=== PATIENT | male | born 1945 | race Caucasian/White ===

== ENCOUNTER 2016-03-27 08:17 | Day surgery (SDC) | payer MEDICARE ==
[2016-03-22 09:33] VITALS: BMI 20.3
[~2016-03-27 08:17] MED LIST: DEXAMETHASONE SOD PHOSPHATE 10 MG/ML 1 ML VIAL IV ONE; HEPARIN SODIUM,PORCINE 5,000 UNIT/ML 1 ML VIAL SQ ONE; LIDOCAINE 1% 20 ML VIAL (10MG/ML) FOR IV START INTRADERMA PRN; ONDANSETRON 4 MG/2 ML VIAL IVP ONE; ceFAZolin 2 GM in SODIUM CHLORIDE 0.9% 100 ML IVPB ONE
[2016-03-27] MEDS: LACTATED RINGERS 1,000 ML IV SCH (09:25)
[2016-03-27] MEDS ORDERED: LIDOCAINE 1% 20 ML VIAL (10MG/ML) FOR IV START INTRADERMA ONE (09:26)
[2016-03-27 09:31] VITALS: RESP 16
--- NOTE | 2016-03-27 10:05 | P.GSHP ---
History of Present Illness H&P Date: 03/27/16 Chief Complaint: Incarcerated right inguinal hernia This a 70-year-old male referred from Dr. Frank. Patient has had a history of a incarcerated inguinal hernia. He presents today for laparoscopic robotic system repair. - Constitutional Constitutional: Reports as per HPI Past Medical History Past Medical History: GERD/Reflux Additional Past Medical History / Comment(s): hernia rt lower abd, states "had Hep B or C back 1959's and now it's all healed" History of Any Multi-Drug Resistant Organisms: None Reported Past Surgical History: Back Surgery Additional Past Surgical History / Comment(s): hemorrhoid Past Anesthesia/Blood Transfusion Reactions: No Reported Reaction Additional Past Anesthesia/Blood Transfusion Reaction / Comment(s): no hx blood transfusion Additional Psychological History / Comment(s): currently under alot of stress, is recently discharge from hospital and at [facility] Smoking Status: Current every day smoker Past Alcohol Use History: None Reported Additional Past Alcohol Use History / Comment(s): started smoking at age 14,<1/ 2ppd Past Drug Use History: None Reported - Past Family History Mother Family Medical History: Cancer Father Family Medical History: Cancer Medications and Allergies Home Medications Medication Instructions Recorded Confirmed Type FLUoxetine HCL [PROzac] 20 mg PO HS 03/22/16 03/22/16 History Ranitidine HCl [Zantac] 150 mg PO BID PRN 03/22/16 03/22/16 History Allergies Allergy/AdvReac Type Severity Reaction Status Date / Time Penicillins Allergy Rash/Hives Verified 03/27/16 08:45 Surgical - Exam Vital Signs Temp Pulse Resp BP Pulse Ox 97.7 F 54 L 16 143/69 99 03/27/16 09:29 03/27/16 09:29 03/27/16 09:29 03/27/16 09:29 03/27/16 09:29 - General well developed, no distress - Eyes PERRL - ENT normal pinna - Neck no masses - Respiratory normal expansion - Cardiovascular Rhythm: regular - Abdomen Abdomen: soft, non tender (Incarcerated right inguinal hernia) Assessment and Plan Plan: Incarcerated right inguinal hernia. We'll perform laparoscopic robotic- assisted repair.
[2016-03-27] MEDS ORDERED: SUCCINYLCHOLINE CHLORIDE 100 MG/5 ML SYR IV ONE (10:27)
[2016-03-27] MEDS ORDERED: MIDAZOLAM 2 MG/2 ML VIAL ONE (10:27)
[2016-03-27] MEDS ORDERED: PROPOFOL 10 MG/ML 20 ML VIAL IV ONE (10:27)
[2016-03-27] MEDS ORDERED: ROCURONIUM BROMIDE 10 MG/ML 10 ML VIAL IV ONE (10:27)
[2016-03-27] MEDS ORDERED: LIDOCAINE 1% INJ 10MG/ML (20 ML MDV) ONE (10:27)
[2016-03-27] MEDS ORDERED: fentaNYL (PF) 50 MCG/ML 2 ML AMP ONE (10:27)
[2016-03-27] MEDS ORDERED: NEOSTIGMINE 1 MG/ML 10 ML VIAL ONE (10:27)
[2016-03-27] MEDS ORDERED: GLYCOPYRROLATE 0.2 MG/ML 2 ML VIAL ONE (10:27)
[2016-03-27] MEDS ORDERED: ePHEDrine 50 MG/ML 1 ML AMP ONE (10:27)
[2016-03-27] MEDS ORDERED: BUPIVACAIN-EPI 0.25%-1:200,000 30 ML VIAL SQ ONE ×2 (10:51)
--- NOTE | 2016-03-27 11:49 | P.OP ---
Date of Procedure: 03/27/16 Preoperative Diagnosis: Incarcerated right inguinal hernia Postoperative Diagnosis: Incarcerated right inguinal hernia Umbilical hernia Procedure(s) Performed: Laparoscopic robotic-assisted repair of incarcerated right inguinal hernia Laparoscopic repair of umbilical hernia Anesthesia: AELX Surgeon: Jay Jay Johnson Estimated Blood Loss (ml): 5 Pathology: none sent Condition: stable Disposition: PACU Description of Procedure: The patient's placed on the operating table in the supine position. The patient received general anesthesia. The patient's abdomen was prepped and draped in usual sterile fashion. The skin was anesthetized 1% local Xylocaine at the incision sites. Patient on palpation was found to have a small umbilical hernia. Using an 11 blade a skin incision was made at the umbilicus. The fascia was grasped with a [place] and then the peritoneal cavity was entered with the Veress needle. Position of the Veress needle was confirmed with a positive drop test. After adequate insufflation a 5 mm trocar was placed into the peritoneal cavity. The Laparoscope was placed the peritoneal cavity. The patient was noted to have a large urinary bladder. He had voided prior to the procedure. However a Mohamud cath was placed and 1400 mL of urine was found in the bladder. And a robotic 8 mm trocar was placed in the right lateral position and then another 8 mm robotic trochars placed in the left lateral position. The original 5 mm trocar was exchanged for a 12 mm trocar. The patient was placed in reverse Trendelenburg and then the patient was docked to the robot. Next the peritoneum over top of the hernia was incised and then using blunt and sharp dissection and electrocautery the hernia sac was dissected free from the floor of the inguinal canal. The hernia sac was completely reduced into the peritoneal cavity. And then using the Pro case finishing machine adjuster mesh the hernia was repaired. The peritoneum was then sutured with 20V lock suture. The patient was then undocked the robot. The needle was withdrawn from the peritoneal cavity. The umbilical hernia site was closed with 0 Ethibond suture. This was closed laparoscopically with the Bigg Longoria suture passer. The skin was closed interrupted 3-0 Monocryl suture. Dermabond dressing was applied. Patient was sent to recovery in stable condition.
[2016-03-27 12:00] VITALS: TEMP 96.8
[2016-03-27] MEDS ORDERED: KETOROLAC 30 MG/ML 1 ML VIAL IVP ONE (12:08)
[2016-03-27] MEDS: HYDROmorphone 1 MG/ML 1 ML SYRINGE IVP PRN ×2 (12:19→12:28)
[2016-03-27] MEDS ORDERED: LACTATED RINGERS 1,000 ML IV ONE ×2 (13:34→16:45)
[2016-03-27] MEDS ORDERED: HYDROcodone/APAP 7.5-325MG 1 EACH TAB PO ONE (14:12)
[2016-03-27 18:23] VITALS: BP 121/70; PULSE 79
== END 2016-03-27 18:08 | disposition home or self-care (01) ==
LOC: OR 08:17
PROVIDERS: ATTEND Surgery
DX: K40.30 Unilateral inguinal hernia, with obstruction, without gangrene, not specified as recurrent (principal); K42.9 Umbilical hernia without obstruction or gangrene; K21.9 Gastro-esophageal reflux disease without esophagitis; F32.9 Major depressive disorder, single episode, unspecified; F17.200 Nicotine dependence, unspecified, uncomplicated; Z79.899 Other long term (current) drug therapy; Z88.0 Allergy status to penicillin
CPT/HCPCS: 49650; 49652; C1781; J2250; J1644; J1100; J2710; J0690; J2001; J3010; J1885; J1170; J0330; J2704

== ENCOUNTER → 2016-04-08 | Outpatient (CLI) | payer OTHER ==
--- NOTE | 2016-04-08 12:11 | FL ---
Esophagram Indication: dysphagia Esophagram is performed utilizing double air contrast technique Esophagus dilates to normal caliber has normal contour to the gastroesophageal junction. Gastroesopha geal junction opens to normal caliber. There is some mild hesitancy of contrast emptying to the gastr oesophageal junction. Focal persistent stenosis however is not identified. IMPRESSIONS: 1. Some hesitancy of emptying into the stomach. Focal stenosis however is not identified.
== END | disposition home or self-care (01) ==
LOC: RADFLWHC 09:25
PROVIDERS: ATTEND Physician Assistant Medical
DX: R13.10 Dysphagia, unspecified (principal)
CPT/HCPCS: 74220

== ENCOUNTER 2016-04-11 10:51 | Emergency (ER) | payer MEDICARE, OTHER ==
[2016-04-11] MEDS ORDERED: SODIUM CHLORIDE 0.9% 500 ML IV STA (12:01)
--- NOTE | 2016-04-11 12:11 | ED ---
General Adult HPI - General Chief complaint: Recheck/Abnormal Lab/Rx Stated complaint: POST OP PROBLEM, CONSTIPATION, NO APPETITE Time Seen by Provider: 04/11/16 11:50 Source: patient, RN notes reviewed, old records reviewed Mode of arrival: wheelchair Limitations: no limitations - History of Present Illness Initial comments: 70-year-old male presenting for constipation and hematuria. Patient states that he had a right inguinal hernia repair about [address] Johnson[address] He states since that time he has not had any bowel movements. He states he's been feeling some abdominal discomfort but no specific pain. He states that the pain in his right groin has been gradually improving. He states over the past few days he's noticed some hematuria when he goes to the bathroom after waking up in the morning. He denies any fevers or chills. He denies any nausea or vomiting. He states he has had depressed appetite, however, since the surgery. He denies any chest pain or shortness breath. - Related Data Home Medications Medication Instructions Recorded Confirmed FLUoxetine HCL [PROzac] 20 mg PO HS 03/22/16 04/11/16 Tamsulosin [Flomax] 0.4 mg PO DAILY 04/11/16 04/11/16 Previous Rx's Medication Instructions Recorded Docusate [Colace] 100 mg PO BID #20 capsule 04/11/16 Sulfamethox-Tmp 800-160Mg [Bactrim 1 each PO Q12HR #14 tab 04/11/16 Ds] Allergies Allergy/AdvReac Type Severity Reaction Status Date / Time Penicillins Allergy Rash/Hives Verified 04/11/16 11:57 Review of Systems ROS Statement: Those systems with pertinent positive or pertinent negative responses have been documented in the HPI. ROS Other: All systems not noted in ROS Statement are negative. Past Medical History Past Medical History: GERD/Reflux Additional Past Medical History / Comment(s): hernia rt lower abd, states "had Hep B or C back 1960's and now it's all healed" History of Any Multi-Drug Resistant Organisms: None Reported Past Surgical History: Back Surgery, Hernia Repair Additional Past Surgical History / Comment(s): hemorrhoid Past Anesthesia/Blood Transfusion Reactions: No Reported Reaction Additional Past Anesthesia/Blood Transfusion Reaction / Comment(s): no hx blood transfusion Past Psychological History: No Psychological Hx Reported Additional Psychological History / Comment(s): currently under alot of stress, is recently discharge from hospital and at [facility] Smoking Status: Current every day smoker Past Alcohol Use History: None Reported Additional Past Alcohol Use History / Comment(s): started smoking at age 14,<1/ 2ppd Past Drug Use History: None Reported - Past Family History Mother Family Medical History: Cancer Father Family Medical History: Cancer General Exam - General Exam Comments Initial Comments: General: Awake and Alert. No acute distress. Does not appear acutely ill. Eyes: JEREMIAH, EOM intact. No nystagmus. No scleral icterus. HENT: Atraumatic, normocephalic. Mucous membranes moist. Trachea midline. Neck: The neck is supple, there is no tenderness or JVD. Cardiovascular: Regular rate and rhythm. No murmur, rub, or gallop is appreciated. Distal pulses intact. Respiratory: Lungs are clear to auscultation bilaterally. No wheezes, rales, rhonchi. No respiratory distress. Gastrointestinal: Soft, Nontender. No rebound or guarding. Mild distension. No masses or organomegaly noted. No CVA tenderness. Well-healed laparoscopic incision sites in the abdomen. Genitourinary: Right groin without swelling. Mild tenderness in the right inguinal area. Penis appears normal. No testicular tenderness. Musculoskeletal: No tenderness. Normal ROM. No gross deformity. No strength deficits. Neurological: A&Ox3. CN II-XII grossly intact, There are no obvious motor or sensory deficits. Coordination appears grossly intact. Speech is normal. Skin: Skin is warm and dry and no rashes or lesions are noted. Psychiatric: Cooperative, appropriate mood & affect, normal judgment. Limitations: no limitations Course Vital Signs 04/11/16 04/11/16 04/11/16 10:57 14:04 15:42 Temperature 98.2 F 98 F 96.9 F L Pulse Rate 88 79 87 Respiratory 20 20 18 Rate Blood Pressure 123/76 134/65 111/73 O2 Sat by Pulse 98 97 95 Oximetry Medical Decision Making - Medical Decision Making 70-year-old male presenting for constipation and urinary complaints. Patient with recent inguinal hernia repair. He appears to be healing well from his prior surgery. There is no evidence of any abdominal tenderness or acute peritonitis at this time. However he has had persistent constipation. He has intermittently tried stool softeners without affect. Basic labs appear unremarkable. Abdominal x-ray does show significant stool load although no evidence of any obstruction at this time. Patient was given an enema with a good bowel movement. He states he is feeling much better after this. Given no evidence of obstruction, plan for treatment with mag citrate as needed. Discussed stool softeners as well to be used twice a day until bowel movements return to normal then when necessary. Urine does show evidence of urinary tract infection, patient was given initial dose of Bactrim the ED. Plan for Rx for Bactrim. Discussed close follow-up with Dr. Johnson. Discussed concerning signs symptoms for immediate return to the ED. Patient is agreeable to plan and discharge home. - Lab Data Result diagrams: 04/11/16 12:20 Lab Results 04/11/16 04/11/16 Range/Units 12:20 12:20 Sodium 139 (137-145) mmol/L Potassium 4.3 (3.5-5.1) mmol/L Chloride 103 (98-107) mmol/L Carbon Dioxide 25 (22-30) mmol/L Anion Gap 11 mmol/L BUN 14 (9-20) mg/dL Creatinine 0.92 (0.66-1.25) mg/dL Est GFR (MDRD) Af Amer >60 (>60 ml/min/1.73 sqM) Est GFR (MDRD) Non-Af >60 (>60 ml/min/1.73 sqM) Glucose 101 H (74-99) mg/dL Calcium 9.5 (8.4-10.2) mg/dL Magnesium 2.3 (1.6-2.3) mg/dL Total Bilirubin 0.6 (0.2-1.3) mg/dL AST 17 (17-59) U/L ALT 34 (21-72) U/L Alkaline Phosphatase 73 (38-126) U/L Total Protein 6.7 (6.3-8.2) g/dL Albumin 3.5 (3.5-5.0) g/dL Lipase 120 (23-300) U/L Urine Color Dark Red Urine Appearance Turbid (Clear) Urine pH 6.5 (5.0-8.0) Ur Specific [place] 1.025 (1.001-1.035) Urine Protein 3+ H (Negative) Urine Glucose (UA) Negative (Negative) Urine Ketones Negative (Negative) Urine Blood Large H (Negative) Urine Nitrate Negative (Negative) Urine Bilirubin Negative (Negative) Urine Urobilinogen <2.0 (<2.0) mg/dL Ur Leukocyte Esterase Large H (Negative) Urine RBC >182 H (0-5) /hpf Urine WBC >182 H (0-5) /hpf Urine Mucus Many H (None) /hpf - Radiology Data Radiology results: report reviewed, image reviewed Disposition Clinical Impression: Constipation, UTI (urinary tract infection) Disposition: HOME SELF-CARE Condition: Stable Instructions: Constipation (ED), Urinary Tract Infection in Men (ED) Prescriptions: Docusate [Colace] 100 mg PO BID #20 capsule Sulfamethox-Tmp 800-160Mg [Bactrim Ds] 1 each PO Q12HR #14 tab Referrals: None,Stated [Primary Care Provider] - 1-2 days Time of Disposition: 15:22 - Out of Hospital Transfer - Req. Specs Out of Hospital Transfer - Requested Specifics: Burn ICU
[2016-04-11 12:55] LABS: ALT 34 U/L (21-72); AST 17 U/L (17-59); Alkaline Phosphatase 73 U/L (38-126); Anion Gap 11 mmol/L; Appearance,Urine Turbid (Clear); Bilirubin,Urine Negative (Negative); Blood Urea Nitrogen 14 mg/dL (9-20); Calcium 9.5 mg/dL (8.4-10.2); Carbon Dioxide 25 mmol/L (22-30); Chloride 103 mmol/L (98-107); Glucose 101 mg/dL (74-99); Glucose,Urine (UA) Negative (Negative); Ketones,Urine Negative (Negative); Leukocyte Esterase,Urine Large (Negative); Magnesium 2.3 mg/dL (1.6-2.3); Mucus,Urine Many /hpf; Nitrite,Urine Negative (Negative); Non-African American GFR(MDRD) >60 (>60 ml/min/1.73 sqM); PH, Urine 6.5 (5.0-8.0); Particle Count 220918; Potassium 4.3 mmol/L (3.5-5.1); Protein,Urine 3+ (Negative); RBC,Urine >182 /hpf (0-5); Sodium 139 mmol/L (137-145); Total Bilirubin 0.6 mg/dL (0.2-1.3); Total Protein 6.7 g/dL (6.3-8.2); UA Billing (MACRO vs. MICRO) MICRO; Urobilinogen,Urine <2.0 mg/dL (<2.0); WBC,Urine >182 /hpf (0-5)
[2016-04-11 13:09] LABS: Specific Gravity,Urine 1.025 (1.001-1.035)
[2016-04-11] MEDS ORDERED: SULFAMETHOX-TMP 800-160MG 1 EACH TAB PO STA (13:26)
--- NOTE | 2016-04-11 13:35 | XR ---
EXAMINATION TYPE: XR KUB DATE OF EXAM: 04/11/2016 1:28 PM COMPARISON: NONE HISTORY: Pain TECHNIQUE: Single supine KUB image of the abdomen is obtained FINDINGS: Small bowel demonstrates no evidence for dilatation or air fluid levels. Gas and fecal material is seen in non-distended colon. Retained contrast is seen within the colon. No convincing evidence for pneumoperitoneum. No unusual calcifications. The lung bases are clear. The osseous structures are intact. IMPRESSION: 1. Overall nonobstructive bowel gas pattern.
[2016-04-11] MEDS ORDERED: MAGNESIUM CITRATE 296 ML BOTTLE PO ONE (14:33)
[2016-04-11 15:42] VITALS: BP 111/73; PULSE 87; RESP 18; TEMP 96.9
== END 2016-04-11 15:42 | disposition home or self-care (01) ==
LOC: EC 10:51
DX: K59.00 Constipation, unspecified (principal); N39.0 Urinary tract infection, site not specified; Z98.890 Other specified postprocedural states; K21.9 Gastro-esophageal reflux disease without esophagitis; Z79.899 Other long term (current) drug therapy; Z88.0 Allergy status to penicillin; F17.200 Nicotine dependence, unspecified, uncomplicated
CPT/HCPCS: 36415; 74000; 80053; 81001; 83690; 83735; 96360; 99283

== ENCOUNTER 2017-07-11 20:00 | Emergency (ER) | payer MEDICARE, OTHER ==
[2017-07-11] MEDS ORDERED: ONDANSETRON 4 MG/2 ML VIAL IVP STA (20:53)
[2017-07-11] MEDS ORDERED: FAMOTIDINE 20 MG/2 ML VIAL IV STA (20:53)
[2017-07-11] MEDS ORDERED: SODIUM CHLORIDE 0.9% 500 ML IV STA (20:53)
--- NOTE | 2017-07-11 20:55 | ED ---
General Adult HPI - General Chief complaint: Nausea/Vomiting/Diarrhea Stated complaint: Vomiting Time Seen by Provider: 07/11/17 20:32 Source: patient, family, RN notes reviewed Mode of arrival: wheelchair Limitations: no limitations - History of Present Illness Initial comments: Patient is a pleasant 72-year-old male presenting to the emergency Department with complaints of nausea and vomiting. Patient has not felt well for the past couple of days. Patient started vomiting around 45 this afternoon. Patient has been somewhat constipated recently. No diarrhea. No abdominal pain. No fevers. This is not a chronic problem for the patient. - Related Data Home Medications Medication Instructions Recorded Confirmed Magnesium 200 mg PO DAILY 07/11/17 07/11/17 Previous Rx's Medication Instructions Recorded Ondansetron Odt [Zofran Odt] 4 mg PO Q8HR PRN #10 tab 07/11/17 Sulfamethox-Tmp 800-160Mg [Bactrim 1 each PO Q12HR #20 tab 07/11/17 DS 800-160 mg] Allergies Allergy/AdvReac Type Severity Reaction Status Date / Time Penicillins Allergy Rash/Hives Verified 07/11/17 20:16 Review of Systems ROS Statement: Those systems with pertinent positive or pertinent negative responses have been documented in the HPI. ROS Other: All systems not noted in ROS Statement are negative. Constitutional: Denies: fever, chills Eyes: Denies: eye pain ENT: Denies: ear pain Respiratory: Denies: cough, dyspnea Cardiovascular: Denies: chest pain, palpitations Endocrine: Reports: fatigue Gastrointestinal: Reports: nausea, vomiting. Denies: abdominal pain Genitourinary: Denies: dysuria Musculoskeletal: Denies: back pain Skin: Denies: rash Neurological: Denies: weakness Past Medical History Past Medical History: GERD/Reflux Additional Past Medical History / Comment(s): hernia rt lower abd, states "had Hep B or C back 1960's and now it's all healed" History of Any Multi-Drug Resistant Organisms: None Reported Past Surgical History: Back Surgery, Hernia Repair Additional Past Surgical History / Comment(s): hemorrhoid Past Anesthesia/Blood Transfusion Reactions: No Reported Reaction Additional Past Anesthesia/Blood Transfusion Reaction / Comment(s): no hx blood transfusion Past Psychological History: No Psychological Hx Reported Smoking Status: Current every day smoker Past Alcohol Use History: None Reported Past Drug Use History: None Reported - Past Family History Mother Family Medical History: Cancer Father Family Medical History: Cancer General Exam Limitations: no limitations General appearance: alert, in no apparent distress Head exam: Present: atraumatic Eye exam: Present: normal appearance ENT exam: Present: normal oropharynx Neck exam: Present: normal inspection Respiratory exam: Present: normal lung sounds bilaterally Cardiovascular Exam: Present: regular rate, normal rhythm GI/Abdominal exam: Present: soft, normal bowel sounds. Absent: distended, tenderness, guarding, rebound, rigid, pulsatile mass Extremities exam: Present: normal inspection Neurological exam: Present: alert Psychiatric exam: Present: normal affect, normal mood Skin exam: Present: normal color Course Vital Signs 07/11/17 07/11/17 07/11/17 20:02 20:04 21:04 Temperature 98.6 F Pulse Rate 72 81 78 Respiratory 18 18 18 Rate Blood Pressure 121/77 135/63 123/73 O2 Sat by Pulse 97 97 97 Oximetry 07/11/17 22:00 Temperature Pulse Rate 69 Respiratory 18 Rate Blood Pressure 103/62 O2 Sat by Pulse 97 Oximetry Medical Decision Making - Medical Decision Making Patient reevaluated and resting comfortably in bed. Patient and family updated on results. Patient is requesting discharge home. - Lab Data Result diagrams: 07/11/17 20:25 07/11/17 20:25 Lab Results 07/11/17 07/11/17 07/11/17 Range/Units 20:25 20:25 20:25 WBC 10.7 H (3.8-10.6) k/uL RBC 5.37 (4.30-5.90) m/uL Hgb 15.9 (13.0-17.5) gm/dL Hct 46.4 (39.0-53.0) % MCV 86.3 (80.0-100.0) fL MCH 29.5 (25.0-35.0) pg MCHC 34.2 (31.0-37.0) g/dL RDW 12.4 (11.5-15.5) % Plt Count 219 (150-450) k/uL Neutrophils % 94 % Lymphocytes % 3 % Monocytes % 2 % Eosinophils % 1 % Basophils % 0 % Neutrophils # 10.0 H (1.3-7.7) k/uL Lymphocytes # 0.3 L (1.0-4.8) k/uL Monocytes # 0.2 (0-1.0) k/uL Eosinophils # 0.1 (0-0.7) k/uL Basophils # 0.0 (0-0.2) k/uL Sodium 140 (137-145) mmol/L Potassium 4.5 (3.5-5.1) mmol/L Chloride 101 (98-107) mmol/L Carbon Dioxide 26 (22-30) mmol/L Anion Gap 13 mmol/L BUN 18 (9-20) mg/dL Creatinine 0.95 (0.66-1.25) mg/dL Est GFR (CKD-EPI)AfAm >90 (>60 ml/min/1.73 sqM) Est GFR (CKD-EPI)NonAf 80 (>60 ml/min/1.73 sqM) Glucose 124 H (74-99) mg/dL Calcium 9.5 (8.4-10.2) mg/dL Total Bilirubin 0.7 (0.2-1.3) mg/dL AST 21 (17-59) U/L ALT 22 (21-72) U/L Alkaline Phosphatase 85 (38-126) U/L Total Protein 7.3 (6.3-8.2) g/dL Albumin 4.3 (3.5-5.0) g/dL Amylase 60 (30-110) U/L Lipase 98 (23-300) U/L Urine Color Light Red Urine Appearance Turbid (Clear) Urine pH 7.0 (5.0-8.0) Ur Specific [place] 1.022 (1.001-1.035) Urine Protein 2+ H (Negative) Urine Glucose (UA) Negative (Negative) Urine Ketones 1+ H (Negative) Urine Blood Moderate H (Negative) Urine Nitrite Positive (Negative) Urine Bilirubin Negative (Negative) Urine Urobilinogen <2.0 (<2.0) mg/dL Ur Leukocyte Esterase Large H (Negative) Urine RBC 133 H (0-5) /hpf Urine WBC >182 H (0-5) /hpf Ur Squamous Epith Cells 1 (0-4) /hpf Urine Bacteria Rare H (None) /hpf Urine Mucus Few H (None) /hpf Urine Yeast (Budding) Many H (None) /hpf - Radiology Data Radiology results: image reviewed (Abdominal x-ray shows no acute abnormality.) Disposition Clinical Impression: Vomiting, Urinary tract infection Disposition: HOME SELF-CARE Condition: Stable Instructions: Acute Nausea and Vomiting (ED), Urinary Tract Infection in Men ( ED) Additional Instructions: Please follow-up with your primary care physician in the next day or 2 for recheck. Please have your doctor review urine culture results. Return for vomiting, weakness, fevers, worsening symptoms or other concerns. Prescriptions: Ondansetron Odt [Zofran Odt] 4 mg PO Q8HR PRN #10 tab PRN Reason: Nausea Sulfamethox-Tmp 800-160Mg [Bactrim DS 800-160 mg] 1 each PO Q12HR #20 tab Is patient prescribed a controlled substance at d/c from ED?: No Referrals: [facility],Clinic [Primary Care Provider] - 1-2 days Time of Disposition: 22:43
[2017-07-11 21:05] LABS: Basophils % (A) 0 %; Eosinophils # (A) 0.1 k/uL (0-0.7); Eosinophils % (A) 1 %; HCT 46.4 % (39.0-53.0); HGB 15.9 gm/dL (13.0-17.5); Lymphocytes # (A) 0.3 k/uL (1.0-4.8); Lymphocytes % (A) 3 %; MCH 29.5 pg (25.0-35.0); MCHC 34.2 g/dL (31.0-37.0); MCV 86.3 fL (80.0-100.0); Mean Platelet Volume 7.3; Monocytes # (A) 0.2 k/uL (0-1.0); Monocytes % (A) 2 %; Neutrophils % (A) 94 %; Platelet Count 219 k/uL (150-450); RBC 5.37 m/uL (4.30-5.90); RDW 12.4 % (11.5-15.5); WBC 10.7 k/uL (3.8-10.6)
[2017-07-11 21:19] LABS: ALT 22 U/L (21-72); AST 21 U/L (17-59); Albumin 4.3 g/dL (3.5-5.0); Alkaline Phosphatase 85 U/L (38-126); Amylase 60 U/L (30-110); Anion Gap 13 mmol/L; Blood Urea Nitrogen 18 mg/dL (9-20); Calcium 9.5 mg/dL (8.4-10.2); Carbon Dioxide 26 mmol/L (22-30); Chloride 101 mmol/L (98-107); Glucose 124 mg/dL (74-99); Lipase 98 U/L (23-300); Potassium 4.5 mmol/L (3.5-5.1); Sodium 140 mmol/L (137-145); Total Bilirubin 0.7 mg/dL (0.2-1.3); Total Protein 7.3 g/dL (6.3-8.2)
[2017-07-11 21:21] LABS: Appearance,Urine Turbid (Clear); Bacteria,Urine Rare /hpf; Bilirubin,Urine Negative (Negative); Blood,Urine Moderate (Negative); Budding Yeast,Urine Many /hpf; Color,Urine Light Red; Glucose,Urine (UA) Negative (Negative); Ketones,Urine 1+ (Negative); Leukocyte Esterase,Urine Large (Negative); Mucus,Urine Few /hpf; Nitrite,Urine Positive (Negative); Protein,Urine 2+ (Negative); RBC,Urine 133 /hpf (0-5); Specific Gravity,Urine 1.022 (1.001-1.035); Squamous Epithelial Cell,Urine 1 /hpf (0-4); Urobilinogen,Urine <2.0 mg/dL (<2.0); WBC,Urine >182 /hpf (0-5)
--- NOTE | 2017-07-11 21:23 | XR ---
History nausea and vomiting. Comparison 04/11/2016. Technique 2 views. FINDINGS: Bowel gas pattern is normal. There is no sign of intestinal obstruction or pneumoperitoneum. Fecal pa ttern is normal. Lung bases are clear. There are no pathologic calcifications. There is no evidence o f a mass. CONCLUSION: Nonacute abdomen. No change.
[2017-07-11] MEDS ORDERED: SULFAMETHOX-TMP 800-160MG 1 EACH TAB PO STA (22:40)
[2017-07-11 22:52] VITALS: BP 104/69; PULSE 78; RESP 20; TEMP 98.7
== END 2017-07-11 22:52 | disposition home or self-care (01) ==
LOC: EC 20:00
DX: N39.0 Urinary tract infection, site not specified (principal); R11.10 Vomiting, unspecified; K59.00 Constipation, unspecified; F17.200 Nicotine dependence, unspecified, uncomplicated; Z79.899 Other long term (current) drug therapy; Z88.0 Allergy status to penicillin
CPT/HCPCS: 36415; 80053; 82150; 83690; 85025; 81001; 74018; 99284; 96374; 96375; 96361 ×2; J2405

== ENCOUNTER 2017-07-15 15:09 | Emergency (ER) | payer MEDICARE, OTHER ==
[2017-07-15] MEDS ORDERED: SODIUM CHLORIDE 0.9% 1,000 ML IV STA (17:18)
--- NOTE | 2017-07-15 17:23 | ED ---
General Adult HPI - General Chief complaint: Abdominal Pain Stated complaint: Constipation Time Seen by Provider: 07/15/17 17:10 Source: patient, RN notes reviewed Mode of arrival: ambulatory Limitations: no limitations - History of Present Illness Initial comments: 72-year-old male presented to the emergency room today with chief complaint of abdominal pain off and on over the last 5 days. Patient does admit that he had a small bowel movement 5 days ago but is unable to have foam since. States he believes he is constipated. States had from similar to this in the past where he needed to have an enema. Does admit that he has urinary catheter because he had some retention and is fussy urology tomorrow have it possibly taken out. Patient denies any other complaints or symptoms currently. Patient denies any recent fever, chills, shortness of breath, chest pain, back pain, nausea or vomiting, numbness or tingling, dysuria or hematuria, diarrhea, headaches or visual changes, or any other complaints. - Related Data Home Medications Medication Instructions Recorded Confirmed Magnesium 200 mg PO DAILY 07/11/17 07/15/17 Sulfamethox-Tmp 800-160Mg [Bactrim 1 tab PO Q12HR 07/15/17 07/15/17 DS 800-160 mg] Previous Rx's Medication Instructions Recorded Ondansetron Odt [Zofran Odt] 4 mg PO Q8HR PRN #10 tab 07/11/17 Allergies Allergy/AdvReac Type Severity Reaction Status Date / Time Penicillins Allergy Rash/Hives Verified 07/15/17 16:59 Review of Systems ROS Statement: Those systems with pertinent positive or pertinent negative responses have been documented in the HPI. ROS Other: All systems not noted in ROS Statement are negative. Past Medical History Past Medical History: GERD/Reflux Additional Past Medical History / Comment(s): hernia rt lower abd, states "had Hep B or C back 1960's and now it's all healed", uti History of Any Multi-Drug Resistant Organisms: None Reported Past Surgical History: Back Surgery, Hernia Repair Additional Past Surgical History / Comment(s): hemorrhoid Past Anesthesia/Blood Transfusion Reactions: No Reported Reaction Additional Past Anesthesia/Blood Transfusion Reaction / Comment(s): no hx blood transfusion Past Psychological History: No Psychological Hx Reported Smoking Status: Current every day smoker Past Alcohol Use History: None Reported Past Drug Use History: None Reported - Past Family History Mother Family Medical History: Cancer Father Family Medical History: Cancer General Exam - General Exam Comments Initial Comments: General: The patient is awake and alert, in no distress, and does not appear acutely ill. Eye: Pupils are equal, round and reactive to light, extra-ocular movements are intact. No nystagmus. There is normal conjunctiva bilaterally. No signs of icterus. Ears, nose, mouth and throat: There are moist mucous membranes and no oral lesions. Neck: The neck is supple, there is no tenderness or JVD. Cardiovascular: There is a regular rate and rhythm. No murmur, rub or gallop is appreciated. Respiratory: Lungs are clear to auscultation, respirations are non-labored, breath sounds are equal. No wheezes, stridor, rales, or rhonchi. Gastrointestinal: Soft, non-distended, non-tender abdomen without masses or organomegaly noted. There is no rebound or guarding present. No CVA tenderness. Musculoskeletal: Normal ROM, no tenderness. Strength 5/5. Sensation intact. Pulses equal bilaterally 2+. Neurological: A&O x 3. CN II-XII intact, There are no obvious motor or sensory deficits. Coordination appears grossly intact. Speech is normal. Skin: Skin is warm and dry and no rashes or lesions are noted. Psychiatric: Cooperative, appropriate mood & affect, normal judgment. Limitations: no limitations Course Vital Signs 07/15/17 15:15 Temperature 98 F Pulse Rate 89 Respiratory 18 Rate Blood Pressure 112/76 O2 Sat by Pulse 97 Oximetry Medical Decision Making - Medical Decision Making Patient reexamined at this time shows no signs of distress. He does not that he is feeling much better here in the emergency room. His x-ray was reviewed no sign of obstruction. Patient was given enema here the emergency room. He was able to have a bowel movement. Patient's urinalysis does show a infection. Was compared to previous lab on 07/11/2017 and does show improvement. He does have an indwelling catheter that he supposed to see urology with tomorrow. Patient currently on Bactrim. This should be improvement was no culture at this time we'll continue patient on Bactrim he will follow up with urologist tomorrow. Advised return for any other concerns. - Lab Data Result diagrams: 07/15/17 18:17 07/15/17 18:17 Lab Results 07/15/17 07/15/17 07/15/17 Range/Units 18:17 18:17 18:17 WBC 4.2 (3.8-10.6) k/uL RBC 4.83 (4.30-5.90) m/uL Hgb 14.2 (13.0-17.5) gm/dL Hct 41.1 (39.0-53.0) % MCV 85.1 (80.0-100.0) fL MCH 29.4 (25.0-35.0) pg MCHC 34.6 (31.0-37.0) g/dL RDW 12.7 (11.5-15.5) % Plt Count 225 (150-450) k/uL Neutrophils % 58 % Lymphocytes % 32 % Monocytes % 5 % Eosinophils % 2 % Basophils % 1 % Neutrophils # 2.5 (1.3-7.7) k/uL Lymphocytes # 1.4 (1.0-4.8) k/uL Monocytes # 0.2 (0-1.0) k/uL Eosinophils # 0.1 (0-0.7) k/uL Basophils # 0.0 (0-0.2) k/uL Sodium 139 (137-145) mmol/L Potassium 4.4 (3.5-5.1) mmol/L Chloride 106 (98-107) mmol/L Carbon Dioxide 23 (22-30) mmol/L Anion Gap 10 mmol/L BUN 11 (9-20) mg/dL Creatinine 1.12 (0.66-1.25) mg/dL Est GFR (CKD-EPI)AfAm 75 (>60 ml/min/1.73 sqM) Est GFR (CKD-EPI)NonAf 65 (>60 ml/min/1.73 sqM) Glucose 92 (74-99) mg/dL Calcium 9.1 (8.4-10.2) mg/dL Total Bilirubin 0.3 (0.2-1.3) mg/dL AST 17 (17-59) U/L ALT 21 (21-72) U/L Alkaline Phosphatase 67 (38-126) U/L Total Protein 6.3 (6.3-8.2) g/dL Albumin 3.7 (3.5-5.0) g/dL Amylase 64 (30-110) U/L Lipase 116 (23-300) U/L Urine Color Yellow Urine Appearance Cloudy (Clear) Urine pH 6.0 (5.0-8.0) Ur Specific [place] 1.020 (1.001-1.035) Urine Protein 1+ H (Negative) Urine Glucose (UA) Negative (Negative) Urine Ketones Trace H (Negative) Urine Blood Moderate H (Negative) Urine Nitrite Negative (Negative) Urine Bilirubin Negative (Negative) Urine Urobilinogen <2.0 (<2.0) mg/dL Ur Leukocyte Esterase Large H (Negative) Urine RBC 86 H (0-5) /hpf Urine WBC 129 H (0-5) /hpf Ur Squamous Epith Cells <1 (0-4) /hpf Amorphous Sediment Rare H (None) /hpf Urine Bacteria Rare H (None) /hpf Urine Mucus Rare H (None) /hpf Disposition Clinical Impression: UTI (urinary tract infection), Constipation Disposition: HOME SELF-CARE Condition: Good Instructions: Constipation (ED) Additional Instructions: Please follow-up urologist tomorrow. Please continue previous to prescribed antibiotic. Please return to emergency room for any other concerns. Is patient prescribed a controlled substance at d/c from ED?: No Referrals: [facility],Clinic [Primary Care Provider] - 1-2 days Time of Disposition: 20:14
--- NOTE | 2017-07-15 17:53 | XR ---
EXAMINATION TYPE: XR KUB DATE OF EXAM: 07/15/2017 COMPARISON: NONE HISTORY: Pain TECHNIQUE: Single supine KUB image of the abdomen is obtained FINDINGS: Small bowel demonstrates no evidence for dilatation or air fluid levels. Gas and fecal material is seen in non-distended colon. No convincing evidence for pneumoperitoneum. No unusual calcifications. The lung bases are clear. The osseous structures are intact. IMPRESSION: 1. Overall nonobstructive bowel gas pattern.
[2017-07-15 18:30] LABS: Basophils % (A) 1 %; Eosinophils # (A) 0.1 k/uL (0-0.7); Eosinophils % (A) 2 %; HCT 41.1 % (39.0-53.0); HGB 14.2 gm/dL (13.0-17.5); Lymphocytes # (A) 1.4 k/uL (1.0-4.8); Lymphocytes % (A) 32 %; MCH 29.4 pg (25.0-35.0); MCHC 34.6 g/dL (31.0-37.0); MCV 85.1 fL (80.0-100.0); Mean Platelet Volume 7.9; Monocytes # (A) 0.2 k/uL (0-1.0); Monocytes % (A) 5 %; Neutrophils # (A) 2.5 k/uL (1.3-7.7); Neutrophils % (A) 58 %; Platelet Count 225 k/uL (150-450); RBC 4.83 m/uL (4.30-5.90); RDW 12.7 % (11.5-15.5); WBC 4.2 k/uL (3.8-10.6)
[2017-07-15 18:40] LABS: Albumin 3.7 g/dL (3.5-5.0); Calcium 9.1 mg/dL (8.4-10.2); Potassium 4.4 mmol/L (3.5-5.1); Total Bilirubin 0.3 mg/dL (0.2-1.3); Total Protein 6.3 g/dL (6.3-8.2)
[2017-07-15 18:54] LABS: Amorphous Sediment,Urine Rare /hpf; Appearance,Urine Cloudy (Clear); Bacteria,Urine Rare /hpf; Bilirubin,Urine Negative (Negative); Blood,Urine Moderate (Negative); Color,Urine Yellow; Glucose,Urine (UA) Negative (Negative); Ketones,Urine Trace (Negative); Leukocyte Esterase,Urine Large (Negative); Mucus,Urine Rare /hpf; Nitrite,Urine Negative (Negative); Protein,Urine 1+ (Negative); RBC,Urine 86 /hpf (0-5); Squamous Epithelial Cell,Urine <1 /hpf (0-4); Urobilinogen,Urine <2.0 mg/dL (<2.0); WBC,Urine 129 /hpf (0-5)
[2017-07-15] MEDS ORDERED: DOCUSATE 100 MG CAP PO STA (19:12)
[2017-07-15] MEDS ORDERED: MAGNESIUM CITRATE 296 ML BOTTLE PO ONE (19:12)
[2017-07-15 20:28] VITALS: BP 120/80; PULSE 92; RESP 16; TEMP 98.6
== END 2017-07-15 20:25 | disposition home or self-care (01) ==
LOC: EC 15:09
DX: N39.0 Urinary tract infection, site not specified (principal); K59.00 Constipation, unspecified; F17.200 Nicotine dependence, unspecified, uncomplicated; Z86.19 Personal history of other infectious and parasitic diseases; Z88.0 Allergy status to penicillin; Z79.899 Other long term (current) drug therapy; Z98.890 Other specified postprocedural states
CPT/HCPCS: 36415; 74018; 80053; 81001; 82150; 83690; 85025; 87086; 96360; 99284

== ENCOUNTER 2018-01-13 15:19 | Emergency (ER) | payer OTHER ==
[2018-01-13] MEDS ORDERED: SODIUM CHLORIDE 0.9% 1,000 ML IV STA (16:16)
[2018-01-13] MEDS ORDERED: SODIUM CHLORIDE 0.9% 500 ML 500 ML IV STA (16:16)
--- NOTE | 2018-01-13 16:19 | ED ---
Nausea/Vomiting/Diarrhea HPI - General Chief complaint: Nausea/Vomiting/Diarrhea Stated complaint: bowel problems Time Seen by Provider: 01/13/18 16:06 Source: patient, RN notes reviewed Mode of arrival: ambulatory Limitations: no limitations - History of Present Illness Initial comments: This is a 72-year-old male who states he had the onset this morning of after waking up of diarrhea. He states was very loose stools and frequent episodes he now has urgency but has not been passing any stool he did have this some nausea vomiting but none at this time. He has some mild abdominal pain mid epigastric and midabdominal somewhat dull in nature. He has no prior history of abdominal surgeries. He states he is a tuna melt last night and is unsure whether this is the reason the symptoms are recurring. He denies a fevers chills nausea vomiting sweats no chest pain shortness of breath no lightheadedness or dizziness. He states he is able to keep some fluids down today. No other complaints or modifying factors at this time he does have a chronic indwelling Mohamud catheter he states his urine does not look any different than usual. He's had this for about a year and a half he gets changed every month. MD complaint: nausea, vomiting, diarrhea, abdominal pain - Related Data Home Medications Medication Instructions Recorded Confirmed HYDROcodone/APAP 7.5-325MG [[place] 1 tab PO Q6HR PRN 01/13/18 01/13/18 7.5-325] Sertraline HCl [Zoloft] 50 mg PO DAILY 01/13/18 01/13/18 Tamsulosin HCl [Flomax] 0.4 mg PO DAILY 01/13/18 01/13/18 Previous Rx's Medication Instructions Recorded Cephalexin [Keflex] 250 mg PO Q6HR #40 cap 01/13/18 Phenazopyridine HCl [Pyridium] 100 mg PO TID #15 tab 01/13/18 Allergies Allergy/AdvReac Type Severity Reaction Status Date / Time Penicillins Allergy Rash/Hives Verified 01/13/18 16:14 Review of Systems ROS Statement: Those systems with pertinent positive or pertinent negative responses have been documented in the HPI. ROS Other: All systems not noted in ROS Statement are negative. Past Medical History Past Medical History: GERD/Reflux Additional Past Medical History / Comment(s): hernia rt lower abd, states "had Hep B or C back 1960's and now it's all healed", uti History of Any Multi-Drug Resistant Organisms: None Reported Past Surgical History: Back Surgery, Hernia Repair Additional Past Surgical History / Comment(s): hemorrhoid Past Anesthesia/Blood Transfusion Reactions: No Reported Reaction Additional Past Anesthesia/Blood Transfusion Reaction / Comment(s): no hx blood transfusion Past Psychological History: No Psychological Hx Reported Smoking Status: Current every day smoker Past Alcohol Use History: None Reported Past Drug Use History: None Reported - Past Family History Mother Family Medical History: Cancer Father Family Medical History: Cancer General Exam - General Exam Comments Initial Comments: This is a well-developed well-nourished awake alert oriented 3 male Limitations: no limitations General appearance: alert, in no apparent distress Head exam: Present: atraumatic, normocephalic, normal inspection Eye exam: Present: normal appearance, PERRL, EOMI. Absent: scleral icterus, conjunctival injection, periorbital swelling ENT exam: Present: normal exam, mucous membranes moist Neck exam: Present: normal inspection. Absent: tenderness, meningismus, lymphadenopathy Respiratory exam: Present: normal lung sounds bilaterally. Absent: respiratory distress, wheezes, rales, rhonchi, stridor Cardiovascular Exam: Present: regular rate, normal rhythm, normal heart sounds. Absent: systolic murmur, diastolic murmur, rubs, gallop, clicks GI/Abdominal exam: Present: soft, tenderness (Mild midabdominal tenderness and some left of midline tenderness no guarding rebound masses or bruits), normal bowel sounds. Absent: distended, guarding, rebound, rigid Rectal exam: Present: deferred exam: Present: other (Mohamud catheter present) Extremities exam: Present: normal inspection, full ROM, normal capillary refill. Absent: tenderness, pedal edema, joint swelling, calf tenderness Back exam: Present: normal inspection Neurological exam: Present: alert, oriented X3, CN II-XII intact Psychiatric exam: Present: normal affect, normal mood Skin exam: Present: warm, dry, intact, normal color. Absent: rash Course Vital Signs 01/13/18 15:40 Temperature 97.4 F L Pulse Rate 75 Respiratory 16 Rate Blood Pressure 144/79 O2 Sat by Pulse 98 Oximetry Medical Decision Making - Medical Decision Making I did discuss findings with the patient is feeling improved he does have evidence of a UTI he'll be discharged the diarrhea secondary likely to the food consumed yesterday. - Lab Data Result diagrams: 01/13/18 16:37 01/13/18 16:37 Lab Results 01/13/18 01/13/18 01/13/18 Range/Units 16:37 16:37 16:37 WBC 8.5 (3.8-10.6) k/uL RBC 4.92 (4.30-5.90) m/uL Hgb 15.2 (13.0-17.5) gm/dL Hct 43.9 (39.0-53.0) % MCV 89.1 (80.0-100.0) fL MCH 31.0 (25.0-35.0) pg MCHC 34.7 (31.0-37.0) g/dL RDW 12.7 (11.5-15.5) % Plt Count 218 (150-450) k/uL Neutrophils % 78 % Lymphocytes % 14 % Monocytes % 5 % Eosinophils % 2 % Basophils % 1 % Neutrophils # 6.6 (1.3-7.7) k/uL Lymphocytes # 1.2 (1.0-4.8) k/uL Monocytes # 0.4 (0-1.0) k/uL Eosinophils # 0.2 (0-0.7) k/uL Basophils # 0.0 (0-0.2) k/uL Sodium 139 (137-145) mmol/L Potassium 4.3 (3.5-5.1) mmol/L Chloride 106 (98-107) mmol/L Carbon Dioxide 25 (22-30) mmol/L Anion Gap 8 mmol/L BUN 14 (9-20) mg/dL Creatinine 0.91 (0.66-1.25) mg/dL Est GFR (CKD-EPI)AfAm >90 (>60 ml/min/1.73 sqM) Est GFR (CKD-EPI)NonAf 83 (>60 ml/min/1.73 sqM) Glucose 103 H (74-99) mg/dL Calcium 9.7 (8.4-10.2) mg/dL Total Bilirubin 0.5 (0.2-1.3) mg/dL AST 19 (17-59) U/L ALT 24 (21-72) U/L Alkaline Phosphatase 68 (38-126) U/L Total Protein 7.5 (6.3-8.2) g/dL Albumin 4.1 (3.5-5.0) g/dL Amylase 50 (30-110) U/L Lipase 129 (23-300) U/L Urine Color Yellow Urine Appearance Turbid (Clear) Urine pH 8.0 (5.0-8.0) Ur Specific [place] 1.015 (1.001-1.035) Urine Protein 1+ H (Negative) Urine Glucose (UA) Negative (Negative) Urine Ketones Negative (Negative) Urine Blood Trace H (Negative) Urine Nitrite Positive (Negative) Urine Bilirubin Negative (Negative) Urine Urobilinogen <2.0 (<2.0) mg/dL Ur Leukocyte Esterase Large H (Negative) Urine RBC 28 H (0-5) /hpf Urine WBC 41 H (0-5) /hpf Amorphous Sediment Rare H (None) /hpf Urine Bacteria Many H (None) /hpf Disposition Clinical Impression: Food poisoning, Enteritis, Urinary tract infection, Mohamud catheter in place Disposition: HOME SELF-CARE Condition: Good Instructions: Acute Diarrhea (ED), Food Poisoning (ED), Urinary Tract Infection in Men (ED), Catheter-associated Urinary Tract Infection (ED) Prescriptions: Cephalexin [Keflex] 250 mg PO Q6HR #40 cap Phenazopyridine HCl [Pyridium] 100 mg PO TID #15 tab Is patient prescribed a controlled substance at d/c from ED?: No Referrals: [facility],Clinic [Primary Care Provider] - 1-2 days
[2018-01-13 16:53] LABS: Basophils % (A) 1 %; Eosinophils # (A) 0.2 k/uL (0-0.7); Eosinophils % (A) 2 %; HCT 43.9 % (39.0-53.0); HGB 15.2 gm/dL (13.0-17.5); Lymphocytes # (A) 1.2 k/uL (1.0-4.8); Lymphocytes % (A) 14 %; MCHC 34.7 g/dL (31.0-37.0); MCV 89.1 fL (80.0-100.0); Mean Platelet Volume 7.6; Monocytes # (A) 0.4 k/uL (0-1.0); Monocytes % (A) 5 %; Neutrophils # (A) 6.6 k/uL (1.3-7.7); Neutrophils % (A) 78 %; Platelet Count 218 k/uL (150-450); RBC 4.92 m/uL (4.30-5.90); RDW 12.7 % (11.5-15.5); WBC 8.5 k/uL (3.8-10.6)
[2018-01-13 16:59] LABS: ALT 24 U/L (21-72); AST 19 U/L (17-59); Albumin 4.1 g/dL (3.5-5.0); Alkaline Phosphatase 68 U/L (38-126); Amylase 50 U/L (30-110); Anion Gap 8 mmol/L; Blood Urea Nitrogen 14 mg/dL (9-20); Calcium 9.7 mg/dL (8.4-10.2); Carbon Dioxide 25 mmol/L (22-30); Chloride 106 mmol/L (98-107); Glucose 103 mg/dL (74-99); Lipase 129 U/L (23-300); Potassium 4.3 mmol/L (3.5-5.1); Sodium 139 mmol/L (137-145); Total Bilirubin 0.5 mg/dL (0.2-1.3); Total Protein 7.5 g/dL (6.3-8.2)
[2018-01-13 17:11] LABS: Amorphous Sediment,Urine Rare /hpf; Appearance,Urine Turbid (Clear); Bacteria,Urine Many /hpf; Bilirubin,Urine Negative (Negative); Blood,Urine Trace (Negative); Color,Urine Yellow; Glucose,Urine (UA) Negative (Negative); Ketones,Urine Negative (Negative); Leukocyte Esterase,Urine Large (Negative); Nitrite,Urine Positive (Negative); Protein,Urine 1+ (Negative); RBC,Urine 28 /hpf (0-5); Specific Gravity,Urine 1.015 (1.001-1.035); Urobilinogen,Urine <2.0 mg/dL (<2.0); WBC,Urine 41 /hpf (0-5)
--- NOTE | 2018-01-13 17:34 | XR ---
EXAMINATION TYPE: XR KUB DATE OF EXAM: 01/13/2018 5:15 PM CLINICAL HISTORY: Abdominal pain with diarrhea today. TECHNIQUE: Two Upright KUB images of the abdomen are obtained. COMPARISON: Abdominal x-ray July 15, 2017. FINDINGS: Scattered gas is seen in non-distended stomach and small bowel loops. Gas and fecal materia l is seen in non-distended colon. There is no visceromegaly, pneumoperitoneum, or abnormal calcificat ion appreciated. The lung bases are clear and the osseous structures are intact. IMPRESSION: Overall nonobstructive bowel gas pattern. No significant change from prior.
[2018-01-13 18:57] VITALS: BP 136/80; PULSE 65; RESP 20; TEMP 97.9
== END 2018-01-13 18:56 | disposition home or self-care (01) ==
LOC: EC 15:19
DX: A05.9 Bacterial foodborne intoxication, unspecified (principal); K52.9 Noninfective gastroenteritis and colitis, unspecified; N39.0 Urinary tract infection, site not specified; F17.200 Nicotine dependence, unspecified, uncomplicated; Z88.0 Allergy status to penicillin; Z79.899 Other long term (current) drug therapy; Z96.0 Presence of urogenital implants
CPT/HCPCS: 36415; 74018; 80053; 81001; 82150; 83690; 85025; 96360; 96361; 99284

== ENCOUNTER 2018-01-15 18:02 | Emergency (ER) | payer OTHER ==
[2018-01-15 18:07] VITALS: TEMP 99.1
[2018-01-15] MEDS ORDERED: ONDANSETRON 4 MG/2 ML VIAL IVP STA (19:02)
[2018-01-15] MEDS ORDERED: SODIUM CHLORIDE 0.9% 500 ML 500 ML IV STA (19:02)
[2018-01-15] MEDS ORDERED: MORPHINE SULFATE 2 MG/ML SYRINGE IVP STA (19:02)
--- NOTE | 2018-01-15 19:08 | ED ---
General Adult HPI - General Chief complaint: Nausea/Vomiting/Diarrhea Stated complaint: vomiting Time Seen by Provider: 01/15/18 18:51 Source: patient Mode of arrival: ambulatory Limitations: no limitations - History of Present Illness Initial comments: 72-year-old male patient presents to the emergency department today for complaints of lower abdominal pain. Patient states that he was seen and evaluated here for constipation and was discharged with diagnosis of urinary tract infection and constipation. Patient states that he has been very nauseated since being discharged rate states he has had 2-3 episodes of vomiting per day since. Patient states that today he was straining hard to have a bowel movement when he had sudden onset of sharp and cramping lower abdominal pain. Patient states that the pain is been worsening throughout the day. Patient states he did have a good bowel movement today. States that he has vomited twice. He denies any hematochezia, melena, or hematemesis. Patient does have a chronic indwelling Mohamud catheter. Patient has been taking his medication for infection. Patient states he has had hernia surgery to the abdomen but denies any other surgeries. He denies any fevers but states he has been having chills. He denies any radiation of the pain to his back. Patient denies any recent rash, shortness breath, chest pain, numbness, tingling, dizziness, weakness, headache, visual changes, or any other complaints. - Related Data Home Medications Medication Instructions Recorded Confirmed HYDROcodone/APAP 7.5-325MG [[place] 1 tab PO Q6HR PRN 01/13/18 01/15/18 7.5-325] Sertraline HCl [Zoloft] 50 mg PO DAILY 01/13/18 01/15/18 Tamsulosin HCl [Flomax] 0.4 mg PO DAILY 01/13/18 01/15/18 Previous Rx's Medication Instructions Recorded Cephalexin [Keflex] 250 mg PO Q6HR #40 cap 01/13/18 Phenazopyridine HCl [Pyridium] 100 mg PO TID #15 tab 01/13/18 Allergies Allergy/AdvReac Type Severity Reaction Status Date / Time Penicillins Allergy Rash/Hives Verified 01/15/18 19:27 Review of Systems ROS Statement: Those systems with pertinent positive or pertinent negative responses have been documented in the HPI. ROS Other: All systems not noted in ROS Statement are negative. Past Medical History Past Medical History: GERD/Reflux Additional Past Medical History / Comment(s): hernia rt lower abd, states "had Hep B or C back 1960's and now it's all healed", uti History of Any Multi-Drug Resistant Organisms: None Reported Past Surgical History: Back Surgery, Hernia Repair Additional Past Surgical History / Comment(s): hemorrhoid Past Anesthesia/Blood Transfusion Reactions: No Reported Reaction Additional Past Anesthesia/Blood Transfusion Reaction / Comment(s): no hx blood transfusion Past Psychological History: No Psychological Hx Reported Smoking Status: Current every day smoker Past Alcohol Use History: None Reported Past Drug Use History: None Reported - Past Family History Mother Family Medical History: Cancer Father Family Medical History: Cancer General Exam Limitations: no limitations General appearance: alert, in no apparent distress, other Eye exam: Present: normal appearance (This is a well-developed, thin appearing elderly male patient in no acute distress. Vital signs upon presentation are temperature 99.1F, pulse 106, respirations 20, blood pressure 121/89, pulse ox 96% on room air.), PERRL, EOMI. Absent: scleral icterus, conjunctival injection , periorbital swelling ENT exam: Present: normal exam, normal oropharynx, mucous membranes moist Respiratory exam: Present: normal lung sounds bilaterally. Absent: respiratory distress, wheezes, rales, rhonchi, stridor Cardiovascular Exam: Present: regular rate, normal rhythm, normal heart sounds. Absent: systolic murmur, diastolic murmur, rubs, gallop, clicks GI/Abdominal exam: Present: soft, tenderness (Patient has generalized abdominal tenderness especially over the suprapubic region), normal bowel sounds. Absent : distended, guarding, rebound, rigid Neurological exam: Present: alert, oriented X3, CN II-XII intact Psychiatric exam: Present: normal affect, normal mood Skin exam: Present: warm, dry, intact, normal color. Absent: rash Course Vital Signs 01/15/18 01/15/18 01/15/18 18:05 19:43 19:50 Temperature 99.1 F Pulse Rate 106 H Respiratory 20 Rate Blood Pressure 121/89 140/89 140/89 O2 Sat by Pulse 96 94 L 94 L Oximetry 01/15/18 01/15/18 01/15/18 20:00 21:00 22:00 Temperature Pulse Rate Respiratory Rate Blood Pressure 140/89 120/83 142/88 O2 Sat by Pulse 95 97 Oximetry 01/15/18 23:25 Temperature Pulse Rate 70 Respiratory 16 Rate Blood Pressure 113/70 O2 Sat by Pulse 97 Oximetry Medical Decision Making - Medical Decision Making 72-year-old male patient presented to the emergency department today for evaluation of suprapubic abdominal pain and vomiting. Physical examination did reveal lower abdominal tenderness. The patient had temperature 99.1 had some mild tachycardia. Labs reviewed and revealed a white blood cell count at 12.1, BUN 23, blood glucose 157. CT abdomen and pelvis was obtained and did show 18 cm urinary bladder with some calcification and possible dependent mass. Patient was found to have urinary catheter obstruction with greater than 999 mL on bladder scan. Initial urinalysis obtained from catheter showed 4 plus protein, moderate blood, large leukocyte esterase, greater than 182 red blood cells, greater than 182 white blood cells, 7 squamous epithelial cells, rare amorphous sediment, many bacteria. Catheter was replaced, patient did have relief of symptoms once new catheter was placed. We did obtain new urinalysis from fresh catheter showed 2+ protein, 1+ ketones, trace blood, 1+ bilirubin, large leukocyte esterase, 20 red blood cells, greater than 182 white blood cells , many urine bacteria, and 15 hyaline casts. Patient was seen and evaluated here 2 days ago was started on Keflex for urinary tract infection. Given incomplete emptying of bladder and current urinalysis findings does appear that he still does have infection. He is urged to continue taking Keflex and to follow-up with his primary care physician for recheck in 1-2 days. Patient will be discharged in stable condition. He verbalizes understanding and agrees with this plan. - Lab Data Result diagrams: 01/15/18 19:28 01/15/18 19:28 Lab Results 01/15/18 01/15/18 01/15/18 Range/Units 19:28 19:28 20:00 WBC 12.1 H (3.8-10.6) k/uL RBC 4.98 (4.30-5.90) m/uL Hgb 14.6 (13.0-17.5) gm/dL Hct 45.0 (39.0-53.0) % MCV 90.4 (80.0-100.0) fL MCH 29.4 (25.0-35.0) pg MCHC 32.5 (31.0-37.0) g/dL RDW 12.9 (11.5-15.5) % Plt Count 253 (150-450) k/uL Neutrophils % 89 % Lymphocytes % 5 % Monocytes % 4 % Eosinophils % 1 % Basophils % 0 % Neutrophils # 10.9 H (1.3-7.7) k/uL Lymphocytes # 0.6 L (1.0-4.8) k/uL Monocytes # 0.5 (0-1.0) k/uL Eosinophils # 0.2 (0-0.7) k/uL Basophils # 0.0 (0-0.2) k/uL Sodium 139 (137-145) mmol/L Potassium 4.7 (3.5-5.1) mmol/L Chloride 108 H (98-107) mmol/L Carbon Dioxide 20 L (22-30) mmol/L Anion Gap 11 mmol/L BUN 23 H (9-20) mg/dL Creatinine 1.18 (0.66-1.25) mg/dL Est GFR (CKD-EPI)AfAm 70 (>60 ml/min/1.73 sqM) Est GFR (CKD-EPI)NonAf 61 (>60 ml/min/1.73 sqM) Glucose 157 H (74-99) mg/dL Calcium 9.9 (8.4-10.2) mg/dL Total Bilirubin 0.8 (0.2-1.3) mg/dL AST 19 (17-59) U/L ALT 23 (21-72) U/L Alkaline Phosphatase 62 (38-126) U/L Total Protein 7.6 (6.3-8.2) g/dL Albumin 4.2 (3.5-5.0) g/dL Amylase 40 (30-110) U/L Lipase 62 (23-300) U/L Urine Color Red Urine Appearance Turbid (Clear) Urine pH 8.0 (5.0-8.0) Ur Specific [place] 1.013 (1.001-1.035) Urine Protein 4+ H (Negative) Urine Glucose (UA) Negative (Negative) Urine Ketones Negative (Negative) Urine Blood Moderate H (Negative) Urine Nitrite Negative (Negative) Urine Bilirubin Negative (Negative) Urine Urobilinogen <2.0 (<2.0) mg/dL Ur Leukocyte Esterase Large H (Negative) Urine RBC >182 H (0-5) /hpf Urine WBC >182 H (0-5) /hpf Ur Squamous Epith Cells 7 H (0-4) /hpf Amorphous Sediment Rare H (None) /hpf Urine Bacteria Many H (None) /hpf Hyaline Casts (0-2) /lpf 01/15/18 Range/Units 22:09 WBC (3.8-10.6) k/uL RBC (4.30-5.90) m/uL Hgb (13.0-17.5) gm/dL Hct (39.0-53.0) % MCV (80.0-100.0) fL MCH (25.0-35.0) pg MCHC (31.0-37.0) g/dL RDW (11.5-15.5) % Plt Count (150-450) k/uL Neutrophils % % Lymphocytes % % Monocytes % % Eosinophils % % Basophils % % Neutrophils # (1.3-7.7) k/uL Lymphocytes # (1.0-4.8) k/uL Monocytes # (0-1.0) k/uL Eosinophils # (0-0.7) k/uL Basophils # (0-0.2) k/uL Sodium (137-145) mmol/L Potassium (3.5-5.1) mmol/L Chloride (98-107) mmol/L Carbon Dioxide (22-30) mmol/L Anion Gap mmol/L BUN (9-20) mg/dL Creatinine (0.66-1.25) mg/dL Est GFR (CKD-EPI)AfAm (>60 ml/min/1.73 sqM) Est GFR (CKD-EPI)NonAf (>60 ml/min/1.73 sqM) Glucose (74-99) mg/dL Calcium (8.4-10.2) mg/dL Total Bilirubin (0.2-1.3) mg/dL AST (17-59) U/L ALT (21-72) U/L Alkaline Phosphatase (38-126) U/L Total Protein (6.3-8.2) g/dL Albumin (3.5-5.0) g/dL Amylase (30-110) U/L Lipase (23-300) U/L Urine Color Yellow Urine Appearance Turbid (Clear) Urine pH 8.0 (5.0-8.0) Ur Specific [place] 1.012 (1.001-1.035) Urine Protein 2+ H (Negative) Urine Glucose (UA) Negative (Negative) Urine Ketones 1+ H (Negative) Urine Blood Trace H (Negative) Urine Nitrite Negative (Negative) Urine Bilirubin 1+ H (Negative) Urine Urobilinogen 6.0 (<2.0) mg/dL Ur Leukocyte Esterase Large H (Negative) Urine RBC 20 H (0-5) /hpf Urine WBC >182 H (0-5) /hpf Ur Squamous Epith Cells (0-4) /hpf Amorphous Sediment (None) /hpf Urine Bacteria Many H (None) /hpf Hyaline Casts 15 H (0-2) /lpf - Radiology Data Radiology results: report reviewed, image reviewed CT abdomen and pelvis with contrast was obtained. Report was reviewed in its entirety. Impression by Dr. Hurd shows dilated urinary bladder. There are probably multiple bladder calculi. A dependent urinary bladder mass cannot be entirely excluded. There is mild hydronephrosis with normal renal apparent function. This could relate to chronic bladder outlet obstruction. Enlarged prostate. There is some colonic diverticulosis without diverticulitis. Disposition Clinical Impression: Obstruction of urinary catheter, Urinary tract infection, Abdominal pain Disposition: HOME SELF-CARE Condition: Good Instructions: Urinary Tract Infection in Men (ED), Mohamud Catheter Placement and Care (ED), Abdominal Pain (ED) Additional Instructions: Increase fluids. Complete antibiotic prescription in full. Follow-up with your primary care physician for recheck and repeat urinalysis as soon as possible. Return here immediately for any new, worsening, or concerning symptoms. Is patient prescribed a controlled substance at d/c from ED?: No Referrals: [facility],Clinic [Primary Care Provider] - 1-2 days Time of Disposition: 22:41
[2018-01-15 19:51] LABS: Basophils % (A) 0 %; Eosinophils # (A) 0.2 k/uL (0-0.7); Eosinophils % (A) 1 %; HGB 14.6 gm/dL (13.0-17.5); Lymphocytes # (A) 0.6 k/uL (1.0-4.8); Lymphocytes % (A) 5 %; MCH 29.4 pg (25.0-35.0); MCHC 32.5 g/dL (31.0-37.0); MCV 90.4 fL (80.0-100.0); Mean Platelet Volume 7.4; Monocytes # (A) 0.5 k/uL (0-1.0); Monocytes % (A) 4 %; Neutrophils # (A) 10.9 k/uL (1.3-7.7); Neutrophils % (A) 89 %; Platelet Count 253 k/uL (150-450); RBC 4.98 m/uL (4.30-5.90); RDW 12.9 % (11.5-15.5); WBC 12.1 k/uL (3.8-10.6)
[2018-01-15 19:57] LABS: Albumin 4.2 g/dL (3.5-5.0); Calcium 9.9 mg/dL (8.4-10.2); Potassium 4.7 mmol/L (3.5-5.1); Total Bilirubin 0.8 mg/dL (0.2-1.3); Total Protein 7.6 g/dL (6.3-8.2)
--- NOTE | 2018-01-15 20:50 | CT ---
EXAMINATION TYPE: CT abdomen pelvis w con DATE OF EXAM: 01/15/2018 COMPARISON: None HISTORY: VOMITING AND DIARRHEA X3 DAYS CT DLP: 616.9 mGycm Automated exposure control for dose reduction was used. TECHNIQUE: Helical acquisition of images was performed from the lung bases through the pelvis. CONTRAST: Performed without Oral Contrast and with IV Contrast, patient injected with 100 mL of Isovue 300. FINDINGS: There is mild hiatal hernia. Stomach is otherwise normal. Lung bases are clear of consolidation. Ther e is no pleural effusion. Heart size is normal. There is no pericardial effusion. Liver spleen pancreas gallbladder appear normal. Bile ducts are not dilated. The appendix appears nor mal. There is no adrenal mass. Kidneys show satisfactory contrast opacification. There is fullness of the left and right renal pelvi s. There is normal renal function. There is a Moahmud catheter in the urinary bladder. Urinary bladder is dilated. Prostate is enlarged and measures 5.3 cm. There is small right-sided inguinal hernia that contains fat. There is a tiny amount of fluid in the lower paracolic gutters. I see no mesenteric edema or adenopat hy. There is no evidence of a bowel obstruction. There are multiple diverticula of the descending col on and sigmoid colon. Urinary bladder is dilated and measures 18 cm in length. There are some calcifi cations in the dependent urinary bladder. There are spondylotic changes in the lumbar spine. I see no bony destructive process. There is mild m ultilevel bony spinal stenosis due to facet arthropathy and endplate spur formation. IMPRESSION: DILATED URINARY BLADDER. THERE ARE PROBABLY MULTIPLE BLADDER CALCULI. A DEPENDENT URINARY BLADDER MAS S CANNOT BE ENTIRELY EXCLUDED. THERE IS MILD HYDRONEPHROSIS WITH NORMAL RENAL APPARENT FUNCTION. THIS COULD RELATE TO CHRONIC BLADDER OUTLET OBSTRUCTION. ENLARGED PROSTATE. THERE IS SOME COLONIC DIVERTICULOSIS WITHOUT DIVERTICULITIS.
[2018-01-15 21:03] LABS: Amorphous Sediment,Urine Rare /hpf; Appearance,Urine Turbid (Clear); Bacteria,Urine Many /hpf; Bilirubin,Urine Negative (Negative); Blood,Urine Moderate (Negative); Color,Urine Red; Glucose,Urine (UA) Negative (Negative); Ketones,Urine Negative (Negative); Leukocyte Esterase,Urine Large (Negative); Nitrite,Urine Negative (Negative); Protein,Urine 4+ (Negative); RBC,Urine >182 /hpf (0-5); Squamous Epithelial Cell,Urine 7 /hpf (0-4); Urobilinogen,Urine <2.0 mg/dL (<2.0); WBC,Urine >182 /hpf (0-5)
[2018-01-15 21:04] LABS: Specific Gravity,Urine 1.013 (1.001-1.035)
[2018-01-15 22:26] LABS: Appearance,Urine Turbid (Clear); Bacteria,Urine Many /hpf; Bilirubin,Urine 1+ (Negative); Blood,Urine Trace (Negative); Color,Urine Yellow; Glucose,Urine (UA) Negative (Negative); Hyaline Casts,Urine 15 /lpf (0-2); Ketones,Urine 1+ (Negative); Leukocyte Esterase,Urine Large (Negative); Nitrite,Urine Negative (Negative); Protein,Urine 2+ (Negative); RBC,Urine 20 /hpf (0-5); Specific Gravity,Urine 1.012 (1.001-1.035); WBC,Urine >182 /hpf (0-5)
[2018-01-15 23:34] VITALS: BP 113/70; PULSE 70; RESP 16
== END 2018-01-15 23:34 | disposition home or self-care (01) ==
LOC: EC 18:02
DX: T83.098A Other mechanical complication of other urinary catheter, initial encounter (principal); N13.6 Pyonephrosis; N39.0 Urinary tract infection, site not specified; N32.89 Other specified disorders of bladder; K57.30 Diverticulosis of large intestine without perforation or abscess without bleeding; N40.0 Benign prostatic hyperplasia without lower urinary tract symptoms; R00.0 Tachycardia, unspecified; F17.200 Nicotine dependence, unspecified, uncomplicated; Z88.0 Allergy status to penicillin; Z79.899 Other long term (current) drug therapy; Z98.890 Other specified postprocedural states
CPT/HCPCS: 99284; 96374; 96375; 51702; 36415; 80053; 82150; 83690; 85025; 81001; 87086; 87077; 87186; 74177; J2405; J2270; Q9967

== ENCOUNTER 2018-03-02 21:23 | Emergency (ER) | payer OTHER ==
[2018-03-02 21:30] VITALS: RESP 16
--- NOTE | 2018-03-02 22:43 | ED ---
Male Urogenital HPI - General Chief complaint: Urogenital Stated complaint: Trouble urinating Time Seen by Provider: 03/02/18 22:08 Source: patient Mode of arrival: ambulatory Limitations: no limitations - History of Present Illness Initial comments: This patient is 72-year-old man who presents to be evaluated this evening because he believes his catheter has stopped draining. Patient states that he has a long history of Mohamud catheter use due to urinary obstruction. He states that he had emptied his leg bag approximately 8 or 9 hours ago and then noted that no further drainage was coming. He states that in that interval he is also developed the urge to urinate and feels like his bladder is under pressure. He denies any other symptoms. No fevers or chills. No pain in the upper abdomen. No back pain. He had not had any blood in the urine. MD Complaint: other (Mohamud catheter malfunction) Onset/Timin -: hour(s) Location: abdomen Radiation: none Severity: mild Quality: other (Pressure) Consistency: constant Improves with: none Worsens with: none indwelling catheter Reports: denies other symptoms - Related Data Home Medications Medication Instructions Recorded Confirmed Sertraline HCl [Zoloft] 50 mg PO DAILY 01/13/18 03/02/18 Tamsulosin HCl [Flomax] 0.4 mg PO DAILY 01/13/18 03/02/18 Previous Rx's Medication Instructions Recorded Levofloxacin [Levaquin] 750 mg PO DAILY #7 tab 03/02/18 Allergies Allergy/AdvReac Type Severity Reaction Status Date / Time Penicillins Allergy Rash/Hives Verified 03/02/18 22:48 Review of Systems ROS Statement: Those systems with pertinent positive or pertinent negative responses have been documented in the HPI. ROS Other: All systems not noted in ROS Statement are negative. Constitutional: Denies: fever, chills Respiratory: Denies: dyspnea Cardiovascular: Denies: chest pain, palpitations, edema Gastrointestinal: Reports: as per HPI, abdominal pain. Denies: nausea, vomiting , diarrhea, constipation Genitourinary: Reports: as per HPI, other (Urinary obstruction). Denies: testicular pain Musculoskeletal: Denies: back pain Skin: Denies: rash Past Medical History Past Medical History: GERD/Reflux Additional Past Medical History / Comment(s): hernia rt lower abd, states "had Hep B or C back and now it's all healed", uti History of Any Multi-Drug Resistant Organisms: None Reported Past Surgical History: Back Surgery, Hernia Repair Additional Past Surgical History / Comment(s): hemorrhoid Past Anesthesia/Blood Transfusion Reactions: No Reported Reaction Additional Past Anesthesia/Blood Transfusion Reaction / Comment(s): no hx blood transfusion Past Psychological History: No Psychological Hx Reported Smoking Status: Current every day smoker Past Alcohol Use History: None Reported Past Drug Use History: None Reported - Past Family History Mother Family Medical History: Cancer Father Family Medical History: Cancer General Exam Limitations: no limitations General appearance: alert, in no apparent distress Head exam: Present: atraumatic, normocephalic Respiratory exam: Present: normal lung sounds bilaterally. Absent: respiratory distress, wheezes, rales, rhonchi, stridor Cardiovascular Exam: Present: regular rate, normal rhythm, normal heart sounds. Absent: systolic murmur, diastolic murmur, rubs, gallop GI/Abdominal exam: Present: soft, other (Suprapubic fullness, consistent with bladder). Absent: distended, tenderness, guarding, rebound, rigid Back exam: Present: normal inspection. Absent: CVA tenderness (R), CVA tenderness (L) Skin exam: Present: warm, dry, intact, normal color. Absent: rash Course Vital Signs 03/02/18 03/02/18 21:27 23:03 Temperature 97.8 F Pulse Rate 68 62 Respiratory 16 16 Rate Blood Pressure 153/93 135/85 O2 Sat by Pulse 98 98 Oximetry Medical Decision Making - Lab Data Lab Results 03/02/18 Range/Units 23:01 Urine Color Yellow Urine Appearance Turbid (Clear) Urine pH 7.5 (5.0-8.0) Ur Specific [place] 1.017 (1.001-1.035) Urine Protein 1+ H (Negative) Urine Glucose (UA) Negative (Negative) Urine Ketones Negative (Negative) Urine Blood Small H (Negative) Urine Nitrite Positive (Negative) Urine Bilirubin Negative (Negative) Urine Urobilinogen <2.0 (<2.0) mg/dL Ur Leukocyte Esterase Large H (Negative) Urine RBC 10 H (0-5) /hpf Urine WBC 116 H (0-5) /hpf Amorphous Sediment Rare H (None) /hpf Urine Bacteria Many H (None) /hpf Disposition Clinical Impression: Malfunction of Mohamud catheter, Urinary tract infection Disposition: HOME SELF-CARE Condition: Good Instructions: Mohamud Catheter Placement and Care (ED), Urinary Tract Infection in Men (ED) Prescriptions: Levofloxacin [Levaquin] 750 mg PO DAILY #7 tab Is patient prescribed a controlled substance at d/c from ED?: No Referrals: [facility],Clinic [Primary Care Provider] - 1-2 days
[2018-03-02 23:23] LABS: Amorphous Sediment,Urine Rare /hpf; Appearance,Urine Turbid (Clear); Bacteria,Urine Many /hpf; Bilirubin,Urine Negative (Negative); Blood,Urine Small (Negative); Color,Urine Yellow; Glucose,Urine (UA) Negative (Negative); Ketones,Urine Negative (Negative); Leukocyte Esterase,Urine Large (Negative); Nitrite,Urine Positive (Negative); PH, Urine 7.5 (5.0-8.0); Protein,Urine 1+ (Negative); RBC,Urine 10 /hpf (0-5); Specific Gravity,Urine 1.017 (1.001-1.035); Urobilinogen,Urine <2.0 mg/dL (<2.0)
[2018-03-02] MEDS ORDERED: LEVOFLOXACIN 750 MG TAB PO STA (23:45)
[2018-03-03 00:05] VITALS: BP 130/77; PULSE 63; TEMP 98
== END 2018-03-03 00:03 | disposition home or self-care (01) ==
LOC: EC 21:23
DX: T83.098A Other mechanical complication of other urinary catheter, initial encounter (principal); N39.0 Urinary tract infection, site not specified; F17.200 Nicotine dependence, unspecified, uncomplicated; Z86.19 Personal history of other infectious and parasitic diseases; Z79.899 Other long term (current) drug therapy; Z88.0 Allergy status to penicillin
CPT/HCPCS: 51702; 81001; 87086; 99283

== ENCOUNTER 2018-03-28 06:49 | Emergency (ER) | payer OTHER ==
[2018-03-28 06:57] VITALS: BP 119/75; PULSE 61; RESP 18; TEMP 97.9
--- NOTE | 2018-03-28 07:12 | ED ---
General Adult HPI - General Chief complaint: Urogenital Stated complaint: Urogenital, Catheter Issue Time Seen by Provider: 03/28/18 06:55 Source: patient, RN notes reviewed Mode of arrival: ambulatory Limitations: no limitations - History of Present Illness Initial comments: This is a 72-year-old male who presents to the emergency department complaining of urinary retention. Patient states he wears a catheter and he hasn't had any areas over 24 hours. Patient does not complain of any suprapubic abdominal pain. Patient denies any back pain. Patient denies any fever chills. Patient states he does drink enough fluids. Patient denies any chest pain difficult breathing shortness of breath. Patient denies any lightheadedness or dizziness. - Related Data Home Medications Medication Instructions Recorded Confirmed Sertraline HCl [Zoloft] 50 mg PO DAILY 01/13/18 03/28/18 Tamsulosin HCl [Flomax] 0.4 mg PO DAILY 01/13/18 03/28/18 Sulfamethox-Tmp 800-160Mg [Bactrim 1 tab PO BID 03/28/18 03/28/18 DS 800-160 mg] Previous Rx's Medication Instructions Recorded Sulfamethox-Tmp 800-160Mg [Bactrim 1 each PO Q12HR #14 tab 03/28/18 DS 800-160 mg] Allergies Allergy/AdvReac Type Severity Reaction Status Date / Time Penicillins Allergy Rash/Hives Verified 03/28/18 06:57 Review of Systems ROS Statement: Those systems with pertinent positive or pertinent negative responses have been documented in the HPI. ROS Other: All systems not noted in ROS Statement are negative. Past Medical History Past Medical History: GERD/Reflux Additional Past Medical History / Comment(s): hernia rt lower abd, states "had Hep B or C back and now it's all healed", uti History of Any Multi-Drug Resistant Organisms: None Reported Past Surgical History: Back Surgery, Hernia Repair Additional Past Surgical History / Comment(s): hemorrhoid Past Anesthesia/Blood Transfusion Reactions: No Reported Reaction Additional Past Anesthesia/Blood Transfusion Reaction / Comment(s): no hx blood transfusion Past Psychological History: No Psychological Hx Reported Smoking Status: Current every day smoker Past Alcohol Use History: None Reported Past Drug Use History: None Reported - Past Family History Mother Family Medical History: Cancer Father Family Medical History: Cancer General Exam - General Exam Comments Initial Comments: GENERAL: Patient is well-developed and well-nourished. Patient is nontoxic and well- hydrated and is in mild distress. ENT: Neck is soft and supple. No significant lymphadenopathy is noted. EYES: The sclera were anicteric and conjunctiva were pink and moist. Extraocular movements were intact and pupils were equal round and reactive to light. Eyelids were unremarkable. PULMONARY: Unlabored respirations. Good breath sounds bilaterally. No audible rales rhonchi or wheezing was noted. CARDIOVASCULAR: There is a regular rate and rhythm without any murmurs gallops or rubs. ABDOMEN: Suprapubic abdominal fullness and tenderness SKIN: Skin is clear with no lesions or rashes and otherwise unremarkable. NEUROLOGIC: Patient is alert and oriented x3. Cranial nerves II through XII are grossly intact. Motor and sensory are also intact. Normal speech, volume and content. Symmetrical smile. MUSCULOSKELETAL: Normal extremities with adequate strength and full range of motion. LYMPHATICS: No significant lymphadenopathy is noted PSYCHIATRIC: Normal psychiatric evaluation. Limitations: no limitations Course Vital Signs 03/28/18 06:53 Temperature 97.9 F Pulse Rate 61 Respiratory 18 Rate Blood Pressure 119/75 O2 Sat by Pulse 99 Oximetry Medical Decision Making - Medical Decision Making KUB shows constipation Patient had a Mohamud placed over 500 mL of fluid control. Patient states he feels a lot better and looking to go home. - Lab Data Result diagrams: 03/28/18 07:26 03/28/18 07:26 Lab Results 03/28/18 03/28/18 03/28/18 Range/Units 07:26 07:26 07:40 WBC 4.4 (3.8-10.6) k/uL RBC 4.75 (4.30-5.90) m/uL Hgb 14.4 (13.0-17.5) gm/dL Hct 42.0 (39.0-53.0) % MCV 88.5 (80.0-100.0) fL MCH 30.3 (25.0-35.0) pg MCHC 34.2 (31.0-37.0) g/dL RDW 12.6 (11.5-15.5) % Plt Count 203 (150-450) k/uL Neutrophils % 65 % Lymphocytes % 22 % Monocytes % 5 % Eosinophils % 4 % Basophils % 1 % Neutrophils # 2.9 (1.3-7.7) k/uL Lymphocytes # 1.0 (1.0-4.8) k/uL Monocytes # 0.2 (0-1.0) k/uL Eosinophils # 0.2 (0-0.7) k/uL Basophils # 0.0 (0-0.2) k/uL Sodium 138 (137-145) mmol/L Potassium 4.4 (3.5-5.1) mmol/L Chloride 109 H (98-107) mmol/L Carbon Dioxide 22 (22-30) mmol/L Anion Gap 7 mmol/L BUN 15 (9-20) mg/dL Creatinine 1.12 (0.66-1.25) mg/dL Est GFR (CKD-EPI)AfAm 75 (>60 ml/min/1.73 sqM) Est GFR (CKD-EPI)NonAf 65 (>60 ml/min/1.73 sqM) Glucose 92 (74-99) mg/dL Calcium 9.6 (8.4-10.2) mg/dL Total Bilirubin 0.5 (0.2-1.3) mg/dL AST 19 (17-59) U/L ALT 29 (21-72) U/L Alkaline Phosphatase 67 (38-126) U/L Total Protein 6.8 (6.3-8.2) g/dL Albumin 3.8 (3.5-5.0) g/dL Urine Color Yellow Urine Appearance Turbid (Clear) Urine pH 5.5 (5.0-8.0) Ur Specific [place] 1.019 (1.001-1.035) Urine Protein Trace H (Negative) Urine Glucose (UA) Negative (Negative) Urine Ketones Negative (Negative) Urine Blood Moderate H (Negative) Urine Nitrite Negative (Negative) Urine Bilirubin Negative (Negative) Urine Urobilinogen <2.0 (<2.0) mg/dL Ur Leukocyte Esterase Large H (Negative) Urine RBC 33 H (0-5) /hpf Urine WBC 44 H (0-5) /hpf Ur Squamous Epith Cells <1 (0-4) /hpf Triple Phos Crystals Moderate H (None) /hpf Urine Bacteria Few H (None) /hpf Urine Mucus Rare H (None) /hpf Disposition Clinical Impression: Urinary retention, Constipation, Urinary tract infection Disposition: HOME SELF-CARE Condition: Good Instructions: Urinary Retention in Men (ED), Constipation (ED), High Fiber Diet (ED) Additional Instructions: . Patient should take Benefiber twice a day. Prescriptions: Sulfamethox-Tmp 800-160Mg [Bactrim DS 800-160 mg] 1 each PO Q12HR #14 tab Is patient prescribed a controlled substance at d/c from ED?: No Referrals: [facility],Clinic [Primary Care Provider] - 1-2 days Time of Disposition: 08:35
[2018-03-28] MEDS ORDERED: LIDOCAINE URO-JET JELLY 2% 5 ML KIT URETHRAL ONE (07:26)
[2018-03-28 08:08] LABS: Basophils % (A) 1 %; Eosinophils # (A) 0.2 k/uL (0-0.7); Eosinophils % (A) 4 %; HGB 14.4 gm/dL (13.0-17.5); Lymphocytes % (A) 22 %; MCH 30.3 pg (25.0-35.0); MCHC 34.2 g/dL (31.0-37.0); MCV 88.5 fL (80.0-100.0); Mean Platelet Volume 7.4; Monocytes # (A) 0.2 k/uL (0-1.0); Monocytes % (A) 5 %; Neutrophils # (A) 2.9 k/uL (1.3-7.7); Neutrophils % (A) 65 %; Platelet Count 203 k/uL (150-450); RBC 4.75 m/uL (4.30-5.90); RDW 12.6 % (11.5-15.5); WBC 4.4 k/uL (3.8-10.6)
[2018-03-28 08:14] LABS: Appearance,Urine Turbid (Clear); Bacteria,Urine Few /hpf; Bilirubin,Urine Negative (Negative); Blood,Urine Moderate (Negative); Color,Urine Yellow; Glucose,Urine (UA) Negative (Negative); Ketones,Urine Negative (Negative); Leukocyte Esterase,Urine Large (Negative); Mucus,Urine Rare /hpf; Nitrite,Urine Negative (Negative); PH, Urine 5.5 (5.0-8.0); Protein,Urine Trace (Negative); RBC,Urine 33 /hpf (0-5); Specific Gravity,Urine 1.019 (1.001-1.035); Squamous Epithelial Cell,Urine <1 /hpf (0-4); Triple Phosphate Crystal,Urine Moderate /hpf; Urobilinogen,Urine <2.0 mg/dL (<2.0); WBC,Urine 44 /hpf (0-5)
[2018-03-28 08:14] LABS: Albumin 3.8 g/dL (3.5-5.0); Calcium 9.6 mg/dL (8.4-10.2); Potassium 4.4 mmol/L (3.5-5.1); Total Bilirubin 0.5 mg/dL (0.2-1.3); Total Protein 6.8 g/dL (6.3-8.2)
--- NOTE | 2018-03-28 08:26 | XR ---
EXAMINATION TYPE: XR KUB , 2 VIEWS DATE OF EXAM ORDERED: 03/28/2018 HISTORY: Pain. COMPARISON: Previous study dated 01/13/2018. FINDINGS: The lung bases are clear. Within the abdomen, the abdominal gas pattern is normal. There is no evidence of obstruction or free air. No unusual calcifications are seen. IMPRESSION: NO ACUTE INTRA-ABDOMINAL ABNORMALITY.
== END 2018-03-28 09:07 | disposition home or self-care (01) ==
LOC: EC 06:49
DX: N39.0 Urinary tract infection, site not specified (principal); R33.9 Retention of urine, unspecified; K59.00 Constipation, unspecified; F17.200 Nicotine dependence, unspecified, uncomplicated; Z79.899 Other long term (current) drug therapy; Z88.0 Allergy status to penicillin
CPT/HCPCS: 36415; 51702; 74018; 80053; 81001; 85025; 99283

== ENCOUNTER 2018-05-14 01:18 | Emergency (ER) | payer OTHER ==
[2018-05-14] MEDS ORDERED: ONDANSETRON 4 MG/2 ML VIAL IVP STA (01:49)
[2018-05-14] MEDS ORDERED: FAMOTIDINE 20 MG/2 ML VIAL IV STA (01:49)
[2018-05-14 01:59] LABS: Basophils % (A) 0 %; Eosinophils # (A) 0.3 k/uL (0-0.7); Eosinophils % (A) 4 %; HCT 46.1 % (39.0-53.0); HGB 15.5 gm/dL (13.0-17.5); Lymphocytes # (A) 0.6 k/uL (1.0-4.8); Lymphocytes % (A) 8 %; MCH 29.9 pg (25.0-35.0); MCHC 33.7 g/dL (31.0-37.0); MCV 88.8 fL (80.0-100.0); Mean Platelet Volume 6.8; Monocytes # (A) 0.3 k/uL (0-1.0); Monocytes % (A) 4 %; Neutrophils # (A) 7.1 k/uL (1.3-7.7); Neutrophils % (A) 84 %; Platelet Count 255 k/uL (150-450); RBC 5.19 m/uL (4.30-5.90); RDW 12.9 % (11.5-15.5); WBC 8.4 k/uL (3.8-10.6)
--- NOTE | 2018-05-14 02:02 | ED ---
General Adult HPI - General Chief complaint: Chest Pain Stated complaint: Chest Pain, Nausea, Abd Pain Time Seen by Provider: 05/14/18 01:30 Source: patient, family Mode of arrival: wheelchair Limitations: no limitations - History of Present Illness Initial comments: This is a 73-year-old male with a history of epigastric abdominal pain in the past who presents emergency department for epigastric abdominal pain and chest pain. He states that the symptoms started around 9 PM and started with epigastric pain that radiated into her chest. He states that shortly after that he developed some nausea with vomiting. He states that the vomiting was dark however that he had taken some NyQuil just prior to the vomiting which could account for the discoloration. He states that the pain has subsequently subsided however still slightly present. He continues to have some nausea as well. He states that he does not have any shortness of breath however has been having a cough for the last few days. No fevers or chills. He denies any constipation or diarrhea. No dark or bloody stools. The patient does not report a history of EGD in the past. He states that he did have a full yearly physical performed at February 2018 which was unremarkable. No history of CAD or any heart disease. No other acute complaints. Of note the patient does admit to drinking a significant amount of coffee every day. He denies any alcohol use or Motrin use. - Related Data Home Medications Medication Instructions Recorded Confirmed Sulfamethox-Tmp 800-160Mg [Bactrim 1 tab PO BID 03/28/18 03/28/18 DS 800-160 mg] Previous Rx's Medication Instructions Recorded Sulfamethox-Tmp 800-160Mg [Bactrim 1 each PO Q12HR #14 tab 03/28/18 DS 800-160 mg] Omeprazole [PriLOSEC] 40 mg PO DAILY #30 capsule. 05/14/18 Allergies Allergy/AdvReac Type Severity Reaction Status Date / Time Penicillins Allergy Rash/Hives Verified 05/14/18 01:27 Review of Systems ROS Statement: Those systems with pertinent positive or pertinent negative responses have been documented in the HPI. ROS Other: All systems not noted in ROS Statement are negative. Past Medical History Past Medical History: GERD/Reflux Additional Past Medical History / Comment(s): hernia rt lower abd, states "had Hep B or C back 1960's and now it's all healed", uti History of Any Multi-Drug Resistant Organisms: None Reported Past Surgical History: Back Surgery, Hernia Repair Additional Past Surgical History / Comment(s): hemorrhoid Past Anesthesia/Blood Transfusion Reactions: No Reported Reaction Additional Past Anesthesia/Blood Transfusion Reaction / Comment(s): no hx blood transfusion Past Psychological History: No Psychological Hx Reported Smoking Status: Current every day smoker Past Alcohol Use History: None Reported Past Drug Use History: None Reported - Past Family History Mother Family Medical History: Cancer Father Family Medical History: Cancer General Exam - General Exam Comments Initial Comments: Constitutional: Awake alert Appears comfortable Head: Normocephalic atraumatic Eyes: no conjunctival injection No scleral icterus EOMI Neck: No JVD Supple Heart: Regular rate rhythm normal S1-S2 no murmurs Lungs: Clear to auscultation bilaterally No wheezing No rales Abdomen: Soft nondistended tenderness to the epigastric region without rebound or guarding. No right upper quadrant tenderness Extremities: Non edematous DP pulses intact Radial pulses intact Neuro: A&Ox3 No focal neurologic deficits Psych: Appropriate mood and affect Limitations: no limitations Course Vital Signs 05/14/18 01:22 Pulse Rate 82 Respiratory 20 Rate Blood Pressure 107/74 O2 Sat by Pulse 97 Oximetry EKG Findings - EKG Comments: EKG Findings:: EKG interpreted at 1:41 AM showing normal sinus rhythm with a rate of 67. There is no abnormal ST segment changes or T-wave inversions. QTC is 462. Other intervals normal. No ectopy. Medical Decision Making - Medical Decision Making This is a 73-year-old male who presents emergency department for epigastric and chest pain. The patient had a normal EKG her troponin was negative. He felt improved after Pepcid and Zofran. At this time I feel the patient's symptoms are likely more gastric related. I'm going to send him home on Prilosec. He was instructed to follow up closely with his primary doctor and likely get set up for an EGD in the near future. Told that he can return if worsening or changing symptoms. All questions were answered. Per patient's request the urine was sent for a culture however the patient did not have any symptoms of UTI while in the emergency department. - Lab Data Result diagrams: 05/14/18 01:35 05/14/18 01:35 Lab Results 05/14/18 05/14/18 05/14/18 Range/Units 01:35 01:35 01:35 WBC 8.4 (3.8-10.6) k/uL RBC 5.19 (4.30-5.90) m/uL Hgb 15.5 (13.0-17.5) gm/dL Hct 46.1 (39.0-53.0) % MCV 88.8 (80.0-100.0) fL MCH 29.9 (25.0-35.0) pg MCHC 33.7 (31.0-37.0) g/dL RDW 12.9 (11.5-15.5) % Plt Count 255 (150-450) k/uL Neutrophils % 84 % Lymphocytes % 8 % Monocytes % 4 % Eosinophils % 4 % Basophils % 0 % Neutrophils # 7.1 (1.3-7.7) k/uL Lymphocytes # 0.6 L (1.0-4.8) k/uL Monocytes # 0.3 (0-1.0) k/uL Eosinophils # 0.3 (0-0.7) k/uL Basophils # 0.0 (0-0.2) k/uL PT (9.0-12.0) sec INR (<1.2) APTT (22.0-30.0) sec Sodium 138 (137-145) mmol/L Potassium 4.0 (3.5-5.1) mmol/L Chloride 102 (98-107) mmol/L Carbon Dioxide 25 (22-30) mmol/L Anion Gap 11 mmol/L BUN 21 H (9-20) mg/dL Creatinine 0.89 (0.66-1.25) mg/dL Est GFR (CKD-EPI)AfAm >90 (>60 ml/min/1.73 sqM) Est GFR (CKD-EPI)NonAf 85 (>60 ml/min/1.73 sqM) Glucose 113 H (74-99) mg/dL Calcium 10.0 (8.4-10.2) mg/dL Magnesium 2.2 (1.6-2.3) mg/dL Total Bilirubin 0.6 (0.2-1.3) mg/dL AST 24 (17-59) U/L ALT 34 (21-72) U/L Alkaline Phosphatase 90 (38-126) U/L CK-MB (CK-2) 0.8 (0.0-2.4) ng/mL Troponin I <0.012 (0.000-0.034) ng/mL Total Protein 7.7 (6.3-8.2) g/dL Albumin 4.4 (3.5-5.0) g/dL Amylase 59 (30-110) U/L Lipase 141 (23-300) U/L 05/14/18 Range/Units 01:35 WBC (3.8-10.6) k/uL RBC (4.30-5.90) m/uL Hgb (13.0-17.5) gm/dL Hct (39.0-53.0) % MCV (80.0-100.0) fL MCH (25.0-35.0) pg MCHC (31.0-37.0) g/dL RDW (11.5-15.5) % Plt Count (150-450) k/uL Neutrophils % % Lymphocytes % % Monocytes % % Eosinophils % % Basophils % % Neutrophils # (1.3-7.7) k/uL Lymphocytes # (1.0-4.8) k/uL Monocytes # (0-1.0) k/uL Eosinophils # (0-0.7) k/uL Basophils # (0-0.2) k/uL PT 10.3 (9.0-12.0) sec INR 1.0 (<1.2) APTT 22.1 (22.0-30.0) sec Sodium (137-145) mmol/L Potassium (3.5-5.1) mmol/L Chloride (98-107) mmol/L Carbon Dioxide (22-30) mmol/L Anion Gap mmol/L BUN (9-20) mg/dL Creatinine (0.66-1.25) mg/dL Est GFR (CKD-EPI)AfAm (>60 ml/min/1.73 sqM) Est GFR (CKD-EPI)NonAf (>60 ml/min/1.73 sqM) Glucose (74-99) mg/dL Calcium (8.4-10.2) mg/dL Magnesium (1.6-2.3) mg/dL Total Bilirubin (0.2-1.3) mg/dL AST (17-59) U/L ALT (21-72) U/L Alkaline Phosphatase (38-126) U/L CK-MB (CK-2) (0.0-2.4) ng/mL Troponin I (0.000-0.034) ng/mL Total Protein (6.3-8.2) g/dL Albumin (3.5-5.0) g/dL Amylase (30-110) U/L Lipase (23-300) U/L Disposition Clinical Impression: Epigastric pain, Gastritis Disposition: HOME SELF-CARE Condition: Stable Instructions (If sedation given, give patient instructions): Gastritis (ED) Prescriptions: Omeprazole [PriLOSEC] 40 mg PO DAILY #30 capsule.dr Is patient prescribed a controlled substance at d/c from ED?: No Referrals: [facility],Clinic [Primary Care Provider] - 1-2 days
[2018-05-14 02:07] LABS: ALT 34 U/L (21-72); AST 24 U/L (17-59); Albumin 4.4 g/dL (3.5-5.0); Alkaline Phosphatase 90 U/L (38-126); Amylase 59 U/L (30-110); Anion Gap 11 mmol/L; Blood Urea Nitrogen 21 mg/dL (9-20); Carbon Dioxide 25 mmol/L (22-30); Chloride 102 mmol/L (98-107); Glucose 113 mg/dL (74-99); Lipase 141 U/L (23-300); Magnesium 2.2 mg/dL (1.6-2.3); Partial Thromboplastin Time 22.1 sec (22.0-30.0); Prothrombin Time 10.3 sec (9.0-12.0); Sodium 138 mmol/L (137-145); Total Bilirubin 0.6 mg/dL (0.2-1.3); Total Protein 7.7 g/dL (6.3-8.2)
[2018-05-14 02:26] LABS: Creatine Kinase MB 0.8 ng/mL (0.0-2.4); Troponin I <0.012 ng/mL (0.000-0.034)
--- NOTE | 2018-05-14 02:28 | XR ---
EXAM: XR Abdomen 2 Views With XR Chest CLINICAL HISTORY: ITS.REASON XR Reason: Epigastric/Chest Pain TECHNIQUE: Frontal view of the chest, frontal view of the abdomen/pelvis and upright or decubitus view of the abdomen. COMPARISON: Abdomen radiographs of 03/28/18. FINDINGS: Lungs: Pulmonary hyperexpansion suggesting emphysema. No consolidation. Pleural space: Apical pleural thickening, right greater than left. No pneumothorax. Heart: Diminished heart size. Mediastinum: Calcified aorta. Intraperitoneal space: No free air. Gastrointestinal tract: Mild fecal retention. Air-fluid level in the left upper quadrant is believed to be intragastric. Bones/joints: Mild degenerative changes. IMPRESSION: Mild fecal retention. No free air. Pulmonary hyperexpansion suggesting emphysema. No consolidation.
[2018-05-14 03:48] VITALS: BP 105/86; PULSE 78; RESP 18; TEMP 98.2
== END 2018-05-14 03:48 | disposition home or self-care (01) ==
LOC: EC 01:18
DX: K29.70 Gastritis, unspecified, without bleeding (principal); R07.9 Chest pain, unspecified; R05 Cough; F17.200 Nicotine dependence, unspecified, uncomplicated; Z88.0 Allergy status to penicillin; Z87.19 Personal history of other diseases of the digestive system
CPT/HCPCS: 36415; 74022; 80053; 82150; 82553; 83690; 83735; 84484; 85025; 85610; 85730; 93005; 96374; 96375; 99285

== ENCOUNTER 2018-07-20 09:50 | Emergency (ER) | payer OTHER ==
[2018-07-20 09:54] VITALS: RESP 18; TEMP 98.3
--- NOTE | 2018-07-20 10:36 | ED ---
General Adult HPI - General Chief complaint: Urogenital Stated complaint: poss UTI Time Seen by Provider: 07/20/18 09:55 Source: patient, RN notes reviewed Mode of arrival: ambulatory Limitations: no limitations - History of Present Illness Initial comments: This is a 73-year-old male who presents emergency Department complaining of dysuria anytime he urinates. Patient has a Mohamud catheter and hasn't replaced monthly. Patient states over the last 2 days it is been hurting to urinate and he has had this before and has been a urinary tract infection. Patient denies any fever or chills. Patient denies any abdominal pain. Patient denies any back pain. Patient denies any other symptoms. - Related Data Home Medications Medication Instructions Recorded Confirmed Sulfamethox-Tmp 800-160Mg [Bactrim 1 tab PO Q12HR 07/20/18 07/20/18 DS 800-160 mg] Previous Rx's Medication Instructions Recorded Omeprazole [PriLOSEC] 40 mg PO DAILY #30 capsule. 05/14/18 Ciprofloxacin HCl [Cipro] 500 mg PO Q12HR #20 tablet 07/20/18 Allergies Allergy/AdvReac Type Severity Reaction Status Date / Time Penicillins Allergy Rash/Hives Verified 07/20/18 10:11 Review of Systems ROS Statement: Those systems with pertinent positive or pertinent negative responses have been documented in the HPI. ROS Other: All systems not noted in ROS Statement are negative. Past Medical History Past Medical History: GERD/Reflux Additional Past Medical History / Comment(s): hernia rt lower abd, states "had Hep B or C back s and now it's all healed", uti History of Any Multi-Drug Resistant Organisms: None Reported Past Surgical History: Back Surgery, Hernia Repair Additional Past Surgical History / Comment(s): hemorrhoid Past Anesthesia/Blood Transfusion Reactions: No Reported Reaction Additional Past Anesthesia/Blood Transfusion Reaction / Comment(s): no hx blood transfusion Past Psychological History: No Psychological Hx Reported Smoking Status: Current every day smoker Past Alcohol Use History: None Reported Past Drug Use History: None Reported - Past Family History Mother Family Medical History: Cancer Father Family Medical History: Cancer General Exam - General Exam Comments Initial Comments: GENERAL: Patient is well-developed and well-nourished. Patient is nontoxic and well- hydrated and is in mild distress. ENT: Neck is soft and supple. No significant lymphadenopathy is noted. Oropharynx is clear. Moist mucous membranes. Neck has full range of motion without eliciting any pain. EYES: The sclera were anicteric and conjunctiva were pink and moist. PULMONARY: Unlabored respirations. Good breath sounds bilaterally. No audible rales rhonchi or wheezing was noted. CARDIOVASCULAR: There is a regular rate and rhythm without any murmurs gallops or rubs. ABDOMEN: Soft and nontender with normal bowel sounds. SKIN: Skin is clear with no lesions or rashes and otherwise unremarkable. NEUROLOGIC: Patient is alert and oriented x3. MUSCULOSKELETAL: Normal extremities with adequate strength and full range of motion. LYMPHATICS: No significant lymphadenopathy is noted PSYCHIATRIC: Normal psychiatric evaluation. Limitations: no limitations Course Vital Signs 07/20/18 09:51 Temperature 98.3 F Pulse Rate 73 Respiratory 18 Rate Blood Pressure 113/76 O2 Sat by Pulse 98 Oximetry Medical Decision Making - Medical Decision Making Patient received Rocephin in the emergency department. - Lab Data Lab Results 07/20/18 Range/Units 11:01 Urine Color Yellow Urine Appearance Cloudy (Clear) Urine pH 6.5 (5.0-8.0) Ur Specific [place] 1.024 (1.001-1.035) Urine Protein 2+ H (Negative) Urine Glucose (UA) Negative (Negative) Urine Ketones Negative (Negative) Urine Blood Large H (Negative) Urine Nitrite Positive (Negative) Urine Bilirubin Negative (Negative) Urine Urobilinogen <2.0 (<2.0) mg/dL Ur Leukocyte Esterase Large H (Negative) Urine RBC >182 H (0-5) /hpf Urine WBC >182 H (0-5) /hpf Ur Squamous Epith Cells 1 (0-4) /hpf Urine Mucus Occasional H (None) /hpf Disposition Clinical Impression: Urinary tract infection Disposition: HOME SELF-CARE Condition: Good Instructions (If sedation given, give patient instructions): Urinary Tract Infection in Men (ED) Prescriptions: Ciprofloxacin HCl [Cipro] 500 mg PO Q12HR #20 tablet Is patient prescribed a controlled substance at d/c from ED?: No Referrals: [facility],Clinic [Primary Care Provider] - 1-2 days Time of Disposition: 12:06
[2018-07-20] MEDS ORDERED: LIDOCAINE URO-JET JELLY 2% 5 ML KIT URETHRAL ONE (10:39)
[2018-07-20 11:24] LABS: Appearance,Urine Cloudy (Clear); Bilirubin,Urine Negative (Negative); Blood,Urine Large (Negative); Color,Urine Yellow; Glucose,Urine (UA) Negative (Negative); Ketones,Urine Negative (Negative); Leukocyte Esterase,Urine Large (Negative); Mucus,Urine Occasional /hpf; Nitrite,Urine Positive (Negative); PH, Urine 6.5 (5.0-8.0); Protein,Urine 2+ (Negative); RBC,Urine >182 /hpf (0-5); Specific Gravity,Urine 1.024 (1.001-1.035); Squamous Epithelial Cell,Urine 1 /hpf (0-4); Urobilinogen,Urine <2.0 mg/dL (<2.0); WBC,Urine >182 /hpf (0-5)
[2018-07-20] MEDS ORDERED: cefTRIAXone IN SWFI 1,000 MG/10 ML SYRINGE IVP STA (11:53)
[2018-07-20] MEDS ORDERED: cefTRIAXone 1,000 MG VIAL (IM USE) IM STA (13:25)
[2018-07-20 13:27] VITALS: BP 119/79; PULSE 55
== END 2018-07-20 13:58 | disposition home or self-care (01) ==
LOC: EC 09:50
DX: N39.0 Urinary tract infection, site not specified (principal); F17.200 Nicotine dependence, unspecified, uncomplicated; Z88.0 Allergy status to penicillin; Z53.8 Procedure and treatment not carried out for other reasons
CPT/HCPCS: 99283; 51702; 96372; 81001; J0696

== ENCOUNTER 2018-10-11 20:22 | Emergency (ER) | payer OTHER ==
[2018-10-11] MEDS ORDERED: SODIUM CHLORIDE 0.9% 500 ML 500 ML IV STA (21:36)
[2018-10-11] MEDS ORDERED: ONDANSETRON 4 MG/2 ML VIAL IVP STA (21:37)
[2018-10-11 21:49] LABS: HCT 40.7 % (39.0-53.0); HGB 13.8 gm/dL (13.0-17.5); MCH 30.1 pg (25.0-35.0); MCV 88.5 fL (80.0-100.0); Mean Platelet Volume 7.7; Platelet Count 189 k/uL (150-450); RBC 4.59 m/uL (4.30-5.90); WBC 8.4 k/uL (3.8-10.6)
[2018-10-11 22:01] LABS: ALT 28 U/L (21-72); AST 23 U/L (17-59); African American GFR (CKD) >90 (>60 ml/min/1.73 sqM); Albumin 4.1 g/dL (3.5-5.0); Alkaline Phosphatase 86 U/L (38-126); Anion Gap 10 mmol/L; Blood Urea Nitrogen 16 mg/dL (9-20); Calcium 9.4 mg/dL (8.4-10.2); Carbon Dioxide 23 mmol/L (22-30); Chloride 106 mmol/L (98-107); Glucose 123 mg/dL (74-99); Sodium 139 mmol/L (137-145); Total Bilirubin 0.5 mg/dL (0.2-1.3)
[2018-10-11 22:49] LABS: Appearance,Urine Clear (Clear); Bacteria,Urine Rare /hpf; Bilirubin,Urine Negative (Negative); Blood,Urine Moderate (Negative); Color,Urine Light Yellow; Glucose,Urine (UA) Negative (Negative); Ketones,Urine Negative (Negative); Leukocyte Esterase,Urine Large (Negative); Mucus,Urine Rare /hpf; Nitrite,Urine Negative (Negative); PH, Urine 6.5 (5.0-8.0); Protein,Urine Negative (Negative); RBC,Urine 14 /hpf (0-5); Specific Gravity,Urine 1.008 (1.001-1.035); Squamous Epithelial Cell,Urine <1 /hpf (0-4); Urobilinogen,Urine <2.0 mg/dL (<2.0); WBC,Urine 28 /hpf (0-5)
--- NOTE | 2018-10-11 23:15 | ED ---
General Adult HPI <Chivo Troy - Last Filed: 10/11/18 23:29> - General Source: patient Mode of arrival: ambulatory Limitations: no limitations <Carrillo Stanford - Last Filed: 10/12/18 00:06> - General Chief complaint: Nausea/Vomiting/Diarrhea Stated complaint: Vomiting Time Seen by Provider: 10/11/18 20:45 - History of Present Illness Initial comments: patient is 73 year old male presenting to the emergency department with a chief complaint of "not feeling like himself". Patient reports the symptoms started two days ago. patients feels tired and sleeps most of the day. Patient reports frequent UTIs due to indwelling catheter. The IDC is replaced monthly and the last replacement was almost 3 weeks ago. Patient reports green residue on the Mohamud but not the bag. Patient does report nausea and one episode of vomiting today but denies diarrhea. Daughter is also with him states the patient is not "acting like himself." Daughter reports patient has similar symptoms when he gets UTIs. patient denies fever, chills, abdominal, back or flank pain. Patient denies taking any medication to alleviate his symptoms. (Carrillo Stanford) - Related Data Home Medications Medication Instructions Recorded Confirmed Donepezil [Aricept] 5 mg PO DAILY 10/11/18 10/11/18 Fish Oil/Dha/Epa [Fish Oil 1,200 1 cap PO DAILY 10/11/18 10/11/18 mg Fish Oil] Multivitamins, Thera [Multivitamin 1 tab PO DAILY 10/11/18 10/11/18 (formulary)] Vitamin B Complex 1 cap PO DAILY 10/11/18 10/11/18 Previous Rx's Medication Instructions Recorded Ciprofloxacin HCl [Cipro] 500 mg PO Q12HR #20 tablet 10/11/18 Allergies Allergy/AdvReac Type Severity Reaction Status Date / Time Penicillins Allergy Rash/Hives Verified 10/11/18 21:11 Review of Systems ROS Other: All systems not noted in ROS Statement are negative. <Chivo Troy - Last Filed: 10/11/18 23:29> ROS Other: All systems not noted in ROS Statement are negative. <Carrillo Stanford - Last Filed: 10/12/18 00:06> ROS Statement: Those systems with pertinent positive or pertinent negative responses have been documented in the HPI. Past Medical History Past Medical History: GERD/Reflux Additional Past Medical History / Comment(s): hernia rt lower abd, states "had Hep B or C back 1959's and now it's all healed", recurrent UTI with IDC, History of Any Multi-Drug Resistant Organisms: None Reported Past Surgical History: Back Surgery, Hernia Repair Additional Past Surgical History / Comment(s): hemorrhoid Past Anesthesia/Blood Transfusion Reactions: No Reported Reaction Additional Past Anesthesia/Blood Transfusion Reaction / Comment(s): no hx blood transfusion Past Psychological History: No Psychological Hx Reported Smoking Status: Current every day smoker Past Alcohol Use History: None Reported Past Drug Use History: None Reported - Past Family History Mother Family Medical History: Cancer Father Family Medical History: Cancer <Carrillo Stanford - Last Filed: 10/12/18 00:06> General Exam Limitations: no limitations General appearance: alert, in no apparent distress Head exam: Present: atraumatic, normocephalic, normal inspection Eye exam: Present: normal appearance, PERRL, EOMI Pupils: Present: normal accommodation ENT exam: Present: normal exam, mucous membranes moist, normal external ear exam Neck exam: Present: normal inspection, full ROM Respiratory exam: Present: normal lung sounds bilaterally Cardiovascular Exam: Present: regular rate, normal rhythm, normal heart sounds GI/Abdominal exam: Present: soft, normal bowel sounds. Absent: distended, tenderness Extremities exam: Present: normal inspection, full ROM Back exam: Present: normal inspection. Absent: CVA tenderness (R), CVA tenderness (L) Neurological exam: Present: alert, oriented X3 Psychiatric exam: Present: normal affect, normal mood Skin exam: Present: warm, intact, normal color <Carrillo Stanford - Last Filed: 10/12/18 00:06> - General Exam Comments Initial Comments: Green residue noted an indwelling catheter, but urine in the bag is un remarkable. (Carrillo Stanford) Course <Chivo Troy - Last Filed: 10/11/18 23:29> Vital Signs 10/11/18 20:33 Temperature 98.0 F Pulse Rate 51 L Respiratory 18 Rate Blood Pressure 123/75 O2 Sat by Pulse 97 Oximetry - Reevaluation(s) Reevaluation #1: 07/28/19 23:29 PA supervision: I proceeded [id number] evaluation the patient did discuss findings with him he said vomiting. I do agree with the assessment and plan. Patient will be discharged (Chivo Troy) Medical Decision Making - Lab Data Result diagrams: 10/11/18 20:58 10/11/18 20:58 <Chivo Troy - Last Filed: 10/11/18 23:29> - Lab Data Result diagrams: 10/11/18 20:58 10/11/18 20:58 <Carrillo Stanford - Last Filed: 10/12/18 00:06> - Medical Decision Making Patient is 73-year-old male presents emergency Department with a chief complaint of "not feeling like himself." CBC and CMP are unremarkable. UA does show elevated leukocyte esterase and elevated blood cells but also microscopic hematuria. Patient will be treated with a 10 day course of ciprofloxacin. Patient advised to follow-up with primary care regarding the hematuria. Strict return parameters were thoroughly discussed with patient and daughter who are fully understanding and agreeable. Case discussed with physician. (Carrillo Stanford) - Lab Data Lab Results 10/11/18 10/11/18 10/11/18 Range/Units 20:58 20:58 22:25 WBC 8.4 (3.8-10.6) k/uL RBC 4.59 (4.30-5.90) m/uL Hgb 13.8 (13.0-17.5) gm/dL Hct 40.7 (39.0-53.0) % MCV 88.5 (80.0-100.0) fL MCH 30.1 (25.0-35.0) pg MCHC 34.0 (31.0-37.0) g/dL RDW 13.0 (11.5-15.5) % Plt Count 189 (150-450) k/uL Sodium 139 (137-145) mmol/L Potassium 4.0 (3.5-5.1) mmol/L Chloride 106 (98-107) mmol/L Carbon Dioxide 23 (22-30) mmol/L Anion Gap 10 mmol/L BUN 16 (9-20) mg/dL Creatinine 0.87 (0.66-1.25) mg/dL Est GFR (CKD-EPI)AfAm >90 (>60 ml/min/1.73 sqM) Est GFR (CKD-EPI)NonAf 85 (>60 ml/min/1.73 sqM) Glucose 123 H (74-99) mg/dL Calcium 9.4 (8.4-10.2) mg/dL Total Bilirubin 0.5 (0.2-1.3) mg/dL AST 23 (17-59) U/L ALT 28 (21-72) U/L Alkaline Phosphatase 86 (38-126) U/L Total Protein 7.0 (6.3-8.2) g/dL Albumin 4.1 (3.5-5.0) g/dL Urine Color Light Yellow Urine Appearance Clear (Clear) Urine pH 6.5 (5.0-8.0) Ur Specific [place] 1.008 (1.001-1.035) Urine Protein Negative (Negative) Urine Glucose (UA) Negative (Negative) Urine Ketones Negative (Negative) Urine Blood Moderate H (Negative) Urine Nitrite Negative (Negative) Urine Bilirubin Negative (Negative) Urine Urobilinogen <2.0 (<2.0) mg/dL Ur Leukocyte Esterase Large H (Negative) Urine RBC 14 H (0-5) /hpf Urine WBC 28 H (0-5) /hpf Ur Squamous Epith Cells <1 (0-4) /hpf Urine Bacteria Rare H (None) /hpf Urine Mucus Rare H (None) /hpf Disposition <Chivo Troy - Last Filed: 10/11/18 23:29> Is patient prescribed a controlled substance at d/c from ED?: No Time of Disposition: 23:15 <Carrillo Stanford - Last Filed: 10/12/18 00:06> Clinical Impression: UTI (urinary tract infection) Disposition: HOME SELF-CARE Condition: Stable Instructions (If sedation given, give patient instructions): Urinary Tract Infection in Older Adults (ED) Additional Instructions: Please take prescribed medication as directed. Please follow with primary care. Please return to emergency department if symptoms worsen. Prescriptions: Ciprofloxacin HCl [Cipro] 500 mg PO Q12HR #20 tablet Referrals: [facility],Clinic [Primary Care Provider] - 1-2 days
[2018-10-11 23:52] VITALS: BP 142/87; PULSE 50; RESP 20; TEMP 97.2
== END 2018-10-11 23:53 | disposition home or self-care (01) ==
LOC: EC 20:22
DX: N39.0 Urinary tract infection, site not specified (principal); F17.200 Nicotine dependence, unspecified, uncomplicated; Z79.899 Other long term (current) drug therapy; Z88.0 Allergy status to penicillin
CPT/HCPCS: 36415; 80053; 85027; 81001; 87040; 87086; 99284; 96374; 96361; J2405

== ENCOUNTER 2018-11-27 16:53 | Emergency (ER) | payer OTHER ==
[2018-11-27 17:06] VITALS: BP 127/81; PULSE 71; RESP 18; TEMP 98
--- NOTE | 2018-11-27 18:36 | ED ---
Male Urogenital HPI - General Chief complaint: Urogenital Stated complaint: catheter blocked Time Seen by Provider: 11/27/18 17:18 Source: patient Mode of arrival: ambulatory Limitations: no limitations - History of Present Illness Initial comments: Patient is a 73-year-old male presenting to the emergency Department with complaints of not being able to urinate since this morning. Patient does have an indwelling catheter and states his night bag was only approximately half full when he woke this morning and he has not been putting out urine like he normally does during the day. Patient does have some lower abdominal tenderness and pressure. Patient denies fever, chills, chest pain, shortness of breath. Patient has no other complaints at this time. Upon arrival to the ER, vital signs are stable. - Related Data Home Medications Medication Instructions Recorded Confirmed Donepezil [Aricept] 5 mg PO DAILY 10/11/18 10/11/18 Fish Oil/Dha/Epa [Fish Oil 1,200 1 cap PO DAILY 10/11/18 10/11/18 mg Fish Oil] Multivitamins, Thera [Multivitamin 1 tab PO DAILY 10/11/18 10/11/18 (formulary)] Vitamin B Complex 1 cap PO DAILY 10/11/18 10/11/18 Previous Rx's Medication Instructions Recorded Ciprofloxacin HCl [Cipro] 500 mg PO Q12HR #20 tablet 10/11/18 Allergies Allergy/AdvReac Type Severity Reaction Status Date / Time Penicillins Allergy Rash/Hives Verified 11/27/18 17:05 Review of Systems ROS Statement: Those systems with pertinent positive or pertinent negative responses have been documented in the HPI. ROS Other: All systems not noted in ROS Statement are negative. Past Medical History Past Medical History: GERD/Reflux Additional Past Medical History / Comment(s): hernia rt lower abd, states "had Hep B or C back s and now it's all healed", recurrent UTI with IDC, History of Any Multi-Drug Resistant Organisms: None Reported Past Surgical History: Back Surgery, Hernia Repair Additional Past Surgical History / Comment(s): hemorrhoid Past Anesthesia/Blood Transfusion Reactions: No Reported Reaction Additional Past Anesthesia/Blood Transfusion Reaction / Comment(s): no hx blood transfusion Past Psychological History: No Psychological Hx Reported Smoking Status: Current every day smoker Past Alcohol Use History: None Reported Past Drug Use History: None Reported - Past Family History Mother Family Medical History: Cancer Father Family Medical History: Cancer General Exam - General Exam Comments Initial Comments: GENERAL: Well-appearing, well-nourished and in no acute distress. HEAD: Atraumatic, normocephalic. EYES: Pupils equal round and reactive to light, extraocular movements intact, sclera anicteric, conjunctiva are normal. ENT: TMs normal, nares patent, oropharynx clear without exudates. Moist mucous membranes. NECK: Normal range of motion, supple without lymphadenopathy or JVD. LUNGS: Breath sounds clear to auscultation bilaterally and equal. No wheezes rales or rhonchi. HEART: Regular rate and rhythm without murmurs, rubs or gallops. ABDOMEN: Soft, nontender, normoactive bowel sounds. No guarding, no rebound. No masses appreciated. EXTREMITIES: Normal range of motion, no pitting or edema. No clubbing or cyanosis. NEUROLOGICAL: Cranial nerves II through XII grossly intact. Normal speech, normal gait. PSYCH: Normal mood, normal affect. SKIN: Warm, Dry, normal turgor, no rashes or lesions noted. Limitations: no limitations exam: Present: normal inspection, other (Catheter present, no signs of infection.). Absent: testicular tenderness, urethral discharge, scrotal swelling Course Vital Signs 11/27/18 17:04 Temperature 98.0 F Pulse Rate 71 Respiratory 18 Rate Blood Pressure 127/81 O2 Sat by Pulse 97 Oximetry Medical Decision Making - Medical Decision Making Patient is a 73-year-old male presenting with not being up to urinate since this morning. Patient does have an indwelling catheter present. Patient has had a little output since this morning along with lower abdominal pain and pressure. Bladder scan was performed and showed only 250 mL. A new catheter was placed and shows active drainage currently about 600 mL. UA will be cultured. Patient is stable for discharge at this time. Return parameters were discussed with the patient he verbalizes understanding. Case discussed with Dr. Jane. - Lab Data Lab Results 11/27/18 Range/Units 18:15 Urine Color Yellow Urine Appearance Cloudy (Clear) Urine pH 8.0 (5.0-8.0) Ur Specific [place] 1.015 (1.001-1.035) Urine Protein 1+ H (Negative) Urine Glucose (UA) Negative (Negative) Urine Ketones Negative (Negative) Urine Blood Small H (Negative) Urine Nitrite Negative (Negative) Urine Bilirubin Negative (Negative) Urine Urobilinogen <2.0 (<2.0) mg/dL Ur Leukocyte Esterase Large H (Negative) Urine RBC 26 H (0-5) /hpf Urine WBC 96 H (0-5) /hpf Urine Bacteria Few H (None) /hpf Urine Mucus Occasional H (None) /hpf Disposition Clinical Impression: Urinary retention Disposition: HOME SELF-CARE Condition: Stable Instructions (If sedation given, give patient instructions): Urinary Retention in Men (ED) Additional Instructions: Please return to the Emergency Department if symptoms worsen or any other concerns. Follow-up with PCP as needed. Is patient prescribed a controlled substance at d/c from ED?: No Referrals: [facility],Clinic [Primary Care Provider] - 1-2 days
[2018-11-27 18:56] LABS: Appearance,Urine Cloudy (Clear); Bacteria,Urine Few /hpf; Bilirubin,Urine Negative (Negative); Blood,Urine Small (Negative); Color,Urine Yellow; Glucose,Urine (UA) Negative (Negative); Ketones,Urine Negative (Negative); Leukocyte Esterase,Urine Large (Negative); Mucus,Urine Occasional /hpf; Nitrite,Urine Negative (Negative); Protein,Urine 1+ (Negative); RBC,Urine 26 /hpf (0-5); Specific Gravity,Urine 1.015 (1.001-1.035); Urobilinogen,Urine <2.0 mg/dL (<2.0); WBC,Urine 96 /hpf (0-5)
== END 2018-11-27 19:57 | disposition home or self-care (01) ==
LOC: EC 16:53
DX: R33.9 Retention of urine, unspecified (principal); R10.30 Lower abdominal pain, unspecified; F17.200 Nicotine dependence, unspecified, uncomplicated; Z79.899 Other long term (current) drug therapy; Z88.0 Allergy status to penicillin
CPT/HCPCS: 51702; 81001; 87077; 87086; 87186; 99284

== ENCOUNTER 2018-12-27 20:20 | Emergency (ER) | payer OTHER, MEDICARE ==
[2018-12-27 21:56] LABS: Appearance,Urine Cloudy (Clear); Bacteria,Urine Many /hpf; Bilirubin,Urine Negative (Negative); Blood,Urine Small (Negative); Color,Urine Yellow; Glucose,Urine (UA) Negative (Negative); Ketones,Urine Negative (Negative); Leukocyte Esterase,Urine Large (Negative); Nitrite,Urine Negative (Negative); PH, Urine 7.5 (5.0-8.0); Protein,Urine Trace (Negative); RBC,Urine 10 /hpf (0-5); WBC,Urine >182 /hpf (0-5)
[2018-12-27] MEDS ORDERED: cefTRIAXone 1,000 MG VIAL (IM USE) IM STA (22:27)
[2018-12-27] MEDS ORDERED: CEPHALEXIN 500MG STARTER PACK 4 CAP BTL PO STA (22:33)
--- NOTE | 2018-12-27 22:34 | ED ---
General Adult HPI - General Chief complaint: Urogenital Stated complaint: Urogenital Time Seen by Provider: 12/27/18 21:03 Source: patient, RN notes reviewed, old records reviewed Mode of arrival: ambulatory Limitations: no limitations - History of Present Illness Initial comments: 73-year-old male patient pesents to ED chief complaint of urinary catheter not draining. Patient reports that his urinary catheter is not draining today. Patient has had indwelling catheter for 4 years. Patient denies any other complaints at this time. Systemic: Pt denies fatigue, fever/chills, rash. Pt denies weakness, night sweats, weight loss. Neuro: Pt denies headache, visual disturbances, syncope or pre-syncope. HEENT: Pt denies ocular discharge or irritation, otalgia, rhinorrhea, pharyngitis or notable lymphadenopathy. Cardiopulmonary: Pt denies chest pain, SOB, heart palpitations, dyspnea on exertion. Abdominal/GI: Pt denies abdominal pain, n/v/d. : Pt denies dysuria, burning w/ urination, frequency/urgency. Denies new onset urinary or bowel incontinence. MSK: Pt denies myalgia, loss of strength or function in extremities. Neuro: Pt denies new onset weakness, paresthesias. - Related Data Home Medications Medication Instructions Recorded Confirmed Donepezil [Aricept] 5 mg PO DAILY 10/11/18 10/11/18 Fish Oil/Dha/Epa [Fish Oil 1,200 1 cap PO DAILY 10/11/18 10/11/18 mg Fish Oil] Multivitamins, Thera [Multivitamin 1 tab PO DAILY 10/11/18 10/11/18 (formulary)] Vitamin B Complex 1 cap PO DAILY 10/11/18 10/11/18 Previous Rx's Medication Instructions Recorded Ciprofloxacin HCl [Cipro] 500 mg PO Q12HR #20 tablet 10/11/18 Cephalexin [Keflex] 500 mg PO Q6HR 10 Days #40 cap 12/27/18 Allergies Allergy/AdvReac Type Severity Reaction Status Date / Time Penicillins Allergy Rash/Hives Verified 12/27/18 20:41 Review of Systems ROS Statement: Those systems with pertinent positive or pertinent negative responses have been documented in the HPI. ROS Other: All systems not noted in ROS Statement are negative. Past Medical History Past Medical History: GERD/Reflux Additional Past Medical History / Comment(s): hernia rt lower abd, states "had Hep B or C back 1959's and now it's all healed", recurrent UTI with IDC, History of Any Multi-Drug Resistant Organisms: None Reported Past Surgical History: Back Surgery, Hernia Repair Additional Past Surgical History / Comment(s): hemorrhoid Past Anesthesia/Blood Transfusion Reactions: No Reported Reaction Additional Past Anesthesia/Blood Transfusion Reaction / Comment(s): no hx blood transfusion Past Psychological History: No Psychological Hx Reported Smoking Status: Current every day smoker Past Alcohol Use History: None Reported Past Drug Use History: None Reported - Past Family History Mother Family Medical History: Cancer Father Family Medical History: Cancer General Exam - General Exam Comments Initial Comments: Constitutional: NAD, AOX3, Pt has pleasant affect. HEENT: NC/AT, trachea midline, neck supple, no lymphadenopathy. Posterior pharynx non erythematous, without exudates. External ears appear normal, without discharge. Mucous membranes moist. Eyes PERRLA, EOM intact. There is no scleral icterus. No pallor noted. Cardiopulmonary: RRR, no murmurs, rubs or gallops, no JVD noted. Lungs CTAB in anterior and posterior cobb. No peripheral edema. Abdominal exam: Abdomen soft and non-distended. Abdomen non-tender to palpation in all 4 quadrants. Bowel sounds active in LLQ. No hepatosplenomegaly. No ecchymosis Neuro: CN II-XII grossly intact. No nuchal rigidity. No raccon eyes, no shafer sign, no hemotympanum. No cervical spinal tenderness. MSK: No posterior calf tenderness bilaterally, homans sign negative bilaterally. Posterior tibialis and radial pulse +2 bilaterally. Sensation intact in upper and lower extremities. Full active ROM in upper and lower extremities, 5/5 stregnth. Gu: Catheter examined, no skin changes, no signs of infection. Limitations: no limitations Course Vital Signs 12/27/18 20:39 Temperature 98.1 F Pulse Rate 81 Respiratory 20 Rate Blood Pressure 137/85 O2 Sat by Pulse 98 Oximetry Medical Decision Making - Medical Decision Making 73-year-old male patient pesents to ED chief complaint of urinary catheter not draining. Patient reports that his urinary catheter is not draining today. Patient has had indwelling catheter for 4 years. Patient denies any other complaints at this time. Patient vital signs stable, afebrile. Physical exam then is acute pathology. Bladder scan revealed full bladder. Catheter is changed. Approximately 700mL range. UA revealed urinary tract infection. Agent initiated on Rocephin. Patient was discharged with Keflex. Patient will follow-up with primary care provider, will return to ER if condition worsens. Case discussed with Dr. Devi. - Lab Data Lab Results 12/27/18 Range/Units 21:41 Urine Color Yellow Urine Appearance Cloudy (Clear) Urine pH 7.5 (5.0-8.0) Ur Specific [place] 1.010 (1.001-1.035) Urine Protein Trace H (Negative) Urine Glucose (UA) Negative (Negative) Urine Ketones Negative (Negative) Urine Blood Small H (Negative) Urine Nitrite Negative (Negative) Urine Bilirubin Negative (Negative) Urine Urobilinogen 3.0 (<2.0) mg/dL Ur Leukocyte Esterase Large H (Negative) Urine RBC 10 H (0-5) /hpf Urine WBC >182 H (0-5) /hpf Urine WBC Clumps Many H (None) /hpf Urine Bacteria Many H (None) /hpf Disposition Clinical Impression: UTI (urinary tract infection), Mohamud catheter in place Disposition: HOME SELF-CARE Condition: Stable Instructions (If sedation given, give patient instructions): Urinary Tract Infection in Men (ED) Additional Instructions: Patient to adhere to previously discussed treatment plan and will take medication(s) as directed. Patient to follow up with PCP in 1-2 days. Patient to return to ED if symptoms do not improve. Take antibiotics as directed. Return to ER if condition worsens. Follow-up with primary care provider tomorrow. Prescriptions: Cephalexin [Keflex] 500 mg PO Q6HR 10 Days #40 cap Is patient prescribed a controlled substance at d/c from ED?: No Referrals: [facility],Clinic [Primary Care Provider] - 1-2 days
[2018-12-27 23:16] VITALS: BP 148/78; PULSE 63; RESP 18; TEMP 98.2
== END 2018-12-27 23:14 | disposition home or self-care (01) ==
LOC: EC 20:20
DX: N39.0 Urinary tract infection, site not specified (principal); F17.200 Nicotine dependence, unspecified, uncomplicated; Z79.899 Other long term (current) drug therapy; Z88.0 Allergy status to penicillin
CPT/HCPCS: 51798; 81001; 87086; 87077; 87186; 99284; 51702; 96372; J0696

== ENCOUNTER 2019-02-14 10:30 | Emergency (ER) | payer OTHER ==
[2019-02-14 10:46] VITALS: BP 127/91; PULSE 89; RESP 18; TEMP 98
--- NOTE | 2019-02-14 11:21 | ED ---
General Adult HPI - General Source: patient, RN notes reviewed Mode of arrival: ambulatory Limitations: no limitations <Toney Tapia - Last Filed: 02/14/19 12:42> <Chivo Troy - Last Filed: 02/14/19 12:54> - General Chief complaint: Urogenital Stated complaint: CATHETER PROBLEM Time Seen by Provider: 02/14/19 10:48 - History of Present Illness Initial comments: 73-year-old male with a past medical history of recurrent UTIs presents to the emergency department for a chief complaint of catheter dysfunction. Patient has a Christie catheter placed. Patient states that catheter was draining fine yesterday. However when he woke up this morning it was not draining well. States his abdomen feels full and like he has to urinate. States he has some pain noted to the tip of the penis. Denies fevers or chills. States up until this morning his catheter has been draining normally.Patient has no other compla ints at this time including shortness of breath, chest pain, abdominal pain, nausea or vomiting, headache, or visual changes. (Toney Tapia) - Related Data Home Medications Medication Instructions Recorded Confirmed Donepezil [Aricept] 5 mg PO DAILY 10/11/18 10/11/18 Fish Oil/Dha/Epa [Fish Oil 1,200 1 cap PO DAILY 10/11/18 10/11/18 mg Fish Oil] Multivitamins, Thera [Multivitamin 1 tab PO DAILY 10/11/18 10/11/18 (formulary)] Vitamin B Complex 1 cap PO DAILY 10/11/18 10/11/18 Previous Rx's Medication Instructions Recorded Ciprofloxacin HCl [Cipro] 500 mg PO Q12HR #20 tablet 10/11/18 Cephalexin [Keflex] 500 mg PO Q6HR 10 Days #40 cap 12/27/18 Sulfamethox-Tmp 800-160Mg [Bactrim 1 tab PO Q12HR #20 tab 02/14/19 DS 800-160 mg] Allergies Allergy/AdvReac Type Severity Reaction Status Date / Time Penicillins Allergy Rash/Hives Verified 02/14/19 10:46 Review of Systems ROS Other: All systems not noted in ROS Statement are negative. <Toney Tapia - Last Filed: 02/14/19 12:42> ROS Other: All systems not noted in ROS Statement are negative. <Chivo Troy - Last Filed: 02/14/19 12:54> ROS Statement: Those systems with pertinent positive or pertinent negative responses have been documented in the HPI. Past Medical History Past Medical History: GERD/Reflux Additional Past Medical History / Comment(s): hernia rt lower abd, states "had Hep B or C back 1959's and now it's all healed", recurrent UTI with IDC, History of Any Multi-Drug Resistant Organisms: None Reported Past Surgical History: Back Surgery, Hernia Repair Additional Past Surgical History / Comment(s): hemorrhoid Past Anesthesia/Blood Transfusion Reactions: No Reported Reaction Additional Past Anesthesia/Blood Transfusion Reaction / Comment(s): no hx blood transfusion Past Psychological History: No Psychological Hx Reported Smoking Status: Current every day smoker Past Alcohol Use History: None Reported Past Drug Use History: None Reported - Past Family History Mother Family Medical History: Cancer Father Family Medical History: Cancer <Toney Tapia - Last Filed: 02/14/19 12:42> General Exam Limitations: no limitations General appearance: alert, in no apparent distress Head exam: Present: atraumatic, normocephalic, normal inspection Eye exam: Present: normal appearance, PERRL, EOMI. Absent: scleral icterus, conjunctival injection, periorbital swelling ENT exam: Present: normal exam, mucous membranes moist Neck exam: Present: normal inspection, full ROM. Absent: tenderness, meningismus, lymphadenopathy Respiratory exam: Present: normal lung sounds bilaterally. Absent: respiratory distress, wheezes, rales, rhonchi, stridor Cardiovascular Exam: Present: regular rate, normal rhythm, normal heart sounds. Absent: systolic murmur, diastolic murmur, rubs, gallop, clicks GI/Abdominal exam: Present: soft, normal bowel sounds. Absent: distended, tenderness, guarding, rebound, rigid Rectal exam: Present: other (christie Catheter in place. I do not see any obvious abnormalities externally) <Toney Tapia - Last Filed: 02/14/19 12:42> Course <Chivo Troy - Last Filed: 02/14/19 12:54> Vital Signs 02/14/19 10:44 Temperature 98.0 F Pulse Rate 89 Respiratory 18 Rate Blood Pressure 127/91 O2 Sat by Pulse 98 Oximetry - Reevaluation(s) Reevaluation #1: 02/14/19 12:53 PA supervision: I personally do a [id number] evaluation the patient. He did present with complaints of only catheter problems. Christie was not draining properly. He did have some lower abdominal discomfort and was noted to have abo ut 6 hours cc of urine in his ladder. He did catheter was placed he did feel much improved. There is some evidence of UTI he does have a history of frequent UTIs. He'll be placed on appropriate medication. I do agree with the assessment and plan. Reevaluation of his abdomen after the catheter placement and decompression no tenderness to palpation unremarkable. (Chivo Troy) Medical Decision Making <Toney Tapia - Last Filed: 02/14/19 12:42> - Medical Decision Making She is well-appearing. Vitals are stable. Patient is afebrile. Christie catheter was removed and a new catheter was inserted. 600 mL of urine was collected. Urinalysis was obtained from new Christie catheter which did show greater than 182 white blood cells. Red blood cells may be related to urinary tract infection. Patient has a penicillin ALLERGY. Previous cultures are reviewed and as patient is sensitive to Bactrim this will be started. He will need to follow-up with his doctor for repeat urinalysis. He is to return here if he has any worsening symptoms. She was given a starter pack. He requests a paper prescription as he is not sure where his daughter wants him to take this prescription. (Toney Tapia) - Lab Data Lab Results 02/14/19 Range/Units 12:05 Urine Color Yellow Urine Appearance Turbid (Clear) Urine pH 8.0 (5.0-8.0) Ur Specific [place] 1.013 (1.001-1.035) Urine Protein 1+ H (Negative) Urine Glucose (UA) Negative (Negative) Urine Ketones Negative (Negative) Urine Blood Moderate H (Negative) Urine Nitrite Negative (Negative) Urine Bilirubin Negative (Negative) Urine Urobilinogen <2.0 (<2.0) mg/dL Ur Leukocyte Esterase Large H (Negative) Urine RBC 71 H (0-5) /hpf Urine WBC >182 H (0-5) /hpf Urine WBC Clumps Many H (None) /hpf Urine Bacteria Few H (None) /hpf Disposition Is patient prescribed a controlled substance at d/c from ED?: No Time of Disposition: 12:42 <Toney Tapia - Last Filed: 02/14/19 12:42> <Chivo Troy - Last Filed: 02/14/19 12:54> Clinical Impression: Urinary tract infection Disposition: HOME SELF-CARE Condition: Good Instructions (If sedation given, give patient instructions): Urinary Tract Infection in Men (ED) Additional Instructions: Please take Bactrim as directed. Please follow-up with primary care this week for a repeat urinalysis. If you have any worsening symptoms, abdominal pain, or fevers return to the emergency department. You will get a call in 2-3 days if a different antibiotic is needed based on culture results. Prescriptions: Sulfamethox-Tmp 800-160Mg [Bactrim DS 800-160 mg] 1 tab PO Q12HR #20 tab Referrals: [facility],Clinic [Primary Care Provider] - 1-2 days
[2019-02-14 12:27] LABS: Appearance,Urine Turbid (Clear); Bacteria,Urine Few /hpf; Bilirubin,Urine Negative (Negative); Blood,Urine Moderate (Negative); Color,Urine Yellow; Glucose,Urine (UA) Negative (Negative); Ketones,Urine Negative (Negative); Leukocyte Esterase,Urine Large (Negative); Nitrite,Urine Negative (Negative); Protein,Urine 1+ (Negative); RBC,Urine 71 /hpf (0-5); Specific Gravity,Urine 1.013 (1.001-1.035); Urobilinogen,Urine <2.0 mg/dL (<2.0)
[2019-02-14] MEDS ORDERED: SULFAMETH-TMP DS STARTER PACK 2 TAB BTL PO STA (12:44)
== END 2019-02-14 13:02 | disposition home or self-care (01) ==
LOC: EC 10:30
DX: N39.0 Urinary tract infection, site not specified (principal); F17.200 Nicotine dependence, unspecified, uncomplicated; Z79.899 Other long term (current) drug therapy; Z88.0 Allergy status to penicillin
CPT/HCPCS: 51702; 81001; 87086; 99283

== ENCOUNTER 2019-07-03 03:14 | Emergency (ER) | payer OTHER ==
[2019-07-03 03:19] VITALS: BP 156/83; PULSE 69; RESP 18; TEMP 97.4
--- NOTE | 2019-07-03 03:26 | ED ---
Male Urogenital HPI - General Chief complaint: Urogenital Stated complaint: Catheter Issues/retention Time Seen by Provider: 07/03/19 03:18 Source: patient, RN notes reviewed, old records reviewed Mode of arrival: ambulatory Limitations: no limitations - History of Present Illness Initial comments: This is a 74-year-old male DF for evaluation patient coming in for catheter issue catheter malfunction, at that she occasionally no other complaints aside from the abdominal pain from the inability to urinate. No recent fevers or any other issues. No change in medications. No blood in the ER MD Complaint: testicle pain -: hour(s) Location: abdomen Severity: moderate Severity scale (1-10): 7 Quality: aching, sharp Consistency: constant Improves with: none Worsens with: urination indwelling catheter Reports: denies other symptoms - Related Data Home Medications Medication Instructions Recorded Confirmed Multivitamins, Thera [Multivitamin 1 tab PO DAILY 10/11/18 05/09/19 (formulary)] Cholecalciferol [Vitamin D3 (25 1,000 unit PO DAILY 05/09/19 05/09/19 Mcg = 1000 Iu)] HYDROcodone/APAP 7.5-325MG [[place] 1 tab PO HS PRN 05/09/19 05/09/19 7.5-325] Lidocaine 5% Patch [Lidoderm] 1 patch TOPICAL DAILY 05/09/19 05/09/19 [place]-3 Fatty Acids/Fish Oil [Fish 1 cap PO DAILY 05/09/19 05/09/19 Oil 1,000 mg Softgel] Sertraline [Zoloft] 50 mg PO DAILY 05/09/19 05/09/19 Previous Rx's Medication Instructions Recorded Ciprofloxacin HCl [Cipro] 500 mg PO Q12HR #20 tablet 05/09/19 Allergies Allergy/AdvReac Type Severity Reaction Status Date / Time Penicillins Allergy Anaphylaxis Verified 05/09/19 16:04 Review of Systems ROS Statement: Those systems with pertinent positive or pertinent negative responses have been documented in the HPI. ROS Other: All systems not noted in ROS Statement are negative. Past Medical History Past Medical History: GERD/Reflux Additional Past Medical History / Comment(s): hernia rt lower abd, states "had Hep B or C back 1960's and now it's all healed", recurrent UTI with IDC, History of Any Multi-Drug Resistant Organisms: None Reported Past Surgical History: Back Surgery, Hernia Repair Additional Past Surgical History / Comment(s): hemorrhoid Past Anesthesia/Blood Transfusion Reactions: No Reported Reaction Additional Past Anesthesia/Blood Transfusion Reaction / Comment(s): no hx blood transfusion Past Psychological History: No Psychological Hx Reported Smoking Status: Current every day smoker Past Alcohol Use History: None Reported Past Drug Use History: None Reported - Past Family History Mother Family Medical History: Cancer Father Family Medical History: Cancer General Exam Limitations: no limitations General appearance: alert, in no apparent distress Head exam: Present: atraumatic, normocephalic, normal inspection Eye exam: Present: normal appearance, PERRL, EOMI. Absent: scleral icterus, conjunctival injection, periorbital swelling ENT exam: Present: normal exam, mucous membranes moist Neck exam: Present: normal inspection. Absent: tenderness, meningismus, lymphadenopathy Respiratory exam: Present: normal lung sounds bilaterally. Absent: respiratory distress, wheezes, rales, rhonchi, stridor Cardiovascular Exam: Present: regular rate, normal rhythm, normal heart sounds. Absent: systolic murmur, diastolic murmur, rubs, gallop, clicks GI/Abdominal exam: Present: soft, normal bowel sounds. Absent: distended, tenderness, guarding, rebound, rigid Extremities exam: Present: normal inspection, full ROM, normal capillary refill. Absent: tenderness, pedal edema, joint swelling, calf tenderness Back exam: Present: normal inspection Neurological exam: Present: alert, oriented X3, CN II-XII intact Psychiatric exam: Present: normal affect, normal mood Skin exam: Present: warm, dry, intact, normal color. Absent: rash Course Vital Signs 07/03/19 03:17 Temperature 97.4 F L Pulse Rate 69 Respiratory 18 Rate Blood Pressure 156/83 O2 Sat by Pulse 99 Oximetry Medical Decision Making - Medical Decision Making 74 male to the ER for catheter exchange catheter exchange without difficulty patient's symptoms are relieved and can be discharged home Disposition Clinical Impression: Malfunction of Mohamud catheter Disposition: HOME SELF-CARE Condition: Good Instructions (If sedation given, give patient instructions): Mohamud Catheter Placement and Care (ED), Mohamud Catheter Removal (DC) Is patient prescribed a controlled substance at d/c from ED?: No Referrals: [facility],Clinic [Primary Care Provider] - 1-2 days
== END 2019-07-03 04:05 | disposition home or self-care (01) ==
LOC: EC 03:14
DX: T83.018A Breakdown (mechanical) of other urinary catheter, initial encounter (principal); R33.9 Retention of urine, unspecified; F17.200 Nicotine dependence, unspecified, uncomplicated; Z87.440 Personal history of urinary (tract) infections; Z79.899 Other long term (current) drug therapy; Z88.0 Allergy status to penicillin
CPT/HCPCS: 51702; 99283

== ENCOUNTER 2019-07-15 01:33 | Emergency (ER) | payer OTHER ==
[2019-07-15 01:45] VITALS: TEMP 97.6
[2019-07-15] MEDS ORDERED: LIDOCAINE URO-JET JELLY 2% 5 ML KIT URETHRAL ONE (02:00)
--- NOTE | 2019-07-15 02:02 | ED ---
General Adult HPI - General Chief complaint: Urogenital Stated complaint: Catheter Blockage Time Seen by Provider: 07/15/19 01:38 Source: patient, RN notes reviewed, old records reviewed Mode of arrival: ambulatory Limitations: no limitations - History of Present Illness Initial comments: 74-year-old male with permanent indwelling Mohamud catheter presents with occluded catheter. Patient states he last noticed urine output approximately 6 hours ago. He is complaining of some minimal pain and discomfort in his lower abdomen. He denies hematuria. Denies fever or chills. No vomiting. No upper abdominal pain. - Related Data Home Medications Medication Instructions Recorded Confirmed Multivitamins, Thera [Multivitamin 1 tab PO DAILY 10/11/18 05/09/19 (formulary)] Cholecalciferol [Vitamin D3 (25 1,000 unit PO DAILY 05/09/19 05/09/19 Mcg = 1000 Iu)] HYDROcodone/APAP 7.5-325MG [[place] 1 tab PO HS PRN 05/09/19 05/09/19 7.5-325] Lidocaine 5% Patch [Lidoderm] 1 patch TOPICAL DAILY 05/09/19 05/09/19 [place]-3 Fatty Acids/Fish Oil [Fish 1 cap PO DAILY 05/09/19 05/09/19 Oil 1,000 mg Softgel] Sertraline [Zoloft] 50 mg PO DAILY 05/09/19 05/09/19 Previous Rx's Medication Instructions Recorded Ciprofloxacin HCl [Cipro] 500 mg PO Q12HR #20 tablet 05/09/19 Allergies Allergy/AdvReac Type Severity Reaction Status Date / Time Penicillins Allergy Anaphylaxis Verified 07/15/19 01:45 Review of Systems ROS Statement: Those systems with pertinent positive or pertinent negative responses have been documented in the HPI. ROS Other: All systems not noted in ROS Statement are negative. Past Medical History Past Medical History: GERD/Reflux Additional Past Medical History / Comment(s): hernia rt lower abd, states "had Hep B or C back 1960's and now it's all healed", recurrent UTI with IDC, History of Any Multi-Drug Resistant Organisms: None Reported Past Surgical History: Back Surgery, Hernia Repair Additional Past Surgical History / Comment(s): hemorrhoid Past Anesthesia/Blood Transfusion Reactions: No Reported Reaction Additional Past Anesthesia/Blood Transfusion Reaction / Comment(s): no hx blood transfusion Past Psychological History: No Psychological Hx Reported Smoking Status: Current every day smoker Past Alcohol Use History: None Reported Past Drug Use History: None Reported - Past Family History Mother Family Medical History: Cancer Father Family Medical History: Cancer General Exam Limitations: no limitations General appearance: alert, in no apparent distress Head exam: Present: atraumatic, normocephalic Eye exam: Present: normal appearance, PERRL ENT exam: Present: normal exam Neck exam: Present: normal inspection. Absent: tenderness, meningismus Respiratory exam: Present: normal lung sounds bilaterally. Absent: respiratory distress Cardiovascular Exam: Present: regular rate, normal rhythm GI/Abdominal exam: Present: soft, tenderness (Minimal suprapubic tenderness). Absent: distended Extremities exam: Present: normal inspection, normal capillary refill Course Vital Signs 07/15/19 01:41 Temperature 97.6 F Pulse Rate 88 Respiratory 18 Rate Blood Pressure 147/111 O2 Sat by Pulse 98 Oximetry Medical Decision Making - Medical Decision Making Catheter is replaced in the emergency department without difficulty with normal urine output, patient feeling 100% better. Discharged with outpatient follow- up. Disposition Clinical Impression: Malfunction of Mohamud catheter Disposition: HOME SELF-CARE Condition: Good Instructions (If sedation given, give patient instructions): Mohamud Catheter Placement and Care (ED) Is patient prescribed a controlled substance at d/c from ED?: No Referrals: [facility],Clinic [Primary Care Provider] - 1-2 days Time of Disposition: 02:02
[2019-07-15 02:31] VITALS: BP 117/77; PULSE 80; RESP 20
== END 2019-07-15 02:38 | disposition home or self-care (01) ==
LOC: EC 01:33
DX: T83.011A Breakdown (mechanical) of indwelling urethral catheter, initial encounter (principal); F17.200 Nicotine dependence, unspecified, uncomplicated; Z79.899 Other long term (current) drug therapy; Z88.0 Allergy status to penicillin
CPT/HCPCS: 51702; 99283

== ENCOUNTER 2019-07-25 12:42 | Emergency (ER) | payer OTHER ==
[2019-07-25 12:47] VITALS: RESP 18
--- NOTE | 2019-07-25 13:08 | ED ---
Male Urogenital HPI - General Chief complaint: Urogenital Stated complaint: catheter problems Time Seen by Provider: 07/25/19 12:54 Source: patient, family Mode of arrival: ambulatory Limitations: no limitations - History of Present Illness Initial comments: Patient is a 74-year-old male presents emergency Department with a chief complaint of catheter problems. Patient reports he woke up this morning and noticed his Mohamud was draining more than usual. Also reports suprapubic pressure which typically indicates that he has a urinary tract infection. Also reports some pain around the glans penis but denies any lesions or rashes. Denies any night sweats fevers or chills. Denies any hematuria or abnormal color in the catheter bag. States he typically has the Mohamud replaced monthly, however he has been coming to the ED more frequently for catheter replacement. Patient has an indwelling catheter since 2017. - Related Data Home Medications Medication Instructions Recorded Confirmed Multivitamins, Thera [Multivitamin 1 tab PO DAILY 10/11/18 05/09/19 (formulary)] Cholecalciferol [Vitamin D3 (25 1,000 unit PO DAILY 05/09/19 05/09/19 Mcg = 1000 Iu)] HYDROcodone/APAP 7.5-325MG [[place] 1 tab PO HS PRN 05/09/19 05/09/19 7.5-325] Lidocaine 5% Patch [Lidoderm] 1 patch TOPICAL DAILY 05/09/19 05/09/19 [place]-3 Fatty Acids/Fish Oil [Fish 1 cap PO DAILY 05/09/19 05/09/19 Oil 1,000 mg Softgel] Sertraline [Zoloft] 50 mg PO DAILY 05/09/19 05/09/19 Previous Rx's Medication Instructions Recorded Ciprofloxacin HCl [Cipro] 500 mg PO Q12HR #20 tablet 05/09/19 Ciprofloxacin HCl [Cipro] 500 mg PO Q12HR 10 Days #20 tab 07/25/19 Allergies Allergy/AdvReac Type Severity Reaction Status Date / Time Penicillins Allergy Anaphylaxis Verified 07/25/19 12:43 Review of Systems ROS Statement: Those systems with pertinent positive or pertinent negative responses have been documented in the HPI. ROS Other: All systems not noted in ROS Statement are negative. Past Medical History Past Medical History: GERD/Reflux Additional Past Medical History / Comment(s): hernia rt lower abd, states "had Hep B or C back and now it's all healed", recurrent UTI with IDC, History of Any Multi-Drug Resistant Organisms: None Reported Past Surgical History: Back Surgery, Hernia Repair Additional Past Surgical History / Comment(s): hemorrhoid Past Anesthesia/Blood Transfusion Reactions: No Reported Reaction Additional Past Anesthesia/Blood Transfusion Reaction / Comment(s): no hx blood transfusion Past Psychological History: No Psychological Hx Reported Smoking Status: Current every day smoker Past Alcohol Use History: None Reported Past Drug Use History: None Reported - Past Family History Mother Family Medical History: Cancer Father Family Medical History: Cancer General Exam Limitations: no limitations General appearance: alert, in no apparent distress Head exam: Present: atraumatic, normocephalic, normal inspection Eye exam: Present: normal appearance, PERRL, EOMI Pupils: Present: normal accommodation ENT exam: Present: normal exam, mucous membranes moist Neck exam: Present: normal inspection, full ROM Respiratory exam: Present: normal lung sounds bilaterally Cardiovascular Exam: Present: regular rate, normal rhythm, normal heart sounds GI/Abdominal exam: Present: soft. Absent: distended, tenderness, guarding, rebound, rigid exam: Present: normal inspection, other (No general or rashes or lesions noted.). Absent: urethral discharge, scrotal swelling Extremities exam: Present: normal inspection, full ROM Back exam: Present: normal inspection, full ROM Neurological exam: Present: alert, oriented X3 Psychiatric exam: Present: normal affect, normal mood Skin exam: Present: warm, dry, intact, normal color Course Vital Signs 07/25/19 07/25/19 12:44 14:40 Temperature 97.8 F 97.9 F Pulse Rate 91 78 Respiratory 18 18 Rate Blood Pressure 105/75 122/78 O2 Sat by Pulse 98 99 Oximetry Medical Decision Making - Medical Decision Making Patient is 74-year-old male presenting to emergency prompt chief complaint catheter problem. On physical examination there is no signs of infection of the penis or testicles. The old indwelling catheter was removed and new one was inserted. Urine was obtained showing a urinary tract infection with elevated leukocyte esterase, white blood cells and red blood cells. Initially there was slight difficulty with removing the indwelling catheter. I suspect the hematuria is secondary to endothelial damage caused by removing the catheter. Patient given Rocephin in the ED, he previously tolerated the medication. Patient will be discharged with a 10 day course of ciprofloxacin. Patient advised about the possible side effects of medication. He was advised to avoid any extraneous activity. Return parameters thoroughly discussed the patient was understanding and agreeable. Case discussed with physician. - Lab Data Lab Results 07/25/19 Range/Units 13:45 Urine Color Light Red Urine Appearance Turbid (Clear) Urine pH 8.0 (5.0-8.0) Ur Specific [place] 1.020 (1.001-1.035) Urine Protein 3+ H (Negative) Urine Glucose (UA) Negative (Negative) Urine Ketones Negative (Negative) Urine Blood Moderate H (Negative) Urine Nitrite Negative (Negative) Urine Bilirubin Negative (Negative) Urine Urobilinogen <2.0 (<2.0) mg/dL Ur Leukocyte Esterase Large H (Negative) Urine RBC >182 H (0-5) /hpf Urine WBC >182 H (0-5) /hpf Urine WBC Clumps Few H (None) /hpf Ur Squamous Epith Cells 3 (0-4) /hpf Amorphous Sediment Rare H (None) /hpf Urine Mucus Rare H (None) /hpf Disposition Clinical Impression: Urinary tract infection Disposition: HOME SELF-CARE Condition: Good Instructions (If sedation given, give patient instructions): Urinary Tract Infection in Men (ED) Additional Instructions: Take prescribed medication as directed. Follow up with primary care. Return to emergency department if symptoms worsen. Prescriptions: Ciprofloxacin HCl [Cipro] 500 mg PO Q12HR 10 Days #20 tab Is patient prescribed a controlled substance at d/c from ED?: No Referrals: [facility],Clinic [Primary Care Provider] - 1-2 days Time of Disposition: 14:32
[2019-07-25] MEDS ORDERED: LIDOCAINE URO-JET JELLY 2% 5 ML KIT URETHRAL ONE (13:25)
[2019-07-25 14:04] LABS: Appearance,Urine Turbid (Clear); Bilirubin,Urine Negative (Negative); Blood,Urine Moderate (Negative); Color,Urine Light Red; Glucose,Urine (UA) Negative (Negative); Ketones,Urine Negative (Negative); Leukocyte Esterase,Urine Large (Negative); Nitrite,Urine Negative (Negative); Protein,Urine 3+ (Negative); Urobilinogen,Urine <2.0 mg/dL (<2.0)
[2019-07-25 14:05] LABS: Amorphous Sediment,Urine Rare /hpf; Mucus,Urine Rare /hpf; RBC,Urine >182 /hpf (0-5); Squamous Epithelial Cell,Urine 3 /hpf (0-4); WBC,Urine >182 /hpf (0-5)
[2019-07-25] MEDS ORDERED: cefTRIAXone 1,000 MG VIAL (IM USE) IM STA (14:31)
[2019-07-25 14:49] VITALS: BP 122/78; PULSE 78; TEMP 97.9
== END 2019-07-25 14:40 | disposition home or self-care (01) ==
LOC: EC 12:42
DX: N39.0 Urinary tract infection, site not specified (principal); F17.200 Nicotine dependence, unspecified, uncomplicated; Z79.899 Other long term (current) drug therapy; Z88.0 Allergy status to penicillin
CPT/HCPCS: 51798; 81001; 87086; 99284; 51702; 96372; J0696; 87077; 87186

== ENCOUNTER 2019-09-05 01:10 | Emergency (ER) | payer OTHER ==
[2019-09-05 02:08] LABS: Bacteria,Urine Occasional /hpf; Mucus,Urine Rare /hpf; RBC,Urine 11 /hpf (0-5); Squamous Epithelial Cell,Urine <1 /hpf (0-4); WBC,Urine 79 /hpf (0-5)
[2019-09-05 02:11] LABS: Appearance,Urine Cloudy (Clear); Bilirubin,Urine Negative (Negative); Blood,Urine Moderate (Negative); Color,Urine Yellow; Glucose,Urine (UA) Negative (Negative); Ketones,Urine Negative (Negative); Leukocyte Esterase,Urine Large (Negative); Nitrite,Urine Negative (Negative); Protein,Urine Negative (Negative); Specific Gravity,Urine 1.005 (1.001-1.035); Urobilinogen,Urine <2.0 mg/dL (<2.0)
[2019-09-05] MEDS ORDERED: SULFAMETHOX-TMP 800-160MG 1 EACH TAB PO STA (03:16)
[2019-09-05] MEDS ORDERED: SULFAMETH-TMP DS STARTER PACK 2 TAB BTL PO STA (03:16)
--- NOTE | 2019-09-05 03:16 | ED ---
General Adult HPI - General Chief complaint: Urogenital Stated complaint: UTI Time Seen by Provider: 09/05/19 02:07 Source: patient, family, RN notes reviewed, old records reviewed Mode of arrival: ambulatory Limitations: no limitations - History of Present Illness Initial comments: 74-year-old male patient with history of indwelling catheter since 2017 presents to ED for chief complaint of some dysuria. Patient noted this earlier today. He also reports that he is having a very mild amount of suprapubic discomfort. Denies any other areas of abdominal pain. Denies any other complaints. Systemic: Pt denies fatigue, fever/chills, rash. Pt denies weakness, night sweats, weight loss. Neuro: Pt denies headache, visual disturbances, syncope or pre-syncope. HEENT: Pt denies ocular discharge or irritation, otalgia, rhinorrhea, pharyngitis or notable lymphadenopathy. Cardiopulmonary: Pt denies chest pain, SOB, heart palpitations, dyspnea on exertion. Abdominal/GI: Pt denies abdominal pain, n/v/d. MSK: Pt denies myalgia, loss of strength or function in extremities. Neuro: Pt denies new onset weakness, paresthesias. - Related Data Home Medications Medication Instructions Recorded Confirmed Multivitamins, Thera [Multivitamin 1 tab PO DAILY 10/11/18 05/09/19 (formulary)] Cholecalciferol [Vitamin D3 (25 1,000 unit PO DAILY 05/09/19 05/09/19 Mcg = 1000 Iu)] HYDROcodone/APAP 7.5-325MG [[place] 1 tab PO HS PRN 05/09/19 05/09/19 7.5-325] Lidocaine 5% Patch [Lidoderm] 1 patch TOPICAL DAILY 05/09/19 05/09/19 [place]-3 Fatty Acids/Fish Oil [Fish 1 cap PO DAILY 05/09/19 05/09/19 Oil 1,000 mg Softgel] Sertraline [Zoloft] 50 mg PO DAILY 05/09/19 05/09/19 Previous Rx's Medication Instructions Recorded Ciprofloxacin HCl [Cipro] 500 mg PO Q12HR #20 tablet 05/09/19 Ciprofloxacin HCl [Cipro] 500 mg PO Q12HR 10 Days #20 tab 07/25/19 Sulfamethox-Tmp 800-160Mg [Bactrim 1 tab PO Q12HR #20 tab 09/05/19 DS 800-160 mg] Allergies Allergy/AdvReac Type Severity Reaction Status Date / Time Penicillins Allergy Anaphylaxis Verified 07/25/19 12:43 Review of Systems ROS Statement: Those systems with pertinent positive or pertinent negative responses have been documented in the HPI. ROS Other: All systems not noted in ROS Statement are negative. Past Medical History Past Medical History: GERD/Reflux Additional Past Medical History / Comment(s): hernia rt lower abd, states "had Hep B or C back 1959' and now it's all healed", recurrent UTI with IDC, History of Any Multi-Drug Resistant Organisms: None Reported Past Surgical History: Back Surgery, Hernia Repair Additional Past Surgical History / Comment(s): hemorrhoid Past Anesthesia/Blood Transfusion Reactions: No Reported Reaction Additional Past Anesthesia/Blood Transfusion Reaction / Comment(s): no hx blood transfusion Past Psychological History: No Psychological Hx Reported Smoking Status: Current every day smoker Past Alcohol Use History: None Reported Past Drug Use History: None Reported - Past Family History Mother Family Medical History: Cancer Father Family Medical History: Cancer General Exam - General Exam Comments Initial Comments: Constitutional: NAD, AOX3, Pt has pleasant affect. HEENT: NC/AT, trachea midline, neck supple, no lymphadenopathy. Posterior pharynx non erythematous, without exudates. External ears appear normal, without discharge. Mucous membranes moist. Eyes PERRLA, EOM intact. There is no scleral icterus. No pallor noted. Cardiopulmonary: RRR, no murmurs, rubs or gallops, no JVD noted. Lungs CTAB in anterior and posterior cobb. No peripheral edema. Abdominal exam: Abdomen soft and non-distended. Abdomen mildly tender to palpation suprapubic region.. Bowel sounds active in LLQ. No hepatosplenomegaly. No ecchymosis Neuro: CN II-XII grossly intact. No nuchal rigidity. No raccon eyes, no shafer sign, no hemotympanum. No cervical spinal tenderness. MSK: Full active ROM in upper and lower extremities, 5/5 stregnth. : Catheter insertion site evaluated. No discharge or erythema tenderness skin changes. Limitations: no limitations Course Vital Signs 09/05/19 01:17 Temperature 97.5 F L Pulse Rate 64 Respiratory 20 Rate Blood Pressure 106/70 O2 Sat by Pulse 96 Oximetry Medical Decision Making - Medical Decision Making 74-year-old male patient with history of indwelling catheter since 2017 presents to ED for chief complaint of some dysuria. Patient noted this earlier today. He also reports that he is having a very mild amount of suprapubic discomfort. Denies any other areas of abdominal pain. Denies any other complaints. Patient will send a stable, afebrile or. Physical exam displayed very mild suprapubic discomfort. UA did display possible mild urinary tract infection. Catheter was replaced and is draining. Patient does report that he feels improvement in symptoms. Patient was placed on Bactrim for 10 days pending culture and will follow up with primary care provider tomorrow. Case discussed with Dr. Landa, - Lab Data Lab Results 09/05/19 Range/Units 01:28 Urine Color Yellow Urine Appearance Cloudy (Clear) Urine pH 8.0 (5.0-8.0) Ur Specific [place] 1.005 (1.001-1.035) Urine Protein Negative (Negative) Urine Glucose (UA) Negative (Negative) Urine Ketones Negative (Negative) Urine Blood Moderate (Negative) Urine Nitrite Negative (Negative) Urine Bilirubin Negative (Negative) Urine Urobilinogen <2.0 (<2.0) mg/dL Ur Leukocyte Esterase Large (Negative) Urine RBC 11 H (0-5) /hpf Urine WBC 79 H (0-5) /hpf Ur Squamous Epith Cells <1 (0-4) /hpf Urine Bacteria Occasional H (None) /hpf Urine Mucus Rare H (None) /hpf Disposition Clinical Impression: UTI (urinary tract infection) Disposition: HOME SELF-CARE Condition: Stable Instructions (If sedation given, give patient instructions): Urinary Tract Infection in Men (ED) Additional Instructions: Taking antibiotics as directed. Follow-up with primary care provider tomorrow. Return to ER if condition worsens in any way. Prescriptions: Sulfamethox-Tmp 800-160Mg [Bactrim DS 800-160 mg] 1 tab PO Q12HR #20 tab Is patient prescribed a controlled substance at d/c from ED?: No Referrals: [facility],Clinic [Primary Care Provider] - 1-2 days
[2019-09-05] MEDS ORDERED: LIDOCAINE URO-JET JELLY 2% 5 ML KIT URETHRAL ONE (03:32)
[2019-09-05 04:28] VITALS: BP 105/74; PULSE 58; RESP 18; TEMP 98.2
== END 2019-09-05 04:26 | disposition home or self-care (01) ==
LOC: EC 01:10
DX: N39.0 Urinary tract infection, site not specified (principal); F17.200 Nicotine dependence, unspecified, uncomplicated; Z88.0 Allergy status to penicillin
CPT/HCPCS: 51702; 81001; 87077; 87086; 87186; 99284

== ENCOUNTER 2019-09-10 15:33 | Emergency (ER) | payer OTHER ==
[2019-09-10] MEDS ORDERED: ONDANSETRON 4 MG/2 ML VIAL IVP STA (16:05)
[2019-09-10] MEDS ORDERED: SODIUM CHLORIDE 0.9% 1,000 ML IV STA (16:05)
--- NOTE | 2019-09-10 16:08 | ED ---
General Adult HPI - General Chief complaint: Nausea/Vomiting/Diarrhea Stated complaint: vomiting/chills Time Seen by Provider: 09/10/19 15:52 Source: patient Mode of arrival: ambulatory Limitations: no limitations - History of Present Illness Initial comments: Dictation was produced using [employer] dictation software. please excuse any grammatical, word or spelling errors. This patient was cared for during a federal and state declared state of [facility] secondary to Covid 19 Chief Complaint: 74-year-old male past medical history of GERD, indwelling Mohamud catheter presents with dizziness. History of Present Illness: He 4-year-old male he has been feeling lightheaded for the last several days. Patient was seen here 5 days ago for Mohamud catheter obstruction. At that time he had his Mohamud catheter changed. There is a urine specimen that was obtained concerning for infection. Patient is prescribed Bactrim. Several days later patient noted that his lips became puffy. Called and had his medications changed. Patient's medications were changed to Macrobid. Since being started on the Macrobid patient has been feeling dizzy. He states that there are no exacerbating or mitigating factors. Feels dizzy all time. He has had some nonbilious nonbloody emesis. He states his emesis is clear. He has no diarrhea. He has no pain complaints. Patient denies sensation of the room spinning. Patient has no problems and bleeding. The ROS documented in this emergency department record has been reviewed and confirmed by me. Those systems with pertinent positive or negative responses have been documented in the HPI. All other systems are other negative and/or noncontributory. PHYSICAL EXAM: General Impression: Alert and oriented x3, not in acute distress HEENT: Normocephalic atraumatic, extra-ocular movements intact, pupils equal and reactive to light bilaterally, dry mucous membranes Cardiovascular: Heart regular rate and rhythm Chest: Able to complete full sentences, no retractions, no tachypnea Abdomen: abdomen soft, non-tender, non-distended, no organomegaly Musculoskeletal: Pulses present and equal in all extremities, no peripheral edema Motor: no focal deficits noted Neurological: CN II-XII grossly intact, no focal motor or sensory deficits noted Skin: Intact with no visualized rashes Psych: Normal affect and mood : Mohamud catheter in place, urethral orifice is nonerythematous. Urine in Mohamud reservoir is unremarkable. ED course: 74-year-old male presents with chief complaint of dizziness. Vital signs upon arrival shows temperature of 99.9, worse vital signs within acceptable limits.Micrology from urine specimen from September 04 were is reviewed. Patient shows sensitivities to tetracyclines. Patient given a dose of doxycycline.Repeat temperature taken without any administration of antipyretics is 98.5 laboratory evaluation shows slight leukocytosis of 11.4. Rest of CBC grossly unremarkable. Metabolic panel shows findings within acceptable limits. Slight C-reactive protein elevation at 33.1. Urinalysis shows findings to suggest urinary tract infection. Patient given antiemetics. Patient tolerating by mouth at bedside. He is reevaluated after a short ER observation states that he feels well once be discharged. Patient given prescription for doxycycline and Zofran. She told to follow-up with his primary care physician. Patient likely experiencing adverse reaction to medication. EKG interpretation: Ventricular rate 60, normal sinus rhythm,. Interval 152, QRS 84, QTC 418. No IA prolongation, no QTC prolongation, no ST or T-wave changes noted. EKG compared to 10/11/2018 showing no changes. Overall, this EKG is unremarkable - Related Data Home Medications Medication Instructions Recorded Confirmed Multivitamins, Thera [Multivitamin 1 tab PO DAILY 10/11/18 05/09/19 (formulary)] Cholecalciferol [Vitamin D3 (25 1,000 unit PO DAILY 05/09/19 05/09/19 Mcg = 1000 Iu)] HYDROcodone/APAP 7.5-325MG [[place] 1 tab PO HS PRN 05/09/19 05/09/19 7.5-325] Lidocaine 5% Patch [Lidoderm] 1 patch TOPICAL DAILY 05/09/19 05/09/19 [place]-3 Fatty Acids/Fish Oil [Fish 1 cap PO DAILY 05/09/19 05/09/19 Oil 1,000 mg Softgel] Sertraline [Zoloft] 50 mg PO DAILY 05/09/19 05/09/19 Previous Rx's Medication Instructions Recorded Ciprofloxacin HCl [Cipro] 500 mg PO Q12HR #20 tablet 05/09/19 Ciprofloxacin HCl [Cipro] 500 mg PO Q12HR 10 Days #20 tab 07/25/19 Sulfamethox-Tmp 800-160Mg [Bactrim 1 tab PO Q12HR #20 tab 09/05/19 DS 800-160 mg] Doxycycline [Vibramycin] 100 mg PO BID 7 Days #14 capsule 09/10/19 Ondansetron Odt [Zofran Odt] 4 mg PO Q8HR PRN #12 tab 09/10/19 Allergies Allergy/AdvReac Type Severity Reaction Status Date / Time Penicillins Allergy Anaphylaxis Verified 09/10/19 15:51 Review of Systems ROS Statement: Those systems with pertinent positive or pertinent negative responses have been documented in the HPI. ROS Other: All systems not noted in ROS Statement are negative. Past Medical History Past Medical History: GERD/Reflux Additional Past Medical History / Comment(s): hernia rt lower abd, states "had Hep B or C back s and now it's all healed", recurrent UTI with IDC, History of Any Multi-Drug Resistant Organisms: None Reported Past Surgical History: Back Surgery, Hernia Repair Additional Past Surgical History / Comment(s): hemorrhoid Past Anesthesia/Blood Transfusion Reactions: No Reported Reaction Additional Past Anesthesia/Blood Transfusion Reaction / Comment(s): no hx blood transfusion Past Psychological History: No Psychological Hx Reported Smoking Status: Current every day smoker Past Alcohol Use History: None Reported Past Drug Use History: None Reported - Past Family History Mother Family Medical History: Cancer Father Family Medical History: Cancer General Exam Limitations: no limitations Course Vital Signs 09/10/19 09/10/19 09/10/19 15:49 15:51 17:51 Temperature 99.9 F H 98.5 F Pulse Rate 87 65 Respiratory 16 20 20 Rate Blood Pressure 102/69 112/66 O2 Sat by Pulse 99 96 Oximetry Medical Decision Making - Lab Data Result diagrams: 09/10/19 16:26 09/10/19 16:26 Lab Results 09/10/19 09/10/19 09/10/19 Range/Units 16:26 16:26 16:26 WBC 11.4 H (3.8-10.6) k/uL RBC 4.89 (4.30-5.90) m/uL Hgb 14.5 (13.0-17.5) gm/dL Hct 44.3 (39.0-53.0) % MCV 90.6 (80.0-100.0) fL MCH 29.7 (25.0-35.0) pg MCHC 32.8 (31.0-37.0) g/dL RDW 12.7 (11.5-15.5) % Plt Count 182 (150-450) k/uL Neutrophils % 91 % Lymphocytes % 3 % Monocytes % 2 % Eosinophils % 3 % Basophils % 0 % Neutrophils # 10.3 H (1.3-7.7) k/uL Lymphocytes # 0.4 L (1.0-4.8) k/uL Monocytes # 0.3 (0-1.0) k/uL Eosinophils # 0.3 (0-0.7) k/uL Basophils # 0.0 (0-0.2) k/uL Sodium 135 L (137-145) mmol/L Potassium 4.3 (3.5-5.1) mmol/L Chloride 105 (98-107) mmol/L Carbon Dioxide 24 (22-30) mmol/L Anion Gap 6 mmol/L BUN 14 (9-20) mg/dL Creatinine 0.83 (0.66-1.25) mg/dL Est GFR (CKD-EPI)AfAm >90 (>60 ml/min/1.73 sqM) Est GFR (CKD-EPI)NonAf 86 (>60 ml/min/1.73 sqM) Glucose 125 H (74-99) mg/dL Plasma Lactic Acid Omar 1.2 (0.7-2.0) mmol/L Calcium 9.5 (8.4-10.2) mg/dL Magnesium 2.0 (1.6-2.3) mg/dL C-Reactive Protein 33.1 H (<10.0) mg/L Urine Color Urine Appearance (Clear) Urine pH (5.0-8.0) Ur Specific [place] (1.001-1.035) Urine Protein (Negative) Urine Glucose (UA) (Negative) Urine Ketones (Negative) Urine Blood (Negative) Urine Nitrite (Negative) Urine Bilirubin (Negative) Urine Urobilinogen (<2.0) mg/dL Ur Leukocyte Esterase (Negative) Urine RBC (0-5) /hpf Urine WBC (0-5) /hpf Ur Squamous Epith Cells (0-4) /hpf Urine Bacteria (None) /hpf Urine Mucus (None) /hpf 09/10/19 Range/Units 16:31 WBC (3.8-10.6) k/uL RBC (4.30-5.90) m/uL Hgb (13.0-17.5) gm/dL Hct (39.0-53.0) % MCV (80.0-100.0) fL MCH (25.0-35.0) pg MCHC (31.0-37.0) g/dL RDW (11.5-15.5) % Plt Count (150-450) k/uL Neutrophils % % Lymphocytes % % Monocytes % % Eosinophils % % Basophils % % Neutrophils # (1.3-7.7) k/uL Lymphocytes # (1.0-4.8) k/uL Monocytes # (0-1.0) k/uL Eosinophils # (0-0.7) k/uL Basophils # (0-0.2) k/uL Sodium (137-145) mmol/L Potassium (3.5-5.1) mmol/L Chloride (98-107) mmol/L Carbon Dioxide (22-30) mmol/L Anion Gap mmol/L BUN (9-20) mg/dL Creatinine (0.66-1.25) mg/dL Est GFR (CKD-EPI)AfAm (>60 ml/min/1.73 sqM) Est GFR (CKD-EPI)NonAf (>60 ml/min/1.73 sqM) Glucose (74-99) mg/dL Plasma Lactic Acid Omar (0.7-2.0) mmol/L Calcium (8.4-10.2) mg/dL Magnesium (1.6-2.3) mg/dL C-Reactive Protein (<10.0) mg/L Urine Color Yellow Urine Appearance Cloudy (Clear) Urine pH 5.0 (5.0-8.0) Ur Specific [place] 1.012 (1.001-1.035) Urine Protein Trace H (Negative) Urine Glucose (UA) Negative (Negative) Urine Ketones Negative (Negative) Urine Blood Small H (Negative) Urine Nitrite Negative (Negative) Urine Bilirubin Negative (Negative) Urine Urobilinogen <2.0 (<2.0) mg/dL Ur Leukocyte Esterase Large H (Negative) Urine RBC 10 H (0-5) /hpf Urine WBC 38 H (0-5) /hpf Ur Squamous Epith Cells 1 (0-4) /hpf Urine Bacteria Rare H (None) /hpf Urine Mucus Occasional H (None) /hpf Disposition Clinical Impression: Nausea Disposition: HOME SELF-CARE Condition: Good Instructions (If sedation given, give patient instructions): Acute Nausea and Vomiting (ED) Additional Instructions: Please discontinue Bactrim and nitrofurantoin. Please start taking doxycycline. Advised follow-up with primary care physician. If he develop fever, chills night sweats or worsening malaise please return to the emergency department or seek immediate medical attention. You were given a prescription for antiemetics. Please take this when nauseated. medications were sent to preferred pharmacy for pickup. Prescriptions: Doxycycline [Vibramycin] 100 mg PO BID 7 Days #14 capsule Ondansetron Odt [Zofran Odt] 4 mg PO Q8HR PRN #12 tab PRN Reason: Nausea Is patient prescribed a controlled substance at d/c from ED?: No Referrals: [facility],Clinic [Primary Care Provider] - 1-2 days Time of Disposition: 18:09
[2019-09-10 16:45] LABS: Basophils % (A) 0 %; Eosinophils # (A) 0.3 k/uL (0-0.7); Eosinophils % (A) 3 %; HCT 44.3 % (39.0-53.0); HGB 14.5 gm/dL (13.0-17.5); Lymphocytes # (A) 0.4 k/uL (1.0-4.8); Lymphocytes % (A) 3 %; MCH 29.7 pg (25.0-35.0); MCHC 32.8 g/dL (31.0-37.0); MCV 90.6 fL (80.0-100.0); Mean Platelet Volume 8.2; Monocytes # (A) 0.3 k/uL (0-1.0); Monocytes % (A) 2 %; Neutrophils # (A) 10.3 k/uL (1.3-7.7); Neutrophils % (A) 91 %; Platelet Count 182 k/uL (150-450); RBC 4.89 m/uL (4.30-5.90); RDW 12.7 % (11.5-15.5); WBC 11.4 k/uL (3.8-10.6)
[2019-09-10 17:01] LABS: African American GFR (CKD) >90 (>60 ml/min/1.73 sqM); Anion Gap 6 mmol/L; Blood Urea Nitrogen 14 mg/dL (9-20); C Reactive Protein 33.1 mg/L (<10.0); Calcium 9.5 mg/dL (8.4-10.2); Carbon Dioxide 24 mmol/L (22-30); Chloride 105 mmol/L (98-107); Glucose 125 mg/dL (74-99); Non-African American GFR(CKD) 86 (>60 ml/min/1.73 sqM); Potassium 4.3 mmol/L (3.5-5.1); Sodium 135 mmol/L (137-145)
[2019-09-10 17:03] LABS: Appearance,Urine Cloudy (Clear); Bacteria,Urine Rare /hpf; Bilirubin,Urine Negative (Negative); Blood,Urine Small (Negative); Color,Urine Yellow; Glucose,Urine (UA) Negative (Negative); Ketones,Urine Negative (Negative); Leukocyte Esterase,Urine Large (Negative); Mucus,Urine Occasional /hpf; Nitrite,Urine Negative (Negative); Protein,Urine Trace (Negative); RBC,Urine 10 /hpf (0-5); Specific Gravity,Urine 1.012 (1.001-1.035); Squamous Epithelial Cell,Urine 1 /hpf (0-4); Urobilinogen,Urine <2.0 mg/dL (<2.0); WBC,Urine 38 /hpf (0-5)
[2019-09-10] MEDS ORDERED: cefTRIAXone IN SWFI 1,000 MG/10 ML SYRINGE IVP STA (17:26)
[2019-09-10] MEDS ORDERED: DOXYCYCLINE 100 MG CAP PO STA (17:37)
[2019-09-10 17:52] VITALS: TEMP 98.5
[2019-09-10 18:51] VITALS: BP 118/69; PULSE 71; RESP 18
== END 2019-09-10 18:55 | disposition home or self-care (01) ==
LOC: EC 15:33
DX: R11.0 Nausea (principal); R42 Dizziness and giddiness; D72.829 Elevated white blood cell count, unspecified; F17.200 Nicotine dependence, unspecified, uncomplicated; Z79.899 Other long term (current) drug therapy; Z88.0 Allergy status to penicillin
CPT/HCPCS: 36415; 93005; 80048; 83605; 83735; 85025; 86140; 81001; 99284; 96374; 96361; J2405

== ENCOUNTER 2019-10-12 02:38 | Emergency (ER) | payer OTHER ==
[2019-10-12 02:44] VITALS: BP 148/79; PULSE 68; RESP 18; TEMP 97.8
--- NOTE | 2019-10-12 02:49 | ED ---
Male Urogenital HPI - General Chief complaint: Urogenital Stated complaint: catheter issue Time Seen by Provider: 10/12/19 02:42 Source: patient, RN notes reviewed, old records reviewed Mode of arrival: ambulatory Limitations: no limitations - History of Present Illness Initial comments: This is a 74-year-old male DF for evaluation patient presents today for evaluation regards to severe abdominal pain urinary intentional output into his Mohamud. Multiple issues multiple times she has had this similar problem. No other complaints admission MD Complaint: other (Urinary retention pain) -: hour(s) Location: abdomen Severity: severe Severity scale (1-10): 10 Quality: aching, sharp Consistency: constant Improves with: none Worsens with: none indwelling catheter Reports: urinary retention - Related Data Home Medications Medication Instructions Recorded Confirmed Multivitamins, Thera [Multivitamin 1 tab PO DAILY 10/11/18 05/09/19 (formulary)] Cholecalciferol [Vitamin D3 (25 1,000 unit PO DAILY 05/09/19 05/09/19 Mcg = 1000 Iu)] HYDROcodone/APAP 7.5-325MG [[place] 1 tab PO HS PRN 05/09/19 05/09/19 7.5-325] Lidocaine 5% Patch [Lidoderm] 1 patch TOPICAL DAILY 05/09/19 05/09/19 [place]-3 Fatty Acids/Fish Oil [Fish 1 cap PO DAILY 05/09/19 05/09/19 Oil 1,000 mg Softgel] Sertraline [Zoloft] 50 mg PO DAILY 05/09/19 05/09/19 Previous Rx's Medication Instructions Recorded Ciprofloxacin HCl [Cipro] 500 mg PO Q12HR #20 tablet 05/09/19 Ciprofloxacin HCl [Cipro] 500 mg PO Q12HR 10 Days #20 tab 07/25/19 Sulfamethox-Tmp 800-160Mg [Bactrim 1 tab PO Q12HR #20 tab 09/05/19 DS 800-160 mg] Doxycycline [Vibramycin] 100 mg PO BID 7 Days #14 capsule 09/10/19 Ondansetron Odt [Zofran Odt] 4 mg PO Q8HR PRN #12 tab 09/10/19 Allergies Allergy/AdvReac Type Severity Reaction Status Date / Time Penicillins Allergy Anaphylaxis Verified 10/12/19 02:44 Review of Systems ROS Statement: Those systems with pertinent positive or pertinent negative responses have been documented in the HPI. ROS Other: All systems not noted in ROS Statement are negative. Past Medical History Past Medical History: GERD/Reflux Additional Past Medical History / Comment(s): hernia rt lower abd, states "had Hep B or C back 1959's and now it's all healed", recurrent UTI with IDC, History of Any Multi-Drug Resistant Organisms: None Reported Past Surgical History: Back Surgery, Hernia Repair Additional Past Surgical History / Comment(s): hemorrhoid Past Anesthesia/Blood Transfusion Reactions: No Reported Reaction Additional Past Anesthesia/Blood Transfusion Reaction / Comment(s): no hx blood transfusion Past Psychological History: No Psychological Hx Reported Past Alcohol Use History: None Reported Past Drug Use History: None Reported - Past Family History Mother Family Medical History: Cancer Father Family Medical History: Cancer General Exam Limitations: no limitations General appearance: alert, in no apparent distress Head exam: Present: atraumatic, normocephalic, normal inspection Eye exam: Present: normal appearance, PERRL, EOMI. Absent: scleral icterus, conjunctival injection, periorbital swelling ENT exam: Present: normal exam, mucous membranes moist Neck exam: Present: normal inspection. Absent: tenderness, meningismus, lymphadenopathy Respiratory exam: Present: normal lung sounds bilaterally. Absent: respiratory distress, wheezes, rales, rhonchi, stridor Cardiovascular Exam: Present: regular rate, normal rhythm, normal heart sounds. Absent: systolic murmur, diastolic murmur, rubs, gallop, clicks GI/Abdominal exam: Present: soft, normal bowel sounds. Absent: distended, tenderness, guarding, rebound, rigid Extremities exam: Present: normal inspection, full ROM, normal capillary refill. Absent: tenderness, pedal edema, joint swelling, calf tenderness Back exam: Present: normal inspection Neurological exam: Present: alert, oriented X3, CN II-XII intact Psychiatric exam: Present: normal affect, normal mood Skin exam: Present: warm, dry, intact, normal color. Absent: rash Course Vital Signs 10/12/19 02:42 Temperature 97.8 F Pulse Rate 68 Respiratory 18 Rate Blood Pressure 148/79 O2 Sat by Pulse 100 Oximetry - Reevaluation(s) Reevaluation #1: 10/12/19 03:10 medical records reviewed Reevaluation #2: 10/12/19 03:10 Mohamud is replaced without difficulty Medical Decision Making - Medical Decision Making 74 male recurrent urinary retention. Mohamud is changed with good output Patient can be discharged Disposition Clinical Impression: Acute retention of urine, Malfunction of Mohamud catheter Disposition: HOME SELF-CARE Condition: Good Instructions (If sedation given, give patient instructions): Urinary Retention in Men (ED) Is patient prescribed a controlled substance at d/c from ED?: No Referrals: [facility],Clinic [Primary Care Provider] - 1-2 days
[2019-10-12 04:14] LABS: Amorphous Sediment,Urine Occasional /hpf; Appearance,Urine Cloudy (Clear); Bacteria,Urine Occasional /hpf; Bilirubin,Urine Negative (Negative); Blood,Urine Small (Negative); Color,Urine Yellow; Glucose,Urine (UA) Negative (Negative); Ketones,Urine Negative (Negative); Leukocyte Esterase,Urine Large (Negative); Mucus,Urine Rare /hpf; Nitrite,Urine Positive (Negative); PH, Urine 7.5 (5.0-8.0); Protein,Urine Trace (Negative); RBC,Urine 20 /hpf (0-5); Specific Gravity,Urine 1.011 (1.001-1.035); Squamous Epithelial Cell,Urine 1 /hpf (0-4); Urobilinogen,Urine <2.0 mg/dL (<2.0); WBC,Urine 14 /hpf (0-5)
== END 2019-10-12 04:26 | disposition home or self-care (01) ==
LOC: EC 02:38
DX: T83.098A Other mechanical complication of other urinary catheter, initial encounter (principal); R33.9 Retention of urine, unspecified; Z79.890 Hormone replacement therapy; Z88.0 Allergy status to penicillin
CPT/HCPCS: 81001; 87077; 87086; 87186; 99284

== ENCOUNTER 2019-10-23 07:18 | Emergency (ER) | payer OTHER, MEDICARE ==
[2019-10-23 07:23] VITALS: BP 132/80; PULSE 63; RESP 16; TEMP 97.6
--- NOTE | 2019-10-23 07:43 | ED ---
General Adult HPI - General Chief complaint: Urogenital Stated complaint: catheter problem Time Seen by Provider: 10/23/19 07:26 Source: patient, RN notes reviewed Mode of arrival: ambulatory Limitations: no limitations - History of Present Illness Initial comments: Patient is a pleasant 74-year-old male presenting to the emergency department with concerns for clogged Mohamud catheter. Patient states he was working well last night and he drained it. Patient states this morning when he got up there is no urine in the bag. Patient does complain of suprapubic pressure. Patient was in the ER and had Mohamud catheter switched just over a week ago. Patient did follow-up with his urologist 2 days ago. No fever. - Related Data Home Medications Medication Instructions Recorded Confirmed Multivitamins, Thera [Multivitamin 1 tab PO DAILY 10/11/18 05/09/19 (formulary)] Cholecalciferol [Vitamin D3 (25 1,000 unit PO DAILY 05/09/19 05/09/19 Mcg = 1000 Iu)] HYDROcodone/APAP 7.5-325MG [[place] 1 tab PO HS PRN 05/09/19 05/09/19 7.5-325] Lidocaine 5% Patch [Lidoderm] 1 patch TOPICAL DAILY 05/09/19 05/09/19 [place]-3 Fatty Acids/Fish Oil [Fish 1 cap PO DAILY 05/09/19 05/09/19 Oil 1,000 mg Softgel] Sertraline [Zoloft] 50 mg PO DAILY 05/09/19 05/09/19 Previous Rx's Medication Instructions Recorded Ciprofloxacin HCl [Cipro] 500 mg PO Q12HR #20 tablet 05/09/19 Ciprofloxacin HCl [Cipro] 500 mg PO Q12HR 10 Days #20 tab 07/25/19 Sulfamethox-Tmp 800-160Mg [Bactrim 1 tab PO Q12HR #20 tab 09/05/19 DS 800-160 mg] Doxycycline [Vibramycin] 100 mg PO BID 7 Days #14 capsule 09/10/19 Ondansetron Odt [Zofran Odt] 4 mg PO Q8HR PRN #12 tab 09/10/19 Allergies Allergy/AdvReac Type Severity Reaction Status Date / Time Penicillins Allergy Anaphylaxis Verified 10/23/19 07:22 Review of Systems ROS Statement: Those systems with pertinent positive or pertinent negative responses have been documented in the HPI. ROS Other: All systems not noted in ROS Statement are negative. Constitutional: Denies: fever Eyes: Denies: eye pain ENT: Denies: ear pain Respiratory: Denies: cough Cardiovascular: Denies: chest pain Endocrine: Denies: fatigue Gastrointestinal: Reports: as per HPI Genitourinary: Reports: as per HPI. Denies: testicular pain Musculoskeletal: Denies: back pain Skin: Denies: rash Neurological: Denies: weakness Past Medical History Past Medical History: GERD/Reflux Additional Past Medical History / Comment(s): hernia rt lower abd, states "had Hep B or C back and now it's all healed", recurrent UTI with IDC, History of Any Multi-Drug Resistant Organisms: None Reported Past Surgical History: Back Surgery, Hernia Repair Additional Past Surgical History / Comment(s): hemorrhoid Past Anesthesia/Blood Transfusion Reactions: No Reported Reaction Additional Past Anesthesia/Blood Transfusion Reaction / Comment(s): no hx blood transfusion Past Psychological History: No Psychological Hx Reported Smoking Status: Current every day smoker Past Alcohol Use History: None Reported Past Drug Use History: None Reported - Past Family History Mother Family Medical History: Cancer Father Family Medical History: Cancer General Exam Limitations: no limitations General appearance: alert, in no apparent distress Head exam: Present: normocephalic Eye exam: Present: normal appearance Neck exam: Present: normal inspection Respiratory exam: Present: normal lung sounds bilaterally Cardiovascular Exam: Present: regular rate, normal rhythm GI/Abdominal exam: Present: soft, distended (Mild suprapubic distention and tenderness) exam: Present: normal inspection, other (Mohamud catheter in place) Extremities exam: Present: normal inspection Neurological exam: Present: alert Psychiatric exam: Present: normal affect, normal mood Skin exam: Present: normal color Course Vital Signs 10/23/19 07:22 Temperature 97.6 F Pulse Rate 63 Respiratory 16 Rate Blood Pressure 132/80 O2 Sat by Pulse 100 Oximetry Medical Decision Making - Medical Decision Making Patient reevaluated and symptom-free following Mohamud catheter change. Patient had immediate output of 2 50 mL and is still draining. Patient is comfortable with discharge home. Patient states he will call his urologist on Friday. Disposition Clinical Impression: Acute retention of urine Disposition: HOME SELF-CARE Condition: Stable Instructions (If sedation given, give patient instructions): Urinary Retention in Men (ED) Additional Instructions: Please follow-up with your urologist in the being the week. Call Friday. Return for Mohamud not draining, fever pain, worsening symptoms or other concerns. Is patient prescribed a controlled substance at d/c from ED?: No Referrals: [facility],Clinic [Primary Care Provider] - 1-2 days Aj Smiht MD [STAFF PHYSICIAN] - 1-2 days Time of Disposition: 08:08
== END 2019-10-23 08:13 | disposition home or self-care (01) ==
LOC: EC 07:18
DX: R33.9 Retention of urine, unspecified (principal); F17.200 Nicotine dependence, unspecified, uncomplicated; Z88.0 Allergy status to penicillin
CPT/HCPCS: 51702; 51798; 99283

== ENCOUNTER 2019-11-28 03:21 | Emergency (ER) | payer OTHER, MEDICARE ==
--- NOTE | 2019-11-28 04:50 | ED ---
Male Urogenital HPI - General Chief complaint: Urogenital Stated complaint: Male Time Seen by Provider: 11/28/19 03:34 Source: patient Mode of arrival: ambulatory Limitations: no limitations - History of Present Illness Initial comments: This patient is 74-year-old man with history of indwelling Mohamud catheter. Over Course of this morning the patient notes that the urine production has stopped and he is now feeling pressure in the suprapubic area and urge to urinate. No fever or chills. No back pain. MD Complaint: other (Fully catheter obstruction) -: hour(s) Location: abdomen Radiation: none Severity: moderate Quality: other (Pressure) Consistency: constant Improves with: none Worsens with: none Reports: denies other symptoms - Related Data Home Medications Medication Instructions Recorded Confirmed Multivitamins, Thera [Multivitamin 1 tab PO DAILY 10/11/18 05/09/19 (formulary)] Cholecalciferol [Vitamin D3 (25 1,000 unit PO DAILY 05/09/19 05/09/19 Mcg = 1000 Iu)] HYDROcodone/APAP 7.5-325MG [[place] 1 tab PO HS PRN 05/09/19 05/09/19 7.5-325] Lidocaine 5% Patch [Lidoderm] 1 patch TOPICAL DAILY 05/09/19 05/09/19 [place]-3 Fatty Acids/Fish Oil [Fish 1 cap PO DAILY 05/09/19 05/09/19 Oil 1,000 mg Softgel] Sertraline [Zoloft] 50 mg PO DAILY 05/09/19 05/09/19 Previous Rx's Medication Instructions Recorded Ciprofloxacin HCl [Cipro] 500 mg PO Q12HR #20 tablet 05/09/19 Ciprofloxacin HCl [Cipro] 500 mg PO Q12HR 10 Days #20 tab 07/25/19 Sulfamethox-Tmp 800-160Mg [Bactrim 1 tab PO Q12HR #20 tab 09/05/19 DS 800-160 mg] Doxycycline [Vibramycin] 100 mg PO BID 7 Days #14 capsule 09/10/19 Ondansetron Odt [Zofran Odt] 4 mg PO Q8HR PRN #12 tab 09/10/19 Allergies Allergy/AdvReac Type Severity Reaction Status Date / Time Penicillins Allergy Anaphylaxis Verified 11/28/19 03:30 Review of Systems ROS Statement: Those systems with pertinent positive or pertinent negative responses have been documented in the HPI. ROS Other: All systems not noted in ROS Statement are negative. Constitutional: Denies: fever, chills Respiratory: Denies: cough, dyspnea Cardiovascular: Denies: chest pain, palpitations Gastrointestinal: Reports: abdominal pain Genitourinary: Reports: other. Denies: testicular pain Musculoskeletal: Denies: back pain Skin: Denies: rash Neurological: Denies: headache, weakness Past Medical History Past Medical History: GERD/Reflux Additional Past Medical History / Comment(s): hernia rt lower abd, states "had Hep B or C back and now it's all healed", recurrent UTI with IDC, History of Any Multi-Drug Resistant Organisms: None Reported Past Surgical History: Back Surgery, Hernia Repair Additional Past Surgical History / Comment(s): hemorrhoid Past Anesthesia/Blood Transfusion Reactions: No Reported Reaction Additional Past Anesthesia/Blood Transfusion Reaction / Comment(s): no hx blood transfusion Past Psychological History: No Psychological Hx Reported Smoking Status: Current every day smoker Past Alcohol Use History: None Reported Past Drug Use History: None Reported - Past Family History Mother Family Medical History: Cancer Father Family Medical History: Cancer General Exam Limitations: no limitations General appearance: alert, in no apparent distress Head exam: Present: atraumatic, normocephalic Eye exam: Present: normal appearance. Absent: scleral icterus, conjunctival injection Respiratory exam: Present: normal lung sounds bilaterally. Absent: respiratory distress, wheezes, rales, rhonchi, stridor Cardiovascular Exam: Present: regular rate, normal rhythm, normal heart sounds. Absent: systolic murmur, diastolic murmur GI/Abdominal exam: Present: soft. Absent: distended, tenderness, guarding, rebound, rigid, mass, pulsatile mass, hernia Extremities exam: Present: normal inspection, normal capillary refill. Absent: pedal edema, calf tenderness Back exam: Present: normal inspection. Absent: CVA tenderness (R), CVA tenderness (L) Neurological exam: Present: alert Skin exam: Present: warm, dry, intact, normal color. Absent: rash Course Vital Signs 11/28/19 03:24 Temperature 98.3 F Pulse Rate 64 Respiratory 18 Rate Blood Pressure 124/70 O2 Sat by Pulse 96 Oximetry Disposition Clinical Impression: Malfunction of Mohamud catheter Disposition: HOME SELF-CARE Condition: Good Instructions (If sedation given, give patient instructions): Mohamud Catheter Placement and Care (ED) Is patient prescribed a controlled substance at d/c from ED?: No Referrals: [facility],Clinic [Primary Care Provider] - 1-2 days
[2019-11-28 05:14] LABS: Amorphous Sediment,Urine Rare /hpf; Appearance,Urine Turbid (Clear); Bacteria,Urine Rare /hpf; Bilirubin,Urine Negative (Negative); Blood,Urine Moderate (Negative); Color,Urine Yellow; Glucose,Urine (UA) Negative (Negative); Ketones,Urine Negative (Negative); Leukocyte Esterase,Urine Large (Negative); Mucus,Urine Rare /hpf; Nitrite,Urine Positive (Negative); PH, Urine 7.5 (5.0-8.0); Protein,Urine Trace (Negative); RBC,Urine 13 /hpf (0-5); Specific Gravity,Urine 1.013 (1.001-1.035); Squamous Epithelial Cell,Urine 1 /hpf (0-4); Urobilinogen,Urine <2.0 mg/dL (<2.0); WBC,Urine 87 /hpf (0-5)
[2019-11-28 05:45] VITALS: BP 129/85; PULSE 65; RESP 17; TEMP 97.7
== END 2019-11-28 05:38 | disposition home or self-care (01) ==
LOC: EC 03:21
DX: T83.018A Breakdown (mechanical) of other urinary catheter, initial encounter (principal); F17.200 Nicotine dependence, unspecified, uncomplicated; Z88.0 Allergy status to penicillin
CPT/HCPCS: 81001; 87086; 99283

== ENCOUNTER 2019-12-28 00:21 | Emergency (ER) | payer MEDICARE ==
[2019-12-28 00:35] VITALS: BP 139/85; PULSE 75; RESP 18; TEMP 98
--- NOTE | 2019-12-28 01:00 | ED ---
Male Urogenital HPI - General Chief complaint: Urogenital Stated complaint: Catheter Issues Time Seen by Provider: 12/28/19 00:38 Source: patient, RN notes reviewed, old records reviewed Mode of arrival: ambulatory Limitations: no limitations - History of Present Illness Initial comments: This is a 74-year-old male presents today for evaluation regards to malfunctioning Mohamud catheter. Patient is well-controlled currently reviewed were reportedly catheter, catheter is not currently working. Sent him DF for evaluation as well as abdominal pain MD Complaint: other (Abdominal pain and malfunctioning Mohamud catheter) -: hour(s) Location: abdomen Radiation: none Severity: moderate Severity scale (1-10): 4 Quality: aching Consistency: constant Improves with: none Worsens with: none indwelling catheter Reports: denies other symptoms - Related Data Home Medications Medication Instructions Recorded Confirmed Multivitamins, Thera [Multivitamin 1 tab PO DAILY 10/11/18 05/09/19 (formulary)] Cholecalciferol [Vitamin D3 (25 1,000 unit PO DAILY 05/09/19 05/09/19 Mcg = 1000 Iu)] HYDROcodone/APAP 7.5-325MG [[place] 1 tab PO HS PRN 05/09/19 05/09/19 7.5-325] Lidocaine 5% Patch [Lidoderm] 1 patch TOPICAL DAILY 05/09/19 05/09/19 [place]-3 Fatty Acids/Fish Oil [Fish 1 cap PO DAILY 05/09/19 05/09/19 Oil 1,000 mg Softgel] Sertraline [Zoloft] 50 mg PO DAILY 05/09/19 05/09/19 Previous Rx's Medication Instructions Recorded Ciprofloxacin HCl [Cipro] 500 mg PO Q12HR #20 tablet 05/09/19 Ciprofloxacin HCl [Cipro] 500 mg PO Q12HR 10 Days #20 tab 07/25/19 Sulfamethox-Tmp 800-160Mg [Bactrim 1 tab PO Q12HR #20 tab 09/05/19 DS 800-160 mg] Doxycycline [Vibramycin] 100 mg PO BID 7 Days #14 capsule 09/10/19 Ondansetron Odt [Zofran Odt] 4 mg PO Q8HR PRN #12 tab 09/10/19 Allergies Allergy/AdvReac Type Severity Reaction Status Date / Time Penicillins Allergy Anaphylaxis Verified 12/28/19 00:35 Review of Systems ROS Statement: Those systems with pertinent positive or pertinent negative responses have been documented in the HPI. ROS Other: All systems not noted in ROS Statement are negative. Past Medical History Past Medical History: GERD/Reflux Additional Past Medical History / Comment(s): hernia rt lower abd, states "had Hep B or C back 1959's and now it's all healed", recurrent UTI with IDC, History of Any Multi-Drug Resistant Organisms: None Reported Past Surgical History: Back Surgery, Hernia Repair Additional Past Surgical History / Comment(s): hemorrhoid Past Anesthesia/Blood Transfusion Reactions: No Reported Reaction Additional Past Anesthesia/Blood Transfusion Reaction / Comment(s): no hx blood transfusion Past Psychological History: No Psychological Hx Reported Smoking Status: Current every day smoker Past Alcohol Use History: None Reported Past Drug Use History: None Reported - Past Family History Mother Family Medical History: Cancer Father Family Medical History: Cancer General Exam Limitations: no limitations General appearance: alert, in no apparent distress Head exam: Present: atraumatic, normocephalic, normal inspection Eye exam: Present: normal appearance, PERRL, EOMI. Absent: scleral icterus, conjunctival injection, periorbital swelling ENT exam: Present: normal exam, mucous membranes moist Neck exam: Present: normal inspection. Absent: tenderness, meningismus, lymphadenopathy Respiratory exam: Present: normal lung sounds bilaterally. Absent: respiratory distress, wheezes, rales, rhonchi, stridor Cardiovascular Exam: Present: regular rate, normal rhythm, normal heart sounds. Absent: systolic murmur, diastolic murmur, rubs, gallop, clicks GI/Abdominal exam: Present: soft, normal bowel sounds. Absent: distended, tenderness, guarding, rebound, rigid Extremities exam: Present: normal inspection, full ROM, normal capillary refill. Absent: tenderness, pedal edema, joint swelling, calf tenderness Back exam: Present: normal inspection Neurological exam: Present: alert, oriented X3, CN II-XII intact Psychiatric exam: Present: normal affect, normal mood Skin exam: Present: warm, dry, intact, normal color. Absent: rash Course Vital Signs 12/28/19 00:31 Temperature 98 F Pulse Rate 75 Respiratory 18 Rate Blood Pressure 139/85 O2 Sat by Pulse 98 Oximetry - Reevaluation(s) Reevaluation #1: 12/28/19 00:59 Medical record is reviewed Reevaluation #2: 12/28/19 00:59 Mohamud catheter is not working upon inspection, is replaced here in the ER Medical Decision Making - Medical Decision Making 74 male to the ER for evaluation, Mohamud catheter replaced emergency department patient is to be discharged Disposition Clinical Impression: Malfunction of Mohamud catheter Disposition: HOME SELF-CARE Condition: Good Instructions (If sedation given, give patient instructions): Mohamud Catheter Placement and Care (ED) Is patient prescribed a controlled substance at d/c from ED?: No Referrals: [facility],Clinic [Primary Care Provider] - 1-2 days
[2019-12-28 01:33] LABS: Appearance,Urine Cloudy (Clear); Bacteria,Urine Rare /hpf; Bilirubin,Urine Negative (Negative); Blood,Urine Negative (Negative); Color,Urine Yellow; Glucose,Urine (UA) Negative (Negative); Ketones,Urine Negative (Negative); Leukocyte Esterase,Urine Large (Negative); Mucus,Urine Rare /hpf; Nitrite,Urine Positive (Negative); PH, Urine 7.5 (5.0-8.0); Protein,Urine Trace (Negative); RBC,Urine 5 /hpf (0-5); Specific Gravity,Urine 1.015 (1.001-1.035); Urobilinogen,Urine <2.0 mg/dL (<2.0); WBC,Urine 12 /hpf (0-5)
== END 2019-12-28 01:42 | disposition home or self-care (01) ==
LOC: EC 00:21
DX: T83.091A Other mechanical complication of indwelling urethral catheter, initial encounter (principal); F17.200 Nicotine dependence, unspecified, uncomplicated; Z79.899 Other long term (current) drug therapy; Z88.0 Allergy status to penicillin
CPT/HCPCS: 51702; 81001; 87086; 99284

== ENCOUNTER 2020-02-03 23:02 | Emergency (ER) | payer MEDICARE ==
[2020-02-03] MEDS ORDERED: SODIUM CHLORIDE 0.9% 1,000 ML IV STA (23:10)
[2020-02-03 23:11] VITALS: RESP 18; TEMP 97.8
--- NOTE | 2020-02-03 23:34 | ED ---
Dizziness HPI - General Chief Complaint: Dizziness Stated Complaint: Syncopy Time Seen by Provider: 02/03/20 23:10 Source: patient, RN notes reviewed, old records reviewed Mode of arrival: EMS Limitations: no limitations - History of Present Illness Initial Comments: This is a [age]-year-old male is been not feeling well under a lot of significant stress. Patient has an indwelling Mohamud catheter. Patient states he has been feeling weak lightheaded and dizzy throughout the day patient denies headache chest pain or shortness of breath admits to decreased appetite decreased oral intake. Patient has no current symptoms now it feels much better after EMS did provide him with a fluid bolus MD Complaint: dizziness -: days(s) Timing: gradual onset Description: lightheadedness History of Same: Yes History of Trauma: Yes Severity: moderate Improves With: rehydration Worsens With: nothing Associated Symptoms: denies other symptoms - Related Data Home Medications Medication Instructions Recorded Confirmed Multivitamins, Thera [Multivitamin 1 tab PO DAILY 10/11/18 05/09/19 (formulary)] Cholecalciferol [Vitamin D3 (25 1,000 unit PO DAILY 05/09/19 05/09/19 Mcg = 1000 Iu)] HYDROcodone/APAP 7.5-325MG [[place] 1 tab PO HS PRN 05/09/19 05/09/19 7.5-325] Lidocaine 5% Patch [Lidoderm] 1 patch TOPICAL DAILY 05/09/19 05/09/19 [place]-3 Fatty Acids/Fish Oil [Fish 1 cap PO DAILY 05/09/19 05/09/19 Oil 1,000 mg Softgel] Sertraline [Zoloft] 50 mg PO DAILY 05/09/19 05/09/19 Previous Rx's Medication Instructions Recorded Ciprofloxacin HCl [Cipro] 500 mg PO Q12HR #20 tablet 05/09/19 Ciprofloxacin HCl [Cipro] 500 mg PO Q12HR 10 Days #20 tab 07/25/19 Sulfamethox-Tmp 800-160Mg [Bactrim 1 tab PO Q12HR #20 tab 09/05/19 DS 800-160 mg] Doxycycline [Vibramycin] 100 mg PO BID 7 Days #14 capsule 09/10/19 Ondansetron Odt [Zofran Odt] 4 mg PO Q8HR PRN #12 tab 06/26/20 Allergies Allergy/AdvReac Type Severity Reaction Status Date / Time Penicillins Allergy Anaphylaxis Verified 12/28/19 00:35 Review of Systems ROS Statement: Those systems with pertinent positive or pertinent negative responses have been documented in the HPI. ROS Other: All systems not noted in ROS Statement are negative. Past Medical History Past Medical History: GERD/Reflux Additional Past Medical History / Comment(s): hernia rt lower abd, states "had Hep B or C back 1959's and now it's all healed", recurrent UTI with IDC, History of Any Multi-Drug Resistant Organisms: None Reported Past Surgical History: Back Surgery, Hernia Repair Additional Past Surgical History / Comment(s): hemorrhoid Past Anesthesia/Blood Transfusion Reactions: No Reported Reaction Additional Past Anesthesia/Blood Transfusion Reaction / Comment(s): no hx blood transfusion Past Psychological History: No Psychological Hx Reported Smoking Status: Current every day smoker Past Alcohol Use History: None Reported Past Drug Use History: None Reported - Past Family History Mother Family Medical History: Cancer Father Family Medical History: Cancer General Exam Limitations: no limitations General appearance: alert, in no apparent distress Head exam: Present: atraumatic, normocephalic, normal inspection Eye exam: Present: normal appearance, PERRL, EOMI. Absent: scleral icterus, conjunctival injection, periorbital swelling ENT exam: Present: normal exam, mucous membranes moist Neck exam: Present: normal inspection. Absent: tenderness, meningismus, lymphadenopathy Respiratory exam: Present: normal lung sounds bilaterally. Absent: respiratory distress, wheezes, rales, rhonchi, stridor Cardiovascular Exam: Present: regular rate, normal rhythm, normal heart sounds. Absent: systolic murmur, diastolic murmur, rubs, gallop, clicks GI/Abdominal exam: Present: soft, normal bowel sounds. Absent: distended, tenderness, guarding, rebound, rigid Extremities exam: Present: normal inspection, full ROM, normal capillary refill. Absent: tenderness, pedal edema, joint swelling, calf tenderness Back exam: Present: normal inspection Neurological exam: Present: alert, oriented X3, CN II-XII intact Psychiatric exam: Present: normal affect, normal mood Skin exam: Present: warm, dry, intact, normal color. Absent: rash Course Vital Signs 02/03/20 02/04/20 23:04 00:19 Temperature 97.8 F Pulse Rate 61 65 Respiratory 18 18 Rate Blood Pressure 136/91 137/74 O2 Sat by Pulse 97 98 Oximetry - Reevaluation(s) Reevaluation #1: 02/04/20 00:25 Medical record is reviewed Reevaluation #2: 02/04/20 00:25 Patient is improved symptoms with hydration Reevaluation #3: 02/04/20 00:25 (Denies headache chest pain shortness breath or abdominal pain, feels improved Reevaluation #4: 02/04/20 00:25 Spoke with patient regarding findings is okay for discharge EKG Findings - EKG Comments: EKG Findings:: EKG is sinus rhythm 64 VA 160 QRS 80 QTC 451 Medical Decision Making - Medical Decision Making 74 male DF for evaluation patient presents to the ER for evaluation regarding persistent shortness of breath, dehydration weakness. No travel history or sick contacts. Patient is hydrated, feels well can be discharged home - Lab Data Result diagrams: 02/03/20 23:14 02/03/20 23:14 Lab Results 02/03/20 02/03/20 02/03/20 Range/Units 23:14 23:14 23:14 WBC 7.1 (3.8-10.6) k/uL RBC 4.41 (4.30-5.90) m/uL Hgb 13.9 (13.0-17.5) gm/dL Hct 39.6 (39.0-53.0) % MCV 89.8 (80.0-100.0) fL MCH 31.5 (25.0-35.0) pg MCHC 35.1 (31.0-37.0) g/dL RDW 12.4 (11.5-15.5) % Plt Count 195 (150-450) k/uL MPV 7.8 Neutrophils % 82 % Lymphocytes % 10 % Monocytes % 3 % Eosinophils % 3 % Basophils % 1 % Neutrophils # 5.8 (1.3-7.7) k/uL Lymphocytes # 0.7 L (1.0-4.8) k/uL Monocytes # 0.2 (0-1.0) k/uL Eosinophils # 0.2 (0-0.7) k/uL Basophils # 0.1 (0-0.2) k/uL PT 10.2 (9.0-12.0) sec INR 1.0 (<1.2) APTT 23.1 (22.0-30.0) sec D-Dimer 0.59 (<0.60) mg/L FEU Sodium (137-145) mmol/L Potassium (3.5-5.1) mmol/L Chloride (98-107) mmol/L Carbon Dioxide (22-30) mmol/L Anion Gap mmol/L BUN (9-20) mg/dL Creatinine (0.66-1.25) mg/dL Est GFR (CKD-EPI)AfAm (>60 ml/min/1.73 sqM) Est GFR (CKD-EPI)NonAf (>60 ml/min/1.73 sqM) Glucose (74-99) mg/dL Plasma Lactic Acid Omar (0.7-2.0) mmol/L Calcium (8.4-10.2) mg/dL Phosphorus (2.5-4.5) mg/dL Magnesium (1.6-2.3) mg/dL Total Bilirubin (0.2-1.3) mg/dL AST (17-59) U/L ALT (4-49) U/L Alkaline Phosphatase (38-126) U/L Creatine Kinase (55-170) U/L Troponin I (0.000-0.034) ng/mL Total Protein (6.3-8.2) g/dL Albumin (3.5-5.0) g/dL Urine Color Yellow Urine Appearance Turbid (Clear) Urine pH 7.5 (5.0-8.0) Ur Specific [place] 1.018 (1.001-1.035) Urine Protein Trace H (Negative) Urine Glucose (UA) Negative (Negative) Urine Ketones Negative (Negative) Urine Blood Small H (Negative) Urine Nitrite Positive (Negative) Urine Bilirubin Negative (Negative) Urine Urobilinogen <2.0 (<2.0) mg/dL Ur Leukocyte Esterase Large H (Negative) Urine RBC 11 H (0-5) /hpf Urine WBC >182 H (0-5) /hpf Urine WBC Clumps Many H (None) /hpf Ur Squamous Epith Cells 2 (0-4) /hpf Urine Bacteria Rare H (None) /hpf Urine Mucus Rare H (None) /hpf 02/03/20 02/03/20 02/03/20 Range/Units 23:14 23:14 23:14 WBC (3.8-10.6) k/uL RBC (4.30-5.90) m/uL Hgb (13.0-17.5) gm/dL Hct (39.0-53.0) % MCV (80.0-100.0) fL MCH (25.0-35.0) pg MCHC (31.0-37.0) g/dL RDW (11.5-15.5) % Plt Count (150-450) k/uL MPV Neutrophils % % Lymphocytes % % Monocytes % % Eosinophils % % Basophils % % Neutrophils # (1.3-7.7) k/uL Lymphocytes # (1.0-4.8) k/uL Monocytes # (0-1.0) k/uL Eosinophils # (0-0.7) k/uL Basophils # (0-0.2) k/uL PT (9.0-12.0) sec INR (<1.2) APTT (22.0-30.0) sec D-Dimer (<0.60) mg/L FEU Sodium 136 L (137-145) mmol/L Potassium 4.2 (3.5-5.1) mmol/L Chloride 108 H (98-107) mmol/L Carbon Dioxide 25 (22-30) mmol/L Anion Gap 3 mmol/L BUN 15 (9-20) mg/dL Creatinine 0.75 (0.66-1.25) mg/dL Est GFR (CKD-EPI)AfAm >90 (>60 ml/min/1.73 sqM) Est GFR (CKD-EPI)NonAf 90 (>60 ml/min/1.73 sqM) Glucose 131 H (74-99) mg/dL Plasma Lactic Acid Omar 0.8 (0.7-2.0) mmol/L Calcium 9.0 (8.4-10.2) mg/dL Phosphorus 3.1 (2.5-4.5) mg/dL Magnesium 2.1 (1.6-2.3) mg/dL Total Bilirubin 0.4 (0.2-1.3) mg/dL AST 24 (17-59) U/L ALT 23 (4-49) U/L Alkaline Phosphatase 72 (38-126) U/L Creatine Kinase 41 L (55-170) U/L Troponin I <0.012 (0.000-0.034) ng/mL Total Protein 6.6 (6.3-8.2) g/dL Albumin 3.7 (3.5-5.0) g/dL Urine Color Urine Appearance (Clear) Urine pH (5.0-8.0) Ur Specific [place] (1.001-1.035) Urine Protein (Negative) Urine Glucose (UA) (Negative) Urine Ketones (Negative) Urine Blood (Negative) Urine Nitrite (Negative) Urine Bilirubin (Negative) Urine Urobilinogen (<2.0) mg/dL Ur Leukocyte Esterase (Negative) Urine RBC (0-5) /hpf Urine WBC (0-5) /hpf Urine WBC Clumps (None) /hpf Ur Squamous Epith Cells (0-4) /hpf Urine Bacteria (None) /hpf Urine Mucus (None) /hpf Disposition Clinical Impression: Dehydration, Weakness Disposition: HOME SELF-CARE Condition: Good Instructions (If sedation given, give patient instructions): Dizziness (ED) Is patient prescribed a controlled substance at d/c from ED?: No Referrals: [facility],Clinic [Primary Care Provider] - 1-2 days
[2020-02-03 23:36] LABS: Basophils # (A) 0.1 k/uL (0-0.2); Basophils % (A) 1 %; Eosinophils # (A) 0.2 k/uL (0-0.7); Eosinophils % (A) 3 %; HCT 39.6 % (39.0-53.0); HGB 13.9 gm/dL (13.0-17.5); Lymphocytes # (A) 0.7 k/uL (1.0-4.8); Lymphocytes % (A) 10 %; MCH 31.5 pg (25.0-35.0); MCHC 35.1 g/dL (31.0-37.0); MCV 89.8 fL (80.0-100.0); Mean Platelet Volume 7.8; Monocytes # (A) 0.2 k/uL (0-1.0); Monocytes % (A) 3 %; Neutrophils # (A) 5.8 k/uL (1.3-7.7); Neutrophils % (A) 82 %; Platelet Count 195 k/uL (150-450); RBC 4.41 m/uL (4.30-5.90); RDW 12.4 % (11.5-15.5); WBC 7.1 k/uL (3.8-10.6)
[2020-02-03 23:43] LABS: ALT 23 U/L (4-49); AST 24 U/L (17-59); African American GFR (CKD) >90 (>60 ml/min/1.73 sqM); Albumin 3.7 g/dL (3.5-5.0); Alkaline Phosphatase 72 U/L (38-126); Anion Gap 3 mmol/L; Blood Urea Nitrogen 15 mg/dL (9-20); Carbon Dioxide 25 mmol/L (22-30); Chloride 108 mmol/L (98-107); Creatine Kinase 41 U/L (55-170); Glucose 131 mg/dL (74-99); Magnesium 2.1 mg/dL (1.6-2.3); Non-African American GFR(CKD) 90 (>60 ml/min/1.73 sqM); Phosphorus 3.1 mg/dL (2.5-4.5); Potassium 4.2 mmol/L (3.5-5.1); Sodium 136 mmol/L (137-145); Total Bilirubin 0.4 mg/dL (0.2-1.3); Total Protein 6.6 g/dL (6.3-8.2)
[2020-02-04 00:02] LABS: Appearance,Urine Turbid (Clear); Bacteria,Urine Rare /hpf; Bilirubin,Urine Negative (Negative); Blood,Urine Small (Negative); Color,Urine Yellow; Glucose,Urine (UA) Negative (Negative); Ketones,Urine Negative (Negative); Leukocyte Esterase,Urine Large (Negative); Mucus,Urine Rare /hpf; Nitrite,Urine Positive (Negative); PH, Urine 7.5 (5.0-8.0); Protein,Urine Trace (Negative); RBC,Urine 11 /hpf (0-5); Specific Gravity,Urine 1.018 (1.001-1.035); Squamous Epithelial Cell,Urine 2 /hpf (0-4); Urobilinogen,Urine <2.0 mg/dL (<2.0); WBC,Urine >182 /hpf (0-5)
[2020-02-04 00:13] LABS: D-Dimer 0.59 mg/L FEU (<0.60); Partial Thromboplastin Time 23.1 sec (22.0-30.0); Prothrombin Time 10.2 sec (9.0-12.0)
[2020-02-04 00:21] VITALS: BP 137/74; PULSE 65
[2020-02-04] MEDS ORDERED: cefTRIAXone IN SWFI 1,000 MG/10 ML SYRINGE IVP STA (00:26)
== END 2020-02-04 00:56 | disposition home or self-care (01) ==
LOC: EC 23:02
DX: E86.0 Dehydration (principal); F17.200 Nicotine dependence, unspecified, uncomplicated; Z88.0 Allergy status to penicillin
CPT/HCPCS: 36415; 93005; 85379; 83880; 80053; 82550; 83605; 83735; 84100; 84484; 85025; 85610; 85730; 81001; 87086; 99284; 96374; 96361; J0696

== ENCOUNTER 2020-02-07 22:43 | Observation (INO) | payer MEDICARE ==
[2020-02-07] MEDS ORDERED: SODIUM CHLORIDE 0.9% 1,000 ML IV STA ×2 (23:09)
[2020-02-07] MEDS ORDERED: SODIUM CHLORIDE 0.9% 500 ML 500 ML IV STA (23:09)
--- NOTE | 2020-02-07 23:09 | ED ---
Dizziness HPI - General Chief Complaint: Dizziness Stated Complaint: Dizziness Time Seen by Provider: 02/07/20 22:53 Source: patient, RN notes reviewed, old records reviewed Mode of arrival: ambulatory Limitations: no limitations - History of Present Illness Initial Comments: This is a 74-year-old male DF for evaluation patient Dese for evaluation regards to weakness dizziness and near syncopal events. His episodes are going on for quite some time he said he had bilateral anxiety was seen in the ER bleeding of the same thing then. Patient recently had his sister . Patient does admit to diminished oral intake, diminished appetite and weakness. Patient has no real medication changes no significant medical history no headache chest pain shortness breath or abdominal pain MD Complaint: dizziness -: week(s) Timing: gradual onset Description: "room spinning", lightheadedness, nausea, near-syncope History of Same: Yes History of Trauma: No Severity: moderate Improves With: remaining still Worsens With: nothing Associated Symptoms: syncope (Without episode of passing out), weakness - Related Data Home Medications Medication Instructions Recorded Confirmed Multivitamins, Thera [Multivitamin 1 tab PO DAILY 10/11/18 05/09/19 (formulary)] Cholecalciferol [Vitamin D3 (25 1,000 unit PO DAILY 05/09/19 05/09/19 Mcg = 1000 Iu)] HYDROcodone/APAP 7.5-325MG [[place] 1 tab PO HS PRN 05/09/19 05/09/19 7.5-325] Lidocaine 5% Patch [Lidoderm] 1 patch TOPICAL DAILY 05/09/19 05/09/19 [place]-3 Fatty Acids/Fish Oil [Fish 1 cap PO DAILY 05/09/19 05/09/19 Oil 1,000 mg Softgel] Sertraline [Zoloft] 50 mg PO DAILY 05/09/19 05/09/19 Previous Rx's Medication Instructions Recorded Ciprofloxacin HCl [Cipro] 500 mg PO Q12HR #20 tablet 05/09/19 Ciprofloxacin HCl [Cipro] 500 mg PO Q12HR 10 Days #20 tab 07/25/19 Sulfamethox-Tmp 800-160Mg [Bactrim 1 tab PO Q12HR #20 tab 09/05/19 DS 800-160 mg] Doxycycline [Vibramycin] 100 mg PO BID 7 Days #14 capsule 09/10/19 Ondansetron Odt [Zofran Odt] 4 mg PO Q8HR PRN #12 tab 09/10/19 Allergies Allergy/AdvReac Type Severity Reaction Status Date / Time Penicillins Allergy Anaphylaxis Verified 02/07/20 22:48 Review of Systems ROS Statement: Those systems with pertinent positive or pertinent negative responses have been documented in the HPI. ROS Other: All systems not noted in ROS Statement are negative. Past Medical History Past Medical History: GERD/Reflux Additional Past Medical History / Comment(s): hernia rt lower abd, states "had Hep B or C back and now it's all healed", recurrent UTI with IDC, History of Any Multi-Drug Resistant Organisms: None Reported Past Surgical History: Back Surgery, Hernia Repair Additional Past Surgical History / Comment(s): hemorrhoid Past Anesthesia/Blood Transfusion Reactions: No Reported Reaction Additional Past Anesthesia/Blood Transfusion Reaction / Comment(s): no hx blood transfusion Past Psychological History: No Psychological Hx Reported Smoking Status: Current every day smoker Past Alcohol Use History: None Reported Past Drug Use History: None Reported - Past Family History Mother Family Medical History: Cancer Father Family Medical History: Cancer General Exam Limitations: no limitations General appearance: alert, in no apparent distress Head exam: Present: atraumatic, normocephalic, normal inspection Eye exam: Present: normal appearance, PERRL, EOMI. Absent: scleral icterus, conjunctival injection, periorbital swelling ENT exam: Present: normal exam, mucous membranes dry Neck exam: Present: normal inspection. Absent: tenderness, meningismus, lymphadenopathy Respiratory exam: Present: normal lung sounds bilaterally. Absent: respiratory distress, wheezes, rales, rhonchi, stridor Cardiovascular Exam: Present: regular rate, normal rhythm, normal heart sounds. Absent: systolic murmur, diastolic murmur, rubs, gallop, clicks GI/Abdominal exam: Present: soft, normal bowel sounds. Absent: distended, tenderness, guarding, rebound, rigid Extremities exam: Present: normal inspection, full ROM, normal capillary refill. Absent: tenderness, pedal edema, joint swelling, calf tenderness Back exam: Present: normal inspection Neurological exam: Present: alert, oriented X3, CN II-XII intact Psychiatric exam: Present: normal affect, normal mood Skin exam: Present: warm, dry, intact, normal color. Absent: rash Course Vital Signs 02/07/20 02/07/20 22:46 23:13 Temperature 97.1 F L Pulse Rate 62 Pulse Rate [ 67 Sitting] Pulse Rate [ 63 Standing] Pulse Rate [ 59 L Supine] Respiratory 18 18 Rate Blood Pressure 145/78 Blood Pressure 151/93 [Sitting] Blood Pressure 134/79 [Standing] Blood Pressure 147/86 [Supine] O2 Sat by Pulse 99 100 Oximetry - Reevaluation(s) Reevaluation #1: 02/08/20 01:52 Medical record is reviewed 02/08/20 01:52 Prior ER visit is also been reviewed Reevaluation #2: 02/08/20 01:52 Patient still feels lightheaded dizzy and weak here in the ER 02/08/20 01:52 Patient is denying chest pain headache shortness of breath or abdominal pain Reevaluation #3: 02/08/20 01:52 patient informed results with questions being answered, patient states he does not fill comfortable going always afraid to sleep EKG Findings - EKG Comments: EKG Findings:: EKG sinus bradycardia 67 NM 162 QRS 86 QTc 428 Medical Decision Making - Medical Decision Making 74 male DF for evaluation of weakness dizziness near syncope and some dehydration. Patient will be admitted for observation, CT brain x-ray labwork are all unremarkable - Lab Data Result diagrams: 02/07/20 23:14 02/07/20 23:14 Lab Results 02/07/20 02/07/20 02/07/20 Range/Units 23:14 23:14 23:14 WBC 5.4 (3.8-10.6) k/uL RBC 4.66 (4.30-5.90) m/uL Hgb 14.4 (13.0-17.5) gm/dL Hct 41.8 (39.0-53.0) % MCV 89.7 (80.0-100.0) fL MCH 30.8 (25.0-35.0) pg MCHC 34.4 (31.0-37.0) g/dL RDW 12.4 (11.5-15.5) % Plt Count 220 (150-450) k/uL MPV 7.8 Neutrophils % 53 % Lymphocytes % 30 % Monocytes % 7 % Eosinophils % 5 % Basophils % 2 % Neutrophils # 2.9 (1.3-7.7) k/uL Lymphocytes # 1.6 (1.0-4.8) k/uL Monocytes # 0.4 (0-1.0) k/uL Eosinophils # 0.3 (0-0.7) k/uL Basophils # 0.1 (0-0.2) k/uL PT 9.8 (9.0-12.0) sec INR 0.9 (<1.2) APTT 22.9 (22.0-30.0) sec Sodium (137-145) mmol/L Potassium (3.5-5.1) mmol/L Chloride (98-107) mmol/L Carbon Dioxide (22-30) mmol/L Anion Gap mmol/L BUN (9-20) mg/dL Creatinine (0.66-1.25) mg/dL Est GFR (CKD-EPI)AfAm (>60 ml/min/1.73 sqM) Est GFR (CKD-EPI)NonAf (>60 ml/min/1.73 sqM) Glucose (74-99) mg/dL Calcium (8.4-10.2) mg/dL Phosphorus (2.5-4.5) mg/dL Magnesium (1.6-2.3) mg/dL Total Bilirubin (0.2-1.3) mg/dL AST (17-59) U/L ALT (4-49) U/L Alkaline Phosphatase (38-126) U/L Creatine Kinase (55-170) U/L Troponin I (0.000-0.034) ng/mL NT-Pro-B Natriuret Pep pg/mL Total Protein (6.3-8.2) g/dL Albumin (3.5-5.0) g/dL Urine Color Yellow Urine Appearance Cloudy (Clear) Urine pH 6.5 (5.0-8.0) Ur Specific [place] 1.008 (1.001-1.035) Urine Protein Negative (Negative) Urine Glucose (UA) Negative (Negative) Urine Ketones Negative (Negative) Urine Blood Moderate H (Negative) Urine Nitrite Positive (Negative) Urine Bilirubin Negative (Negative) Urine Urobilinogen <2.0 (<2.0) mg/dL Ur Leukocyte Esterase Large H (Negative) Urine RBC 44 H (0-5) /hpf Urine WBC 83 H (0-5) /hpf Ur Squamous Epith Cells <1 (0-4) /hpf Urine Bacteria Rare H (None) /hpf Hyaline Casts 1 (0-2) /lpf Urine Mucus Rare H (None) /hpf 02/07/20 02/07/20 02/07/20 Range/Units 23:14 23:14 23:14 WBC (3.8-10.6) k/uL RBC (4.30-5.90) m/uL Hgb (13.0-17.5) gm/dL Hct (39.0-53.0) % MCV (80.0-100.0) fL MCH (25.0-35.0) pg MCHC (31.0-37.0) g/dL RDW (11.5-15.5) % Plt Count (150-450) k/uL MPV Neutrophils % % Lymphocytes % % Monocytes % % Eosinophils % % Basophils % % Neutrophils # (1.3-7.7) k/uL Lymphocytes # (1.0-4.8) k/uL Monocytes # (0-1.0) k/uL Eosinophils # (0-0.7) k/uL Basophils # (0-0.2) k/uL PT (9.0-12.0) sec INR (<1.2) APTT (22.0-30.0) sec Sodium 138 (137-145) mmol/L Potassium 4.0 (3.5-5.1) mmol/L Chloride 107 (98-107) mmol/L Carbon Dioxide 27 (22-30) mmol/L Anion Gap 4 mmol/L BUN 16 (9-20) mg/dL Creatinine 0.84 (0.66-1.25) mg/dL Est GFR (CKD-EPI)AfAm >90 (>60 ml/min/1.73 sqM) Est GFR (CKD-EPI)NonAf 86 (>60 ml/min/1.73 sqM) Glucose 115 H (74-99) mg/dL Calcium 9.5 (8.4-10.2) mg/dL Phosphorus 4.2 (2.5-4.5) mg/dL Magnesium 2.0 (1.6-2.3) mg/dL Total Bilirubin 0.2 (0.2-1.3) mg/dL AST 28 (17-59) U/L ALT 31 (4-49) U/L Alkaline Phosphatase 91 (38-126) U/L Creatine Kinase 43 L (55-170) U/L Troponin I <0.012 (0.000-0.034) ng/mL NT-Pro-B Natriuret Pep 77 pg/mL Total Protein 7.0 (6.3-8.2) g/dL Albumin 3.9 (3.5-5.0) g/dL Urine Color Urine Appearance (Clear) Urine pH (5.0-8.0) Ur Specific [place] (1.001-1.035) Urine Protein (Negative) Urine Glucose (UA) (Negative) Urine Ketones (Negative) Urine Blood (Negative) Urine Nitrite (Negative) Urine Bilirubin (Negative) Urine Urobilinogen (<2.0) mg/dL Ur Leukocyte Esterase (Negative) Urine RBC (0-5) /hpf Urine WBC (0-5) /hpf Ur Squamous Epith Cells (0-4) /hpf Urine Bacteria (None) /hpf Hyaline Casts (0-2) /lpf Urine Mucus (None) /hpf - Radiology Data Radiology results: report reviewed (Chest x-ray and CT brain are negative for acute disease), image reviewed Disposition Clinical Impression: Near syncope, Dehydration, Weakness, Dizziness, UTI (urinary tract infection) Disposition: ADMITTED IP TO THIS HOSP Condition: Good Is patient prescribed a controlled substance at d/c from ED?: No Referrals: [facility],Clinic [Primary Care Provider] - 1-2 days
[2020-02-07 23:23] LABS: Basophils # (A) 0.1 k/uL (0-0.2); Basophils % (A) 2 %; Eosinophils # (A) 0.3 k/uL (0-0.7); Eosinophils % (A) 5 %; HCT 41.8 % (39.0-53.0); HGB 14.4 gm/dL (13.0-17.5); Lymphocytes # (A) 1.6 k/uL (1.0-4.8); Lymphocytes % (A) 30 %; MCH 30.8 pg (25.0-35.0); MCHC 34.4 g/dL (31.0-37.0); MCV 89.7 fL (80.0-100.0); Mean Platelet Volume 7.8; Monocytes # (A) 0.4 k/uL (0-1.0); Monocytes % (A) 7 %; Neutrophils # (A) 2.9 k/uL (1.3-7.7); Neutrophils % (A) 53 %; Platelet Count 220 k/uL (150-450); RBC 4.66 m/uL (4.30-5.90); RDW 12.4 % (11.5-15.5); WBC 5.4 k/uL (3.8-10.6)
[2020-02-07 23:34] LABS: ALT 31 U/L (4-49); AST 28 U/L (17-59); African American GFR (CKD) >90 (>60 ml/min/1.73 sqM); Albumin 3.9 g/dL (3.5-5.0); Alkaline Phosphatase 91 U/L (38-126); Anion Gap 4 mmol/L; Blood Urea Nitrogen 16 mg/dL (9-20); Calcium 9.5 mg/dL (8.4-10.2); Carbon Dioxide 27 mmol/L (22-30); Chloride 107 mmol/L (98-107); Creatine Kinase 43 U/L (55-170); Glucose 115 mg/dL (74-99); Non-African American GFR(CKD) 86 (>60 ml/min/1.73 sqM); Phosphorus 4.2 mg/dL (2.5-4.5); Sodium 138 mmol/L (137-145); Total Bilirubin 0.2 mg/dL (0.2-1.3)
[2020-02-07 23:36] LABS: INR 0.9 (<1.2); Partial Thromboplastin Time 22.9 sec (22.0-30.0); Prothrombin Time 9.8 sec (9.0-12.0)
--- NOTE | 2020-02-07 23:37 | XR ---
EXAMINATION TYPE: XR chest 2V DATE OF EXAM: 02/07/2020 COMPARISON: 05/14/2018 HISTORY: Weakness TECHNIQUE: FINDINGS: Heart and mediastinum are normal. There are no hilar masses. There are chest leads. There i s a possible 1.7 cm nodular density in the medial left upper lobe overlying the medial left clavicle. There is no pleural effusion. Bony thorax is intact. IMPRESSION: Possible new left upper lobe nodule compared to old exam. There is probably COPD. Normal heart.
--- NOTE | 2020-02-08 00:38 | CT ---
EXAM: CT Head Without Intravenous Contrast CLINICAL HISTORY: ITS.REASON CT Reason: weak TECHNIQUE: Axial computed tomography images of the head/brain without intravenous contrast. CTDI is 49.27 mGy and DLP is 1137.4 mGy-cm. This CT exam was performed using one or more of the following dose reduction techniques: automated exposure control, adjustment of the mA and/or kV according to patient size, and/or use of iterative reconstruction technique. COMPARISON: None FINDINGS: Brain: No acute infarct or hemorrhage identified. No extra-axial fluid collection. No mass effect or midline shift. Scattered areas of hypoattenuation in the supratentorial white matter likely represent chronic small vessel ischemic changes. Ventricles and sulci: Prominence of the ventricles and sulci is likely secondary to cerebral volume loss. Bones: Normal. No bony lesion or acute fracture. Subcutaneous tissues: Normal. Sinuses: Mild mucosal thickening in the right maxillary sinus. Mastoid air cells: Normal. Orbits: Grossly unremarkable. Other: Atherosclerotic calcifications in the intracranial vasculature. IMPRESSION: 1. No acute intracranial abnormality. 2. Mild chronic small vessel ischemic changes and cerebral volume loss.
[2020-02-08 00:39] LABS: Appearance,Urine Cloudy (Clear); Bacteria,Urine Rare /hpf; Bilirubin,Urine Negative (Negative); Blood,Urine Moderate (Negative); Color,Urine Yellow; Glucose,Urine (UA) Negative (Negative); Hyaline Casts,Urine 1 /lpf (0-2); Ketones,Urine Negative (Negative); Leukocyte Esterase,Urine Large (Negative); Mucus,Urine Rare /hpf; Nitrite,Urine Positive (Negative); PH, Urine 6.5 (5.0-8.0); Protein,Urine Negative (Negative); RBC,Urine 44 /hpf (0-5); Specific Gravity,Urine 1.008 (1.001-1.035); Squamous Epithelial Cell,Urine <1 /hpf (0-4); Urobilinogen,Urine <2.0 mg/dL (<2.0); WBC,Urine 83 /hpf (0-5)
[2020-02-08] MEDS ORDERED: ASPIRIN 81 MG PO STA (01:49)
[2020-02-08] MEDS ORDERED: ONDANSETRON 4 MG/2 ML VIAL IVP PRN (01:50)
[2020-02-08] MEDS ORDERED: SODIUM CHLORIDE 0.9% 1,000 ML IV STA (01:50)
[2020-02-08] MEDS: SODIUM CHLORIDE 0.9% 1,000 ML IV SCH ×2 (02:05→12:13)
[2020-02-08 12:05] VITALS: BMI 20.5
[2020-02-08] MEDS ORDERED: NON FORMULARY DRUG (Omega-3 Fatty Acids/Fish Oil [Fish Oil 1,000 Mg Softgel] 1 EACH Capsul PO SCH (12:30)
[2020-02-08] MEDS: MULTIVITAMINS, THERA 1 EACH TAB PO SCH (13:07)
[2020-02-08] MEDS: CHOLECALCIFEROL 1,000 UNIT TAB PO SCH (13:07)
[2020-02-08 14:42] VITALS: RESP 18
[2020-02-08] MEDS ORDERED: MECLIZINE 25 MG TAB PO PRN (14:57)
--- NOTE | 2020-02-08 15:01 | P.HPIM ---
History of Present Illness Patient is a pleasant 74-year-old male came in because of vertigo which has been going on for about a week patient has been too unstable because of that patient did not fall denied any syncopal events. Patient denied any lightheadedness his symptoms pathology is more consistent with vertigo and which is frustrated by head movement. Patient denied any recent hearing problems denied any ringing in the ears denied any fullness in the ears. Patient denied any chest pain. CT of the head did not show any acute abnormality showed mild chronic small vessel ischemic changes. Patient denied any focal weakness but was complaining of some gait instability from vertigo and was also complains of nausea. I did not perform Dicks-Hallspike maneuver. Review of Systems REVIEW OF SYSTEMS: CONSTITUTIONAL: No fever, no malaise, no fatigue. HEENT: No recent visual problems or hearing problems. Denied any sore throat. CARDIOVASCULAR: No chest pain, orthopnea, PND, no palpitations, no syncope. PULMONARY: No shortness of breath, no cough, no hemoptysis. GASTROINTESTINAL: No diarrhea, no nausea, no vomiting, no abdominal pain. NEUROLOGICAL: No headaches, no weakness, no numbness. HEMATOLOGICAL: Denies any bleeding or petechiae. GENITOURINARY: Denies any burning micturition, frequency, or urgency. MUSCULOSKELETAL/RHEUMATOLOGICAL: Denies any joint pain, swelling, or any muscle pain. ENDOCRINE: Denies any polyuria or polydipsia. The rest of the 14-point review of systems is negative. Past Medical History Past Medical History: GERD/Reflux Additional Past Medical History / Comment(s): hernia rt lower abd, states "had Hep B or C back 1959' and now it's all healed", recurrent UTI with IDC, has IDC due to issues with hernia History of Any Multi-Drug Resistant Organisms: None Reported Past Surgical History: Back Surgery, Hernia Repair Additional Past Surgical History / Comment(s): hemorrhoid surgery Past Anesthesia/Blood Transfusion Reactions: No Reported Reaction Additional Past Anesthesia/Blood Transfusion Reaction / Comment(s): no hx blood transfusion Past Psychological History: No Psychological Hx Reported Smoking Status: Current every day smoker Past Alcohol Use History: None Reported Past Drug Use History: None Reported - Past Family History Mother Family Medical History: Cancer Father Family Medical History: Cancer Medications and Allergies Home Medications Medication Instructions Recorded Confirmed Type Multivitamins, Thera [Multivitamin 1 tab PO DAILY 10/11/18 02/08/20 History (formulary)] Cholecalciferol [Vitamin D3 (25 1,000 unit PO DAILY 05/09/19 02/08/20 History Mcg = 1000 Iu)] [place]-3 Fatty Acids/Fish Oil [Fish 1 cap PO DAILY 05/09/19 02/08/20 History Oil 1,000 mg Softgel] Doxycycline Hyclate [Vibramycin] 100 mg PO BID 02/08/20 02/08/20 History Allergies Allergy/AdvReac Type Severity Reaction Status Date / Time Penicillins Allergy Anaphylaxis Verified 02/08/20 08:19 Physical Exam Vitals: Vital Signs Temp Pulse Pulse Pulse Pulse Pulse Resp 02/08/20 14:40 97.7 F 75 18 02/08/20 02:23 67 16 02/07/20 23:13 67 63 59 L 18 02/07/20 22:46 97.1 F L 62 18 BP BP BP BP BP Pulse Ox 02/08/20 14:40 115/66 97 02/08/20 02:23 150/87 98 02/07/20 23:13 151/93 134/79 147/86 100 02/07/20 22:46 145/78 99 Intake and Output 02/07/20 02/08/20 02/08/20 22:59 06:59 14:59 Intake Total 740 Output Total 1000 1200 Balance -1000 -460 Intake: Oral 540 Other 200 Output: Urine 1000 1200 Uretheral (Mohamud) 1200 Other: Voiding Method Indwelling Catheter # Bowel Movements 1 Weight 61.235 kg 61.235 kg 61.235 kg PHYSICAL EXAMINATION: GENERAL: The patient is alert and oriented x3, not in any acute distress. Well developed, well nourished. HEENT: Pupils are round and equally reacting to light. EOMI. No scleral icterus. No conjunctival pallor. Normocephalic, atraumatic. No pharyngeal erythema. No thyromegaly. CARDIOVASCULAR: S1 and S2 present. No murmurs, rubs, or gallops. PULMONARY: Chest is clear to auscultation, no wheezing or crackles. ABDOMEN: Soft, nontender, nondistended, normoactive bowel sounds. No palpable organomegaly. MUSCULOSKELETAL: No joint swelling or deformity. EXTREMITIES: No cyanosis, clubbing, or pedal edema. NEUROLOGICAL: Gross neurological examination did not reveal any focal deficits. SKIN: No rashes. Results CBC & Chem 7: 02/07/20 23:14 02/07/20 23:14 Labs: Abnormal Lab Results - Last 24 Hours (Table) 02/07/20 02/07/20 Range/Units 23:14 23:14 Glucose 115 H (74-99) mg/dL Creatine Kinase 43 L (55-170) U/L Urine Blood Moderate H (Negative) Ur Leukocyte Esterase Large H (Negative) Urine RBC 44 H (0-5) /hpf Urine WBC 83 H (0-5) /hpf Urine Bacteria Rare H (None) /hpf Urine Mucus Rare H (None) /hpf Microbiology - Last 24 Hours (Table) 02/07/20 23:14 Urine Culture - Preliminary Urine,Clean Catch Thrombosis Risk Factor Assmnt - Choose All That Apply Any of the Below Risk Factors Present?: Yes Other Risk Factors: Yes Each Risk Factor Represents 3 Points: Age 75 years or older Other congenital or acquired thrombophilia - If yes, enter type in comment: No Thrombosis Risk Factor Assessment Total Risk Factor Score: 3 Thrombosis Risk Factor Assessment Level: Moderate Risk Assessment and Plan Plan: -Vertigo: Appears to be peripheral vertigo, can be benign push vertigo. Neurology will be consulted as the duration of symptoms is about a week. CT of the head did not show any CP angle tumors. 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
--- NOTE | 2020-02-08 19:19 | P.CNNES ---
History of Present Illness Consult date: 02/08/20 Requesting physician: Sabra Hope Reason for Consult: Vertigo History of Present Illness: This is a 74-year-old gentleman with medical history of Lumbar laminectomy about 35 years ag with residual left distal extremity numbness and weakness, recurrent urinary tract infection that presented to the emergency department on 02/07/2020 for dizziness and he feels mostly with movement for the past 2 weeks. Said that with movement he noticed that the room is spinning and it's mostly positional. Any subtle head position he feels the dizzy. He says with resting and it's much improved. He denies of any diplopia or acute visual disturbance. He denies feeling lightheadedness. He denies of any focal weakness or numbness associate with this. He has chronic ringing of bilateral ears as well as some hearing loss. He said he has a lot of wax buildup in his ears that has to be removed. At home sometimes uses a walker he has been doing that for couple years. He does smoke tobacco he smokes 1 pack in last, 1-1/2 a days and he's been smoking for more than 50 years. He uses Mohamud catheter that he uses because of the his bladder was a damage as a result of a severe hernia and he had an that happened about at least couple years ago. Workup in the hospital consisted of: CT of the head is reported as no acute intracranial abnormality. Mild chronic small vessel ischemic changes and cerebral volume loss. Patient orthostatic vitals: Supine blood pressure is 147/86 with a heart rate of 59. Sitting is blood pressure of 151/93 with a heart rate is 67 and standing is a blood pressure of 134/79 with a heart rate of 63. These orthostatic seems within normal range. Review of Systems Review of system: The 12 point system was reviewed and apparent positive and negative per HPI. Past Medical History Past Medical History: GERD/Reflux Additional Past Medical History / Comment(s): hernia rt lower abd, states "had Hep B or C back 1959's and now it's all healed", recurrent UTI with IDC, has IDC due to issues with hernia History of Any Multi-Drug Resistant Organisms: None Reported Past Surgical History: Back Surgery, Hernia Repair Additional Past Surgical History / Comment(s): hemorrhoid surgery Past Anesthesia/Blood Transfusion Reactions: No Reported Reaction Additional Past Anesthesia/Blood Transfusion Reaction / Comment(s): no hx blood transfusion Past Psychological History: No Psychological Hx Reported Smoking Status: Current every day smoker Past Alcohol Use History: None Reported Past Drug Use History: None Reported - Past Family History Mother Family Medical History: Cancer Father Family Medical History: Cancer Medications and Allergies Home Medications Medication Instructions Recorded Confirmed Type Multivitamins, Thera [Multivitamin 1 tab PO DAILY 10/11/18 02/08/20 History (formulary)] Cholecalciferol [Vitamin D3 (25 1,000 unit PO DAILY 05/09/19 02/08/20 History Mcg = 1000 Iu)] [place]-3 Fatty Acids/Fish Oil [Fish 1 cap PO DAILY 05/09/19 02/08/20 History Oil 1,000 mg Softgel] Doxycycline Hyclate [Vibramycin] 100 mg PO BID 02/08/20 02/08/20 History Allergies Allergy/AdvReac Type Severity Reaction Status Date / Time Penicillins Allergy Anaphylaxis Verified 02/08/20 08:19 Physical Examination - Vital Signs Vital Signs: Vital Signs Temp Pulse Pulse Pulse Pulse Pulse Resp 02/08/20 14:40 97.7 F 75 18 02/08/20 02:23 67 16 02/07/20 23:13 67 63 59 L 18 02/07/20 22:46 97.1 F L 62 18 BP BP BP BP BP Pulse Ox 02/08/20 14:40 115/66 97 02/08/20 02:23 150/87 98 02/07/20 23:13 151/93 134/79 147/86 100 02/07/20 22:46 145/78 99 Intake and Output 02/08/20 02/08/20 02/08/20 06:59 14:59 22:59 Intake Total 740 Output Total 1000 1200 Balance -1000 -460 Intake: Oral 540 Other 200 Output: Urine 1000 1200 Uretheral (Mohamud) 1200 Other: Voiding Method Indwelling Catheter Indwelling Catheter # Bowel Movements 1 Weight 61.235 kg 61.235 kg GENERAL: The patient is lying in bed and is not in acute distress. CHEST: The heart rate is regular rate rhythm. No murmurs to auscultation. No carotid bruit bilaterally. LUNG: Clear to auscultation bilaterally no wheezing noted throughout. Not la bored breathing. ABDOMEN/GI: Bowel sounds present in all 4 quadrants. No tenderness to palpation throughout. NEUROLOGICAL: Higher mental function: The patient is awake, alert, oriented to self, place and time. Patient is following commands. No aphasia and no neglect. Cranial nerves: The pupils are round, equal and reactive to light and accommodation. Visual cobb are full to confrontation throughout. Extraocular movement is intact no nystagmus is noted. Facial sensation is normal to touch throughout. The facial strength is normal throughout. Hearing is mildly decreased to hand rub bilaterally. Tongue is midline and moved [id number] without any difficulty. No dysarthria is noted. Shoulder shrug is normal bilaterally. Motor: Gait was attempted but he felt dizzy so could not assess. The strength is 5 over 5 throughout. Normal tone and bulk. Cerebellum: Normal finger to nose bilaterally. Sensation: Sensation is normal to touch throughout. Reflexes (right/left): 2+ throughout bilateral upper extremities while 1+ bilateral lower extremities. Plantars are downgoing bilaterally. Results Calcium of 9.5. Urinalysis as a positive for nitrates, positive for leukocyte esterase which is large, urine white blood cell is 83, urine bacteria is rare. - Laboratory Findings CBC and BMP: 02/07/20 23:14 02/07/20 23:14 Abnormal Lab Findings: Abnormal Labs 02/07/20 02/07/20 23:14 23:14 Glucose 115 H Creatine Kinase 43 L Urine Blood Moderate H Ur Leukocyte Esterase Large H Urine RBC 44 H Urine WBC 83 H Urine Bacteria Rare H Urine Mucus Rare H Assessment and Plan Assessment: Acute Vertigo for the past 2 week usually positional. This seem peripheral vertigo such as benign positional vertigo. History of hepatitis C or B before 1959. Asymptomatic bacteria Tobacco use Lumbar laminectomy about 35 years ago History of chronic dizziness and that hearing loss Chronic use of file Mohamud catheter as a result of damage the bladder from a complicated hernia. Plan: We'll order MRI of the brain to rule out any intracranial process such as posture circulation stroke. Patient was started on meclizine 25 mg 3 times a day when necessary for vertigo by the primary team. I will change it to 25 mg twice a day scheduled to make sure the patient gets the medication. 2-D echo is ordered by the primary team. PT and OT are consulted. Patient is on aspirin 325 daily started by the ED. Patient was counseled on smoking cessation. Thank you for the consultation. Orlin Boles M.D. Neuro-hospitalist Time with Patient: Greater than 30
[2020-02-08] MEDS: MECLIZINE 25 MG TAB PO SCH (21:11)
[2020-02-09] MEDS: SODIUM CHLORIDE 0.9% 1,000 ML IV SCH ×2 (00:19→08:34)
[2020-02-09] MEDS: MULTIVITAMINS, THERA 1 EACH TAB PO SCH (08:31)
[2020-02-09] MEDS: MECLIZINE 25 MG TAB PO SCH (08:31)
[2020-02-09] MEDS: CHOLECALCIFEROL 1,000 UNIT TAB PO SCH (08:31)
[2020-02-09] MEDS ORDERED: ENOXAPARIN 40 MG/0.4 ML SYRINGE SQ SCH (09:00)
[2020-02-09] MEDS ORDERED: ASPIRIN 325 MG TAB PO SCH (09:00)
--- NOTE | 2020-02-09 11:00 | ECHOF ---
Referral Reason:Near-syncope MEASUREMENTS -------- HEIGHT: 172.7 cm WEIGHT: 61.2 kg BP: IVSd: 1.0 cm (0.6 - 1.1) LVIDd: 3.5 cm (3.9 - 5.3) LVPWd: 1.4 cm (0.6 - 1.1) EDV(Teich): 52 ml IVSs: 1.4 cm LVIDs: 2.3 cm LVPWs: 1.4 cm %IVS Thck: 45 % ESV(Teich): 19 ml EF(Teich): 63 % %FS: 34 % SV(Teich): 33 ml RVIDd: 3.3 cm (< 3.3) LALs A4C: 5.1 cm LAAs A4C: 13.9 cm LAESV A-L A4C: 32 ml LAESV MOD A4C: 30 ml LALs A2C: 4.6 cm LAAs A2C: 16.5 cm LAESV A-L A2C: 51 ml LAESV MOD A2C: 48 ml LAESV(A-L): 43 ml LAESV Index (A-L): 24.61 ml/m Ao Diam: 3.0 cm (2.0 - 3.7) AV Cusp: 1.8 cm (1.5 - 2.6) EPSS: 1.0 cm MV E Jose A: 0.98 m/s MV DecT: 299 ms MV Dec [place]: 3.3 m/s MV A Jose A: 0.89 m/s MV E/A Ratio: 1.10 MV PHT: 87 ms LVOT Vmax: 1.41 m/s LVOT maxP.90 mmHg AV Vmax: 1.45 m/s AV maxP.39 mmHg TR Vmax: 2.63 m/s TR maxP.66 mmHg RAP: 5.00 mmHg RVSP: 32.66 mmHg MV EF SLOPE: 50.15 mm/s (70 - 150) MV EXCURSION: 14.92 mm (> 18.000) FINDINGS -------- Sinus rhythm. This was a technically adequate study. The left ventricular size is normal. Left ventricular wall thickness is normal. Overall left vent ricular systolic function is normal with, an EF between 55 - 60 %. The diastolic filling pattern is normal for the age of the patient 10.33. The right ventricle is normal in size. Normal LA size by volume 22+/-6 ml/m2. The right atrial size is normal. Interatrial and interventricular septum intact. There is no evidence of aortic regurgitation. There is no evidence of aortic stenosis. Mild mitral regurgitation is present. Mild tricuspid regurgitation present. There is borderline pulmonary hypertension. The right ventr icular systolic pressure, as measured by Doppler, is 32.66mmHg. There is no pulmonic regurgitation present. The aortic root size is normal. IVC Not well visulized. There is no pericardial effusion. CONCLUSIONS -------- 1. The left ventricular size is normal. 2. Left ventricular wall thickness is normal. 3. Overall left ventricular systolic function is normal with, an EF between 55 - 60 %. 4. The diastolic filling pattern is normal for the age of the patient 10.33 5. Mild mitral regurgitation is present. 6. Mild tricuspid regurgitation present. 7. There is borderline pulmonary hypertension. [employer] SUPERVISOR: Sara Moreno RDCS
--- NOTE | 2020-02-09 11:09 | MR ---
EXAMINATION TYPE: MR brain wo con DATE OF EXAM: 02/09/2020 COMPARISON: CT brain 1 day ago. HISTORY: Vertigo, Rule out peripheral circulation stroke TECHNIQUE: Multiplanar, multisequence imaging of the brain and brainstem is performed without IV cont rast. FINDINGS: Diffusion weighted images demonstrate no evidence of a recent infarct or other diffusion abnormality. There is no worrisome extra-axial fluid collection. Diffuse ventricular and sulcal prominence. Scatte red foci of T2 hyperintensity seen throughout the white matter bilaterally. Midline structures demonstrate normal morphology. The craniocervical junction appears within normal limits. Normal vascular flow voids are present. The visualized sinuses are clear and the globes are i ntact. IMPRESSION: There is mild to moderate diffuse cerebral atrophy and chronic small vessel ischemic [place]. No MRI evidence for a recent infarct.
[2020-02-09 13:23] VITALS: BP 149/77; PULSE 52; TEMP 97.7
--- NOTE | 2020-02-09 16:24 | P.PN ---
Subjective Progress Note Date: 02/09/20 The patient was seen at bedside and that he feels a his dizziness is somewhat improved today compared to yesterday. Denies any new neurological symptoms. Denies of Weakness, numbness, visual disturbance. Objective - Vital Signs Vital signs: Vital Signs Temp 97.7 F 02/09/20 13:22 Pulse 52 L 02/09/20 13:22 Resp 18 02/09/20 13:22 BP 149/77 02/09/20 13:22 Pulse Ox 95 02/09/20 13:22 Intake & Output 02/08/20 02/09/20 02/09/20 18:59 06:59 18:59 Intake Total 1160 1252 Output Total 1200 2000 1600 Balance -40 -348 Weight 61.235 kg Intake: Oral 960 952 Other 200 300 Output: Urine 1200 2000 1600 Uretheral (Mohamud) 1200 1600 Other: Voiding Method Indwelling Catheter Indwelling Catheter Indwelling Catheter # Bowel Movements 1 1 - Exam GENERAL: The patient is lying in bed and is not in acute distress. NEUROLOGICAL: Higher mental function: The patient is awake, alert, oriented to self, place and time. Patient is following commands. No aphasia and no neglect. Cranial nerves: The pupils are round, equal and reactive to light and accommodation. Visual cobb are full to confrontation throughout. Extraocular movement is intact no nystagmus is noted. Facial sensation is normal to touch throughout. The facial strength is normal throughout. Hearing is mildly decreased to hand rub bilaterally. Tongue is midline and moved [id number] without any difficulty. No dysarthria is noted. Shoulder shrug is normal bilaterally. Motor: Gait is deferred. The strength is 5 over 5 throughout. Normal tone and bulk. Cerebellum: Normal finger to nose bilaterally. Sensation: Sensation is normal to touch throughout. Reflexes (right/left): 2+ throughout bilateral upper extremities while 1+ bilateral lower extremities. Plantars are downgoing bilaterally. - Labs CBC & Chem 7: 02/07/20 23:14 02/07/20 23:14 Labs: Microbiology - Last 24 Hours (Table) 02/07/20 23:14 Urine Culture - Preliminary Urine,Clean Catch Group D Enterococcus Gram Neg Bacilli Assessment and Plan Assessment: Acute Vertigo for the past 2 week usually positional. This seem peripheral vertigo such as benign positional vertigo. History of hepatitis C or B before 1959. Asymptomatic bacteria Tobacco use Lumbar laminectomy about 35 years ago History of chronic dizziness and that hearing loss Chronic use of file Mohamud catheter as a result of damage the bladder from a complicated hernia. Plan: MRI of the brain: As reported there is mild to moderate diffuse cerebral atrophy and chronic small vessel ischemic change. No MRI evidence for a recent infarct. Patient was started on meclizine 25 mg 3 times a day when necessary for vertigo by the primary team. I will change it to 25 mg twice a day scheduled to make sure the patient gets the medication. 2-D echo is ordered by the primary team: Left ventricular wall thickness is normal. Ejection fraction is 55-60%. Borderline pulmonary hypertension. PT and OT are consulted. Patient is on aspirin 325 daily started by the ED. Patient was counseled on smoking cessation. Patient needs to follow-up with an ENT as an outpatient within the 1-2 weeks and I personally wrote it on a piece a paper for him. There is no further neurological workup. Orlin Boles M.D. Neuro-hospitalist Time with Patient: Less than 30
--- NOTE | 2020-02-09 16:38 | P.DS ---
Providers Date of admission: 02/08/20 01:49 Expected date of discharge: 02/09/20 Attending physician: Felipe Curran Consults: 02/08/20 13:35 Consult Physician Routine Consulting Provider: Orlin Boles Consult Reason/Comments: vertigo Do you want consulting provider notified?: Yes Primary care physician: [facility] Hospital Course: Final diagnosis -Vertigo: Appears to be peripheral vertigo, can be benign proximal vertigo. 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 Patient will follow-up with [facility] in the outpatient setting upon discharge. Patient will continue on Antivert. Patient also instructed to follow-up outpatient with occupational therapy for vestibular rehab. Total time taken is greater than 35 minutes. History of present illness This is a 74-year-old male who was recently admitted with vertigo, dizziness, and lightheadedness and was being closely monitored. CT of the head did not show any acute abnormalities and patient underwent MRI of the brain which was negative. Patient will need to follow-up outpatient at the [facility] and occupational therapy for vestibular rehab. Patient will continue on Antivert in the outpatient setting. Patient continues to have some dizziness and has been instructed to get up slowly with position changes and sit at the edge of the bed or chair prior to standing to prevent falls. Patient states he is going out of town is a recent family member has and will follow-up with primary care providers upon return. Currently no reports of chest pain, shortness of breath, or palpitations. Patient is afebrile. No reports of nausea or vomiting and patient is tolerating diet. Patient will be going home today. On exam vital signs are stable. Temp is 97.7 F, pulse is 52, respirations are 18, blood pressure is 149/77, oxygen saturation is 95 % on room air. Cardio S1, S2 are muffled. Respiratory system shows diminished breath sounds at the bases with no wheezing or rhonchi noted. Abdomen is soft and nontender. Nervous system shows no focal deficits. Please refer to medication reconciliation sheet for a list of medications. Patient Condition at Discharge: Good Plan - Discharge Summary Discharge Rx Participant: Yes New Discharge Prescriptions: New Meclizine [Antivert] 25 mg PO BID 30 Days #60 tab Continue Multivitamins, Thera [Multivitamin (formulary)] 1 tab PO DAILY [place]-3 Fatty Acids/Fish Oil [Fish Oil 1,000 mg Softgel] 1 cap PO DAILY Cholecalciferol [Vitamin D3 (25 Mcg = 1000 Iu)] 1,000 unit PO DAILY Doxycycline Hyclate [Vibramycin] 100 mg PO BID Discharge Medication List Multivitamins, Thera [Multivitamin (formulary)] 1 tab PO DAILY 10/11/18 [History] Cholecalciferol [Vitamin D3 (25 Mcg = 1000 Iu)] 1,000 unit PO DAILY 05/09/19 [History] [place]-3 Fatty Acids/Fish Oil [Fish Oil 1,000 mg Softgel] 1 cap PO DAILY 05/09/19 [History] Doxycycline Hyclate [Vibramycin] 100 mg PO BID 02/08/20 [History] Meclizine [Antivert] 25 mg PO BID 30 Days #60 tab 02/09/20 [Rx] Follow up Appointment(s)/Referral(s): [facility],Clinic [Primary Care Provider] - 1-2 days Patient Instructions/Handouts: Vertigo (DC) Activity/Diet/Wound Care/Special Instructions: Patient will need indigent funds at discharge, contact the immigration case manager. Patient will need discharge medication list faxed to the [facility] so it can be refilled. Activity Limited until follow-up fOllow with primary care provider upon discharge Continue current diet Continue with meclizine follow-up with outpatient rehab for vestibular rehab Discharge Disposition: HOME SELF-CARE
== END 2020-02-09 17:00 | disposition home or self-care (01) ==
LOC: EC 22:43 → 5NMEDONC 02-08 01:49
PROVIDERS: ADMIT Hospitalist; ATTEND Hospitalist
DX: R42 Dizziness and giddiness (principal); R55 Syncope and collapse; K21.9 Gastro-esophageal reflux disease without esophagitis; R53.1 Weakness; R82.71 Bacteriuria; R20.0 Anesthesia of skin; H91.93 Unspecified hearing loss, bilateral; H93.13 Tinnitus, bilateral; E86.0 Dehydration; R26.89 Other abnormalities of gait and mobility; B19.10 Unspecified viral hepatitis B without hepatic coma; B19.20 Unspecified viral hepatitis C without hepatic coma; F17.210 Nicotine dependence, cigarettes, uncomplicated; Z79.899 Other long term (current) drug therapy; Z79.891 Long term (current) use of opiate analgesic; Z88.0 Allergy status to penicillin; Z87.440 Personal history of urinary (tract) infections; Z98.890 Other specified postprocedural states; Z80.9 Family history of malignant neoplasm, unspecified
CPT/HCPCS: 96361 ×3; 96366; 96372; 96365; 99285; 36415; 93005; 93306; 97530 ×2; 97162; 97165; 83880; 80053; 82550; 83605; 83735; 84100; 84484 ×2; 85025; 85610; 85730; 81001; 87086; 87077; 87186; 71046; 70450; 70551; G0378 ×2; J0696 ×2; J1650

== ENCOUNTER 2020-04-04 05:01 | Emergency (ER) | payer OTHER, MEDICARE ==
[2020-04-04 05:06] VITALS: PULSE 107; RESP 24; TEMP 98
[2020-04-04 05:07] VITALS: BP 159/81
--- NOTE | 2020-04-04 05:10 | ED ---
Male Urogenital HPI - General Chief complaint: Urogenital Stated complaint: urogenital Time Seen by Provider: 04/04/20 05:09 Source: patient, RN notes reviewed, old records reviewed Mode of arrival: ambulatory Limitations: no limitations - History of Present Illness Initial comments: This is a 74-year-old male presents today for evaluation. Patient presents today for evaluation regards to not working Mohamud. Patient presents for severe abdominal pain. Causing nausea and distress. Patient states his Mohamud has had no output all day and his symptoms are progressively worsened. MD Complaint: other (Severe abdominal pain secondary to obstructed Mohamud) -: hour(s) Location: abdomen Radiation: none Severity: severe Severity scale (1-10): 10 Consistency: constant Improves with: none - Related Data Home Medications Medication Instructions Recorded Confirmed Multivitamins, Thera [Multivitamin 1 tab PO DAILY 10/11/18 02/08/20 (formulary)] Cholecalciferol [Vitamin D3 (25 1,000 unit PO DAILY 05/09/19 02/08/20 Mcg = 1000 Iu)] [place]-3 Fatty Acids/Fish Oil [Fish 1 cap PO DAILY 05/09/19 02/08/20 Oil 1,000 mg Softgel] Doxycycline Hyclate [Vibramycin] 100 mg PO BID 02/08/20 02/08/20 Previous Rx's Medication Instructions Recorded Meclizine [Antivert] 25 mg PO BID 30 Days #60 tab 02/09/20 Allergies Allergy/AdvReac Type Severity Reaction Status Date / Time Penicillins Allergy Anaphylaxis Verified 04/04/20 05:06 Review of Systems ROS Statement: Those systems with pertinent positive or pertinent negative responses have been documented in the HPI. ROS Other: All systems not noted in ROS Statement are negative. Past Medical History Past Medical History: GERD/Reflux Additional Past Medical History / Comment(s): hernia rt lower abd, states "had Hep B or C back 1960's and now it's all healed", recurrent UTI with IDC, has IDC due to issues with hernia History of Any Multi-Drug Resistant Organisms: None Reported Past Surgical History: Back Surgery, Hernia Repair Additional Past Surgical History / Comment(s): hemorrhoid surgery Past Anesthesia/Blood Transfusion Reactions: No Reported Reaction Additional Past Anesthesia/Blood Transfusion Reaction / Comment(s): no hx blood transfusion Past Psychological History: No Psychological Hx Reported Smoking Status: Current every day smoker Past Alcohol Use History: None Reported Past Drug Use History: None Reported - Past Family History Mother Family Medical History: Cancer Father Family Medical History: Cancer General Exam Limitations: no limitations General appearance: alert, in no apparent distress, anxious Head exam: Present: atraumatic, normocephalic, normal inspection Eye exam: Present: normal appearance, PERRL, EOMI. Absent: scleral icterus, conjunctival injection, periorbital swelling ENT exam: Present: normal exam, mucous membranes moist Neck exam: Present: normal inspection. Absent: tenderness, meningismus, lymphadenopathy Respiratory exam: Present: normal lung sounds bilaterally. Absent: respiratory distress, wheezes, rales, rhonchi, stridor Cardiovascular Exam: Present: normal rhythm, tachycardia, normal heart sounds. Absent: systolic murmur, diastolic murmur, rubs, gallop, clicks GI/Abdominal exam: Present: tenderness, normal bowel sounds. Absent: distended, guarding, rebound, rigid Extremities exam: Present: normal inspection, full ROM, normal capillary refill. Absent: tenderness, pedal edema, joint swelling, calf tenderness Back exam: Present: normal inspection Neurological exam: Present: alert, oriented X3, CN II-XII intact Psychiatric exam: Present: normal affect, normal mood Skin exam: Present: warm, dry, intact, normal color. Absent: rash Course Vital Signs 04/04/20 05:03 Temperature 98 F Pulse Rate 107 H Respiratory 24 Rate Blood Pressure 159/81 O2 Sat by Pulse 97 Oximetry - Reevaluation(s) Reevaluation #1: 04/04/20 06:02 Medical record is reviewed Reevaluation #2: 04/04/20 06:02 Patient has a Mohamud catheters placed with complete relief Medical Decision Making - Medical Decision Making 84 male for to the ER for nonfunctioning Mohamud catheter. Mohamud catheters placed here in the ER patient has adequate relief from urinary retention. Patient can be discharged home Disposition Clinical Impression: Malfunction of Mohamud catheter, Urinary retention Disposition: HOME SELF-CARE Condition: Good Instructions (If sedation given, give patient instructions): Urinary Retention in Men (ED), Mohamud Catheter Placement and Care (ED) Is patient prescribed a controlled substance at d/c from ED?: No Referrals: [facility],Clinic [Primary Care Provider] - 1-2 days
== END 2020-04-04 06:25 | disposition home or self-care (01) ==
LOC: EC 05:01
DX: T83.018A Breakdown (mechanical) of other urinary catheter, initial encounter (principal); R33.9 Retention of urine, unspecified; F17.200 Nicotine dependence, unspecified, uncomplicated; Z88.0 Allergy status to penicillin
CPT/HCPCS: 51702; 99284

== ENCOUNTER 2020-04-16 05:17 | Emergency (ER) | payer OTHER, MEDICARE ==
[2020-04-16 05:20] VITALS: BP 145/83; PULSE 77; RESP 20; TEMP 97.9
--- NOTE | 2020-04-16 05:36 | ED ---
Male Urogenital HPI - General Chief complaint: Urogenital Stated complaint: Urogenital Time Seen by Provider: 04/16/20 05:31 Source: patient, RN notes reviewed, old records reviewed Mode of arrival: ambulatory Limitations: no limitations - History of Present Illness Initial comments: This is a 74-year-old male to the ER for evaluation patient events today for evaluation of Mohamud catheter malfunction no output with history of urinary retention and indwelling Mohamud. Patient otherwise has no other complaints 5 from severe severe abdominal pain history of similar MD Complaint: other (Severe abdominal pain) -: hour(s) Location: abdomen Radiation: none Severity: severe Severity scale (1-10): 10 Quality: aching, stabbing Consistency: constant Improves with: none Worsens with: urination indwelling catheter Reports: denies other symptoms - Related Data Home Medications Medication Instructions Recorded Confirmed Multivitamins, Thera [Multivitamin 1 tab PO DAILY 10/11/18 02/08/20 (formulary)] Cholecalciferol [Vitamin D3 (25 1,000 unit PO DAILY 05/09/19 02/08/20 Mcg = 1000 Iu)] [place]-3 Fatty Acids/Fish Oil [Fish 1 cap PO DAILY 05/09/19 02/08/20 Oil 1,000 mg Softgel] Doxycycline Hyclate [Vibramycin] 100 mg PO BID 02/08/20 02/08/20 Previous Rx's Medication Instructions Recorded Meclizine [Antivert] 25 mg PO BID 30 Days #60 tab 02/09/20 Allergies Allergy/AdvReac Type Severity Reaction Status Date / Time Penicillins Allergy Anaphylaxis Verified 04/16/20 05:20 Review of Systems ROS Statement: Those systems with pertinent positive or pertinent negative responses have been documented in the HPI. ROS Other: All systems not noted in ROS Statement are negative. Past Medical History Past Medical History: GERD/Reflux Additional Past Medical History / Comment(s): hernia rt lower abd, states "had Hep B or C back 1960's and now it's all healed", recurrent UTI with IDC, has IDC due to issues with hernia History of Any Multi-Drug Resistant Organisms: None Reported Past Surgical History: Back Surgery, Hernia Repair Additional Past Surgical History / Comment(s): hemorrhoid surgery Past Anesthesia/Blood Transfusion Reactions: No Reported Reaction Additional Past Anesthesia/Blood Transfusion Reaction / Comment(s): no hx blood transfusion Past Psychological History: No Psychological Hx Reported Smoking Status: Current every day smoker Past Alcohol Use History: None Reported Past Drug Use History: None Reported - Past Family History Mother Family Medical History: Cancer Father Family Medical History: Cancer General Exam Limitations: no limitations General appearance: anxious Head exam: Present: atraumatic, normocephalic, normal inspection Eye exam: Present: normal appearance, PERRL, EOMI. Absent: scleral icterus, conjunctival injection, periorbital swelling ENT exam: Present: normal exam, mucous membranes moist Neck exam: Present: normal inspection. Absent: tenderness, meningismus, lymphadenopathy Respiratory exam: Present: normal lung sounds bilaterally. Absent: respiratory distress, wheezes, rales, rhonchi, stridor Cardiovascular Exam: Present: regular rate, normal rhythm, normal heart sounds. Absent: systolic murmur, diastolic murmur, rubs, gallop, clicks GI/Abdominal exam: Present: soft, normal bowel sounds. Absent: distended, tenderness, guarding, rebound, rigid Extremities exam: Present: normal inspection, full ROM, normal capillary refill. Absent: tenderness, pedal edema, joint swelling, calf tenderness Back exam: Present: normal inspection Neurological exam: Present: alert, oriented X3, CN II-XII intact Psychiatric exam: Present: normal affect, normal mood Skin exam: Present: warm, dry, intact, normal color. Absent: rash Course Vital Signs 04/16/20 05:19 Temperature 97.9 F Pulse Rate 77 Respiratory 20 Rate Blood Pressure 145/83 O2 Sat by Pulse 97 Oximetry - Reevaluation(s) Reevaluation #1: 04/16/20 05:49 Medical record is reviewed Reevaluation #2: 04/16/20 05:49 Mohamud catheter is replaced some relief symptoms Medical Decision Making - Medical Decision Making 74 male to the ER for evaluation patient has malfunctioning Mohamud catheter was replaced. Patient can be discharged home Disposition Clinical Impression: Malfunction of Mohamud catheter, Urinary retention Disposition: HOME SELF-CARE Condition: Fair Instructions (If sedation given, give patient instructions): Mohamud Catheter Placement and Care (ED) Is patient prescribed a controlled substance at d/c from ED?: No Referrals: [facility],Clinic [Primary Care Provider] - 1-2 days
[2020-04-16 06:25] LABS: Amorphous Sediment,Urine Few /hpf; Appearance,Urine Cloudy (Clear); Bacteria,Urine Occasional /hpf; Bilirubin,Urine Negative (Negative); Blood,Urine Moderate (Negative); Color,Urine Yellow; Glucose,Urine (UA) Negative (Negative); Ketones,Urine Negative (Negative); Leukocyte Esterase,Urine Large (Negative); Mucus,Urine Rare /hpf; Nitrite,Urine Positive (Negative); PH, Urine 7.5 (5.0-8.0); Protein,Urine 1+ (Negative); RBC,Urine 123 /hpf (0-5); Specific Gravity,Urine 1.018 (1.001-1.035); Squamous Epithelial Cell,Urine <1 /hpf (0-4); Urobilinogen,Urine <2.0 mg/dL (<2.0); WBC,Urine 42 /hpf (0-5)
== END 2020-04-16 06:27 | disposition home or self-care (01) ==
LOC: EC 05:17
DX: T83.018A Breakdown (mechanical) of other urinary catheter, initial encounter (principal); R33.9 Retention of urine, unspecified; F17.200 Nicotine dependence, unspecified, uncomplicated; Z79.899 Other long term (current) drug therapy; Z88.0 Allergy status to penicillin
CPT/HCPCS: 51702; 81001; 87086; 99284

== ENCOUNTER 2020-04-19 23:11 | Emergency (ER) | payer MEDICARE, OTHER ==
[2020-04-19] MEDS ORDERED: ONDANSETRON 4 MG/2 ML VIAL IVP STA (23:30)
[2020-04-19] MEDS ORDERED: SODIUM CHLORIDE 0.9% 1,000 ML IV STA (23:30)
--- NOTE | 2020-04-19 23:33 | ED ---
Nausea/Vomiting/Diarrhea HPI - General Chief complaint: Nausea/Vomiting/Diarrhea Stated complaint: vomiting Time Seen by Provider: 04/19/20 23:23 Source: patient Mode of arrival: ambulatory Limitations: no limitations - History of Present Illness Initial comments: 74 year-old male patient presents to the emergency department for evaluation after having an episode of vomiting. Patient states that he is currently being treated for urinary tract infection. Center new antibiotic today. He took his first dose at 3 PM. States he had an episode of vomiting around 9 PM. States he is still having shoulder pain and feels very shaky so he presented here to get checked out. He does have a chronic indwelling Mohamud catheter. States he does frequently get urinary tract infections. He denies any fever or chills. Denies any constipation or diarrhea. States his abdomen feels "sore". States he is passing gas. Patient denies any recent rash, cough, shortness of breath, chest pain, back pain, numbness, tingling, dizziness, weakness, hematuria, dysur ia, urinary urgency, urinary frequency, headache, visual changes, or any other complaints. - Related Data Home Medications Medication Instructions Recorded Confirmed Multivitamins, Thera [Multivitamin 1 tab PO DAILY 10/11/18 02/08/20 (formulary)] Cholecalciferol [Vitamin D3 (25 1,000 unit PO DAILY 05/09/19 02/08/20 Mcg = 1000 Iu)] [place]-3 Fatty Acids/Fish Oil [Fish 1 cap PO DAILY 05/09/19 02/08/20 Oil 1,000 mg Softgel] Doxycycline Hyclate [Vibramycin] 100 mg PO BID 02/08/20 02/08/20 Previous Rx's Medication Instructions Recorded Meclizine [Antivert] 25 mg PO BID 30 Days #60 tab 02/09/20 Allergies Allergy/AdvReac Type Severity Reaction Status Date / Time Penicillins Allergy Anaphylaxis Verified 04/19/20 23:17 Review of Systems ROS Statement: Those systems with pertinent positive or pertinent negative responses have been documented in the HPI. ROS Other: All systems not noted in ROS Statement are negative. Past Medical History Past Medical History: GERD/Reflux Additional Past Medical History / Comment(s): hernia rt lower abd, states "had Hep B or C back 1960's and now it's all healed", recurrent UTI with IDC, has IDC due to issues with hernia History of Any Multi-Drug Resistant Organisms: None Reported Past Surgical History: Back Surgery, Hernia Repair Additional Past Surgical History / Comment(s): hemorrhoid surgery Past Anesthesia/Blood Transfusion Reactions: No Reported Reaction Additional Past Anesthesia/Blood Transfusion Reaction / Comment(s): no hx blood transfusion Past Psychological History: No Psychological Hx Reported Smoking Status: Current every day smoker Past Alcohol Use History: None Reported Past Drug Use History: None Reported - Past Family History Mother Family Medical History: Cancer Father Family Medical History: Cancer General Exam Limitations: no limitations General appearance: alert, in no apparent distress, other (This is a well- developed, well-nourished elderly male patient in no acute distress. Vital sig ns upon presentation are temperature 98.5F, pulse 80, respirations 18, blood pressure 151/63, pulse ox 98% on room air.) ENT exam: Present: normal exam, normal oropharynx, mucous membranes moist Respiratory exam: Present: normal lung sounds bilaterally. Absent: respiratory distress, wheezes, rales, rhonchi, stridor Cardiovascular Exam: Present: regular rate, normal rhythm, normal heart sounds. Absent: systolic murmur, diastolic murmur, rubs, gallop, clicks GI/Abdominal exam: Present: soft, tenderness (generalized), normal bowel sounds. Absent: distended, guarding, rebound, rigid Neurological exam: Present: alert, oriented X3, CN II-XII intact Psychiatric exam: Present: normal affect, normal mood Skin exam: Present: warm, dry, intact, normal color. Absent: rash Course Vital Signs 04/19/20 04/20/20 23:13 01:37 Temperature 98.5 F 98.4 F Pulse Rate 80 71 Respiratory 18 16 Rate Blood Pressure 151/63 137/89 O2 Sat by Pulse 98 98 Oximetry Medical Decision Making - Medical Decision Making 74-year-old male patient presents to the emergency department today for evaluation after having an episode of vomiting. Patient states that he did start a new antibiotic for UTI today but took 2 doses hours prior to the vomiting episode. States he vomited 1 time. States he was having some "soreness" to his abdomen. EKG was unremarkable. Labs reviewed and were unremarkable. Urinalysis did show evidence for UTI. Did review his microbiology and his current medication Macrobid is sufficient to cover the bacteria. KUB x-ray was obtained and showed no evidence for obstruction. Upon reevaluation patient is resting in bed, states he does feel better. She does feel comfortable being discharged home at this time. He is instructed to follow up with his primary care physician for recheck in 1-2 days. Return parameters were discussed in detail. He verbalizes understanding and agrees with this plan. - Lab Data Result diagrams: 04/19/20 23:49 04/19/20 23:49 Lab Results 04/19/20 04/19/20 04/19/20 Range/Units 23:49 23:49 23:49 WBC 10.4 (3.8-10.6) k/uL RBC 4.66 (4.30-5.90) m/uL Hgb 14.2 (13.0-17.5) gm/dL Hct 42.4 (39.0-53.0) % MCV 90.9 (80.0-100.0) fL MCH 30.4 (25.0-35.0) pg MCHC 33.5 (31.0-37.0) g/dL RDW 12.6 (11.5-15.5) % Plt Count 229 (150-450) k/uL MPV 8.2 Neutrophils % 88 % Lymphocytes % 6 % Monocytes % 4 % Eosinophils % 1 % Basophils % 0 % Neutrophils # 9.1 H (1.3-7.7) k/uL Lymphocytes # 0.6 L (1.0-4.8) k/uL Monocytes # 0.4 (0-1.0) k/uL Eosinophils # 0.2 (0-0.7) k/uL Basophils # 0.0 (0-0.2) k/uL Sodium 138 (137-145) mmol/L Potassium 4.4 (3.5-5.1) mmol/L Chloride 106 (98-107) mmol/L Carbon Dioxide 24 (22-30) mmol/L Anion Gap 8 mmol/L BUN 20 (9-20) mg/dL Creatinine 0.90 (0.66-1.25) mg/dL Est GFR (CKD-EPI)AfAm >90 (>60 ml/min/1.73 sqM) Est GFR (CKD-EPI)NonAf 83 (>60 ml/min/1.73 sqM) Glucose 100 H (74-99) mg/dL Calcium 9.3 (8.4-10.2) mg/dL Total Bilirubin 0.4 (0.2-1.3) mg/dL AST 24 (17-59) U/L ALT 19 (4-49) U/L Alkaline Phosphatase 80 (38-126) U/L Troponin I (0.000-0.034) ng/mL Total Protein 7.5 (6.3-8.2) g/dL Albumin 4.2 (3.5-5.0) g/dL Lipase 160 (23-300) U/L Urine Color Yellow Urine Appearance Cloudy (Clear) Urine pH 5.5 (5.0-8.0) Ur Specific [place] 1.018 (1.001-1.035) Urine Protein Trace H (Negative) Urine Glucose (UA) Negative (Negative) Urine Ketones Negative (Negative) Urine Blood Small H (Negative) Urine Nitrite Negative (Negative) Urine Bilirubin Negative (Negative) Urine Urobilinogen <2.0 (<2.0) mg/dL Ur Leukocyte Esterase Large H (Negative) Urine RBC 23 H (0-5) /hpf Urine WBC 119 H (0-5) /hpf Urine WBC Clumps Few H (None) /hpf Ur Squamous Epith Cells 1 (0-4) /hpf Calcium Oxalate Crystal Occasional H (None) /hpf Urine Bacteria Rare H (None) /hpf Hyaline Casts 1 (0-2) /lpf Urine Mucus Rare H (None) /hpf 04/19/20 Range/Units 23:49 WBC (3.8-10.6) k/uL RBC (4.30-5.90) m/uL Hgb (13.0-17.5) gm/dL Hct (39.0-53.0) % MCV (80.0-100.0) fL MCH (25.0-35.0) pg MCHC (31.0-37.0) g/dL RDW (11.5-15.5) % Plt Count (150-450) k/uL MPV Neutrophils % % Lymphocytes % % Monocytes % % Eosinophils % % Basophils % % Neutrophils # (1.3-7.7) k/uL Lymphocytes # (1.0-4.8) k/uL Monocytes # (0-1.0) k/uL Eosinophils # (0-0.7) k/uL Basophils # (0-0.2) k/uL Sodium (137-145) mmol/L Potassium (3.5-5.1) mmol/L Chloride (98-107) mmol/L Carbon Dioxide (22-30) mmol/L Anion Gap mmol/L BUN (9-20) mg/dL Creatinine (0.66-1.25) mg/dL Est GFR (CKD-EPI)AfAm (>60 ml/min/1.73 sqM) Est GFR (CKD-EPI)NonAf (>60 ml/min/1.73 sqM) Glucose (74-99) mg/dL Calcium (8.4-10.2) mg/dL Total Bilirubin (0.2-1.3) mg/dL AST (17-59) U/L ALT (4-49) U/L Alkaline Phosphatase (38-126) U/L Troponin I <0.012 (0.000-0.034) ng/mL Total Protein (6.3-8.2) g/dL Albumin (3.5-5.0) g/dL Lipase (23-300) U/L Urine Color Urine Appearance (Clear) Urine pH (5.0-8.0) Ur Specific [place] (1.001-1.035) Urine Protein (Negative) Urine Glucose (UA) (Negative) Urine Ketones (Negative) Urine Blood (Negative) Urine Nitrite (Negative) Urine Bilirubin (Negative) Urine Urobilinogen (<2.0) mg/dL Ur Leukocyte Esterase (Negative) Urine RBC (0-5) /hpf Urine WBC (0-5) /hpf Urine WBC Clumps (None) /hpf Ur Squamous Epith Cells (0-4) /hpf Calcium Oxalate Crystal (None) /hpf Urine Bacteria (None) /hpf Hyaline Casts (0-2) /lpf Urine Mucus (None) /hpf - EKG Data -: EKG Interpreted by Me EKG Comments: EKG obtained at 2338 shows normal sinus rhythm with a ventricular rate is 69, CT interval 158, QRS duration 82, QT 394, QTC 422. No evidence of ST elevation or depression. Disposition Clinical Impression: Vomiting, UTI (urinary tract infection) Disposition: HOME SELF-CARE Condition: Good Instructions (If sedation given, give patient instructions): Urinary Tract Infection in Men (ED), Acute Nausea and Vomiting (ED) Additional Instructions: Follow-up with your primary care physician for recheck in 1-2 days. Return to the emergency department for any new, worsening, or concerning symptoms. Is patient prescribed a controlled substance at d/c from ED?: No Referrals: [facility],Clinic [Primary Care Provider] - 1-2 days Time of Disposition: 01:23
[2020-04-20 00:01] LABS: Basophils % (A) 0 %; Eosinophils # (A) 0.2 k/uL (0-0.7); Eosinophils % (A) 1 %; HCT 42.4 % (39.0-53.0); HGB 14.2 gm/dL (13.0-17.5); Lymphocytes # (A) 0.6 k/uL (1.0-4.8); Lymphocytes % (A) 6 %; MCH 30.4 pg (25.0-35.0); MCHC 33.5 g/dL (31.0-37.0); MCV 90.9 fL (80.0-100.0); Mean Platelet Volume 8.2; Monocytes # (A) 0.4 k/uL (0-1.0); Monocytes % (A) 4 %; Neutrophils # (A) 9.1 k/uL (1.3-7.7); Neutrophils % (A) 88 %; Platelet Count 229 k/uL (150-450); RBC 4.66 m/uL (4.30-5.90); RDW 12.6 % (11.5-15.5); WBC 10.4 k/uL (3.8-10.6)
[2020-04-20 00:14] LABS: Appearance,Urine Cloudy (Clear); Bacteria,Urine Rare /hpf; Bilirubin,Urine Negative (Negative); Blood,Urine Small (Negative); Calcium Oxalate Crystals,Urine Occasional /hpf; Color,Urine Yellow; Glucose,Urine (UA) Negative (Negative); Hyaline Casts,Urine 1 /lpf (0-2); Ketones,Urine Negative (Negative); Leukocyte Esterase,Urine Large (Negative); Mucus,Urine Rare /hpf; Nitrite,Urine Negative (Negative); PH, Urine 5.5 (5.0-8.0); Protein,Urine Trace (Negative); RBC,Urine 23 /hpf (0-5); Specific Gravity,Urine 1.018 (1.001-1.035); Squamous Epithelial Cell,Urine 1 /hpf (0-4); Urobilinogen,Urine <2.0 mg/dL (<2.0); WBC,Urine 119 /hpf (0-5)
[2020-04-20 00:16] LABS: ALT 19 U/L (4-49); AST 24 U/L (17-59); African American GFR (CKD) >90 (>60 ml/min/1.73 sqM); Albumin 4.2 g/dL (3.5-5.0); Alkaline Phosphatase 80 U/L (38-126); Anion Gap 8 mmol/L; Blood Urea Nitrogen 20 mg/dL (9-20); Calcium 9.3 mg/dL (8.4-10.2); Carbon Dioxide 24 mmol/L (22-30); Chloride 106 mmol/L (98-107); Glucose 100 mg/dL (74-99); Lipase 160 U/L (23-300); Non-African American GFR(CKD) 83 (>60 ml/min/1.73 sqM); Potassium 4.4 mmol/L (3.5-5.1); Sodium 138 mmol/L (137-145); Total Bilirubin 0.4 mg/dL (0.2-1.3); Total Protein 7.5 g/dL (6.3-8.2)
--- NOTE | 2020-04-20 00:23 | XR ---
EXAM: XR Abdomen, 1 View CLINICAL HISTORY: ITS.REASON XR Reason: pain TECHNIQUE: Frontal supine view of the abdomen/pelvis. COMPARISON: No relevant prior studies available. FINDINGS: Gastrointestinal tract: There is a moderate amount of stool throughout a distended but nondilated colon. No dilated small bowel loops are identified. Organs: Amorphous platelike area of calcification measuring approximately 7 cm in the inferior midline pelvis is new since previous but of uncertain etiology. This could represent residual IV contrast within a collapsed urinary bladder or calcification within the bladder wall. Bones/joints: Mild multilevel degenerative changes in the lumbar spine. Vasculature: Moderate calcification of the aortic bifurcation. IMPRESSION: 1. There is a moderate amount of stool throughout a distended but nondilated colon. No dilated small bowel loops are identified. 2. Amorphous platelike area of calcification measuring approximately 7 cm in the inferior midline pelvis is new since previous but of uncertain etiology. This could represent residual IV contrast within a collapsed urinary bladder or calcification within the bladder wall.
[2020-04-20 01:38] VITALS: BP 137/89; PULSE 71; RESP 16; TEMP 98.4
== END 2020-04-20 01:37 | disposition home or self-care (01) ==
LOC: EC 23:11
DX: N39.0 Urinary tract infection, site not specified (principal); R11.10 Vomiting, unspecified; F17.200 Nicotine dependence, unspecified, uncomplicated; Z88.0 Allergy status to penicillin
CPT/HCPCS: 36415; 80053; 83690; 84484; 85025; 99284; 96374; 96361; J2405; 74018; 81001; 87086; 93005

== ENCOUNTER → 2020-05-24 | Outpatient (CLI) | payer OTHER ==
[2020-05-24 12:14] LABS: Basophils # (A) 0.1 k/uL (0-0.2); Basophils % (A) 1 %; Eosinophils # (A) 0.3 k/uL (0-0.7); Eosinophils % (A) 6 %; HCT 43.7 % (39.0-53.0); HGB 14.5 gm/dL (13.0-17.5); Lymphocytes # (A) 1.6 k/uL (1.0-4.8); Lymphocytes % (A) 29 %; MCH 30.1 pg (25.0-35.0); MCHC 33.3 g/dL (31.0-37.0); MCV 90.4 fL (80.0-100.0); Mean Platelet Volume 8.2; Monocytes # (A) 0.3 k/uL (0-1.0); Monocytes % (A) 6 %; Neutrophils % (A) 56 %; Platelet Count 224 k/uL (150-450); RBC 4.83 m/uL (4.30-5.90); RDW 12.8 % (11.5-15.5); WBC 5.4 k/uL (3.8-10.6)
[2020-05-24 12:36] LABS: African American GFR (CKD) >90 (>60 ml/min/1.73 sqM); Anion Gap 6 mmol/L; Blood Urea Nitrogen 11 mg/dL (9-20); Calcium 9.7 mg/dL (8.4-10.2); Carbon Dioxide 30 mmol/L (22-30); Chloride 105 mmol/L (98-107); Glucose 100 mg/dL (74-99); Non-African American GFR(CKD) 79 (>60 ml/min/1.73 sqM); Potassium 4.9 mmol/L (3.5-5.1); Sodium 141 mmol/L (137-145)
== END | disposition home or self-care (01) ==
LOC: LABPAT 11:32
PROVIDERS: ATTEND Urology
DX: Z01.818 Encounter for other preprocedural examination (principal); N21.0 Calculus in bladder
CPT/HCPCS: 36415; 80048; 85025

== ENCOUNTER 2020-06-01 06:09 | Day surgery (SDC) | payer OTHER ==
[2020-05-30 11:19] VITALS: BMI 21.2
--- NOTE | 2020-05-31 07:59 | P.GSHP ---
History of Present Illness H&P Date: 05/31/20 Chief Complaint: Urinary retention The patient is a 75-year-old white male who presented with urinary retention in 2018. Cystometrogram showed an atonic bladder, and he has elected to be managed with an indwelling Mohamud catheter. This has become frequently occluded. Cystos copy shows multiple bladder calculi, and he now comes for cystolithotripsy. - Constitutional Constitutional: Denies chills, Denies fever - Genitourinary (Male) Genitourinary: Reports as per HPI Past Medical History Past Medical History: GERD/Reflux Additional Past Medical History / Comment(s): states "had Hep B or C back 1959's and now it's all healed", recurrent UTI's with IDC, has IDC due to issues with hernia, bladder stones, History of Any Multi-Drug Resistant Organisms: None Reported Past Surgical History: Back Surgery, Hernia Repair, Tonsillectomy Additional Past Surgical History / Comment(s): hemorrhoid surgery, back surgery x 2, rt inguinal hernia repair Past Anesthesia/Blood Transfusion Reactions: No Reported Reaction Additional Past Anesthesia/Blood Transfusion Reaction / Comment(s): no hx blood transfusion Smoking Status: Current every day smoker - Past Family History Mother Family Medical History: Cancer Father Family Medical History: Cancer Medications and Allergies Home Medications Medication Instructions Recorded Confirmed Type [place]-3 Fatty Acids/Fish Oil [Fish 1 cap PO DAILY 05/09/19 05/30/20 History Oil 1,000 mg Softgel] Meclizine [Antivert] 25 mg PO BID PRN 05/30/20 05/30/20 History Multivitamins, Thera [Multivitamin 1 tab PO DAILY 05/30/20 05/30/20 History (formulary)] Allergies Allergy/AdvReac Type Severity Reaction Status Date / Time nitrofurantoin Allergy Unknown Verified 05/30/20 11:08 [From Macrobid] Penicillins Allergy Anaphylaxis Verified 05/30/20 11:06 Sulfa (Sulfonamide Allergy Unknown Verified 05/30/20 11:08 Antibiotics) sulfamethoxazole Allergy Unknown Verified 05/30/20 11:24 [From Bactrim] trimethoprim [From Bactrim] Allergy Unknown Verified 05/30/20 11:24 nitrosuran Allergy Unknown Uncoded 05/30/20 11:08 Surgical - Exam - General well developed, well nourished, no distress - Respiratory normal respiratory effort, clear to auscultation - Cardiovascular Rhythm: regular Abnormal Heart Sounds: no systolic murmur, no diastolic murmur, no rub, no S3 Gallop, no S4 Gallop, no click, no other - Abdomen Abdomen: soft, non tender, no guarding, no rigid, no rebound - Genitourinary normal penis with no external lesions, testicles non-tender - Psychiatric oriented to time, oriented to person, oriented to place, speech is normal, memory intact Assessment and Plan (1) Calculus in bladder Status: Acute Code(s): N21.0 - CALCULUS IN BLADDER SNOMED Code(s): 20763409 Plan: The patient will undergo cystoscopy with cystolithotripsy. He has multiple bladder calculi measuring up to 2 cm in size. Depending how well they fragment, he may require multiple procedures. He has been made aware of potential risks, which include anesthesia, bleeding, infection, and bladder perforation.
[~2020-06-01 06:09] MED LIST changes: -DEXAMETHASONE SOD PHOSPHATE 10 MG/ML 1 ML VIAL IV ONE; +DEXAMETHASONE SOD PHOSPHATE 4 MG/ML 1 ML VIAL IV ONE; -HEPARIN SODIUM,PORCINE 5,000 UNIT/ML 1 ML VIAL SQ ONE; +LACTATED RINGERS 1,000 ML IV SCH; +LEVOFLOXACIN 500MG-D5W PMX 500 MG in DEXTROSE/WATER 1 100ML.BAG IVPB PRN; -LIDOCAINE 1% 20 ML VIAL (10MG/ML) FOR IV START INTRADERMA PRN; -ceFAZolin 2 GM in SODIUM CHLORIDE 0.9% 100 ML IVPB ONE
[2020-06-01] MEDS ORDERED: HYDROmorphone 0.5 MG/0.5 ML SYRINGE IVP PRN (07:00)
[2020-06-01] MEDS ORDERED: LIDOCAINE 1% (10MG/ML) FOR IV START INTRADERMA ONE (07:04)
[2020-06-01] MEDS ORDERED: ePHEDrine SULFATE/0.9% NACL/PF 50 MG/5 ML SYRINGE IV ONE (07:31)
[2020-06-01] MEDS ORDERED: LIDOCAINE 1% INJ 10MG/ML (20 ML MDV) ONE (07:31)
[2020-06-01] MEDS ORDERED: fentaNYL (PF) 50 MCG/ML 2 ML AMP ONE (07:31)
[2020-06-01] MEDS ORDERED: ROCURONIUM 10 MG/ML (5 ML VIAL) IV ONE (07:31)
[2020-06-01] MEDS ORDERED: NEOSTIGMINE 1 MG/ML 10 ML VIAL ONE (07:31)
[2020-06-01] MEDS ORDERED: FUROSEMIDE 10 MG/ML 2 ML VIAL ONE (07:31)
[2020-06-01] MEDS ORDERED: SUCCINYLCHOLINE CHLORIDE 100 MG/5 ML SYR IV ONE (07:31)
[2020-06-01] MEDS ORDERED: GLYCOPYRROLATE 0.2 MG/ML 2 ML VIAL ONE (07:31)
[2020-06-01] MEDS ORDERED: LACTATED RINGERS 1,000 ML IV ONE (09:27)
--- NOTE | 2020-06-01 09:42 | P.OP ---
Date of Procedure: 06/01/20 Preoperative Diagnosis: Bladder calculi Postoperative Diagnosis: Same Procedure(s) Performed: Cystoscopy, cystolithotripsy, fulguration of bleeders Anesthesia: BOA Surgeon: Aj Smith Estimated Blood Loss (ml): 30 IV fluids (ml): 800 Pathology: other (Calculus fragments, sent for chemical analysis) Condition: stable Disposition: PACU Indications for Procedure: The patient is a 75-year-old white male who presented with urinary retention in 2018. Cystometrogram showed an atonic bladder, and he has elected to be managed with an indwelling Mohamud catheter. This has become frequently occluded. Cystoscopy shows multiple bladder calculi, and he now comes for cystolithotripsy. Operative Findings: Multiple bladder calculi measuring up to 2.5 cm in size Description of Procedure: The patient was taken to the operating room and placed in the dorsal lithotomy position, with legs supported in Roger stirrups. The external genitalia was prepped and draped sterilely. The 30 lens was used to introduce the 21-[place] Beck cystoscopic sheath through the urethra and into the bladder under direct vision. The urethra appeared normal. The prostate showed evidence of lateral lobe enlargement consistent with the patient's age. The bladder was examined in its entirety. Numerous calculi were seen measuring up to 2.5 cm in size. No tumors were seen. No diverticuli were seen. Using the 1000 micron Holmium laser probe, lithotripsy was performed. Lithotripsy was continued until all calculus fragments could be removed using the Ellik evacuator. Once this was completed, the bladder was inspected. Several bleeders were identified and were fulgurated using the [place] electrode. These were located predominantly on the left posterior bladder wall and the right anterior bladder wall. There was no evidence of bladder perforation. Adequate hemostasis was attained. An 18- [place] Mohamud catheter was placed. The return was pink-tinged. The patient tolerated the procedure well was taken to the recovery room in stable condition.
[2020-06-01 09:44] VITALS: TEMP 97.9
[2020-06-01] MEDS ORDERED: ACETAMINOPHEN TAB 500 MG TAB ONE (11:45)
[2020-06-01] MEDS ORDERED: ACETAMINOPHEN TAB 500 MG TAB PO ONE (11:48)
[2020-06-01 11:58] VITALS: BP 107/72; PULSE 60; RESP 16
== END 2020-06-01 12:18 | disposition home or self-care (01) ==
LOC: OR 06:09
PROVIDERS: ATTEND Urology
DX: N21.0 Calculus in bladder (principal); K21.9 Gastro-esophageal reflux disease without esophagitis; Z86.19 Personal history of other infectious and parasitic diseases; Z87.440 Personal history of urinary (tract) infections; Z80.9 Family history of malignant neoplasm, unspecified; Z88.0 Allergy status to penicillin; Z88.2 Allergy status to sulfonamides; Z88.8 Allergy status to other drugs, medicaments and biological substances
CPT/HCPCS: 82365; 52317; J1100; J1940; J2710; J2405; J1956; J2001; J3010; J0330; J1170

== ENCOUNTER 2020-08-24 01:09 | Emergency (ER) | payer OTHER, MEDICARE ==
--- NOTE | 2020-08-24 01:38 | ED ---
Male Urogenital HPI - General Chief complaint: Urogenital Stated complaint: Male Time Seen by Provider: 08/24/20 01:19 Source: patient Mode of arrival: wheelchair Limitations: no limitations - Related Data Home Medications Medication Instructions Recorded Confirmed [place]-3 Fatty Acids/Fish Oil [Fish 1 cap PO DAILY 05/09/19 06/01/20 Oil 1,000 mg Softgel] Meclizine [Antivert] 25 mg PO BID PRN 05/30/20 06/01/20 Multivitamins, Thera [Multivitamin 1 tab PO DAILY 05/30/20 06/01/20 (formulary)] Allergies Allergy/AdvReac Type Severity Reaction Status Date / Time nitrofurantoin Allergy Unknown Verified 05/30/20 11:08 [From Macrobid] Penicillins Allergy Anaphylaxis Verified 05/30/20 11:06 Sulfa (Sulfonamide Allergy Unknown Verified 05/30/20 11:08 Antibiotics) sulfamethoxazole Allergy Unknown Verified 05/30/20 11:24 [From Bactrim] trimethoprim [From Bactrim] Allergy Unknown Verified 05/30/20 11:24 nitrosuran Allergy Unknown Uncoded 05/30/20 11:08 Review of Systems ROS Statement: Those systems with pertinent positive or pertinent negative responses have been documented in the HPI. ROS Other: All systems not noted in ROS Statement are negative. Past Medical History Past Medical History: GERD/Reflux Additional Past Medical History / Comment(s): states "had Hep B or C back 1959's and now it's all healed", recurrent UTI's with IDC, has IDC due to issues with hernia, bladder stones, chronic christie catheter History of Any Multi-Drug Resistant Organisms: None Reported Past Surgical History: Back Surgery, Hernia Repair, Tonsillectomy Additional Past Surgical History / Comment(s): hemorrhoid surgery, back surgery x 2, rt inguinal hernia repair Past Anesthesia/Blood Transfusion Reactions: No Reported Reaction Additional Past Anesthesia/Blood Transfusion Reaction / Comment(s): no hx blood transfusion Past Psychological History: No Psychological Hx Reported Smoking Status: Current every day smoker Past Alcohol Use History: None Reported Past Drug Use History: None Reported - Past Family History Mother Family Medical History: Cancer Father Family Medical History: Cancer General Exam Limitations: no limitations Course Vital Signs 08/24/20 01:16 Temperature 97.5 F L Pulse Rate 70 Respiratory 18 Rate Blood Pressure 155/79 O2 Sat by Pulse 97 Oximetry Disposition Clinical Impression: Malfunction of Christie catheter Disposition: HOME SELF-CARE Condition: Good Instructions (If sedation given, give patient instructions): Christie Catheter Placement and Care (ED) Is patient prescribed a controlled substance at d/c from ED?: No Referrals: [facility],Clinic [Primary Care Provider] - 1-2 days
[2020-08-24 02:20] LABS: Appearance,Urine Cloudy (Clear); Bacteria,Urine Occasional /hpf; Bilirubin,Urine Negative (Negative); Blood,Urine Moderate (Negative); Color,Urine Yellow; Glucose,Urine (UA) Negative (Negative); Ketones,Urine Trace (Negative); Leukocyte Esterase,Urine Large (Negative); Mucus,Urine Occasional /hpf; Nitrite,Urine Negative (Negative); PH, Urine 6.5 (5.0-8.0); Protein,Urine 1+ (Negative); RBC,Urine 127 /hpf (0-5); Specific Gravity,Urine 1.018 (1.001-1.035); Squamous Epithelial Cell,Urine 2 /hpf (0-4); Urobilinogen,Urine <2.0 mg/dL (<2.0); WBC,Urine 158 /hpf (0-5)
[2020-08-24 03:51] VITALS: BP 117/68; PULSE 69; RESP 17; TEMP 98.4
== END 2020-08-24 03:47 | disposition home or self-care (01) ==
LOC: EC 01:09
DX: T83.091A Other mechanical complication of indwelling urethral catheter, initial encounter (principal); F17.200 Nicotine dependence, unspecified, uncomplicated
CPT/HCPCS: 81001; 87086; 99282

== ENCOUNTER 2020-09-30 03:06 | Emergency (ER) | payer OTHER, MEDICARE ==
[2020-09-30 03:11] VITALS: RESP 20; TEMP 97.9
[2020-09-30] MEDS ORDERED: LIDOCAINE URO-JET JELLY 2% 5 ML KIT URETHRAL ONE (03:24)
[2020-09-30 04:18] VITALS: BP 124/86; PULSE 56
--- NOTE | 2020-09-30 04:46 | ED ---
Male Urogenital HPI - General Chief complaint: Urogenital Stated complaint: Urogenital Time Seen by Provider: 09/30/20 03:30 Source: patient Mode of arrival: ambulatory Limitations: no limitations - Related Data Home Medications Medication Instructions Recorded Confirmed [place]-3 Fatty Acids/Fish Oil [Fish 1 cap PO DAILY 05/09/19 06/01/20 Oil 1,000 mg Softgel] Meclizine [Antivert] 25 mg PO BID PRN 05/30/20 06/01/20 Multivitamins, Thera [Multivitamin 1 tab PO DAILY 05/30/20 06/01/20 (formulary)] Allergies Allergy/AdvReac Type Severity Reaction Status Date / Time nitrofurantoin Allergy Unknown Verified 09/30/20 03:11 [From Macrobid] Penicillins Allergy Anaphylaxis Verified 09/30/20 03:11 Sulfa (Sulfonamide Allergy Unknown Verified 09/30/20 03:11 Antibiotics) sulfamethoxazole Allergy Unknown Verified 09/30/20 03:11 [From Bactrim] trimethoprim [From Bactrim] Allergy Unknown Verified 09/30/20 03:11 nitrosuran Allergy Unknown Uncoded 09/30/20 03:11 Review of Systems ROS Statement: Those systems with pertinent positive or pertinent negative responses have been documented in the HPI. ROS Other: All systems not noted in ROS Statement are negative. Past Medical History Past Medical History: GERD/Reflux Additional Past Medical History / Comment(s): states "had Hep B or C back 1959's and now it's all healed", recurrent UTI's with IDC, has IDC due to issues with hernia, bladder stones, chronic christie catheter History of Any Multi-Drug Resistant Organisms: None Reported Past Surgical History: Back Surgery, Hernia Repair, Tonsillectomy Additional Past Surgical History / Comment(s): hemorrhoid surgery, back surgery x 2, rt inguinal hernia repair Past Anesthesia/Blood Transfusion Reactions: No Reported Reaction Additional Past Anesthesia/Blood Transfusion Reaction / Comment(s): no hx blood transfusion Past Psychological History: Depression Smoking Status: Current every day smoker Past Alcohol Use History: None Reported Past Drug Use History: None Reported - Past Family History Mother Family Medical History: Cancer Father Family Medical History: Cancer General Exam Limitations: no limitations Course Vital Signs 09/30/20 09/30/20 03:08 04:16 Temperature 97.9 F Pulse Rate 91 56 L Respiratory 20 20 Rate Blood Pressure 157/96 124/86 O2 Sat by Pulse 98 96 Oximetry Disposition Clinical Impression: Urinary retention Disposition: HOME SELF-CARE Condition: Good Instructions (If sedation given, give patient instructions): Urinary Retention in Men (ED) Is patient prescribed a controlled substance at d/c from ED?: No Referrals: [facility],Clinic [Primary Care Provider] - 1-2 days Denny Deleon MD [STAFF PHYSICIAN] - 1-2 days
== END 2020-09-30 05:02 | disposition home or self-care (01) ==
LOC: EC 03:06
DX: R33.9 Retention of urine, unspecified (principal); K21.9 Gastro-esophageal reflux disease without esophagitis; F32.9 Major depressive disorder, single episode, unspecified; F17.200 Nicotine dependence, unspecified, uncomplicated; Z88.0 Allergy status to penicillin
CPT/HCPCS: 51702; 99283

== ENCOUNTER → 2020-10-04 | Outpatient (CLI) | payer MEDICARE, OTHER ==
--- NOTE | 2020-10-04 17:51 | CONS ---
CONSULTATION DATE OF SERVICE: 10/04/2020 INDICATIONS: This 75-year-old gentleman has been evaluated in [facility] for significant excessive daytime sleepiness. HISTORY OF PRESENT ILLNESS/SLEEP WAKE EVALUATION: Patient's usual sleep schedule from 9 or 10 p.m. until 11 or 12 in the morning. He does have problems with falling asleep. He has TV set in bedroom. He usually sleeps on the side position. He knows that he snores. He sleeps by himself. He wakes up from sleep 2 times, usually no nocturia, but he has positive episodes of choking. In the morning patient wakes up tired, has difficulties to pay attention, falling asleep during the day, has problems with the memory, concentration, irritability, depression and anxiety. [place] Sleepiness Scale is definitely above normal, 14. The patient takes up to 4 naps a day, feels sleepy the whole day, take 4 cups of coffee. No history of hypnagogic hallucinations, sleep paralysis or cataplexy. PAST MEDICAL HISTORY: Also past medical history depression, back problems. PAST SURGICAL HISTORY: Hernia repair, hemorrhoidectomy. MEDICATIONS: Sertraline once a day. SOCIAL HISTORY: Presently negative for smoking or using alcohol. FAMILY HISTORY: Positive for cancer. REVIEW OF SYSTEMS: Awakenings from sleep, sleepiness during the day. PHYSICAL EXAMINATION: GENERAL: A 75-year-old gentleman without distress. BP 128/76, HR 68, RR 15, height 5 feet 8 inches, weight 135, body mass index 24.5, temperature 97.9, oxygen saturation, room air: 96%. HEENT: Oropharynx: Short distance between soft palate and posterior pharyngeal wall. NECK: Neck is 13-1/2 inches in circumference. Some tremor of the head. Supple, no JVD. Thyroid is not palpable. LUNGS: Clear to percussion and to auscultation. Good air exchange. No wheezing or rhonchi. HEART: S1, S2 regular. No murmurs, gallops, or rubs. ABDOMEN: Soft and nontender. Bowel sounds are present. No organomegaly appreciated. EXTREMITIES: No clubbing or cyanosis. STILL OPERATOR WHISKEY: Awake, alert, and oriented X3. Cranial nerves 2 to 7 intact. There is no fasciculation or atrophy. noted. No focal deficits observed. IMPRESSION: 1. Snoring, awakenings from sleep, feeling sleepiness during the day, episodes of choking and possible obstructive sleep apnea-hypopnea syndrome. 2. Significant excessive daytime sleepiness. [place] Sleepiness Scale is 14. The patient is able to take multiple naps during the day, staying in bed for many hours, for about 14 hours. Differential diagnosis includes narcolepsy without cataplexy, idiopathic hypersomnia. 3. History of depression. 4. Back problems. 5. Status post hernia repair. 6. Status post hemorrhoidectomy. PLAN: 1. Polysomnography for evaluation of patient's breathing during sleep with following MSLT if negative for JIM. 2. CPAP/BiPAP titration if sleep study confirms obstructive sleep apnea-hypopnea syndrome. 3. Preferable position during sleep on the side. 4. No driving if patient feels any sleepiness. 5. I will see patient for follow up visit to explain results of testing and following plan. Thank you very much for referring this patient for consultation. Sincerely, Angel Deleon MD, PhD, FAASM Diplomat of [employer] Sleep Medicine Board of [employer] [facility] [place] MMODL / FACUNDO: [id number] / IAN
== END ==
LOC: SLEEP 13:07
PROVIDERS: ATTEND Internal Medicine
DX: G47.10 Hypersomnia, unspecified (principal); F32.9 Major depressive disorder, single episode, unspecified; M53.80 Other specified dorsopathies, site unspecified; F17.200 Nicotine dependence, unspecified, uncomplicated; Z98.890 Other specified postprocedural states; Z88.0 Allergy status to penicillin; Z88.2 Allergy status to sulfonamides; Z88.8 Allergy status to other drugs, medicaments and biological substances
CPT/HCPCS: 99211

== ENCOUNTER 2020-10-20 15:54 | Emergency (ER) | payer OTHER, MEDICARE ==
[2020-10-20 17:51] LABS: Appearance,Urine Cloudy (Clear); Bilirubin,Urine Negative (Negative); Blood,Urine Large (Negative); Budding Yeast,Urine Few /hpf; Color,Urine Light Red; Glucose,Urine (UA) Negative (Negative); Ketones,Urine Negative (Negative); Leukocyte Esterase,Urine Large (Negative); Mucus,Urine Rare /hpf; Nitrite,Urine Negative (Negative); Protein,Urine 2+ (Negative); RBC,Urine >182 /hpf (0-5); Specific Gravity,Urine 1.022 (1.001-1.035); Squamous Epithelial Cell,Urine 2 /hpf (0-4); Urobilinogen,Urine <2.0 mg/dL (<2.0); WBC,Urine >182 /hpf (0-5)
--- NOTE | 2020-10-20 18:22 | ED ---
Male Urogenital HPI - General Chief complaint: Urogenital Stated complaint: trouble urinating Time Seen by Provider: 10/20/20 16:32 Source: patient Mode of arrival: ambulatory Limitations: no limitations - History of Present Illness Initial comments: 75-year-old male presents to the emergency department with a chief complaint of catheter malfunction. Patient reports he has had a Christie catheter for approximately 5 years. States it is difficult to change a monthly basis by a urologist. He sees . Patient reports there is some irritation at the tip of the penis. However, he denies any discharge from it. States the catheter is otherwise draining well. He denies any fevers chills nausea vomiting back pain chest pain abdominal pain or shortness of breath. States it is time for the catheter to be replaced. - Related Data Home Medications Medication Instructions Recorded Confirmed [place]-3 Fatty Acids/Fish Oil [Fish 1 cap PO DAILY 05/09/19 06/01/20 Oil 1,000 mg Softgel] Meclizine [Antivert] 25 mg PO BID PRN 05/30/20 06/01/20 Multivitamins, Thera [Multivitamin 1 tab PO DAILY 05/30/20 06/01/20 (formulary)] Previous Rx's Medication Instructions Recorded Levofloxacin [Levaquin] 500 mg PO DAILY #10 tab 10/20/20 Allergies Allergy/AdvReac Type Severity Reaction Status Date / Time nitrofurantoin Allergy Unknown Verified 10/20/20 16:16 [From Macrobid] Penicillins Allergy Anaphylaxis Verified 10/20/20 16:16 Sulfa (Sulfonamide Allergy Unknown Verified 10/20/20 16:16 Antibiotics) sulfamethoxazole Allergy Unknown Verified 10/20/20 16:16 [From Bactrim] trimethoprim [From Bactrim] Allergy Unknown Verified 10/20/20 16:16 nitrosuran Allergy Unknown Uncoded 10/20/20 16:16 Review of Systems ROS Statement: Those systems with pertinent positive or pertinent negative responses have been documented in the HPI. ROS Other: All systems not noted in ROS Statement are negative. Past Medical History Past Medical History: GERD/Reflux Additional Past Medical History / Comment(s): states "had Hep B or C back 1960's and now it's all healed", recurrent UTI's with IDC, has IDC due to issues with hernia, bladder stones, chronic christie catheter History of Any Multi-Drug Resistant Organisms: None Reported Past Surgical History: Back Surgery, Hernia Repair, Tonsillectomy Additional Past Surgical History / Comment(s): hemorrhoid surgery, back surgery x 2, rt inguinal hernia repair Past Anesthesia/Blood Transfusion Reactions: No Reported Reaction Additional Past Anesthesia/Blood Transfusion Reaction / Comment(s): no hx blood transfusion Past Psychological History: Depression Smoking Status: Current every day smoker Past Alcohol Use History: None Reported Past Drug Use History: None Reported - Past Family History Mother Family Medical History: Cancer Father Family Medical History: Cancer General Exam Limitations: no limitations General appearance: alert, in no apparent distress Head exam: Present: atraumatic, normocephalic, normal inspection Eye exam: Present: normal appearance Pupils: Present: normal accommodation ENT exam: Present: normal exam, normal oropharynx, mucous membranes moist Neck exam: Present: normal inspection, full ROM. Absent: tenderness Respiratory exam: Present: normal lung sounds bilaterally. Absent: respiratory distress Cardiovascular Exam: Present: regular rate, normal rhythm, normal heart sounds. Absent: systolic murmur GI/Abdominal exam: Present: soft. Absent: distended, tenderness, guarding, rebound exam: Present: normal inspection (Full catheter appears in place. No discharge noted. He does have some erythema of the glans penis.). Absent: testicular tenderness, urethral discharge, scrotal swelling Course Vital Signs 10/20/20 10/20/20 10/20/20 16:13 17:16 18:00 Temperature 98.2 F Pulse Rate 71 Respiratory 18 16 16 Rate Blood Pressure 98/67 O2 Sat by Pulse 98 Oximetry 10/20/20 18:41 Temperature 97.4 F L Pulse Rate 64 Respiratory 16 Rate Blood Pressure 137/82 O2 Sat by Pulse 98 Oximetry Medical Decision Making - Medical Decision Making 75-year-old male presents to the emergency department with chief complaint of Normal function. A new Christie catheter was inserted. UA shows urinary tract infection. Urine culture pending. Vital signs within normal limits. Medical records reviewed and shows the most recent urine culture was positive for a colon. It is sensitive to Levaquin. He will be started on the medication. He was advised about the possible side effects of medication. He will follow up with his urologist next week. Strict return from with thoroughly discussed with patient is an attending agreeable. Case discussed with physician. - Lab Data Lab Results 10/20/20 Range/Units 17:38 Urine Color Light Red Urine Appearance Cloudy (Clear) Urine pH 6.0 (5.0-8.0) Ur Specific [place] 1.022 (1.001-1.035) Urine Protein 2+ H (Negative) Urine Glucose (UA) Negative (Negative) Urine Ketones Negative (Negative) Urine Blood Large H (Negative) Urine Nitrite Negative (Negative) Urine Bilirubin Negative (Negative) Urine Urobilinogen <2.0 (<2.0) mg/dL Ur Leukocyte Esterase Large H (Negative) Urine RBC >182 H (0-5) /hpf Urine WBC >182 H (0-5) /hpf Urine WBC Clumps Few H (None) /hpf Ur Squamous Epith Cells 2 (0-4) /hpf Urine Mucus Rare H (None) /hpf Urine Yeast (Budding) Few H (None) /hpf Disposition Clinical Impression: Urinary tract infection, Encounter for Christie catheter replacement Disposition: HOME SELF-CARE Condition: Stable Instructions (If sedation given, give patient instructions): Urinary Tract Infection in Men (ED) Additional Instructions: Follow-up with urologist. Take prescribed medication as directed. Return to emergency department if symptoms worsen. Prescriptions: Levofloxacin [Levaquin] 500 mg PO DAILY #10 tab Is patient prescribed a controlled substance at d/c from ED?: No Referrals: [facility],Clinic [Primary Care Provider] - 1-2 days Time of Disposition: 18:22
[2020-10-20 18:25] VITALS: RESP 16
[2020-10-20] MEDS: LEVOFLOXACIN 500 MG TAB PO STA (18:38)
[2020-10-20 18:41] VITALS: BP 137/82; PULSE 64; TEMP 97.4
== END 2020-10-20 18:42 | disposition home or self-care (01) ==
LOC: EC 15:54
DX: Z46.6 Encounter for fitting and adjustment of urinary device (principal); N39.0 Urinary tract infection, site not specified; K21.9 Gastro-esophageal reflux disease without esophagitis; F32.9 Major depressive disorder, single episode, unspecified; F17.200 Nicotine dependence, unspecified, uncomplicated; Z88.0 Allergy status to penicillin
CPT/HCPCS: 51702; 81001; 87086; 99283

== ENCOUNTER 2020-11-04 21:52 | Emergency (ER) | payer OTHER, MEDICARE ==
[2020-11-04 22:00] VITALS: BP 116/65; PULSE 61; RESP 19; TEMP 98.6
[2020-11-04 23:15] LABS: Appearance,Urine Cloudy (Clear); Bacteria,Urine Rare /hpf; Bilirubin,Urine Negative (Negative); Blood,Urine Large (Negative); Color,Urine Yellow; Glucose,Urine (UA) Negative (Negative); Hyaline Casts,Urine 6 /lpf (0-2); Ketones,Urine Negative (Negative); Leukocyte Esterase,Urine Large (Negative); Mucus,Urine Few /hpf; Nitrite,Urine Positive (Negative); PH, Urine 5.5 (5.0-8.0); Protein,Urine 1+ (Negative); RBC,Urine >182 /hpf (0-5); Specific Gravity,Urine 1.024 (1.001-1.035); Squamous Epithelial Cell,Urine 4 /hpf (0-4); Urobilinogen,Urine <2.0 mg/dL (<2.0); WBC,Urine >182 /hpf (0-5)
[2020-11-04] MEDS ORDERED: cefTRIAXone 1,000 MG VIAL (IM USE) IM STA (23:48)
--- NOTE | 2020-11-04 23:54 | ED ---
Male Urogenital HPI - General Chief complaint: Urogenital Stated complaint: Catheter Issue Time Seen by Provider: 11/04/20 22:10 Source: patient, RN notes reviewed Mode of arrival: ambulatory - History of Present Illness Initial comments: Patient is a 75 she'll male presents to emergency department complaining of burning on urination. He notes that he is indwelling catheter that he received approximately 3 weeks: CRP. He notes he does have a follow-up with urology on the was having increased burning. He notes that he keeps the tip of his penis clean and wash is a daily 10 make sure it does not get infected or irritated. He notes that there is a mild burning sensation at the tip of his penis. He denied any other issues or complaints at this time. He was a well- appearing 75 she'll male in no apparent distress or pain. He denied any chest pain first breath headache nausea vomiting diarrhea constipation fever fatigue chills. - Related Data Home Medications Medication Instructions Recorded Confirmed [place]-3 Fatty Acids/Fish Oil [Fish 1 cap PO DAILY 05/09/19 06/01/20 Oil 1,000 mg Softgel] Meclizine [Antivert] 25 mg PO BID PRN 05/30/20 06/01/20 Multivitamins, Thera [Multivitamin 1 tab PO DAILY 05/30/20 06/01/20 (formulary)] Previous Rx's Medication Instructions Recorded Levofloxacin [Levaquin] 500 mg PO DAILY #10 tab 10/20/20 Ciprofloxacin HCl [Cipro] 500 mg PO Q12HR #20 tablet 11/04/20 Allergies Allergy/AdvReac Type Severity Reaction Status Date / Time nitrofurantoin Allergy Unknown Verified 11/04/20 22:01 [From Macrobid] Penicillins Allergy Anaphylaxis Verified 11/04/20 22:01 Sulfa (Sulfonamide Allergy Unknown Verified 11/04/20 22:01 Antibiotics) sulfamethoxazole Allergy Unknown Verified 11/04/20 22:01 [From Bactrim] trimethoprim [From Bactrim] Allergy Unknown Verified 11/04/20 22:01 nitrosuran Allergy Unknown Uncoded 11/04/20 22:01 Review of Systems ROS Statement: Those systems with pertinent positive or pertinent negative responses have been documented in the HPI. ROS Other: All systems not noted in ROS Statement are negative. Past Medical History Past Medical History: GERD/Reflux Additional Past Medical History / Comment(s): states "had Hep B or C back 1959's and now it's all healed", recurrent UTI's with IDC, has IDC due to issues with hernia, bladder stones, chronic christie catheter History of Any Multi-Drug Resistant Organisms: None Reported Past Surgical History: Back Surgery, Hernia Repair, Tonsillectomy Additional Past Surgical History / Comment(s): hemorrhoid surgery, back surgery x 2, rt inguinal hernia repair Past Anesthesia/Blood Transfusion Reactions: No Reported Reaction Additional Past Anesthesia/Blood Transfusion Reaction / Comment(s): no hx blood transfusion Past Psychological History: Depression Smoking Status: Current every day smoker Past Alcohol Use History: None Reported Past Drug Use History: None Reported - Past Family History Mother Family Medical History: Cancer Father Family Medical History: Cancer General Exam General appearance: alert, in no apparent distress Head exam: Present: atraumatic, normocephalic, normal inspection Eye exam: Present: normal appearance, PERRL, EOMI. Absent: scleral icterus, conjunctival injection, periorbital swelling Neck exam: Present: normal inspection Respiratory exam: Present: normal lung sounds bilaterally. Absent: respiratory distress, wheezes, rales, rhonchi, stridor Cardiovascular Exam: Present: regular rate, normal rhythm, normal heart sounds. Absent: systolic murmur, diastolic murmur, rubs, gallop, clicks GI/Abdominal exam: Present: soft, normal bowel sounds. Absent: distended, tenderness, guarding, rebound, rigid exam: Present: normal inspection. Absent: testicular tenderness, urethral discharge, scrotal swelling, vertical testicular lie, circumcision Extremities exam: Present: normal inspection, full ROM, normal capillary refill. Absent: tenderness, pedal edema, joint swelling, calf tenderness Neurological exam: Present: alert, oriented X3 Psychiatric exam: Present: normal affect, normal mood Skin exam: Present: warm, dry, intact, normal color. Absent: rash Course Vital Signs 11/04/20 21:57 Temperature 98.6 F Pulse Rate 61 Respiratory 19 Rate Blood Pressure 116/65 O2 Sat by Pulse 18 L Oximetry Medical Decision Making - Medical Decision Making 75-year-old male complaining of burning at the tip of his penis with indwelling catheter. Urinalysis ordered. Urinalysis shows large amount red and white blood cells. 1 g Rocephin ordered. Case discussed with Dr. Newman, patient can be discharged home with follow-up to urology as planned. Antibiotics sent to pharmacy. - Lab Data Lab Results 11/04/20 Range/Units 22:33 Urine Color Yellow Urine Appearance Cloudy (Clear) Urine pH 5.5 (5.0-8.0) Ur Specific [place] 1.024 (1.001-1.035) Urine Protein 1+ H (Negative) Urine Glucose (UA) Negative (Negative) Urine Ketones Negative (Negative) Urine Blood Large H (Negative) Urine Nitrite Positive (Negative) Urine Bilirubin Negative (Negative) Urine Urobilinogen <2.0 (<2.0) mg/dL Ur Leukocyte Esterase Large H (Negative) Urine RBC >182 H (0-5) /hpf Urine WBC >182 H (0-5) /hpf Urine WBC Clumps Rare H (None) /hpf Ur Squamous Epith Cells 4 (0-4) /hpf Urine Bacteria Rare H (None) /hpf Hyaline Casts 6 H (0-2) /lpf Urine Mucus Few H (None) /hpf Disposition Clinical Impression: Urinary tract infection Disposition: HOME SELF-CARE Condition: Stable Instructions (If sedation given, give patient instructions): Urinary Tract Infection in Men (ED) Additional Instructions: Please return to the Emergency Department if symptoms worsen or any other concerns. Follow-up with primary care in 1-2 days. Follow-up with urologist as planned. Take antibiotics as prescribed until complete. Prescriptions: Ciprofloxacin HCl [Cipro] 500 mg PO Q12HR #20 tablet Is patient prescribed a controlled substance at d/c from ED?: No Referrals: [facility],Clinic [Primary Care Provider] - 1-2 days Time of Disposition: 23:54
== END 2020-11-05 00:06 | disposition home or self-care (01) ==
LOC: EC 21:52
DX: N39.0 Urinary tract infection, site not specified (principal); K21.9 Gastro-esophageal reflux disease without esophagitis; F32.9 Major depressive disorder, single episode, unspecified; F17.200 Nicotine dependence, unspecified, uncomplicated; Z88.0 Allergy status to penicillin; Z88.1 Allergy status to other antibiotic agents; Z88.2 Allergy status to sulfonamides; Z87.19 Personal history of other diseases of the digestive system; Z90.89 Acquired absence of other organs
CPT/HCPCS: 99283; 96372; 81001; 87086; J0696

== ENCOUNTER 2020-11-28 18:22 | Emergency (ER) | payer OTHER, MEDICARE ==
[2020-11-28 18:27] VITALS: PULSE 67; TEMP 97.7
[2020-11-28 19:00] LABS: Appearance,Urine Cloudy (Clear); Bacteria,Urine Occasional /hpf; Bilirubin,Urine Negative (Negative); Blood,Urine Large (Negative); Calcium Oxalate Crystals,Urine Occasional /hpf; Color,Urine Yellow; Glucose,Urine (UA) Negative (Negative); Ketones,Urine Negative (Negative); Leukocyte Esterase,Urine Large (Negative); Mucus,Urine Few /hpf; Nitrite,Urine Positive (Negative); Protein,Urine 1+ (Negative); RBC,Urine 79 /hpf (0-5); Specific Gravity,Urine 1.022 (1.001-1.035); Squamous Epithelial Cell,Urine 1 /hpf (0-4); Urobilinogen,Urine <2.0 mg/dL (<2.0); WBC,Urine >182 /hpf (0-5)
--- NOTE | 2020-11-28 19:22 | ED ---
Male Urogenital HPI - General Chief complaint: Urogenital Stated complaint: problems with catheter Time Seen by Provider: 11/28/20 18:33 Source: patient, RN notes reviewed Mode of arrival: ambulatory Limitations: no limitations - History of Present Illness Initial comments: Patient is a 75-year-old male that complains of dysuria on urination. He also n otes that he chronically wears a indwelling Christie catheter. He notes that some he had the same exact symptoms she was given antibiotics which took care of it. He notes that he does take care of his port catheter and cleans himself well. He denied any other issues or complaints. He was otherwise well-appearing 75-year-old male in no apparent distress or pain. He denied any chest pain first breath headache nausea vomiting diarrhea constipation fever fatigue chills. - Related Data Home Medications Medication Instructions Recorded Confirmed [place]-3 Fatty Acids/Fish Oil [Fish 1 cap PO DAILY 05/09/19 06/01/20 Oil 1,000 mg Softgel] Meclizine [Antivert] 25 mg PO BID PRN 05/30/20 06/01/20 Multivitamins, Thera [Multivitamin 1 tab PO DAILY 05/30/20 06/01/20 (formulary)] Previous Rx's Medication Instructions Recorded Levofloxacin [Levaquin] 500 mg PO DAILY #10 tab 10/20/20 Ciprofloxacin HCl [Cipro] 500 mg PO Q12HR #20 tablet 11/04/20 Ciprofloxacin HCl [Cipro] 500 mg PO BID 5 Days #10 tab 11/28/20 Allergies Allergy/AdvReac Type Severity Reaction Status Date / Time nitrofurantoin Allergy Unknown Verified 11/28/20 18:27 [From Macrobid] Penicillins Allergy Anaphylaxis Verified 11/28/20 18:27 Sulfa (Sulfonamide Allergy Unknown Verified 11/28/20 18:27 Antibiotics) sulfamethoxazole Allergy Unknown Verified 11/28/20 18:27 [From Bactrim] trimethoprim [From Bactrim] Allergy Unknown Verified 11/28/20 18:27 nitrosuran Allergy Unknown Uncoded 11/28/20 18:27 Review of Systems ROS Statement: Those systems with pertinent positive or pertinent negative responses have been documented in the HPI. ROS Other: All systems not noted in ROS Statement are negative. Past Medical History Past Medical History: GERD/Reflux Additional Past Medical History / Comment(s): states "had Hep B or C back 1959's and now it's all healed", recurrent UTI's with IDC, has IDC due to issues with hernia, bladder stones, chronic christie catheter History of Any Multi-Drug Resistant Organisms: None Reported Past Surgical History: Back Surgery, Hernia Repair, Tonsillectomy Additional Past Surgical History / Comment(s): hemorrhoid surgery, back surgery x 2, rt inguinal hernia repair Past Anesthesia/Blood Transfusion Reactions: No Reported Reaction Additional Past Anesthesia/Blood Transfusion Reaction / Comment(s): no hx blood transfusion Past Psychological History: Depression Smoking Status: Current every day smoker Past Alcohol Use History: None Reported Past Drug Use History: None Reported - Past Family History Mother Family Medical History: Cancer Father Family Medical History: Cancer General Exam Limitations: no limitations General appearance: alert, in no apparent distress Head exam: Present: atraumatic, normocephalic, normal inspection Eye exam: Present: normal appearance, PERRL, EOMI. Absent: scleral icterus, conjunctival injection, periorbital swelling Neck exam: Present: normal inspection Respiratory exam: Present: normal lung sounds bilaterally. Absent: respiratory distress, wheezes, rales, rhonchi, stridor Cardiovascular Exam: Present: regular rate, normal rhythm, normal heart sounds. Absent: systolic murmur, diastolic murmur, rubs, gallop, clicks exam: Present: normal inspection. Absent: testicular tenderness, urethral discharge, scrotal swelling, vertical testicular lie, circumcision Extremities exam: Present: normal inspection, full ROM, normal capillary refill. Absent: tenderness, pedal edema, joint swelling, calf tenderness Neurological exam: Present: alert, oriented X3 Psychiatric exam: Present: normal affect, normal mood Skin exam: Present: warm, dry, intact, normal color. Absent: rash Course Vital Signs 11/28/20 18:23 Temperature 97.7 F Pulse Rate 67 Respiratory 20 Rate Blood Pressure 115/71 O2 Sat by Pulse 96 Oximetry Medical Decision Making - Medical Decision Making 75-year-old male complaining of dysuria. Urinalysis ordered. Urinalysis: Greater than 182 white blood cells, 79 red blood cells, occasional bacteria. [facility]. Case discussed with Dr. Devi, patient discharge home. - Lab Data Lab Results 11/28/20 Range/Units 18:35 Urine Color Yellow Urine Appearance Cloudy (Clear) Urine pH 5.0 (5.0-8.0) Ur Specific [place] 1.022 (1.001-1.035) Urine Protein 1+ H (Negative) Urine Glucose (UA) Negative (Negative) Urine Ketones Negative (Negative) Urine Blood Large H (Negative) Urine Nitrite Positive (Negative) Urine Bilirubin Negative (Negative) Urine Urobilinogen <2.0 (<2.0) mg/dL Ur Leukocyte Esterase Large H (Negative) Urine RBC 79 H (0-5) /hpf Urine WBC >182 H (0-5) /hpf Urine WBC Clumps Occasional H (None) /hpf Ur Squamous Epith Cells 1 (0-4) /hpf Calcium Oxalate Crystal Occasional H (None) /hpf Urine Bacteria Occasional H (None) /hpf Urine Mucus Few H (None) /hpf Disposition Clinical Impression: UTI (urinary tract infection) Disposition: HOME SELF-CARE Condition: Stable Instructions (If sedation given, give patient instructions): Urinary Tract Infection in Men (ED) Additional Instructions: Please return to the Emergency Department if symptoms worsen or any other concerns. Follow-up with primary care 1-2 days. Take antibiotics as prescribed until complete. Is patient prescribed a controlled substance at d/c from ED?: No Referrals: [facility],Clinic [Primary Care Provider] - 1-2 days Time of Disposition: 19:22
[2020-11-28] MEDS ORDERED: CIPROFLOXACIN HCL 500 MG TAB PO STA (19:48)
[2020-11-28 19:57] VITALS: BP 110/71; RESP 16
== END 2020-11-28 19:57 | disposition home or self-care (01) ==
LOC: EC 18:22
DX: N39.0 Urinary tract infection, site not specified (principal); K21.9 Gastro-esophageal reflux disease without esophagitis; F32.9 Major depressive disorder, single episode, unspecified; F17.200 Nicotine dependence, unspecified, uncomplicated; Z88.0 Allergy status to penicillin; Z88.1 Allergy status to other antibiotic agents; Z88.2 Allergy status to sulfonamides; Z87.440 Personal history of urinary (tract) infections; Z90.89 Acquired absence of other organs; Z87.19 Personal history of other diseases of the digestive system
CPT/HCPCS: 81001; 87086; 99283

== ENCOUNTER 2021-02-07 01:46 | Emergency (ER) | payer OTHER ==
[2021-02-07 01:56] VITALS: BP 144/89; PULSE 116; RESP 18; TEMP 97
[2021-02-07] MEDS ORDERED: LIDOCAINE URO-JET JELLY 2% 5 ML KIT URETHRAL ONE (01:57)
--- NOTE | 2021-02-07 02:54 | ED ---
Male Urogenital HPI - General Chief complaint: Urogenital Stated complaint: Catheter Plugged Time Seen by Provider: 02/07/21 02:00 Source: patient, RN notes reviewed Mode of arrival: ambulatory Limitations: no limitations - History of Present Illness Initial comments: Patient is a 75-year-old male that is well-known to the emergency room. He does have frequent urinary catheterization. He comes in today stating that his catheter is clogged. Patient notes he tried flushing at home with no relief or success. Patient denied any other issues or complaints. He was otherwise well- appearing. She denied chest pain shortness of breath headache nausea vomiting diarrhea constipation fever fatigue chills. - Related Data Home Medications Medication Instructions Recorded Confirmed [place]-3 Fatty Acids/Fish Oil [Fish 1 cap PO DAILY 05/09/19 06/01/20 Oil 1,000 mg Softgel] Meclizine [Antivert] 25 mg PO BID PRN 05/30/20 06/01/20 Multivitamins, Thera [Multivitamin 1 tab PO DAILY 05/30/20 06/01/20 (formulary)] Previous Rx's Medication Instructions Recorded Levofloxacin [Levaquin] 500 mg PO DAILY #10 tab 10/20/20 Ciprofloxacin HCl [Cipro] 500 mg PO Q12HR #20 tablet 11/04/20 Ciprofloxacin HCl [Cipro] 500 mg PO BID 5 Days #10 tab 11/28/20 Allergies Allergy/AdvReac Type Severity Reaction Status Date / Time nitrofurantoin Allergy Unknown Verified 02/07/21 01:56 [From Macrobid] Penicillins Allergy Anaphylaxis Verified 02/07/21 01:56 Sulfa (Sulfonamide Allergy Unknown Verified 02/07/21 01:56 Antibiotics) sulfamethoxazole Allergy Unknown Verified 02/07/21 01:56 [From Bactrim] trimethoprim [From Bactrim] Allergy Unknown Verified 02/07/21 01:56 nitrosuran Allergy Unknown Uncoded 02/07/21 01:56 Review of Systems ROS Statement: Those systems with pertinent positive or pertinent negative responses have been documented in the HPI. ROS Other: All systems not noted in ROS Statement are negative. Past Medical History Past Medical History: GERD/Reflux Additional Past Medical History / Comment(s): states "had Hep B or C back 1960's and now it's all healed", recurrent UTI's with IDC, has IDC due to issues with hernia, bladder stones, chronic christie catheter History of Any Multi-Drug Resistant Organisms: None Reported Past Surgical History: Back Surgery, Hernia Repair, Tonsillectomy Additional Past Surgical History / Comment(s): hemorrhoid surgery, back surgery x 2, rt inguinal hernia repair Past Anesthesia/Blood Transfusion Reactions: No Reported Reaction Additional Past Anesthesia/Blood Transfusion Reaction / Comment(s): no hx blood transfusion Past Psychological History: Depression Smoking Status: Current every day smoker Past Alcohol Use History: None Reported Past Drug Use History: None Reported - Past Family History Mother Family Medical History: Cancer Father Family Medical History: Cancer General Exam Limitations: no limitations General appearance: alert, in no apparent distress Head exam: Present: atraumatic, normocephalic, normal inspection Eye exam: Present: normal appearance, PERRL, EOMI. Absent: scleral icterus, conjunctival injection, periorbital swelling ENT exam: Present: normal exam, mucous membranes moist Neck exam: Present: normal inspection Respiratory exam: Present: normal lung sounds bilaterally. Absent: respiratory distress, wheezes, rales, rhonchi, stridor Cardiovascular Exam: Present: regular rate, normal rhythm, normal heart sounds. Absent: systolic murmur, diastolic murmur, rubs, gallop, clicks GI/Abdominal exam: Present: soft, tenderness (Suprapubic.), normal bowel sounds. Absent: distended, guarding, rebound, rigid Extremities exam: Present: normal inspection, full ROM, normal capillary refill. Absent: tenderness, pedal edema, joint swelling, calf tenderness Neurological exam: Present: alert, oriented X3 Psychiatric exam: Present: normal affect, normal mood Skin exam: Present: warm, dry, intact, normal color. Absent: rash Course Vital Signs 02/07/21 01:54 Temperature 97 F L Pulse Rate 116 H Respiratory 18 Rate Blood Pressure 144/89 O2 Sat by Pulse 100 Oximetry Medical Decision Making - Medical Decision Making 75-year-old male with urinary catheter that is clogged. Catheter was changed in draining well. Patient states that he feels much better at this time. Patient is ready to go home. Patient states he will follow-up with his urologist and primary care. Case discussed with Dr. Hernandez, patient discharge home. Disposition Clinical Impression: Malfunction of indwelling urinary catheter Disposition: HOME SELF-CARE Condition: Stable Instructions (If sedation given, give patient instructions): Urinary Tract Infection in Men (ED) Additional Instructions: Please return to the Emergency Department if symptoms worsen or any other concerns. Follow-up with primary care 1-2 days. Follow-up with urologist when feasible. Is patient prescribed a controlled substance at d/c from ED?: No Referrals: [facility],Clinic [Primary Care Provider] - 1-2 days Time of Disposition: 02:53
[2021-02-07 03:40] LABS: Amorphous Sediment,Urine Occasional /hpf; Appearance,Urine Cloudy (Clear); Bacteria,Urine Rare /hpf; Bilirubin,Urine Negative (Negative); Blood,Urine Moderate (Negative); Color,Urine Yellow; Glucose,Urine (UA) Negative (Negative); Ketones,Urine Negative (Negative); Leukocyte Esterase,Urine Large (Negative); Mucus,Urine Rare /hpf; Nitrite,Urine Negative (Negative); Protein,Urine Trace (Negative); RBC,Urine 160 /hpf (0-5); Specific Gravity,Urine 1.016 (1.001-1.035); Squamous Epithelial Cell,Urine 1 /hpf (0-4); Urobilinogen,Urine <2.0 mg/dL (<2.0); WBC,Urine 62 /hpf (0-5)
== END 2021-02-07 03:19 | disposition home or self-care (01) ==
LOC: EC 01:46
DX: T83.091A Other mechanical complication of indwelling urethral catheter, initial encounter (principal); K21.9 Gastro-esophageal reflux disease without esophagitis; F32.A Depression, unspecified; F17.200 Nicotine dependence, unspecified, uncomplicated; Z88.0 Allergy status to penicillin; Z88.1 Allergy status to other antibiotic agents; Z88.2 Allergy status to sulfonamides; Z87.440 Personal history of urinary (tract) infections; Z90.89 Acquired absence of other organs; Y84.6 Urinary catheterization as the cause of abnormal reaction of the patient, or of later complication, without mention of misadventure at the time of the procedure
CPT/HCPCS: 81001; 87086; 99283

== ENCOUNTER 2021-03-12 11:17 | Emergency (ER) | payer OTHER ==
[2021-03-12 11:46] VITALS: BP 105/67; PULSE 60; RESP 18; TEMP 97.2
[2021-03-12] MEDS ORDERED: BACITRACIN OINT 1 EACH PACKET TOPICAL ONE (13:27)
--- NOTE | 2021-03-12 13:32 | ED ---
General Adult HPI - General Chief complaint: Recheck/Abnormal Lab/Rx Stated complaint: catheter problem Time Seen by Provider: 03/12/21 13:20 Source: patient, RN notes reviewed, old records reviewed Mode of arrival: ambulatory Limitations: no limitations - History of Present Illness Initial comments: 75-year-old male, alert and oriented 4, presents to emergency room with complaints of urethral meatus pain. Patient states he has his Christie catheter changed on Friday and he states that they used a larger catheter initially which caused him discomfort. He continues to have some tenderness. There is no active bleeding. Christie catheter is draining well. He was also complaining of some constipation and took medication today. States he had a good bowel movement when he got to the ER. He denies any discomfort or bleeding at this time. -: days(s) (1) Location: genitals (penis) Radiation: non-radiation Severity scale (1-10): 0 Consistency: now resolved Associated Symptoms: denies other symptoms Treatments Prior to Arrival: none - Related Data Home Medications Medication Instructions Recorded Confirmed [place]-3 Fatty Acids/Fish Oil [Fish 1 cap PO DAILY 05/09/19 06/01/20 Oil 1,000 mg Softgel] Meclizine [Antivert] 25 mg PO BID PRN 05/30/20 06/01/20 Multivitamins, Thera [Multivitamin 1 tab PO DAILY 05/30/20 06/01/20 (formulary)] Previous Rx's Medication Instructions Recorded Levofloxacin [Levaquin] 500 mg PO DAILY #10 tab 10/20/20 Ciprofloxacin HCl [Cipro] 500 mg PO Q12HR #20 tablet 11/04/20 Ciprofloxacin HCl [Cipro] 500 mg PO BID 5 Days #10 tab 11/28/20 Allergies Allergy/AdvReac Type Severity Reaction Status Date / Time nitrofurantoin Allergy Unknown Verified 03/12/21 11:47 [From Macrobid] Penicillins Allergy Anaphylaxis Verified 03/12/21 11:47 Sulfa (Sulfonamide Allergy Unknown Verified 03/12/21 11:47 Antibiotics) sulfamethoxazole Allergy Unknown Verified 03/12/21 11:47 [From Bactrim] trimethoprim [From Bactrim] Allergy Unknown Verified 03/12/21 11:47 nitrosuran Allergy Unknown Uncoded 03/12/21 11:47 Review of Systems ROS Statement: Those systems with pertinent positive or pertinent negative responses have been documented in the HPI. ROS Other: All systems not noted in ROS Statement are negative. Past Medical History Past Medical History: GERD/Reflux Additional Past Medical History / Comment(s): states "had Hep B or C back 1959's and now it's all healed", recurrent UTI's with IDC, has IDC due to issues with hernia, bladder stones, chronic christie catheter History of Any Multi-Drug Resistant Organisms: None Reported Past Surgical History: Back Surgery, Hernia Repair, Tonsillectomy Additional Past Surgical History / Comment(s): hemorrhoid surgery, back surgery x 2, rt inguinal hernia repair Past Anesthesia/Blood Transfusion Reactions: No Reported Reaction Additional Past Anesthesia/Blood Transfusion Reaction / Comment(s): no hx blood transfusion Past Psychological History: Depression Smoking Status: Current every day smoker Past Alcohol Use History: None Reported Past Drug Use History: None Reported - Past Family History Mother Family Medical History: Cancer Father Family Medical History: Cancer General Exam Limitations: no limitations General appearance: alert, in no apparent distress Head exam: Present: atraumatic, normocephalic, normal inspection Eye exam: Present: normal appearance. Absent: scleral icterus, conjunctival injection Respiratory exam: Present: normal lung sounds bilaterally. Absent: respiratory distress, wheezes, rales, rhonchi, stridor, chest wall tenderness, accessory muscle use Cardiovascular Exam: Present: regular rate, normal rhythm, normal heart sounds. Absent: systolic murmur, diastolic murmur, rubs, gallop, clicks exam: Present: other (Christie cath in place, no bleeding, erythema or lesions noted). Absent: testicular tenderness, scrotal swelling, circumcision External exam: Absent: erythema, swelling Neurological exam: Present: alert, oriented X3, normal gait Psychiatric exam: Present: normal affect, normal mood Skin exam: Present: warm, dry, intact, normal color. Absent: rash, cyanosis, diaphoretic Course Vital Signs 03/12/21 11:41 Temperature 97.2 F L Pulse Rate 60 Respiratory 18 Rate Blood Pressure 105/67 O2 Sat by Pulse 97 Oximetry Medical Decision Making - Medical Decision Making 75-year-old male patient presents to the emergency room complaints of urethral meatus pain after Christie catheter changed Friday. Patient states that initially they used a larger catheter which caused him discomfort. He denies any bleeding. Catheter is draining yellow urine. There are no lesions, erythema or penile discharge noted. Patient states that the pain has resolved at this time. He was having constipation prior to coming to the ER and he had a bowel movement in the emergency room and states he feels better. Patient was given some bacitracin ointment to place to the penis and directed to continue Tylenol for pain and follow-up with his primary care doctor or urologist as needed for reevaluation. Case discussed with Dr. Cheatham. Disposition Clinical Impression: Penile pain Disposition: HOME SELF-CARE Condition: Good Additional Instructions: Use the bacitracin ointment twice a day and Tylenol as needed for pain. Follow- up with your urologist this week for continuation of care. Is patient prescribed a controlled substance at d/c from ED?: No Referrals: [facility],Clinic [Primary Care Provider] - 1-2 days Time of Disposition: 13:32
== END 2021-03-12 13:37 | disposition home or self-care (01) ==
LOC: EC 11:17
DX: N48.89 Other specified disorders of penis (principal); K21.9 Gastro-esophageal reflux disease without esophagitis; F17.200 Nicotine dependence, unspecified, uncomplicated
CPT/HCPCS: 99283

== ENCOUNTER 2021-04-01 19:08 | Emergency (ER) | payer OTHER, MEDICARE ==
[2021-04-01 20:00] VITALS: BP 127/76; PULSE 63; RESP 19; TEMP 98.7
--- NOTE | 2021-04-01 20:05 | ED ---
General Adult HPI - General Chief complaint: Urogenital Stated complaint: Catheter issue Time Seen by Provider: 04/01/21 20:04 Source: patient Mode of arrival: ambulatory Limitations: no limitations - History of Present Illness Initial comments: Patient presents to the ED stating that he has been having problems with his Christie catheter draining since last night. Patient states that he has had an indwelling Christie catheter in place for the past 4 years or so, and he states it was last replaced on 03/10/2021. Patient states that he flushed his Christie c atheter at about 2 AM this morning and was able to get it to drain at that time. Patient states that it has been draining since then, but he does not feel that it is draining adequately. Patient also states that he has been experiencing penile pain since last night. Patient denies trauma or injury, fever or chills, headache, focal neuro deficit, chest pain, dyspnea, dizziness, abdominal pain, b ack or flank pain, nausea or vomiting, penile discharge, hematuria, or any other symptoms or complaints. - Related Data Home Medications Medication Instructions Recorded Confirmed [place]-3 Fatty Acids/Fish Oil [Fish 1 cap PO DAILY 05/09/19 06/01/20 Oil 1,000 mg Softgel] Meclizine [Antivert] 25 mg PO BID PRN 05/30/20 06/01/20 Multivitamins, Thera [Multivitamin 1 tab PO DAILY 05/30/20 06/01/20 (formulary)] Previous Rx's Medication Instructions Recorded Levofloxacin [Levaquin] 500 mg PO DAILY #10 tab 10/20/20 Ciprofloxacin HCl [Cipro] 500 mg PO Q12HR #20 tablet 11/04/20 Ciprofloxacin HCl [Cipro] 500 mg PO BID 5 Days #10 tab 11/28/20 Allergies Allergy/AdvReac Type Severity Reaction Status Date / Time nitrofurantoin Allergy Unknown Verified 04/01/21 20:00 [From Macrobid] Penicillins Allergy Anaphylaxis Verified 04/01/21 20:00 Sulfa (Sulfonamide Allergy Unknown Verified 04/01/21 20:00 Antibiotics) sulfamethoxazole Allergy Unknown Verified 04/01/21 20:00 [From Bactrim] trimethoprim [From Bactrim] Allergy Unknown Verified 04/01/21 20:00 nitrosuran Allergy Unknown Uncoded 04/01/21 20:00 Review of Systems ROS Statement: Those systems with pertinent positive or pertinent negative responses have been documented in the HPI. ROS Other: All systems not noted in ROS Statement are negative. Past Medical History Past Medical History: GERD/Reflux Additional Past Medical History / Comment(s): states "had Hep B or C back 1959' and now it's all healed", recurrent UTI's with IDC, has IDC due to issues with hernia, bladder stones, chronic christie catheter History of Any Multi-Drug Resistant Organisms: None Reported Past Surgical History: Back Surgery, Hernia Repair, Tonsillectomy Additional Past Surgical History / Comment(s): hemorrhoid surgery, back surgery x 2, rt inguinal hernia repair Past Anesthesia/Blood Transfusion Reactions: No Reported Reaction Additional Past Anesthesia/Blood Transfusion Reaction / Comment(s): no hx blood transfusion Past Psychological History: Depression Smoking Status: Current every day smoker Past Alcohol Use History: None Reported Past Drug Use History: None Reported - Past Family History Mother Family Medical History: Cancer Father Family Medical History: Cancer General Exam Limitations: no limitations General appearance: alert, in no apparent distress Head exam: Present: atraumatic, normocephalic Eye exam: Present: normal appearance ENT exam: Present: mucous membranes moist Neck exam: Present: other (Trachea is in midline) Respiratory exam: Present: normal lung sounds bilaterally. Absent: respiratory distress, wheezes, rales, rhonchi, stridor Cardiovascular Exam: Present: regular rate, normal rhythm, normal heart sounds, other (Normal radial pulses bilaterally) GI/Abdominal exam: Present: soft. Absent: distended, tenderness, guarding exam: Present: other (Christie catheter is in place with leg bag attached; yellow urine is noted draining from the Christie catheter). Absent: testicular tenderness, urethral discharge, scrotal swelling Back exam: Absent: CVA tenderness (R), CVA tenderness (L) Neurological exam: Present: alert, oriented X3. Absent: motor sensory deficit Psychiatric exam: Present: normal affect, normal mood Skin exam: Present: warm, dry, intact, normal color Course Vital Signs 04/01/21 19:54 Temperature 98.7 F Pulse Rate 63 Respiratory 19 Rate Blood Pressure 127/76 O2 Sat by Pulse 97 Oximetry Medical Decision Making - Medical Decision Making Patient's Christie catheter was replaced in the ED by ED nursing staff. Patient had more urine output after Christie catheter was replaced, and he states that he is now feeling better. Will discharge patient home at this time with new Christie catheter in place and instructions to follow up with his urologist. Patient feels comfortable with this plan. Patient was clearly explained return and follow-up instructions. Disposition Clinical Impression: Encounter for Christie catheter replacement Disposition: HOME SELF-CARE Condition: Stable Instructions (If sedation given, give patient instructions): Christie Catheter Placement and Care (ED), Urinary Retention in Men (ED) Additional Instructions: Return to the ER immediately should you develop new or worsening pain, decreased urine output, a fever, vomiting, feeling dizzy or faint, or new or worsening symptoms. Follow up closely with your urologist. Is patient prescribed a controlled substance at d/c from ED?: No Referrals: Sadia Gomez PAC [REFERRING] - 1-2 days Aj Smith MD [STAFF PHYSICIAN] - 1-2 days Time of Disposition: 21:44
== END 2021-04-01 22:13 | disposition home or self-care (01) ==
LOC: EC 19:08
DX: Z46.6 Encounter for fitting and adjustment of urinary device (principal); F32.A Depression, unspecified; F17.200 Nicotine dependence, unspecified, uncomplicated
CPT/HCPCS: 99282; 99283

== ENCOUNTER 2021-04-30 13:38 | Emergency (ER) | payer OTHER, MEDICARE ==
[2021-04-30 13:57] VITALS: RESP 18; TEMP 98.3
--- NOTE | 2021-04-30 14:27 | XR ---
EXAMINATION TYPE: XR elbow limited RT DATE OF EXAM: 04/30/2021 CLINICAL HISTORY: Pain after fall injury TECHNIQUE: Frontal and lateral images of the right elbow are obtained. COMPARISON: None FINDINGS: There is no acute fracture/dislocation evident in the right elbow. No abnormal fat pad si gns are seen. Overlying clothing material. IMPRESSION: There is no acute fracture or dislocation in the right elbow.
--- NOTE | 2021-04-30 14:29 | XR ---
EXAMINATION TYPE: XR shoulder complete RT DATE OF EXAM: 04/30/2021 CLINICAL HISTORY: Pain after fall injury. TECHNIQUE: Three views of the right shoulder are obtained. COMPARISON: None. FINDINGS: Osseous structures are demineralized. There is no acute fracture/dislocation evident in th e right shoulder. [id number] joint space loss acromioclavicular joint redemonstrated. Increasin g subchondral cystic change in the superior lateral humeral head is noted. Glenohumeral joint shows m ild narrowing with more prominent [id number] inferior spurring on the externally rotated view. The visualized ribs remain intact. There is moderate right apical pleural/parenchymal scarring redem onstrated. IMPRESSION: There is no acute fracture or dislocation in the right shoulder.
--- NOTE | 2021-04-30 14:51 | XR ---
EXAMINATION TYPE: XR wrist complete RT DATE OF EXAM: 04/30/2021 COMPARISON: NONE HISTORY: 76-year-old male pain after injury TECHNIQUE: 4 views FINDINGS: Impacted and comminuted transverse distal radial metaphyseal fracture. There appears to be extension into the epiphysis and likely intra-articular extension to the radiolunate joint on the oblique view. Comminution involves Alvarez's tubercle. There is 1 cm of dorsal displacement. Secondary positive uln ar variance. Mild degenerative change first CMC and triscaphe joints and more moderate at the first M CP joint. IMPRESSION: Comminuted and impacted, dorsally angulated distal radial metaphyseal and epiphyseal fracture. Dorsal displacement of 1.0 cm. There appears to be intra-articular extension to the radiolunate joint on th e oblique view. Comminution includes Listers tubercle.
[2021-04-30] MEDS ORDERED: BUPIVACAINE (PF) 0.5% 30 ML VIAL SQ STA (18:03)
[2021-04-30] MEDS ORDERED: LIDOCAINE 1% INJ 10MG/ML (20 ML MDV) SQ ONE (18:03)
--- NOTE | 2021-04-30 18:15 | ED ---
Upper Extremity HPI - General Chief Complaint: Extremity Injury, Upper Stated Complaint: fall/Rt arm injury Source: patient Mode of arrival: ambulatory Limitations: no limitations - History of Present Illness Initial Comments: 76-year-old male patient presents to the emergency department today reporting right wrist, right elbow, right shoulder pain after a slip and fall. States he is going to get in his car when his feet slipped out from underneath him and he landed on his right elbow. States he is having significant pain with movement of the shoulder and of the wrist. Denies taking anything for pain. Denies hitting his head or losing consciousness with the injury. He denies any neck or back pain. Denies any lower extremity injury. States he is able to walk withou t difficulty. Denies numbness or tingling to the hand. Denies any previous fractures or injury to this arm. He is also requesting to have his Christie catheter changed, states he gets it changed once per month and was due today. Unable to make his appointment due to the fall. - Related Data Home Medications Medication Instructions Recorded Confirmed [place]-3 Fatty Acids/Fish Oil [Fish 1 cap PO DAILY 05/09/19 06/01/20 Oil 1,000 mg Softgel] Meclizine [Antivert] 25 mg PO BID PRN 05/30/20 06/01/20 Multivitamins, Thera [Multivitamin 1 tab PO DAILY 05/30/20 06/01/20 (formulary)] Previous Rx's Medication Instructions Recorded Levofloxacin [Levaquin] 500 mg PO DAILY #10 tab 10/20/20 Ciprofloxacin HCl [Cipro] 500 mg PO Q12HR #20 tablet 11/04/20 Ciprofloxacin HCl [Cipro] 500 mg PO BID 5 Days #10 tab 11/28/20 Acetaminophen-Codeine 300-30mg 1 tab PO Q6H PRN #12 tablet 04/30/21 [Tylenol #3] Allergies Allergy/AdvReac Type Severity Reaction Status Date / Time nitrofurantoin Allergy Unknown Verified 04/30/21 13:57 [From Macrobid] Penicillins Allergy Anaphylaxis Verified 04/30/21 13:57 Sulfa (Sulfonamide Allergy Unknown Verified 04/30/21 13:57 Antibiotics) sulfamethoxazole Allergy Unknown Verified 04/30/21 13:57 [From Bactrim] trimethoprim [From Bactrim] Allergy Unknown Verified 04/30/21 13:57 nitrosuran Allergy Unknown Uncoded 04/01/21 20:00 Review of Systems ROS Statement: Those systems with pertinent positive or pertinent negative responses have been documented in the HPI. ROS Other: All systems not noted in ROS Statement are negative. Past Medical History Past Medical History: GERD/Reflux Additional Past Medical History / Comment(s): states "had Hep B or C back 1959's and now it's all healed", recurrent UTI's with IDC, has IDC due to issues with hernia, bladder stones, chronic christie catheter History of Any Multi-Drug Resistant Organisms: None Reported Past Surgical History: Back Surgery, Hernia Repair, Tonsillectomy Additional Past Surgical History / Comment(s): hemorrhoid surgery, back surgery x 2, rt inguinal hernia repair Past Anesthesia/Blood Transfusion Reactions: No Reported Reaction Additional Past Anesthesia/Blood Transfusion Reaction / Comment(s): no hx blood transfusion Past Psychological History: Depression Smoking Status: Current every day smoker Past Alcohol Use History: None Reported Past Drug Use History: None Reported - Past Family History Mother Family Medical History: Cancer Father Family Medical History: Cancer General Exam Limitations: no limitations General appearance: alert, in no apparent distress, other (This is a well- developed, well-nourished elderly male patient in no acute distress.) Head exam: Present: atraumatic, normocephalic, normal inspection Eye exam: Present: normal appearance, PERRL, EOMI. Absent: scleral icterus, conjunctival injection, nystagmus, periorbital swelling Neck exam: Present: normal inspection, full ROM, other (Nontender, no step-off, no deformity to firm midline palpation of the posterior cervical spine. Full range of motion without pain or limitation.). Absent: tenderness, meningismus, lymphadenopathy Respiratory exam: Present: normal lung sounds bilaterally. Absent: respiratory distress, wheezes, rales, rhonchi, stridor Cardiovascular Exam: Present: regular rate, normal rhythm, normal heart sounds. Absent: systolic murmur, diastolic murmur, rubs, gallop, clicks Extremities exam: Present: full ROM, tenderness, normal capillary refill, other (There is soft tissue swelling of the right wrist. Tenderness over the right elbow. Pain with movement right shoulder. Skin to the right arm is pink, warm, dry. Cap refill less than 3 seconds. Radial pulses 2+.). Absent: normal inspection, pedal edema, joint swelling, calf tenderness Right Neuro motor exam: Present: thumb opposition intact, thumb IP flexion intact, thumb adduction intact, fingers 2-5 abduction intact. Absent: wrist extension intact Course Vital Signs 04/30/21 04/30/21 13:52 20:35 Temperature 98.3 F Pulse Rate 65 78 Respiratory 18 18 Rate Blood Pressure 132/77 138/87 O2 Sat by Pulse 100 100 Oximetry Procedures - Orthopedic Fracture Reduction Fracture #1 Consent Obtained: verbal consent Side: right Fracture Reduction Location: radius Analgesia: hematoma block Technique: direct manipulation, traction/counter-traction Post Reduction X-rays Demonstrate: other (Slightly improved alignment) Post-Reduction Neuro Exam: intact, no change Post-Reduction Vascular Exam: intact, no change Splint Applied: Yes Patient Tolerated Procedure: well, other (skin tear to dorsal wrist) - Orthopedic Splinting/Casting Injury #1 Side: right Upper Extremity Injury Location: short arm, wrist Upper Extremity Immobilizer: sling/shoulder immobilizer, sugar tong splint, Harsha wrap, synthetic pre-padded splint Medical Decision Making - Medical Decision Making 76-year-old male patient presented for evaluation of right wrist, right elbow, right shoulder pain. Physical examination did reveal slight deformity noted to the radial aspect of the right wrist. There is elbow tenderness, shoulder tenderness. Neurovascular status was intact. He did not have any head injury or loss of consciousness. X-rays of the right wrist, shoulder, elbow are obtained. Shoulder and elbow x-rays were negative though wrist x-ray showed a distal radius fracture. We did perform a hematoma block with only partial pain relief. Agreeable to obtain slight improvement of the fracture fragments alignment. Splint was placed. Patient is put in a sling. He'll be discharged follow-up with orthopedics for further evaluation as soon as possible. He understands that he needs to call in the morning for an appointment. Return parameters were discussed in detail. He verbalizes understanding and agrees with this plan. My attending is Dr. Blanchard. - Radiology Data Radiology results: report reviewed, image reviewed 2 views of the right elbow are obtained. Report is reviewed in its entirety. Impression by Dr. Malhotra shows no acute fracture dislocation in the right elbow. 3 views of the right shoulder obtained. Report is reviewed in its entirety. Impression by Dr. Malhotra shows no acute fracture or dislocation the right shoulder. 4 views of the right wrist are obtained. Report was reviewed in its entirety. Impression by Dr. Pennington shows comminuted and impacted, dorsally angulated distal radial metaphyseal an epiphyseal fracture. Dorsal displacement of 1 cm. There appears to be intra-articular extension into the radial lunate joint on the oblique view. Comminution includes Alvarez's tubercle. 2 views of the right wrist are obtained. Report was reviewed in its entirety. Impression by Dr. Hurd shows fairly good anatomic reduction of the distal radius fracture. Disposition Clinical Impression: Fracture of right distal radius, Right shoulder strain, Encounter for Christie catheter replacement Disposition: HOME SELF-CARE Condition: Good Instructions (If sedation given, give patient instructions): Wrist Fracture in Adults (ED), Christie Catheter Placement and Care (ED), Splint Care (ED) Additional Instructions: Do not remove splint until you see orthopedics. Call tomorrow morning for an appointment. Return to the emergency department for any new, worsening, or concerning symptoms. Prescriptions: Acetaminophen-Codeine 300-30mg [Tylenol #3] 1 tab PO Q6H PRN #12 tablet PRN Reason: Pain Is patient prescribed a controlled substance at d/c from ED?: No Referrals: [facility],Clinic [Primary Care Provider] - 1-2 days Isidro Mayer MD [Medical Doctor] - 1-2 days Time of Disposition: 19:41
[2021-04-30] MEDS ORDERED: ACET/COD 300 MG/30 MG STARTER PACK 6 TAB BTL PO STA (19:13)
--- NOTE | 2021-04-30 20:27 | XR ---
EXAMINATION TYPE: XR wrist limited RT DATE OF EXAM: 04/30/2021 COMPARISON: Today HISTORY: Post reduction TECHNIQUE: 2 views FINDINGS: 2 views were obtained through the cast that show fairly good anatomic reduction of the impa cted comminuted distal radius fracture. The radiocarpal joint is anatomic. Carpal bones are intact. T here is approximate 5 mm posterior displacement of the distal radius major fragment on the lateral vi ew. IMPRESSION: There is fairly good anatomic reduction of the distal radius fracture.
[2021-04-30 20:46] VITALS: BP 138/87; PULSE 78
== END 2021-04-30 20:46 | disposition home or self-care (01) ==
LOC: EC 13:38
DX: S52.501A Unspecified fracture of the lower end of right radius, initial encounter for closed fracture (principal); S46.911A Strain of unspecified muscle, fascia and tendon at shoulder and upper arm level, right arm, initial encounter; K21.9 Gastro-esophageal reflux disease without esophagitis; F32.A Depression, unspecified; F17.200 Nicotine dependence, unspecified, uncomplicated; Z88.0 Allergy status to penicillin; Z88.1 Allergy status to other antibiotic agents; Z88.2 Allergy status to sulfonamides; Z87.440 Personal history of urinary (tract) infections; Z96.0 Presence of urogenital implants; W01.0XXA Fall on same level from slipping, tripping and stumbling without subsequent striking against object, initial encounter
CPT/HCPCS: 99283; 25605; 73030; 73070; 73100; 73110; J2001

== ENCOUNTER 2021-05-03 15:22 | Emergency (ER) | payer OTHER, MEDICARE ==
[2021-05-03] MEDS ORDERED: HYDROcodone/APAP 5-325MG 1 EACH TAB PO STA (16:06)
--- NOTE | 2021-05-03 16:07 | ED ---
General Adult HPI - General Chief complaint: Recheck/Abnormal Lab/Rx Stated complaint: hand swelling-revisit Time Seen by Provider: 05/03/21 15:38 Source: patient Mode of arrival: ambulatory Limitations: no limitations - History of Present Illness Initial comments: Dictation was produced using [employer] dictation software. please excuse any grammatical, word or spelling errors. Chief Complaint: 76-year-old male presents emergency department for reevaluation of wrist pain History of Present Illness: And is a 76-year-old male he has no significant comorbidities. Patient was here in emergency department 3 days ago for chief complaint of wrist injury. He was diagnosed with a distal radius fracture. Placed in a splint. Patient states he is here today because he was not able to follow up with orthopedic surgery. Patient reports that he tried to make an appointment however he hasn't heard back from the orthopedic office. States that his pain isn't better or worse than when he initially injured it. Patient has been in a sling and sugar tong splint since the day of the injury. The ROS documented in this emergency department record has been reviewed and confirmed by me. Those systems with pertinent positive or negative responses have been documented in the HPI. All other systems are other negative and/or noncontributory. PHYSICAL EXAM: General Impression: Alert and oriented x3, not in acute distress HEENT: Normocephalic atraumatic, extra-ocular movements intact, pupils equal and reactive to light bilaterally, mucous membranes moist. Cardiovascular: Heart regular rate and rhythm Chest: Able to complete full sentences, no retractions, no tachypnea Motor: no focal deficits noted Right upper extremity: Sugar tong splint in place,. Hips show good cap refill, patient able to feel light touch, neurovascularly intact Neurological: CN II-XII grossly intact, no focal motor or sensory deficits noted Skin: Intact with no visualized rashes Psych: Normal affect and mood ED course: 76-year-old male presents to the emergency department for reevaluation of right wrist injury. He was not able to follow up with o rthopedic surgery. Instead decided come to the emergency department. Vital signs upon arrival are within acceptable limits. X-ray shows stable alignment. Case discussed with Dr. [facility]. Patient was post to follow-up with [facility] Dr. Jasso was given patient's information and will try to expedite patient's appointment. Patient notified of this in that he will be contacted on home or on his cell phone. Patient given a starter pack for Tylenol No. 3. Patient be discharged. Patient agreeable disposition plan. - Related Data Home Medications Medication Instructions Recorded Confirmed [place]-3 Fatty Acids/Fish Oil [Fish 1 cap PO DAILY 05/09/19 06/01/20 Oil 1,000 mg Softgel] Meclizine [Antivert] 25 mg PO BID PRN 05/30/20 06/01/20 Multivitamins, Thera [Multivitamin 1 tab PO DAILY 05/30/20 06/01/20 (formulary)] Previous Rx's Medication Instructions Recorded Levofloxacin [Levaquin] 500 mg PO DAILY #10 tab 10/20/20 Ciprofloxacin HCl [Cipro] 500 mg PO Q12HR #20 tablet 11/04/20 Ciprofloxacin HCl [Cipro] 500 mg PO BID 5 Days #10 tab 11/28/20 Acetaminophen-Codeine 300-30mg 1 tab PO Q6H PRN #12 tablet 04/30/21 [Tylenol #3] Allergies Allergy/AdvReac Type Severity Reaction Status Date / Time nitrofurantoin Allergy Unknown Verified 05/03/21 15:36 [From Macrobid] Penicillins Allergy Anaphylaxis Verified 05/03/21 15:36 Sulfa (Sulfonamide Allergy Unknown Verified 05/03/21 15:36 Antibiotics) sulfamethoxazole Allergy Unknown Verified 05/03/21 15:36 [From Bactrim] trimethoprim [From Bactrim] Allergy Unknown Verified 05/03/21 15:36 nitrosuran Allergy Unknown Uncoded 05/03/21 15:36 Review of Systems ROS Statement: Those systems with pertinent positive or pertinent negative responses have been documented in the HPI. ROS Other: All systems not noted in ROS Statement are negative. Past Medical History Past Medical History: GERD/Reflux Additional Past Medical History / Comment(s): states "had Hep B or C back 1960's and now it's all healed", recurrent UTI's with IDC, has IDC due to issues with hernia, bladder stones, chronic christie catheter History of Any Multi-Drug Resistant Organisms: None Reported Past Surgical History: Back Surgery, Hernia Repair, Tonsillectomy Additional Past Surgical History / Comment(s): hemorrhoid surgery, back surgery x 2, rt inguinal hernia repair Past Anesthesia/Blood Transfusion Reactions: No Reported Reaction Additional Past Anesthesia/Blood Transfusion Reaction / Comment(s): no hx blood transfusion Past Psychological History: Depression Smoking Status: Current every day smoker Past Alcohol Use History: None Reported Past Drug Use History: None Reported - Past Family History Mother Family Medical History: Cancer Father Family Medical History: Cancer General Exam Limitations: no limitations Course Vital Signs 05/03/21 05/03/21 15:33 16:47 Temperature 98.0 F 98 F Pulse Rate 64 62 Respiratory 20 12 Rate Blood Pressure 121/76 135/77 O2 Sat by Pulse 99 97 Oximetry Disposition Clinical Impression: Wrist fracture Disposition: HOME SELF-CARE Condition: Good Instructions (If sedation given, give patient instructions): Wrist Fracture in Adults (ED) Is patient prescribed a controlled substance at d/c from ED?: No Referrals: Leslie Jennings DO [Doctor of Osteopathic Medicine] - 1-2 days
[2021-05-03 16:49] VITALS: BP 135/77; PULSE 62; RESP 12; TEMP 98
--- NOTE | 2021-05-03 17:49 | XR ---
EXAMINATION TYPE: XR wrist complete RT DATE OF EXAM: 05/03/2021 4:37 PM INDICATION: Patient age:Male; 76 years old; Reason for study: wrist fracture; COMPARISON: Radiograph 04/30/2021. TECHNIQUE: AP lateral and oblique views of the right wrist. FINDINGS: Redemonstration of acute fracture of the distal right radius with dorsal angulation, apex a nterior. This is not significantly changed from prior radiograph. Cast material is in place. No addit ional fractures are identified. IMPRESSION: 1. Distal right radius fracture with dorsal angulation, stable alignment. Cast material in place.
[2021-05-03] MEDS ORDERED: ACET/COD 300 MG/30 MG STARTER PACK 6 TAB BTL PO STA (18:12)
== END 2021-05-03 18:42 | disposition home or self-care (01) ==
LOC: EC 15:22
DX: S52.501D Unspecified fracture of the lower end of right radius, subsequent encounter for closed fracture with routine healing (principal); K21.9 Gastro-esophageal reflux disease without esophagitis; F32.A Depression, unspecified; F17.200 Nicotine dependence, unspecified, uncomplicated; Z88.0 Allergy status to penicillin; Z88.1 Allergy status to other antibiotic agents; Z88.2 Allergy status to sulfonamides; Z87.440 Personal history of urinary (tract) infections; X58.XXXD Exposure to other specified factors, subsequent encounter
CPT/HCPCS: 99283

== ENCOUNTER 2021-05-14 18:35 | Emergency (ER) | payer OTHER, MEDICARE ==
[2021-05-14] MEDS ORDERED: LIDOCAINE URO-JET JELLY 2% 5 ML KIT URETHRAL ONE (19:22)
[2021-05-14 19:36] LABS: Appearance,Urine Cloudy (Clear); Bacteria,Urine Rare /hpf; Bilirubin,Urine Negative (Negative); Blood,Urine Small (Negative); Budding Yeast,Urine Few /hpf; Color,Urine Yellow; Glucose,Urine (UA) Negative (Negative); Hyaline Casts,Urine 1 /lpf (0-2); Ketones,Urine Trace (Negative); Leukocyte Esterase,Urine Large (Negative); Nitrite,Urine Negative (Negative); PH, Urine 6.5 (5.0-8.0); Protein,Urine Trace (Negative); RBC,Urine 37 /hpf (0-5); Specific Gravity,Urine 1.019 (1.001-1.035); Squamous Epithelial Cell,Urine <1 /hpf (0-4); WBC,Urine 16 /hpf (0-5)
--- NOTE | 2021-05-14 19:49 | ED ---
General Adult HPI - General Chief complaint: Urogenital Stated complaint: Urinary Tract issue/catheter Source: patient Mode of arrival: ambulatory Limitations: no limitations - History of Present Illness Initial comments: 76-year-old male with past medical history of neurogenic bladder with chronic indwelling Christie presents to the emergency department with blocked Christie cathete r. States he has not had any drainage since noon. Christie was last changed on February 27. He does have a follow-up appointment with Dr. Smith, his urologist, on May 28. Denies hematuria. No fevers. No other alleviating, precipitating or modifying factors - Related Data Home Medications Medication Instructions Recorded Confirmed RX: [place]-3 Fatty Acids/Fish Oil 1 cap PO DAILY 05/09/19 06/01/20 [Fish Oil 1,000 mg Softgel] Multivitamins, Thera [Multivitamin 1 tab PO DAILY 05/30/20 06/01/20 (formulary)] RX: Meclizine [Antivert] 25 mg PO BID PRN 05/30/20 06/01/20 Previous Rx's Medication Instructions Recorded Levofloxacin [Levaquin] 500 mg PO DAILY #10 tab 10/20/20 Ciprofloxacin HCl [Cipro] 500 mg PO Q12HR #20 tablet 11/04/20 Ciprofloxacin HCl [Cipro] 500 mg PO BID 5 Days #10 tab 11/28/20 Acetaminophen-Codeine 300-30mg 1 tab PO Q6H PRN #12 tablet 04/30/21 [Tylenol #3] Allergies Allergy/AdvReac Type Severity Reaction Status Date / Time nitrofurantoin Allergy Unknown Verified 05/14/21 18:37 [From Macrobid] Penicillins Allergy Anaphylaxis Verified 05/14/21 18:37 Sulfa (Sulfonamide Allergy Unknown Verified 05/14/21 18:37 Antibiotics) sulfamethoxazole Allergy Unknown Verified 05/14/21 18:37 [From Bactrim] trimethoprim [From Bactrim] Allergy Unknown Verified 05/14/21 18:37 nitrosuran Allergy Unknown Uncoded 05/14/21 18:37 Review of Systems ROS Statement: Those systems with pertinent positive or pertinent negative responses have been documented in the HPI. ROS Other: All systems not noted in ROS Statement are negative. Past Medical History Past Medical History: GERD/Reflux Additional Past Medical History / Comment(s): states "had Hep B or C back 1959's and now it's all healed", recurrent UTI's with IDC, has IDC due to issues with hernia, bladder stones, chronic christie catheter History of Any Multi-Drug Resistant Organisms: None Reported Past Surgical History: Back Surgery, Hernia Repair, Tonsillectomy Additional Past Surgical History / Comment(s): hemorrhoid surgery, back surgery x 2, rt inguinal hernia repair Past Anesthesia/Blood Transfusion Reactions: No Reported Reaction Additional Past Anesthesia/Blood Transfusion Reaction / Comment(s): no hx blood transfusion Past Psychological History: Depression Smoking Status: Current every day smoker Past Alcohol Use History: None Reported Past Drug Use History: None Reported - Past Family History Mother Family Medical History: Cancer Father Family Medical History: Cancer General Exam Limitations: no limitations Course Vital Signs 05/14/21 05/14/21 18:37 20:26 Temperature 97 F L 98.3 F Pulse Rate 73 79 Respiratory 18 20 Rate Blood Pressure 153/75 132/77 O2 Sat by Pulse 99 97 Oximetry Medical Decision Making - Medical Decision Making Upon arrival the patient was placed into room 25. Catheter is changed and bladders found to be draining properly. Urinalysis is obtained which demonstrates rare bacteria. Will await urine culture is patient does have a chronic indwelling Christie. Vital stable. Patient be discharged home and is instructed to follow up with Dr. Jenkins at his scheduled appointment. Return for any new or worsening symptoms. Patient agreed to plan and was discharged home in stable condition - Lab Data Lab Results 05/14/21 Range/Units 19:24 Urine Color Yellow Urine Appearance Cloudy (Clear) Urine pH 6.5 (5.0-8.0) Ur Specific [place] 1.019 (1.001-1.035) Urine Protein Trace H (Negative) Urine Glucose (UA) Negative (Negative) Urine Ketones Trace H (Negative) Urine Blood Small H (Negative) Urine Nitrite Negative (Negative) Urine Bilirubin Negative (Negative) Urine Urobilinogen 3.0 (<2.0) mg/dL Ur Leukocyte Esterase Large H (Negative) Urine RBC 37 H (0-5) /hpf Urine WBC 16 H (0-5) /hpf Ur Squamous Epith Cells <1 (0-4) /hpf Urine Bacteria Rare H (None) /hpf Hyaline Casts 1 (0-2) /lpf Urine Yeast (Budding) Few H (None) /hpf Disposition Clinical Impression: Urinary retention, Chronic indwelling Christie catheter Disposition: HOME SELF-CARE Condition: Stable Instructions (If sedation given, give patient instructions): Urinary Retention in Men (ED), Christie Catheter Placement and Care (ED) Additional Instructions: Follow-up with your urologist at your scheduled appointment on the . Return for any new or worsening symptoms Is patient prescribed a controlled substance at d/c from ED?: No Referrals: [facility],Clinic [Primary Care Provider] - 1-2 days Aj Smith MD [STAFF PHYSICIAN] - 1-2 days Time of Disposition: 19:48
[2021-05-14 20:27] VITALS: BP 132/77; PULSE 79; RESP 20; TEMP 98.3
== END 2021-05-14 20:26 | disposition home or self-care (01) ==
LOC: EC 18:35
DX: R33.9 Retention of urine, unspecified (principal); K21.9 Gastro-esophageal reflux disease without esophagitis; F32.A Depression, unspecified; F17.200 Nicotine dependence, unspecified, uncomplicated; Z79.899 Other long term (current) drug therapy
CPT/HCPCS: 51702; 81001; 87086; 99283

== ENCOUNTER 2021-06-28 12:40 | Emergency (ER) | payer OTHER, MEDICARE ==
[2021-06-28] MEDS ORDERED: SODIUM CHLORIDE 0.9% 1,000 ML IV STA (12:49)
--- NOTE | 2021-06-28 12:54 | ED ---
General Adult HPI - General Chief complaint: Urogenital Stated complaint: weakness Time Seen by Provider: 06/28/21 12:40 Source: patient, EMS, RN notes reviewed, old records reviewed Mode of arrival: EMS Limitations: no limitations - History of Present Illness Initial comments: This is a 76-year-old male who presents emergency department from the urgent care. Patient went there because she's been feeling weak. Patient states been ongoing for a few days now. Patient states he has not had any urinary output from his Christie catheter last couple of days. Patient states he has some suprapubic tenderness as well. Patient states he has a catheter in place because of a hernia and bladder stones. Patient is unclear as to why catheters been in for 5 years. Patient denies any fever chills patient denies any back pain. Patient has any chest pain difficulty breathing shortness of breath per patient denies any nausea vomiting diarrhea. - Related Data Previous Rx's Medication Instructions Recorded Levofloxacin [Levaquin] 750 mg PO DAILY #10 tab 06/28/21 Allergies Allergy/AdvReac Type Severity Reaction Status Date / Time nitrofurantoin Allergy Unknown Verified 06/28/21 14:36 [From Macrobid] Penicillins Allergy Anaphylaxis Verified 06/28/21 14:36 Sulfa (Sulfonamide Allergy Unknown Verified 06/28/21 14:36 Antibiotics) sulfamethoxazole Allergy Unknown Verified 06/28/21 14:36 [From Bactrim] trimethoprim [From Bactrim] Allergy Unknown Verified 06/28/21 14:36 nitrosuran Allergy Unknown Uncoded 06/28/21 12:53 Review of Systems ROS Statement: Those systems with pertinent positive or pertinent negative responses have been documented in the HPI. ROS Other: All systems not noted in ROS Statement are negative. Past Medical History Past Medical History: GERD/Reflux Additional Past Medical History / Comment(s): states "had Hep B or C back 1960's and now it's all healed", recurrent UTI's with IDC, has IDC due to issues with hernia, bladder stones, chronic christie catheter History of Any Multi-Drug Resistant Organisms: None Reported Past Surgical History: Back Surgery, Hernia Repair, Tonsillectomy Additional Past Surgical History / Comment(s): hemorrhoid surgery, back surgery x 2, rt inguinal hernia repair Past Anesthesia/Blood Transfusion Reactions: No Reported Reaction Additional Past Anesthesia/Blood Transfusion Reaction / Comment(s): no hx blood transfusion Past Psychological History: Depression Smoking Status: Current every day smoker Past Alcohol Use History: None Reported Past Drug Use History: None Reported - Past Family History Mother Family Medical History: Cancer Father Family Medical History: Cancer General Exam - General Exam Comments Initial Comments: GENERAL: Patient is well-developed and well-nourished. Patient is nontoxic and well- hydrated and is in mild distress. ENT: Neck is soft and supple. No significant lymphadenopathy is noted. Oropharynx is clear. Moist mucous membranes. Neck has full range of motion without eliciting any pain. EYES: The sclera were anicteric and conjunctiva were pink and moist. Extraocular movements were intact and pupils were equal round and reactive to light. Eyelids were unremarkable. PULMONARY: Unlabored respirations. Good breath sounds bilaterally. No audible rales rhonchi or wheezing was noted. CARDIOVASCULAR: There is a regular rate and rhythm without any murmurs gallops or rubs. ABDOMEN: Patient has some tenderness in the suprapubic region SKIN: Skin is clear with no lesions or rashes and otherwise unremarkable. NEUROLOGIC: Patient is alert and oriented x3. Cranial nerves II through XII are grossly intact. Motor and sensory are also intact. Normal speech, volume and content. Symmetrical smile. MUSCULOSKELETAL: Normal extremities with adequate strength and full range of motion. No lower extremity swelling or edema. No calf tenderness. LYMPHATICS: No significant lymphadenopathy is noted PSYCHIATRIC: Normal psychiatric evaluation. Limitations: no limitations Course Vital Signs 06/28/21 12:42 Temperature 97.9 F Pulse Rate 65 Respiratory 18 Rate Blood Pressure 147/99 O2 Sat by Pulse 99 Oximetry Medical Decision Making - Medical Decision Making EKG shows sinus bradycardia 55 bpm ND interval 152 QRS is 86 QT interval 426 QTC is 416. Patient's EKG shows no ST segment elevation or depression. Christie catheter was clogged was replaced. Patient had a urinary tract infection patient was given Levaquin. Patient was given a liter of fluid and I went back in and reevaluated the patient he stated he felt considerably better. Patient states he hasn't been eating or drinking much lately because he hasn't felt well. - Lab Data Result diagrams: 06/28/21 12:58 06/28/21 12:58 Lab Results 06/28/21 06/28/21 06/28/21 Range/Units 12:58 12:58 12:58 WBC 6.5 (3.8-10.6) k/uL RBC 5.02 (4.30-5.90) m/uL Hgb 15.1 (13.0-17.5) gm/dL Hct 45.6 (39.0-53.0) % MCV 90.8 (80.0-100.0) fL MCH 30.0 (25.0-35.0) pg MCHC 33.0 (31.0-37.0) g/dL RDW 12.4 (11.5-15.5) % Plt Count 247 (150-450) k/uL MPV 8.7 Neutrophils % 69 % Lymphocytes % 23 % Monocytes % 4 % Eosinophils % 2 % Basophils % 1 % Neutrophils # 4.4 (1.3-7.7) k/uL Lymphocytes # 1.5 (1.0-4.8) k/uL Monocytes # 0.3 (0-1.0) k/uL Eosinophils # 0.1 (0-0.7) k/uL Basophils # 0.1 (0-0.2) k/uL Sodium 140 (137-145) mmol/L Potassium 4.4 (3.5-5.1) mmol/L Chloride 107 (98-107) mmol/L Carbon Dioxide 24 (22-30) mmol/L Anion Gap 9 mmol/L BUN 15 (9-20) mg/dL Creatinine 0.95 (0.66-1.25) mg/dL Est GFR (CKD-EPI)AfAm 89 (>60 ml/min/1.73 sqM) Est GFR (CKD-EPI)NonAf 77 (>60 ml/min/1.73 sqM) Glucose 97 (74-99) mg/dL Plasma Lactic Acid Omar 1.3 (0.7-2.0) mmol/L Calcium 9.8 (8.4-10.2) mg/dL Magnesium 2.2 (1.6-2.3) mg/dL Total Bilirubin 0.8 (0.2-1.3) mg/dL AST 20 (17-59) U/L ALT 13 (4-49) U/L Alkaline Phosphatase 73 (38-126) U/L Troponin I (0.000-0.034) ng/mL Total Protein 7.7 (6.3-8.2) g/dL Albumin 4.3 (3.5-5.0) g/dL Urine Color Urine Appearance (Clear) Urine pH (5.0-8.0) Ur Specific [place] (1.001-1.035) Urine Protein (Negative) Urine Glucose (UA) (Negative) Urine Ketones (Negative) Urine Blood (Negative) Urine Nitrite (Negative) Urine Bilirubin (Negative) Urine Urobilinogen (<2.0) mg/dL Ur Leukocyte Esterase (Negative) Urine RBC (0-5) /hpf Urine WBC (0-5) /hpf Urine WBC Clumps (None) /hpf Urine Bacteria (None) /hpf Urine Mucus (None) /hpf Urine Yeast (Budding) (None) /hpf 06/28/21 06/28/21 Range/Units 12:58 13:02 WBC (3.8-10.6) k/uL RBC (4.30-5.90) m/uL Hgb (13.0-17.5) gm/dL Hct (39.0-53.0) % MCV (80.0-100.0) fL MCH (25.0-35.0) pg MCHC (31.0-37.0) g/dL RDW (11.5-15.5) % Plt Count (150-450) k/uL MPV Neutrophils % % Lymphocytes % % Monocytes % % Eosinophils % % Basophils % % Neutrophils # (1.3-7.7) k/uL Lymphocytes # (1.0-4.8) k/uL Monocytes # (0-1.0) k/uL Eosinophils # (0-0.7) k/uL Basophils # (0-0.2) k/uL Sodium (137-145) mmol/L Potassium (3.5-5.1) mmol/L Chloride (98-107) mmol/L Carbon Dioxide (22-30) mmol/L Anion Gap mmol/L BUN (9-20) mg/dL Creatinine (0.66-1.25) mg/dL Est GFR (CKD-EPI)AfAm (>60 ml/min/1.73 sqM) Est GFR (CKD-EPI)NonAf (>60 ml/min/1.73 sqM) Glucose (74-99) mg/dL Plasma Lactic Acid Omar (0.7-2.0) mmol/L Calcium (8.4-10.2) mg/dL Magnesium (1.6-2.3) mg/dL Total Bilirubin (0.2-1.3) mg/dL AST (17-59) U/L ALT (4-49) U/L Alkaline Phosphatase (38-126) U/L Troponin I <0.012 (0.000-0.034) ng/mL Total Protein (6.3-8.2) g/dL Albumin (3.5-5.0) g/dL Urine Color Light Red Urine Appearance Turbid (Clear) Urine pH 7.0 (5.0-8.0) Ur Specific [place] 1.022 (1.001-1.035) Urine Protein 2+ H (Negative) Urine Glucose (UA) Negative (Negative) Urine Ketones 1+ H (Negative) Urine Blood Moderate H (Negative) Urine Nitrite Positive (Negative) Urine Bilirubin Negative (Negative) Urine Urobilinogen <2.0 (<2.0) mg/dL Ur Leukocyte Esterase Large H (Negative) Urine RBC >182 H (0-5) /hpf Urine WBC >182 H (0-5) /hpf Urine WBC Clumps Many H (None) /hpf Urine Bacteria Occasional H (None) /hpf Urine Mucus Rare H (None) /hpf Urine Yeast (Budding) Many H (None) /hpf Disposition Clinical Impression: Urinary tract infection Disposition: HOME SELF-CARE Instructions (If sedation given, give patient instructions): Urinary Tract Infection in Men (ED) Prescriptions: Levofloxacin [Levaquin] 750 mg PO DAILY #10 tab Is patient prescribed a controlled substance at d/c from ED?: No Referrals: [facility],Clinic [Primary Care Provider] - 1-2 days Time of Disposition: 14:30
[2021-06-28 13:15] LABS: Basophils # (A) 0.1 k/uL (0-0.2); Basophils % (A) 1 %; Eosinophils # (A) 0.1 k/uL (0-0.7); Eosinophils % (A) 2 %; HCT 45.6 % (39.0-53.0); HGB 15.1 gm/dL (13.0-17.5); Lymphocytes # (A) 1.5 k/uL (1.0-4.8); Lymphocytes % (A) 23 %; MCV 90.8 fL (80.0-100.0); Mean Platelet Volume 8.7; Monocytes # (A) 0.3 k/uL (0-1.0); Monocytes % (A) 4 %; Neutrophils # (A) 4.4 k/uL (1.3-7.7); Neutrophils % (A) 69 %; Platelet Count 247 k/uL (150-450); RBC 5.02 m/uL (4.30-5.90); RDW 12.4 % (11.5-15.5); WBC 6.5 k/uL (3.8-10.6)
[2021-06-28] MEDS ORDERED: LIDOCAINE URO-JET JELLY 2% 5 ML KIT URETHRAL ONE (13:16)
[2021-06-28] MEDS ORDERED: KETOROLAC 15 MG/ML 1 ML VIAL IVP STA (13:16)
--- NOTE | 2021-06-28 13:37 | XR ---
EXAMINATION TYPE: XR chest 2V DATE OF EXAM: 06/28/2021 COMPARISON: 02/07/2020 HISTORY: 76-year-old male with weakness TECHNIQUE: AP and lateral views FINDINGS: Heart normal size. Aorta and pulmonary vasculature within normal limits. Right apical pleural-parench ymal scarring. Hyperinflation. No consolidation or pleural effusion. IMPRESSION: COPD. No acute process seen.
[2021-06-28 13:45] LABS: Albumin 4.3 g/dL (3.5-5.0); Calcium 9.8 mg/dL (8.4-10.2); Magnesium 2.2 mg/dL (1.6-2.3); Potassium 4.4 mmol/L (3.5-5.1); Total Bilirubin 0.8 mg/dL (0.2-1.3); Total Protein 7.7 g/dL (6.3-8.2)
[2021-06-28 13:51] LABS: Appearance,Urine Turbid (Clear); Bacteria,Urine Occasional /hpf; Bilirubin,Urine Negative (Negative); Blood,Urine Moderate (Negative); Budding Yeast,Urine Many /hpf; Color,Urine Light Red; Glucose,Urine (UA) Negative (Negative); Ketones,Urine 1+ (Negative); Leukocyte Esterase,Urine Large (Negative); Mucus,Urine Rare /hpf; Nitrite,Urine Positive (Negative); Protein,Urine 2+ (Negative); RBC,Urine >182 /hpf (0-5); Specific Gravity,Urine 1.022 (1.001-1.035); Urobilinogen,Urine <2.0 mg/dL (<2.0); WBC,Urine >182 /hpf (0-5)
[2021-06-28] MEDS ORDERED: LEVOFLOXACIN 750 MG TAB PO STA (14:25)
[2021-06-28 15:06] VITALS: BP 128/83; PULSE 85; RESP 16; TEMP 98
== END 2021-06-28 15:05 | disposition home or self-care (01) ==
LOC: EC 12:40
DX: N39.0 Urinary tract infection, site not specified (principal); F17.200 Nicotine dependence, unspecified, uncomplicated
CPT/HCPCS: 36415; 93005; 80053; 83605; 83735; 84484; 85025; 81001; 87086; 71046; 99285; 96374; 96361; J1885

== ENCOUNTER 2021-07-03 09:57 | Emergency (ER) | payer OTHER, MEDICARE ==
[2021-07-03 10:01] VITALS: BP 142/72; PULSE 62; RESP 18; TEMP 97.7
[2021-07-03 10:36] LABS: Appearance,Urine Cloudy (Clear); Bacteria,Urine Rare /hpf; Bilirubin,Urine Negative (Negative); Blood,Urine Trace (Negative); Color,Urine Yellow; Glucose,Urine (UA) Negative (Negative); Ketones,Urine Negative (Negative); Leukocyte Esterase,Urine Large (Negative); Mucus,Urine Occasional /hpf; Nitrite,Urine Negative (Negative); Protein,Urine Trace (Negative); RBC,Urine 13 /hpf (0-5); Specific Gravity,Urine 1.019 (1.001-1.035); Squamous Epithelial Cell,Urine 3 /hpf (0-4); Urobilinogen,Urine <2.0 mg/dL (<2.0); WBC,Urine 23 /hpf (0-5)
[2021-07-03] MEDS ORDERED: NITROFURANTOIN MONOHYD/M-CRYST 100 MG CAP PO STA (11:00)
--- NOTE | 2021-07-03 11:18 | ED ---
Male Urogenital HPI - General Chief complaint: Urogenital Stated complaint: Recheck/Catheter problems Time Seen by Provider: 07/03/21 10:03 Source: patient, family, RN notes reviewed Mode of arrival: ambulatory Limitations: no limitations - History of Present Illness Initial comments: This is a 76-year-old male who presents to the emergency department for antibiotic treatment. He was evaluated here on the for weakness and suprapubic pain and diagnosed with a urinary tract infection. He was put on a 10 day course of levofloxacin. Patient states that he was called by the emergency department and instructed to return for different antibiotics. Patient states that he is overall feeling much better, denies having any weakness or suprapubic pain. Denies any hematuria polyuria or dysuria. His daughter also states that he had very fast improvement on the levofloxacin. MD Complaint: other (Antibiotic change for UTI) - Related Data Previous Rx's Medication Instructions Recorded Levofloxacin [Levaquin] 750 mg PO DAILY #10 tab 06/28/21 Nitrofurantoin Monohyd/M-Cryst 100 mg PO Q12HR 5 Days #10 cap 07/03/21 [Macrobid] Allergies Allergy/AdvReac Type Severity Reaction Status Date / Time nitrofurantoin Allergy Unknown Verified 07/03/21 11:08 [From Macrobid] Penicillins Allergy Anaphylaxis/Hives Verified 07/03/21 11:08 on entire body Sulfa (Sulfonamide Allergy Unknown Verified 07/03/21 11:08 Antibiotics) sulfamethoxazole Allergy Unknown Verified 07/03/21 11:08 [From Bactrim] trimethoprim [From Bactrim] Allergy Unknown Verified 07/03/21 11:08 Review of Systems ROS Statement: Those systems with pertinent positive or pertinent negative responses have been documented in the HPI. ROS Other: All systems not noted in ROS Statement are negative. Constitutional: Denies: fever, chills ENT: Denies: ear pain, throat pain Respiratory: Denies: cough, dyspnea Cardiovascular: Denies: chest pain, palpitations Gastrointestinal: Denies: abdominal pain, nausea, vomiting, diarrhea Genitourinary: Denies: urgency, dysuria, frequency, hematuria Musculoskeletal: Denies: back pain Skin: Denies: rash Neurological: Denies: headache Past Medical History Past Medical History: GERD/Reflux Additional Past Medical History / Comment(s): states "had Hep B or C back 1960's and now it's all healed", recurrent UTI's with IDC, has IDC due to issues with hernia, bladder stones, chronic crhistie catheter History of Any Multi-Drug Resistant Organisms: None Reported Past Surgical History: Back Surgery, Hernia Repair, Tonsillectomy Additional Past Surgical History / Comment(s): hemorrhoid surgery, back surgery x 2, rt inguinal hernia repair Past Anesthesia/Blood Transfusion Reactions: No Reported Reaction Additional Past Anesthesia/Blood Transfusion Reaction / Comment(s): no hx blood transfusion Past Psychological History: Depression Smoking Status: Current every day smoker Past Alcohol Use History: None Reported Past Drug Use History: None Reported - Past Family History Mother Family Medical History: Cancer Father Family Medical History: Cancer General Exam Limitations: no limitations General appearance: alert, in no apparent distress Head exam: Present: atraumatic, normocephalic, normal inspection Respiratory exam: Present: normal lung sounds bilaterally. Absent: respiratory distress, wheezes, rales, rhonchi, stridor Cardiovascular Exam: Present: regular rate, normal rhythm, normal heart sounds. Absent: systolic murmur, diastolic murmur, rubs, gallop, clicks Back exam: Absent: CVA tenderness (R), CVA tenderness (L) Neurological exam: Present: alert, oriented X3, CN II-XII intact Psychiatric exam: Present: normal affect, normal mood Skin exam: Present: warm, dry, intact, normal color. Absent: rash Course Vital Signs 07/03/21 09:58 Temperature 97.7 F Pulse Rate 62 Respiratory 18 Rate Blood Pressure 142/72 O2 Sat by Pulse 98 Oximetry Medical Decision Making - Medical Decision Making This is a 76-year-old male who presents to the emergency department for different antibiotics for a urinary tract infection. Upon reviewing the urine culture, enterococcus was found in the urine, however the bacteria was shown to be resistant to levofloxacin and ciprofloxacin. Patient has an anaphylactic reaction to penicillin, eliminating several of the other antibiotic options. The alternative options are Macrobid and IV antibiotics. Repeat urinalysis did reveal the infection is clearing, however the patient is taking levofloxacin which has not shown to be a viable option on the urine culture. I spoke with the patient and his daughter, Maura, and neither of them can recall any kind of allergy to the Macrobid, despite it being listed on his chart as an allergy. I discussed the situation with Dr. Blanchard, and it was determined that we will have the patient try one dosage of Macrobid in the emergency department, monitor him for 90 minutes, and if he tolerates this without signs of an allergic reaction, we will switch him from the levofloxacin to the Macrobid. He tolerated the Macrobid without any problems. Will discharge the patient on a course of Macrobid and have him discontinue the levofloxacin. He does have a follow-up scheduled with his primary care provider for tomorrow. Return precautions reviewed in depth, the patient is instructed to return to the emergency department with any new, worsening, or concerning symptoms. Patient verbalized understanding. This case was discussed in detail with the attending ED physician. Presentation, findings, and treatment plan discussed in detail as well. - Lab Data Lab Results 07/03/21 Range/Units 10:29 Urine Color Yellow Urine Appearance Cloudy (Clear) Urine pH 6.0 (5.0-8.0) Ur Specific [place] 1.019 (1.001-1.035) Urine Protein Trace H (Negative) Urine Glucose (UA) Negative (Negative) Urine Ketones Negative (Negative) Urine Blood Trace H (Negative) Urine Nitrite Negative (Negative) Urine Bilirubin Negative (Negative) Urine Urobilinogen <2.0 (<2.0) mg/dL Ur Leukocyte Esterase Large H (Negative) Urine RBC 13 H (0-5) /hpf Urine WBC 23 H (0-5) /hpf Ur Squamous Epith Cells 3 (0-4) /hpf Urine Bacteria Rare H (None) /hpf Urine Mucus Occasional H (None) /hpf Disposition Clinical Impression: Urinary tract infection Disposition: HOME SELF-CARE Instructions (If sedation given, give patient instructions): Urinary Tract Infection in Men (ED) Additional Instructions: Return to the emergency department with any new, worsening, or concerning symptoms. Stop your current antibiotic (Levofloxacin) and begin the new antibiotic (Macrobid) and take it twice daily for 5 days. Follow-up with your primary care provider tomorrow as scheduled. Prescriptions: Nitrofurantoin Monohyd/M-Cryst [Macrobid] 100 mg PO Q12HR 5 Days #10 cap Is patient prescribed a controlled substance at d/c from ED?: No Referrals: [facility],Clinic [Primary Care Provider] - 1-2 days
== END 2021-07-03 13:28 | disposition home or self-care (01) ==
LOC: EC 09:57
DX: N39.0 Urinary tract infection, site not specified (principal); F17.200 Nicotine dependence, unspecified, uncomplicated; Z88.0 Allergy status to penicillin; Z88.1 Allergy status to other antibiotic agents; Z88.2 Allergy status to sulfonamides
CPT/HCPCS: 81001; 87086; 99283

== ENCOUNTER 2021-07-29 11:05 | Emergency (ER) | payer OTHER, MEDICARE ==
[2021-07-29] MEDS ORDERED: SODIUM CHLORIDE 0.9% 1,000 ML IV STA (11:35)
[2021-07-29] MEDS ORDERED: ONDANSETRON 4 MG/2 ML VIAL IVP STA (11:35)
--- NOTE | 2021-07-29 11:54 | XR ---
EXAMINATION TYPE: XR chest 2V DATE OF EXAM: 07/29/2021 COMPARISON: 06/28/2021 HISTORY: 76-year-old male weakness, shortness of breath, dyspnea TECHNIQUE: PA and lateral views FINDINGS: Heart normal size. Aorta and pulmonary vasculature within normal limits. Biapical pleural parenchymal scarring. Hyperinflation. Interstitial prominence unchanged. No consolidation or pleural effusion. IMPRESSION: COPD with advanced emphysema. No acute process seen.
--- NOTE | 2021-07-29 11:55 | XR ---
EXAMINATION TYPE: XR KUB DATE OF EXAM: 07/29/2021 Comparison: 04/20/2020 Clinical History: 76-year-old male constipation Findings: Lung bases are clear. No evidence for free intraperitoneal air. No dilated small bowel or air-fluid levels. Moderate overall stool burden. No suspicious calcifications are radiographically apparent. IMPRESSION: Moderate stool burden, possible constipation. Clinically correlate. No evidence for free air or bowel obstruction.
[2021-07-29 12:06] LABS: Basophils # (A) 0.1 k/uL (0-0.2); Basophils % (A) 0 %; Eosinophils # (A) 0.2 k/uL (0-0.7); Eosinophils % (A) 2 %; HCT 42.7 % (39.0-53.0); HGB 14.1 gm/dL (13.0-17.5); Lymphocytes # (A) 0.7 k/uL (1.0-4.8); Lymphocytes % (A) 5 %; MCH 29.7 pg (25.0-35.0); MCV 89.9 fL (80.0-100.0); Mean Platelet Volume 8.5; Monocytes # (A) 0.4 k/uL (0-1.0); Monocytes % (A) 3 %; Neutrophils # (A) 12.3 k/uL (1.3-7.7); Neutrophils % (A) 90 %; Platelet Count 222 k/uL (150-450); RBC 4.75 m/uL (4.30-5.90); RDW 12.2 % (11.5-15.5); WBC 13.7 k/uL (3.8-10.6)
[2021-07-29 12:08] LABS: Appearance,Urine Cloudy (Clear); Bacteria,Urine Rare /hpf; Bilirubin,Urine 1+ (Negative); Blood,Urine Negative (Negative); Color,Urine Yellow; Glucose,Urine (UA) Negative (Negative); Hyaline Casts,Urine 1 /lpf (0-2); Ketones,Urine 3+ (Negative); Leukocyte Esterase,Urine Trace (Negative); Mucus,Urine Few /hpf; Nitrite,Urine Negative (Negative); Protein,Urine Trace (Negative); RBC,Urine 1 /hpf (0-5); Specific Gravity,Urine 1.016 (1.001-1.035); Squamous Epithelial Cell,Urine 1 /hpf (0-4); WBC,Urine 6 /hpf (0-5)
[2021-07-29 12:14] LABS: Partial Thromboplastin Time 22.9 sec (22.0-30.0); Prothrombin Time 10.7 sec (9.0-12.0)
[2021-07-29 12:16] LABS: ALT 12 U/L (4-49); AST 19 U/L (17-59); African American GFR (CKD) >90 (>60 ml/min/1.73 sqM); Albumin 3.9 g/dL (3.5-5.0); Alkaline Phosphatase 67 U/L (38-126); Anion Gap 6 mmol/L; Blood Urea Nitrogen 16 mg/dL (9-20); Carbon Dioxide 22 mmol/L (22-30); Chloride 107 mmol/L (98-107); Glucose 107 mg/dL (74-99); Non-African American GFR(CKD) 78 (>60 ml/min/1.73 sqM); Sodium 135 mmol/L (137-145); Total Protein 6.9 g/dL (6.3-8.2)
--- NOTE | 2021-07-29 12:20 | ED ---
General Adult HPI - General Chief complaint: Urogenital Stated complaint: Weakness Time Seen by Provider: 07/29/21 11:21 Source: patient Mode of arrival: wheelchair Limitations: no limitations - History of Present Illness Initial comments: Patient is a 76-year-old male who presents to the emergency department with a chief complaint of penile burning around Christie catheter. Patient states his symptoms started yesterday. He endorses suprapubic pain. States he feels weak in general. No fever or chills. No back pain. No blood in his catheter bag that he has noticed. He states the bag was full this morning when he woke up and is continuing to fill as normal. He does have history of recurrent urinary tract infection and urinary retention. He also complains of constipation. Patient had a bowel movement today but states it was small pellets. Feels nauseous but no vomiting. Has no problems eating or drinking. No chest pain or shortness of breath. - Related Data Previous Rx's Medication Instructions Recorded Levofloxacin [Levaquin] 750 mg PO DAILY #10 tab 06/28/21 Nitrofurantoin Monohyd/M-Cryst 100 mg PO Q12HR 5 Days #10 cap 07/03/21 [Macrobid] Nitrofurantoin Monohyd/M-Cryst 100 mg PO Q12HR #10 cap 07/29/21 [Macrobid] Allergies Allergy/AdvReac Type Severity Reaction Status Date / Time nitrofurantoin Allergy Unknown Verified 07/29/21 11:12 [From Macrobid] Penicillins Allergy Anaphylaxis/Hives Verified 07/29/21 11:12 on entire body Sulfa (Sulfonamide Allergy Unknown Verified 07/29/21 11:12 Antibiotics) sulfamethoxazole Allergy Unknown Verified 07/29/21 11:12 [From Bactrim] trimethoprim [From Bactrim] Allergy Unknown Verified 07/29/21 11:12 Review of Systems ROS Statement: Those systems with pertinent positive or pertinent negative responses have been documented in the HPI. ROS Other: All systems not noted in ROS Statement are negative. Past Medical History Past Medical History: GERD/Reflux Additional Past Medical History / Comment(s): states "had Hep B or C back 1960's and now it's all healed", recurrent UTI's with IDC, has IDC due to issues with hernia, bladder stones, chronic christie catheter History of Any Multi-Drug Resistant Organisms: None Reported Past Surgical History: Back Surgery, Hernia Repair, Tonsillectomy Additional Past Surgical History / Comment(s): hemorrhoid surgery, back surgery x 2, rt inguinal hernia repair Past Anesthesia/Blood Transfusion Reactions: No Reported Reaction Additional Past Anesthesia/Blood Transfusion Reaction / Comment(s): no hx blood transfusion Past Psychological History: Depression Smoking Status: Current every day smoker Past Alcohol Use History: None Reported Past Drug Use History: None Reported - Past Family History Mother Family Medical History: Cancer Father Family Medical History: Cancer General Exam Limitations: no limitations General appearance: alert, in no apparent distress Head exam: Present: atraumatic, normocephalic, normal inspection Eye exam: Present: normal appearance, PERRL, EOMI. Absent: scleral icterus, conjunctival injection, periorbital swelling ENT exam: Present: normal oropharynx Neck exam: Present: normal inspection Respiratory exam: Present: normal lung sounds bilaterally. Absent: respiratory distress, wheezes, rales, rhonchi, stridor Cardiovascular Exam: Present: regular rate, normal rhythm, normal heart sounds. Absent: systolic murmur, diastolic murmur, rubs, gallop, clicks GI/Abdominal exam: Present: soft, tenderness (Suprapubicmild suprapubic ), normal bowel sounds. Absent: distended, guarding, rebound, rigid exam: Absent: testicular tenderness, urethral discharge, scrotal swelling External exam: Present: normal external exam. Absent: erythema, swelling, lesions Extremities exam: Present: normal capillary refill Back exam: Absent: CVA tenderness (R), CVA tenderness (L) Neurological exam: Present: alert, oriented X3, CN II-XII intact Psychiatric exam: Present: normal affect, normal mood Skin exam: Present: warm, dry, intact, normal color. Absent: rash Course Vital Signs 07/29/21 07/29/21 11:09 13:33 Temperature 97.7 F Pulse Rate 89 82 Respiratory 16 18 Rate Blood Pressure 83/60 113/68 O2 Sat by Pulse 95 95 Oximetry EKG Findings - EKG Comments: EKG Findings:: EKG taken at 12:02. Sinus rhythm, no ST elevation or depression. Ventricular rate 66. AL interval 157. QRS duration 88. QTC 423 Medical Decision Making - Medical Decision Making This is a 76-year-old male with history of recurrent urinary tract infection presenting with penile burning and suprapubic pain. Thorough history and examination were performed. Patient is well-appearing and in no apparent distress. Does complain of generalized weakness and constipation. He is afebrile. His blood pressure is low at 83/60 which appears abnormal for him. There is no erythema, swelling, or discharge visible near the penile head and urethral opening. Patient has mild tenderness with palpation of the suprapubic region. His abdomen is soft and nontender. No CVA tenderness. There is minimal light colored urine in the Christie catheter bag with no gross blood. Patient emptied the bag this morning. Etiology of weakness was explored. The patient's extensive urogenital history and clinical presentation I have high suspicion for urinary tract infection. L aboratory studies and imaging were obtained. Patient has elevated white count at 13.7. Urinalysis shows probable infection with rare bacteria and trace leukocyte esterace. Bladder scan shows about 150 mL of urine. Christie catheter was changed. Patient states he feels significantly better. Suprapubic pain is relieved. KUB x-ray was obtained for constipation which did show a moderate stool pattern. Patient was given soap david enema and had large bowel movement. With patient's current symptoms and urinalysis concerning for infection I will treat with Macrobid. Patient was diagnosed with urinary tract infection last month with urine culture showing resistance to levofloxacin. Since patient had penicillin allergy he was given Macrobid despite documented allergy with close observation for reaction. Patient tolerated medication well with no reaction and states it did improve his urinary tract infection symptoms. Patient received first dose in the emergency department. With stable vital signs, mildly elevated white count, and normal kidney function, patient is okay to manage as outpatient. Blood pressure improved with saline bolus. He is instructed to take medication as directed and to increase fluids. He is to follow-up with his primary care provider. Return parameters discussed. Patient verbalizes understanding and is agreeable to this plan. Dr. Cheatham is my attending. - Lab Data Result diagrams: 07/29/21 11:55 07/29/21 11:55 Lab Results 07/29/21 07/29/21 07/29/21 Range/Units 11:55 11:55 11:55 WBC 13.7 H (3.8-10.6) k/uL RBC 4.75 (4.30-5.90) m/uL Hgb 14.1 (13.0-17.5) gm/dL Hct 42.7 (39.0-53.0) % MCV 89.9 (80.0-100.0) fL MCH 29.7 (25.0-35.0) pg MCHC 33.0 (31.0-37.0) g/dL RDW 12.2 (11.5-15.5) % Plt Count 222 (150-450) k/uL MPV 8.5 Neutrophils % 90 % Lymphocytes % 5 % Monocytes % 3 % Eosinophils % 2 % Basophils % 0 % Neutrophils # 12.3 H (1.3-7.7) k/uL Lymphocytes # 0.7 L (1.0-4.8) k/uL Monocytes # 0.4 (0-1.0) k/uL Eosinophils # 0.2 (0-0.7) k/uL Basophils # 0.1 (0-0.2) k/uL PT 10.7 (9.0-12.0) sec INR 1.0 (<1.2) APTT 22.9 (22.0-30.0) sec Sodium (137-145) mmol/L Potassium (3.5-5.1) mmol/L Chloride (98-107) mmol/L Carbon Dioxide (22-30) mmol/L Anion Gap mmol/L BUN (9-20) mg/dL Creatinine (0.66-1.25) mg/dL Est GFR (CKD-EPI)AfAm (>60 ml/min/1.73 sqM) Est GFR (CKD-EPI)NonAf (>60 ml/min/1.73 sqM) Glucose (74-99) mg/dL Plasma Lactic Acid Omar (0.7-2.0) mmol/L Calcium (8.4-10.2) mg/dL Magnesium (1.6-2.3) mg/dL Total Bilirubin (0.2-1.3) mg/dL AST (17-59) U/L ALT (4-49) U/L Alkaline Phosphatase (38-126) U/L Troponin I (0.000-0.034) ng/mL Total Protein (6.3-8.2) g/dL Albumin (3.5-5.0) g/dL Urine Color Yellow Urine Appearance Cloudy (Clear) Urine pH 6.0 (5.0-8.0) Ur Specific [place] 1.016 (1.001-1.035) Urine Protein Trace H (Negative) Urine Glucose (UA) Negative (Negative) Urine Ketones 3+ H (Negative) Urine Blood Negative (Negative) Urine Nitrite Negative (Negative) Urine Bilirubin 1+ H (Negative) Urine Urobilinogen 2.0 (<2.0) mg/dL Ur Leukocyte Esterase Trace H (Negative) Urine RBC 1 (0-5) /hpf Urine WBC 6 H (0-5) /hpf Ur Squamous Epith Cells 1 (0-4) /hpf Urine Bacteria Rare H (None) /hpf Hyaline Casts 1 (0-2) /lpf Urine Mucus Few H (None) /hpf 07/29/21 07/29/21 07/29/21 Range/Units 11:55 11:55 11:55 WBC (3.8-10.6) k/uL RBC (4.30-5.90) m/uL Hgb (13.0-17.5) gm/dL Hct (39.0-53.0) % MCV (80.0-100.0) fL MCH (25.0-35.0) pg MCHC (31.0-37.0) g/dL RDW (11.5-15.5) % Plt Count (150-450) k/uL MPV Neutrophils % % Lymphocytes % % Monocytes % % Eosinophils % % Basophils % % Neutrophils # (1.3-7.7) k/uL Lymphocytes # (1.0-4.8) k/uL Monocytes # (0-1.0) k/uL Eosinophils # (0-0.7) k/uL Basophils # (0-0.2) k/uL PT (9.0-12.0) sec INR (<1.2) APTT (22.0-30.0) sec Sodium 135 L (137-145) mmol/L Potassium 4.0 (3.5-5.1) mmol/L Chloride 107 (98-107) mmol/L Carbon Dioxide 22 (22-30) mmol/L Anion Gap 6 mmol/L BUN 16 (9-20) mg/dL Creatinine 0.94 (0.66-1.25) mg/dL Est GFR (CKD-EPI)AfAm >90 (>60 ml/min/1.73 sqM) Est GFR (CKD-EPI)NonAf 78 (>60 ml/min/1.73 sqM) Glucose 107 H (74-99) mg/dL Plasma Lactic Acid Omar 1.0 (0.7-2.0) mmol/L Calcium 9.0 (8.4-10.2) mg/dL Magnesium 2.0 (1.6-2.3) mg/dL Total Bilirubin 1.0 (0.2-1.3) mg/dL AST 19 (17-59) U/L ALT 12 (4-49) U/L Alkaline Phosphatase 67 (38-126) U/L Troponin I <0.012 (0.000-0.034) ng/mL Total Protein 6.9 (6.3-8.2) g/dL Albumin 3.9 (3.5-5.0) g/dL Urine Color Urine Appearance (Clear) Urine pH (5.0-8.0) Ur Specific [place] (1.001-1.035) Urine Protein (Negative) Urine Glucose (UA) (Negative) Urine Ketones (Negative) Urine Blood (Negative) Urine Nitrite (Negative) Urine Bilirubin (Negative) Urine Urobilinogen (<2.0) mg/dL Ur Leukocyte Esterase (Negative) Urine RBC (0-5) /hpf Urine WBC (0-5) /hpf Ur Squamous Epith Cells (0-4) /hpf Urine Bacteria (None) /hpf Hyaline Casts (0-2) /lpf Urine Mucus (None) /hpf Disposition Clinical Impression: Constipation, UTI (urinary tract infection), Urinary retention, Christie catheter problem, Generalized weakness Disposition: HOME SELF-CARE Instructions (If sedation given, give patient instructions): Constipation (ED), Urinary Tract Infection in Men (ED), High Fiber Diet (ED) Additional Instructions: Please take antibiotic as directed. Increase fiber and fluid intake to prevent constipation. Follow-up with primary care provider in one to 2 days. Return to the emergency department if you experience new, concerning, or worsening symptoms. Prescriptions: Nitrofurantoin Monohyd/M-Cryst [Macrobid] 100 mg PO Q12HR #10 cap Is patient prescribed a controlled substance at d/c from ED?: No Referrals: [facility],Clinic [Primary Care Provider] - 1-2 days Time of Disposition: 14:38
[2021-07-29] MEDS ORDERED: NITROFURANTOIN MONOHYD/M-CRYST 100 MG CAP PO STA (12:56)
[2021-07-29 15:51] VITALS: BP 110/84; PULSE 18; RESP 61; TEMP 98.1
== END 2021-07-29 15:51 | disposition home or self-care (01) ==
LOC: EC 11:05
DX: R53.1 Weakness (principal); K59.00 Constipation, unspecified; N39.0 Urinary tract infection, site not specified; F17.200 Nicotine dependence, unspecified, uncomplicated; Z88.2 Allergy status to sulfonamides; Z88.3 Allergy status to other anti-infective agents; Z88.1 Allergy status to other antibiotic agents; Z88.0 Allergy status to penicillin
CPT/HCPCS: 51798; 36415; 93005; 80053; 83605; 83735; 84484; 85025; 85610; 85730; 81001; 71046; 74018; 99285; 96374; 96361; J2405

== ENCOUNTER 2021-09-18 01:12 | Emergency (ER) | payer OTHER, MEDICARE ==
[2021-09-18 01:17] VITALS: BP 139/88; PULSE 73; RESP 16; TEMP 98.1
--- NOTE | 2021-09-18 01:26 | ED ---
Male Urogenital HPI - General Chief complaint: Abdominal Pain Stated complaint: Urinary retention Time Seen by Provider: 09/18/21 01:14 Source: patient, EMS, RN notes reviewed, old records reviewed Mode of arrival: EMS Limitations: no limitations - History of Present Illness Initial comments: This is a 76-year-old male to the emergency department for evaluation patient has indwelling Christie coming in for severe severe abdominal pain patient has indwelling Christie catheter with no point over the last 8-10 hours unsure. Patient's pain is severe MD Complaint: other (groin pain abdominal pain) -: hour(s) Location: penis, abdomen Radiation: none Severity: severe Severity scale (1-10): 10 Quality: sharp Consistency: constant Improves with: none Worsens with: urination (Unable ER today with indwelling catheter) indwelling catheter Reports: urinary retention - Related Data Previous Rx's Medication Instructions Recorded Levofloxacin [Levaquin] 750 mg PO DAILY #10 tab 06/28/21 Nitrofurantoin Monohyd/M-Cryst 100 mg PO Q12HR 5 Days #10 cap 07/03/21 [Macrobid] Nitrofurantoin Monohyd/M-Cryst 100 mg PO Q12HR #10 cap 07/29/21 [Macrobid] Allergies Allergy/AdvReac Type Severity Reaction Status Date / Time nitrofurantoin Allergy Unknown Verified 09/18/21 01:14 [From Macrobid] Penicillins Allergy Anaphylaxis/Hives Verified 09/18/21 01:14 on entire body Sulfa (Sulfonamide Allergy Unknown Verified 09/18/21 01:14 Antibiotics) sulfamethoxazole Allergy Unknown Verified 09/18/21 01:14 [From Bactrim] trimethoprim [From Bactrim] Allergy Unknown Verified 09/18/21 01:14 Review of Systems ROS Statement: Those systems with pertinent positive or pertinent negative responses have been documented in the HPI. ROS Other: All systems not noted in ROS Statement are negative. Past Medical History Past Medical History: GERD/Reflux Additional Past Medical History / Comment(s): states "had Hep B or C back 1960's and now it's all healed", recurrent UTI's with IDC, has IDC due to issues with hernia, bladder stones, chronic christie catheter History of Any Multi-Drug Resistant Organisms: None Reported Past Surgical History: Back Surgery, Hernia Repair, Tonsillectomy Additional Past Surgical History / Comment(s): hemorrhoid surgery, back surgery x 2, rt inguinal hernia repair Past Anesthesia/Blood Transfusion Reactions: No Reported Reaction Additional Past Anesthesia/Blood Transfusion Reaction / Comment(s): no hx blood transfusion Past Psychological History: Depression Smoking Status: Current every day smoker Past Alcohol Use History: None Reported Past Drug Use History: None Reported - Past Family History Mother Family Medical History: Cancer Father Family Medical History: Cancer General Exam Limitations: no limitations General appearance: alert, in no apparent distress, anxious Head exam: Present: atraumatic, normocephalic, normal inspection Eye exam: Present: normal appearance, PERRL, EOMI. Absent: scleral icterus, conjunctival injection, periorbital swelling ENT exam: Present: normal exam, mucous membranes moist Neck exam: Present: normal inspection. Absent: tenderness, meningismus, lymphadenopathy Respiratory exam: Present: normal lung sounds bilaterally. Absent: respiratory distress, wheezes, rales, rhonchi, stridor Cardiovascular Exam: Present: regular rate, normal rhythm, normal heart sounds. Absent: systolic murmur, diastolic murmur, rubs, gallop, clicks GI/Abdominal exam: Present: soft, normal bowel sounds. Absent: distended, tenderness, guarding, rebound, rigid Extremities exam: Present: normal inspection, full ROM, normal capillary refill. Absent: tenderness, pedal edema, joint swelling, calf tenderness Back exam: Present: normal inspection Neurological exam: Present: alert, oriented X3, CN II-XII intact Psychiatric exam: Present: normal affect, normal mood Skin exam: Present: warm, dry, intact, normal color. Absent: rash Course Vital Signs 09/18/21 01:14 Temperature 98.1 F Pulse Rate 73 Respiratory 16 Rate Blood Pressure 139/88 O2 Sat by Pulse 98 Oximetry - Reevaluation(s) Reevaluation #1: 09/18/21 01:36 Medical record is reviewed Reevaluation #2: 09/18/21 01:36 Patient is fully replace it feels well Reevaluation #3: 09/18/21 01:37 Patient symptoms are improved Procedures - Catheter Insertion (Urinary) Indications: replaced: fell out/removed/no longer functioning Prophylactic Antibiotics Given: No Bladder Scan/US before Catheterization: No Preparation: Povidone-Iodine Type of Catheter Inserted: Christie Catheter Balloon Size (mLs): 10 Topical Anesthesia Used: Yes Results: successfully catheterized-immediate flow Patient Tolerated Procedure: well Complications: none Medical Decision Making - Medical Decision Making 76 male with malfunctioning Christie catheter catheter is replaced here in the ER patient can be discharged home Disposition Clinical Impression: Malfunction of Christie catheter Disposition: HOME SELF-CARE Condition: Good Instructions (If sedation given, give patient instructions): Christie Catheter Placement and Care (ED) Is patient prescribed a controlled substance at d/c from ED?: No Referrals: [facility],Clinic [Primary Care Provider] - 1-2 days
[2021-09-18 01:57] LABS: Appearance,Urine Cloudy (Clear); Bacteria,Urine Few /hpf; Bilirubin,Urine Negative (Negative); Blood,Urine Large (Negative); Color,Urine Light Yellow; Glucose,Urine (UA) Negative (Negative); Ketones,Urine Negative (Negative); Leukocyte Esterase,Urine Large (Negative); Mucus,Urine Rare /hpf; Nitrite,Urine Negative (Negative); Protein,Urine Negative (Negative); RBC,Urine 106 /hpf (0-5); Specific Gravity,Urine 1.008 (1.001-1.035); Squamous Epithelial Cell,Urine <1 /hpf (0-4); Urobilinogen,Urine <2.0 mg/dL (<2.0); WBC,Urine 72 /hpf (0-5)
== END 2021-09-18 04:13 | disposition home or self-care (01) ==
LOC: EC 01:12
DX: T83.091A Other mechanical complication of indwelling urethral catheter, initial encounter (principal); F17.200 Nicotine dependence, unspecified, uncomplicated; Z88.0 Allergy status to penicillin; Z88.2 Allergy status to sulfonamides; Z88.3 Allergy status to other anti-infective agents; Z88.8 Allergy status to other drugs, medicaments and biological substances
CPT/HCPCS: 51701; 81001; 87077; 87086; 87186; 99284

== ENCOUNTER 2022-01-07 07:03 | Day surgery (SDC) | payer OTHER ==
[2022-01-03 11:35] VITALS: BMI 19.9
[~2022-01-07 07:03] MED LIST changes: +ACETAMINOPHEN TAB 500 MG TAB PO PRN; +HEPARIN SODIUM,PORCINE/PF 5,000 UNIT/0.5 ML SYRINGE SQ PRN; -LEVOFLOXACIN 500MG-D5W PMX 500 MG in DEXTROSE/WATER 1 100ML.BAG IVPB PRN; +fentaNYL (PF) 50 MCG/ML 2 ML AMP IV PRN
[2022-01-07] MEDS ORDERED: fentaNYL (PF) 50 MCG/ML 2 ML AMP IVP ONE (08:01)
[2022-01-07] MEDS ORDERED: MIDAZOLAM 2 MG/2 ML VIAL IVP ONE (08:01)
[2022-01-07 08:16] VITALS: RESP 16
--- NOTE | 2022-01-07 08:20 | P.ANPRN ---
Procedure Note - Anesthesia - Nerve Block Performed Right Transversus Abdominis Single Time Out Performed: Yes Date of Procedure: 01/07/22 Procedure Start Time: 08:00 Procedure Stop Time: 08:05 Location of Patient: PreOp Indication: Requested by Surgeon Sedation Type: Sedate with meaningful contact maintained Preparation: Sterile Prep Position: Supine Needle Types: Pajunk Needle Gauge: 21 Ultrasound used to visualize needle placement: Yes Ultrasound used to observe medication spread: Yes Injectate: 0.5% Ropivacaine (see comment for volume) (20 ml +10 ml NS +4 mg Dexametasone) Blood Aspirated: No Pain Paresthesia on Injection Noted: No Resistance on Injection: Normal Image Stored and Saved: Yes Events: Uneventful and Well Tolerated
--- NOTE | 2022-01-07 09:28 | P.GSHP ---
History of Present Illness H&P Date: 01/07/22 Chief Complaint: Recurrent right inguinal hernia This a 76-year-old male who presents today for open repair of recurrent radial hernia. Patient's complaints of tender masses right groin. Past Medical History Past Medical History: GERD/Reflux Additional Past Medical History / Comment(s): states "had Hep B or C back 1959's and now it's all healed", recurrent UTI's with IDC, has IDC due to issues with hernia, bladder stones, chronic christie catheter History of Any Multi-Drug Resistant Organisms: None Reported Past Surgical History: Back Surgery, Hernia Repair, Tonsillectomy Additional Past Surgical History / Comment(s): hemorrhoid surgery, back surgery x 2, rt inguinal hernia repair Past Anesthesia/Blood Transfusion Reactions: No Reported Reaction Additional Past Anesthesia/Blood Transfusion Reaction / Comment(s): no hx blood transfusion Smoking Status: Current every day smoker - Past Family History Mother Family Medical History: Cancer Father Family Medical History: Cancer Medications and Allergies Home Medications Medication Instructions Recorded Confirmed Type HYDROcodone/APAP 7.5-325MG [Excello 1 tab PO DAILY PRN 01/03/22 01/07/22 History 7.5-325] L.acidoph,Paracasei, B.lactis 1 each PO DAILY 01/03/22 01/07/22 History [Probiotic] Melatonin 5 - 10 mg PO HS PRN 01/03/22 01/07/22 History Allergies Allergy/AdvReac Type Severity Reaction Status Date / Time nitrofurantoin Allergy Unknown Verified 01/07/22 07:47 [From Macrobid] Penicillins Allergy Anaphylaxis/Hives Verified 01/07/22 07:47 on entire body Sulfa (Sulfonamide Allergy Unknown Verified 01/07/22 07:47 Antibiotics) sulfamethoxazole Allergy Unknown Verified 01/07/22 07:47 [From Bactrim] trimethoprim [From Bactrim] Allergy Unknown Verified 01/07/22 07:47 Surgical - Exam Vital Signs Temp Pulse Resp BP Pulse Ox 97.0 F L 56 L 18 118/67 98 01/07/22 07:20 01/07/22 07:20 01/07/22 07:20 01/07/22 07:20 01/07/22 07:20 - General well developed, well nourished, no distress - Eyes PERRL - ENT normal pinna - Neck no masses - Respiratory normal expansion - Cardiovascular Rhythm: regular - Abdomen Recurrent right inguinal hernia Abdomen: soft, non tender Assessment and Plan Assessment: Recurrent right inguinal hernia. We'll perform open repair
[2022-01-07] MEDS ORDERED: ROCURONIUM 10 MG/ML (5 ML VIAL) IV ONE (09:37)
[2022-01-07] MEDS ORDERED: LIDOCAINE 2% INJ 20 MG/ML (2 ML VIAL) ONE (09:37)
[2022-01-07] MEDS ORDERED: SUCCINYLCHOLINE CHLORIDE 200 MG/10 ML VIAL IV ONE (09:37)
[2022-01-07] MEDS ORDERED: GLYCOPYRROLATE 0.2 MG/ML 2 ML VIAL ONE (09:37)
[2022-01-07] MEDS ORDERED: DEXAMETHASONE SOD PHOSPHATE 4 MG/ML 1 ML VIAL ONE (09:37)
[2022-01-07] MEDS ORDERED: ROPIVACAINE 5 MG/ML 30 ML VIAL ONE (09:37)
[2022-01-07] MEDS ORDERED: SODIUM CHLORIDE 0.9% (PF) 10 ML VIAL ONE (09:37)
[2022-01-07] MEDS ORDERED: NEOSTIGMINE 1 MG/ML 10 ML VIAL ONE (09:37)
[2022-01-07] MEDS ORDERED: PROPOFOL 10 MG/ML 20 ML VIAL IV ONE (09:37)
[2022-01-07] MEDS ORDERED: fentaNYL (PF) 50 MCG/ML 2 ML AMP ONE (09:37)
[2022-01-07] MEDS ORDERED: BUPIVACAINE (PF) 0.25% 30 ML VIAL SQ ONE (10:05)
[2022-01-07 10:37] VITALS: TEMP 96.8
--- NOTE | 2022-01-07 10:37 | P.OP ---
Date of Procedure: 01/07/22 Preoperative Diagnosis: Recurrent right inguinal hernia Postoperative Diagnosis: Recurrent right inguinal hernia Procedure(s) Performed: (Of recurrent right inguinal hernia Anesthesia: ALEX Surgeon: Jay Jay Johnson Estimated Blood Loss (ml): 5 Pathology: none sent Condition: stable Disposition: PACU Description of Procedure: DESCRIPTION OF PROCEDURE: The patient was placed in the supine position after receiving adequate anesthesia. Patients groin was prepped and draped in the usual sterile fashion. A standard hernia incision was made and the subcutaneous tissues were divided with electrocautery. The fascia of the external oblique was exposed. A alfredo the fascia was made with #15 blade. The fascia was then opened with pair of Metzenbaum scissors. A Weitlaner retractor was placed in the wound and the cord structures were grasped and dissected free from the inguinal canal. A rubber Joey drain was placed around the cord structures. The hernial sac was seen on the anterior-medial portion of the cord and this was dissected free from the cord. The hernia sac was then invaginated to the peritoneal cavity. A piece of Prolene mesh was cut to appropriate size. This was secured to the pubic tubercle medially with 2-0 Prolene suture. The lateral release was incised and wrapped of the cord. The mesh was secured to the shelving edge of the inguinal ligament using 2-0 Prolene suture. The fascia external oblique was closed with 0 Vicryl suture. Alva's fascia closed with 2-0 Vicryl suture. Skin was closed interrupted 3-0 Monocryl suture. Dermabond was applied. Patient top she will sent to recovery room in stable condition.
[2022-01-07 12:11] VITALS: BP 115/61; PULSE 52
== END 2022-01-07 12:21 | disposition home or self-care (01) ==
LOC: OR 07:03
PROVIDERS: ATTEND Surgery
DX: K40.91 Unilateral inguinal hernia, without obstruction or gangrene, recurrent (principal); G89.18 Other acute postprocedural pain; K21.9 Gastro-esophageal reflux disease without esophagitis; N21.0 Calculus in bladder; F17.200 Nicotine dependence, unspecified, uncomplicated; Z98.890 Other specified postprocedural states; Z90.89 Acquired absence of other organs; Z80.9 Family history of malignant neoplasm, unspecified; Z79.899 Other long term (current) drug therapy; Z88.3 Allergy status to other anti-infective agents; Z88.0 Allergy status to penicillin; Z88.1 Allergy status to other antibiotic agents; Z88.2 Allergy status to sulfonamides
CPT/HCPCS: 49520; 64488; C1781; J2250; J0330; J1100; J2710; J0690; J2405; J3010; J2795; J2704; J1644; J2001

== ENCOUNTER 2022-03-07 16:56 | Emergency (ER) | payer OTHER, MEDICARE ==
[2022-03-07 17:38] VITALS: PULSE 95; RESP 18; TEMP 97.7
--- NOTE | 2022-03-07 20:19 | ED ---
General Adult HPI - General Chief complaint: Recheck/Abnormal Lab/Rx Stated complaint: Catheter Problems Time Seen by Provider: 03/07/22 20:08 Source: patient, RN notes reviewed Mode of arrival: ambulatory Limitations: no limitations - History of Present Illness Initial comments: 76-year-old male presents to the emergency department for Jesus c atheter problem. She notes that at approximately 1300 ths afternoon his jesus catheter no longer draining. Patient came to the emergency room to be evaluated shortly after. He denies any fever flank pain dysuria or hematuria. 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 He notes that he has had a Jesus catheter placed for 5 years after he got a hernia repair surgery. - Related Data Home Medications Medication Instructions Recorded Confirmed HYDROcodone/APAP 7.5-325MG [[place] 1 tab PO DAILY PRN 01/03/22 01/07/22 7.5-325] L.acidoph,Paracasei, B.lactis 1 each PO DAILY 01/03/22 01/07/22 [Probiotic] Melatonin 5 - 10 mg PO HS PRN 01/03/22 01/07/22 Previous Rx's Medication Instructions Recorded Acetaminophen Tab [Tylenol] 650 mg PO Q6H #30 tab 01/07/22 Docusate [Colace] 100 mg PO BID #20 capsule 01/07/22 Ibuprofen [Motrin] 600 mg PO Q6HR PRN #40 tab 01/07/22 oxyCODONE HCL [OxyIR] 5 mg PO Q6H PRN 3 Days #10 tab 01/07/22 Allergies Allergy/AdvReac Type Severity Reaction Status Date / Time nitrofurantoin Allergy Unknown Verified 01/07/22 07:47 [From Macrobid] Penicillins Allergy Anaphylaxis/Hives Verified 01/07/22 07:47 on entire body Sulfa (Sulfonamide Allergy Unknown Verified 01/07/22 07:47 Antibiotics) sulfamethoxazole Allergy Unknown Verified 01/07/22 07:47 [From Bactrim] trimethoprim [From Bactrim] Allergy Unknown Verified 01/07/22 07:47 Review of Systems ROS Statement: Those systems with pertinent positive or pertinent negative responses have been documented in the HPI. ROS Other: All systems not noted in ROS Statement are negative. Past Medical History Past Medical History: GERD/Reflux Additional Past Medical History / Comment(s): states "had Hep B or C back 1959's and now it's all healed", recurrent UTI's with IDC, has IDC due to issues with hernia, bladder stones, chronic jesus catheter History of Any Multi-Drug Resistant Organisms: None Reported Past Surgical History: Back Surgery, Hernia Repair, Tonsillectomy Additional Past Surgical History / Comment(s): hemorrhoid surgery, back surgery x 2, rt inguinal hernia repair Past Anesthesia/Blood Transfusion Reactions: No Reported Reaction Additional Past Anesthesia/Blood Transfusion Reaction / Comment(s): no hx blood transfusion Past Psychological History: Depression Smoking Status: Current every day smoker Past Alcohol Use History: None Reported Past Drug Use History: None Reported - Past Family History Mother Family Medical History: Cancer Father Family Medical History: Cancer General Exam Limitations: no limitations General appearance: alert, in no apparent distress Head exam: Present: atraumatic, normocephalic, normal inspection Eye exam: Present: normal appearance, PERRL, EOMI. Absent: scleral icterus, conjunctival injection, periorbital swelling ENT exam: Present: normal exam, mucous membranes moist Neck exam: Present: normal inspection. Absent: tenderness, meningismus, lymphadenopathy Respiratory exam: Present: normal lung sounds bilaterally. Absent: respiratory distress, wheezes, rales, rhonchi, stridor Cardiovascular Exam: Present: regular rate, normal rhythm, normal heart sounds. Absent: systolic murmur, diastolic murmur, rubs, gallop, clicks GI/Abdominal exam: Present: soft, normal bowel sounds. Absent: distended, tenderness, guarding, rebound, rigid exam: Present: normal inspection. Absent: scrotal swelling External exam: Present: normal external exam (Jesus catheter present with 400cc's of clear yellow, output no blood present.). Absent: erythema, swelling, lesions, lacerations, ecchymosis Extremities exam: Present: normal inspection, full ROM, normal capillary refill. Absent: tenderness, pedal edema, joint swelling, calf tenderness Back exam: Present: normal inspection Neurological exam: Present: alert, oriented X3, CN II-XII intact Course Vital Signs 03/07/22 17:34 Temperature 97.7 F Pulse Rate 95 Respiratory 18 Rate Blood Pressure 150/77 O2 Sat by Pulse 98 Oximetry Medical Decision Making - Medical Decision Making 76-year-old male presents the emergency department with a Jesus catheter problem. Patient had REMOVED AND NEW JESUS PLACED WHICH IS currently DRAINING Clear yellow urine. All other aspects of physical exam essentially unremarkable. Patient is agreeable to plan for discharge with follow-up with urology in 1-2 days. All questions were addressed patient was discharged in stable condition, return precautions were discussed. I discussed the case with Dr. Troy who agrees with plan for discharge.. Disposition Clinical Impression: Jesus catheter problem Disposition: HOME SELF-CARE Condition: Stable Instructions (If sedation given, give patient instructions): Jesus Catheter Placement and Care (ED) Additional Instructions: Return to the nearest emergency department if fever, flank pain, symptoms persist. Is patient prescribed a controlled substance at d/c from ED?: No Referrals: [facility],Clinic [Primary Care Provider] - 1-2 days jA Smith MD [STAFF PHYSICIAN] - 1-2 days Time of Disposition: 20:25
[2022-03-07 20:52] VITALS: BP 150/80
== END 2022-03-07 20:52 | disposition home or self-care (01) ==
LOC: EC 16:56
DX: T85.9XXA Unspecified complication of internal prosthetic device, implant and graft, initial encounter (principal); F32.A Depression, unspecified; F17.200 Nicotine dependence, unspecified, uncomplicated; Z88.0 Allergy status to penicillin; Z88.1 Allergy status to other antibiotic agents; Z88.2 Allergy status to sulfonamides
CPT/HCPCS: 51702; 99282

== ENCOUNTER 2022-07-14 12:00 | Emergency (ER) | payer OTHER, MEDICARE ==
[2022-07-14 12:20] VITALS: RESP 18; TEMP 99
[2022-07-14] MEDS ORDERED: LIDOCAINE 2% URO-JET JELLY 5 ML KIT URETHRAL ONE (12:39)
[2022-07-14] MEDS ORDERED: MORPHINE SULFATE 2 MG/ML SYRINGE IVP STA (13:27)
--- NOTE | 2022-07-14 13:29 | ED ---
General Adult HPI - General Chief complaint: Urogenital Stated complaint: Catheter Issues Time Seen by Provider: 07/14/22 12:22 Source: patient, RN notes reviewed Mode of arrival: ambulatory Limitations: no limitations - History of Present Illness Initial comments: Patient is a pleasant 77-year-old male presenting to the emergency department with concerns for point catheter not draining. Patient has had catheter for around 6 years and noticed there is less output today. Patient also has some diffuse abdominal discomfort, unclear when this started. Patient states while in the emergency department he did get increased drainage from his Christie cath eter, approximately half the back. Which he feels is close to normal. Following this we did change the catheter and patient has no change of his discomfort in his abdomen. Patient states it is not severe. - Related Data Home Medications Medication Instructions Recorded Confirmed HYDROcodone/APAP 7.5-325MG [[place] 1 tab PO DAILY PRN 01/03/22 01/07/22 7.5-325] L.acidoph,Paracasei, B.lactis 1 each PO DAILY 01/03/22 01/07/22 [Probiotic] Melatonin 5 - 10 mg PO HS PRN 01/03/22 01/07/22 Previous Rx's Medication Instructions Recorded Acetaminophen Tab [Tylenol] 650 mg PO Q6H #30 tab 01/07/22 Docusate [Colace] 100 mg PO BID #20 capsule 01/07/22 Ibuprofen [Motrin] 600 mg PO Q6HR PRN #40 tab 01/07/22 oxyCODONE HCL [OxyIR] 5 mg PO Q6H PRN 3 Days #10 tab 01/07/22 Cephalexin [Keflex] 500 mg PO QID #40 cap 07/14/22 Allergies Allergy/AdvReac Type Severity Reaction Status Date / Time nitrofurantoin Allergy Unknown Verified 07/14/22 12:17 [From Macrobid] Penicillins Allergy Anaphylaxis/Hives Verified 07/14/22 12:17 on entire body Sulfa (Sulfonamide Allergy Unknown Verified 07/14/22 12:17 Antibiotics) sulfamethoxazole Allergy Unknown Verified 07/14/22 12:17 [From Bactrim] trimethoprim [From Bactrim] Allergy Unknown Verified 07/14/22 12:17 Review of Systems ROS Statement: Those systems with pertinent positive or pertinent negative responses have been documented in the HPI. ROS Other: All systems not noted in ROS Statement are negative. Constitutional: Denies: fever Eyes: Denies: eye pain ENT: Denies: ear pain Respiratory: Denies: cough Cardiovascular: Denies: chest pain Gastrointestinal: Reports: as per HPI, abdominal pain Genitourinary: Reports: as per HPI Musculoskeletal: Denies: back pain Skin: Denies: rash Past Medical History Past Medical History: GERD/Reflux Additional Past Medical History / Comment(s): states "had Hep B or C back and now it's all healed", recurrent UTI's with IDC, has IDC due to issues with hernia, bladder stones, chronic christie catheter History of Any Multi-Drug Resistant Organisms: None Reported Past Surgical History: Back Surgery, Hernia Repair, Tonsillectomy Additional Past Surgical History / Comment(s): hemorrhoid surgery, back surgery x 2, rt inguinal hernia repair Past Anesthesia/Blood Transfusion Reactions: No Reported Reaction Additional Past Anesthesia/Blood Transfusion Reaction / Comment(s): no hx blood transfusion Past Psychological History: Depression Smoking Status: Current every day smoker Past Alcohol Use History: None Reported Past Drug Use History: None Reported - Past Family History Mother Family Medical History: Cancer Father Family Medical History: Cancer General Exam Limitations: no limitations General appearance: alert, in no apparent distress Head exam: Present: normocephalic Eye exam: Present: normal appearance Neck exam: Present: normal inspection Respiratory exam: Present: normal lung sounds bilaterally Cardiovascular Exam: Present: regular rate, normal rhythm Expanded Peripheral pulses: 2+: Posterior Tibialis (R), Posterior Tibialis (L) GI/Abdominal exam: Present: soft, tenderness (Mild diffuse tenderness, more so in the suprapubic region), normal bowel sounds. Absent: distended, guarding, rebound, rigid, pulsatile mass exam: Present: normal inspection, other (Christie catheter in place) Extremities exam: Present: normal inspection Neurological exam: Present: alert Psychiatric exam: Present: normal affect, normal mood Skin exam: Present: normal color Course Vital Signs 07/14/22 12:17 Temperature 99 F Pulse Rate 78 Respiratory 18 Rate Blood Pressure 147/66 O2 Sat by Pulse 100 Oximetry Medical Decision Making - Medical Decision Making Was pt. sent in by a medical professional or institution (, PA, GENERAL FREIGHT AGENT, urgent care, hospital, or intermediate...) When possible be specific @ -No Did you speak to anyone other than the patient for history (EMS, parent, family, police, friend...)? What history was obtained from this source @ -No Did you review nursing and triage notes (agree or disagree)? Why? @ -I reviewed and agree with nursing and triage notes Were old charts reviewed (outside hosp., previous admission, EMS record, old E KG, old radiological studies, urgent care reports/EKG's, intermediate records)? Report findings @ -No old charts were reviewed Differential Diagnosis (chest pain, altered mental status, abdominal pain women, abdominal pain men, vaginal bleeding, weakness, fever, dyspnea, syncope, headache, dizziness, GI bleed, back pain, seizure, CVA, palpatations, mental hea lth)? @ -not applicable EKG interpreted by me (3pts min.). @ -As above X-rays interpreted by me (1pt min.). @ -None done CT interpreted by me (1pt min.). @ -Report reviewed U/S interpreted by me (1pt. min.). @ -None done What testing was considered but not performed or refused? (CT, X-rays, U/S, labs)? Why? @ -None What meds were considered but not given or refused? Why? @ -None Did you discuss the management of the patient with other professionals (professionals i.e. , PA, GENERAL FREIGHT AGENT, lab, RT, psych nurse, dialysis social worker, sales merchandiser, te acher, patrol community service officer, case management coordinator)? Give summary @ -No Was smoking cessation discussed for >3mins.? @ -No Was critical care preformed (if so, how long)? @ -No Were there social determinants of health that impacted care today? How? (Homelessness, low income, unemployed, alcoholism, drug addiction, transportation, low edu. Level, literacy, decrease access to med. care, longterm, rehab)? @ -No Was there de-escalation of care discussed even if they declined (Discuss DNR or withdrawal of care, Hospice)? DNR status @ -No What co-morbidities impacted this encounter? (DM, HTN, Smoking, COPD, CAD, Cancer, CVA, ARF, Chemo, Hep., AIDS, mental health diagnosis, sleep apnea, morbid obesity)? @ -None Was patient admitted / discharged? Hospital course, mention meds given and rou te, prescriptions, significant lab abnormalities, going to OR and other pertinent info. @ -Patient reevaluated and feeling much better patient patient updated on results and plan. Patient will be discharged with antibiotic coverage. Undiagnosed new problem with uncertain prognosis? @ -No Drug Therapy requiring intensive monitoring for toxicity (Heparin, Nitro, Insulin, Cardizem)? @ -No Were any procedures done? @ -No Diagnosis/symptom? @ -Cystitis Acute, or Chronic, or Acute on Chronic? @ -Acute Uncomplicated (without systemic symptoms) or Complicated (systemic symptoms)? @ -default Side effects of treatment? @ -No Exacerbation, Progression, or Severe Exacerbation? @ -No Poses a threat to life or bodily function? How? (Chest pain, USA, DC, pneumonia, PE, COPD, DKA, ARF, appy, cholecystitis, CVA, Diverticulitis, Homicidal, Suicidal, threat to staff... and all critical care pts) @ -No - Lab Data Result diagrams: 07/14/22 13:35 07/14/22 13:35 Lab Results 07/14/22 07/14/22 07/14/22 Range/Units 13:35 13:35 13:35 WBC 5.2 (3.8-10.6) k/uL RBC 4.89 (4.30-5.90) m/uL Hgb 14.4 (13.0-17.5) gm/dL Hct 43.1 (39.0-53.0) % MCV 88.2 (80.0-100.0) fL MCH 29.5 (25.0-35.0) pg MCHC 33.4 (31.0-37.0) g/dL RDW 12.5 (11.5-15.5) % Plt Count 200 (150-450) k/uL MPV 8.1 Neutrophils % 71 % Lymphocytes % 20 % Monocytes % 4 % Eosinophils % 4 % Basophils % 1 % Neutrophils # 3.7 (1.3-7.7) k/uL Lymphocytes # 1.0 (1.0-4.8) k/uL Monocytes # 0.2 (0-1.0) k/uL Eosinophils # 0.2 (0-0.7) k/uL Basophils # 0.0 (0-0.2) k/uL PT 10.5 (9.0-12.0) sec INR 1.0 (<1.2) APTT 22.4 (22.0-30.0) sec Sodium 139 (137-145) mmol/L Potassium 4.2 (3.5-5.1) mmol/L Chloride 106 (98-107) mmol/L Carbon Dioxide 24 (22-30) mmol/L Anion Gap 9 mmol/L BUN 17 (9-20) mg/dL Creatinine 0.75 (0.66-1.25) mg/dL Est GFR (CKD-EPI)AfAm >90 (>60 ml/min/1.73 sqM) Est GFR (CKD-EPI)NonAf 88 (>60 ml/min/1.73 sqM) Glucose 93 (74-99) mg/dL Calcium 9.0 (8.4-10.2) mg/dL Total Bilirubin 0.7 (0.2-1.3) mg/dL AST 20 (17-59) U/L ALT 17 (4-49) U/L Alkaline Phosphatase 58 (38-126) U/L Total Protein 6.7 (6.3-8.2) g/dL Albumin 3.8 (3.5-5.0) g/dL Amylase 47 (30-110) U/L Lipase 103 (23-300) U/L Urine Color Urine Appearance (Clear) Urine pH (5.0-8.0) Ur Specific [place] (1.001-1.035) Urine Protein (Negative) Urine Glucose (UA) (Negative) Urine Ketones (Negative) Urine Blood (Negative) Urine Nitrite (Negative) Urine Bilirubin (Negative) Urine Urobilinogen (<2.0) mg/dL Ur Leukocyte Esterase (Negative) Urine RBC (0-5) /hpf Urine WBC (0-5) /hpf Urine WBC Clumps (None) /hpf Ur Squamous Epith Cells (0-4) /hpf Amorphous Sediment (None) /hpf Urine Bacteria (None) /hpf Urine Mucus (None) /hpf 07/14/22 Range/Units 13:35 WBC (3.8-10.6) k/uL RBC (4.30-5.90) m/uL Hgb (13.0-17.5) gm/dL Hct (39.0-53.0) % MCV (80.0-100.0) fL MCH (25.0-35.0) pg MCHC (31.0-37.0) g/dL RDW (11.5-15.5) % Plt Count (150-450) k/uL MPV Neutrophils % % Lymphocytes % % Monocytes % % Eosinophils % % Basophils % % Neutrophils # (1.3-7.7) k/uL Lymphocytes # (1.0-4.8) k/uL Monocytes # (0-1.0) k/uL Eosinophils # (0-0.7) k/uL Basophils # (0-0.2) k/uL PT (9.0-12.0) sec INR (<1.2) APTT (22.0-30.0) sec Sodium (137-145) mmol/L Potassium (3.5-5.1) mmol/L Chloride (98-107) mmol/L Carbon Dioxide (22-30) mmol/L Anion Gap mmol/L BUN (9-20) mg/dL Creatinine (0.66-1.25) mg/dL Est GFR (CKD-EPI)AfAm (>60 ml/min/1.73 sqM) Est GFR (CKD-EPI)NonAf (>60 ml/min/1.73 sqM) Glucose (74-99) mg/dL Calcium (8.4-10.2) mg/dL Total Bilirubin (0.2-1.3) mg/dL AST (17-59) U/L ALT (4-49) U/L Alkaline Phosphatase (38-126) U/L Total Protein (6.3-8.2) g/dL Albumin (3.5-5.0) g/dL Amylase (30-110) U/L Lipase (23-300) U/L Urine Color Light Red Urine Appearance Turbid (Clear) Urine pH 6.5 (5.0-8.0) Ur Specific [place] 1.021 (1.001-1.035) Urine Protein 3+ H (Negative) Urine Glucose (UA) Negative (Negative) Urine Ketones 1+ H (Negative) Urine Blood Large H (Negative) Urine Nitrite Positive (Negative) Urine Bilirubin Negative (Negative) Urine Urobilinogen <2.0 (<2.0) mg/dL Ur Leukocyte Esterase Large H (Negative) Urine RBC >182 H (0-5) /hpf Urine WBC >182 H (0-5) /hpf Urine WBC Clumps Few H (None) /hpf Ur Squamous Epith Cells 7 H (0-4) /hpf Amorphous Sediment Rare H (None) /hpf Urine Bacteria Occasional H (None) /hpf Urine Mucus Occasional H (None) /hpf Disposition Clinical Impression: Cystitis Disposition: HOME SELF-CARE Condition: Stable Instructions (If sedation given, give patient instructions): Urinary Tract Infection in Men (ED) Additional Instructions: Please do follow-up with primary care physician in the next day or 2 for recheck. Return for fever, increased pain, not passing urine, worsening or changing symptoms or other concerns. Prescription has been sent to pharmacy. Prescriptions: Cephalexin [Keflex] 500 mg PO QID #40 cap Is patient prescribed a controlled substance at d/c from ED?: No [facility] [Primary Care Provider] - 1-2 days Time of Disposition: 15:36
[2022-07-14 14:00] LABS: Basophils % (A) 1 %; Eosinophils # (A) 0.2 k/uL (0-0.7); Eosinophils % (A) 4 %; HCT 43.1 % (39.0-53.0); HGB 14.4 gm/dL (13.0-17.5); Lymphocytes % (A) 20 %; MCH 29.5 pg (25.0-35.0); MCHC 33.4 g/dL (31.0-37.0); MCV 88.2 fL (80.0-100.0); Mean Platelet Volume 8.1; Monocytes # (A) 0.2 k/uL (0-1.0); Monocytes % (A) 4 %; Neutrophils # (A) 3.7 k/uL (1.3-7.7); Neutrophils % (A) 71 %; Platelet Count 200 k/uL (150-450); RBC 4.89 m/uL (4.30-5.90); RDW 12.5 % (11.5-15.5); WBC 5.2 k/uL (3.8-10.6)
[2022-07-14 14:05] LABS: Amorphous Sediment,Urine Rare /hpf; Appearance,Urine Turbid (Clear); Bacteria,Urine Occasional /hpf; Bilirubin,Urine Negative (Negative); Blood,Urine Large (Negative); Color,Urine Light Red; Glucose,Urine (UA) Negative (Negative); Ketones,Urine 1+ (Negative); Leukocyte Esterase,Urine Large (Negative); Mucus,Urine Occasional /hpf; Nitrite,Urine Positive (Negative); PH, Urine 6.5 (5.0-8.0); Protein,Urine 3+ (Negative); RBC,Urine >182 /hpf (0-5); Specific Gravity,Urine 1.021 (1.001-1.035); Squamous Epithelial Cell,Urine 7 /hpf (0-4); Urobilinogen,Urine <2.0 mg/dL (<2.0); WBC,Urine >182 /hpf (0-5)
[2022-07-14 14:14] LABS: ALT 17 U/L (4-49); AST 20 U/L (17-59); African American GFR (CKD) >90 (>60 ml/min/1.73 sqM); Albumin 3.8 g/dL (3.5-5.0); Alkaline Phosphatase 58 U/L (38-126); Amylase 47 U/L (30-110); Anion Gap 9 mmol/L; Blood Urea Nitrogen 17 mg/dL (9-20); Carbon Dioxide 24 mmol/L (22-30); Chloride 106 mmol/L (98-107); Glucose 93 mg/dL (74-99); Lipase 103 U/L (23-300); Non-African American GFR(CKD) 88 (>60 ml/min/1.73 sqM); Potassium 4.2 mmol/L (3.5-5.1); Sodium 139 mmol/L (137-145); Total Bilirubin 0.7 mg/dL (0.2-1.3); Total Protein 6.7 g/dL (6.3-8.2)
[2022-07-14 14:16] LABS: Partial Thromboplastin Time 22.4 sec (22.0-30.0); Prothrombin Time 10.5 sec (9.0-12.0)
--- NOTE | 2022-07-14 15:03 | CT ---
EXAMINATION TYPE: CT abdomen pelvis w con CT DLP: 593.4 mGycm, Automated exposure control for dose reduction was used. DATE OF EXAM: 07/14/2022 2:32 PM COMPARISON: CT abdomen pelvis most recent from 01/15/2018 CLINICAL INDICATION:Male, 77 years old with history of abdominal pain; abdominal pain and catheter is sues. TECHNIQUE: Axial CT of the abdomen and pelvis. Sagittal and coronal reformats were created on a [employer] workstation. Contrast used:90 mL of Isovue 300 with IV Contrast, Oral contrast used: without Oral Contrast FINDINGS: LOWER CHEST: Unremarkable ABDOMEN LIVER: Unremarkable GALLBLADDER AND BILE DUCTS: Unremarkable. PANCREAS: Unremarkable. SPLEEN: Unremarkable. ADRENAL GLANDS: Unremarkable. KIDNEYS AND URETERS: No evidence of hydronephrosis or renal calculus. The ureters are unremarkable. PELVIS BLADDER: Circumferential wall thickening of the urinary bladder with hyperemia of the bladder urothel ium there is wall thickening up to 11 mm. Layering dependently calcifications are present within the gallbladder lumen. Mohamud catheter is in place. REPRODUCTIVE: Prostate is enlarged in size measuring 5.6 cm in transverse dimension. ABDOMEN & PELVIS STOMACH AND BOWEL: No evidence of bowel obstruction. Scattered colonic diverticula present. PERITONEUM/RETROPERITONEUM: No evidence of pneumoperitoneum or free fluid. VASCULATURE: No evidence of aortic aneurysm. MUSCULOSKELETAL: No acute osseous abnormalities LYMPH NODES: No gross evidence for lymphadenopathy. SOFT TISSUE/ABDOMINAL WALL: Fat-containing umbilical hernia. IMPRESSION: 1. Circumferential bladder wall thickening with hyperemia of the bladder urothelium suggesting infec tion. Mohamud catheter is in appropriate position. Correlate with urinalysis. There is high density david dder stones present. Findings likely secondary to #2. 2. Prostatomegaly with likely chronic bladder outlet obstruction.
[2022-07-14 16:10] VITALS: BP 136/72; PULSE 82
== END 2022-07-14 16:10 | disposition home or self-care (01) ==
LOC: EC 12:00
DX: N30.90 Cystitis, unspecified without hematuria (principal); F17.200 Nicotine dependence, unspecified, uncomplicated; Z88.0 Allergy status to penicillin; Z88.1 Allergy status to other antibiotic agents; Z88.2 Allergy status to sulfonamides
CPT/HCPCS: 36415; 80053; 82150; 83690; 85025; 85610; 85730; 81001; 74177; 99284; 96374; 51702; J2270; Q9967

== ENCOUNTER 2022-10-20 09:00 | Emergency (ER) | payer OTHER, MEDICARE ==
[2022-10-20 09:52] LABS: Appearance,Urine Cloudy (Clear); Bacteria,Urine Rare /hpf; Bilirubin,Urine Negative (Negative); Blood,Urine Large (Negative); Color,Urine Light Red; Glucose,Urine (UA) Negative (Negative); Ketones,Urine Trace (Negative); Leukocyte Esterase,Urine Large (Negative); Mucus,Urine Rare /hpf; Nitrite,Urine Negative (Negative); PH, Urine 6.5 (5.0-8.0); Protein,Urine 1+ (Negative); RBC,Urine >182 /hpf (0-5); Specific Gravity,Urine 1.018 (1.001-1.035); Squamous Epithelial Cell,Urine 1 /hpf (0-4); Urobilinogen,Urine <2.0 mg/dL (<2.0); WBC,Urine 34 /hpf (0-5)
[2022-10-20] MEDS ORDERED: CIPROFLOXACIN HCL 500 MG TAB PO STA (09:53)
--- NOTE | 2022-10-20 09:55 | ED ---
General Adult HPI - General Chief complaint: Urogenital Stated complaint: Urogential Time Seen by Provider: 10/20/22 09:05 Source: patient Mode of arrival: ambulatory Limitations: no limitations - History of Present Illness Initial comments: This is a 77-year-old male with a past medical history including chronic indwelling Christie catheter status post complicated hernia repair presented to the emergency department for decreased urinary output from the catheter. The patient stated that starting earlier in the morning he noted that he had decreas ed urinary output and had increasing pain in this repeated region. The patient stated that he was due to have his Christie catheter changed on but stated that the pain was so severe he could not tolerate it so he came to the emergency department. The patient was otherwise resting in bed comfortably without any acute distress. - Related Data Home Medications Medication Instructions Recorded Confirmed HYDROcodone/APAP 7.5-325MG [[place] 1 tab PO DAILY PRN 01/03/22 01/07/22 7.5-325] L.acidoph,Paracasei, B.lactis 1 each PO DAILY 01/03/22 01/07/22 [Probiotic] Melatonin 5 - 10 mg PO HS PRN 01/03/22 01/07/22 Previous Rx's Medication Instructions Recorded Acetaminophen Tab [Tylenol] 650 mg PO Q6H #30 tab 01/07/22 Docusate [Colace] 100 mg PO BID #20 capsule 01/07/22 Ibuprofen [Motrin] 600 mg PO Q6HR PRN #40 tab 01/07/22 oxyCODONE HCL [OxyIR] 5 mg PO Q6H PRN 3 Days #10 tab 01/07/22 Cephalexin [Keflex] 500 mg PO QID #40 cap 07/14/22 Ciprofloxacin HCl [Cipro] 500 mg PO Q12HR 10 Days #20 tab 10/20/22 Allergies Allergy/AdvReac Type Severity Reaction Status Date / Time nitrofurantoin Allergy Unknown Verified 10/20/22 09:04 [From Macrobid] Penicillins Allergy Anaphylaxis/Hives Verified 10/20/22 09:04 on entire body Sulfa (Sulfonamide Allergy Unknown Verified 10/20/22 09:04 Antibiotics) sulfamethoxazole Allergy Unknown Verified 10/20/22 09:04 [From Bactrim] trimethoprim [From Bactrim] Allergy Unknown Verified 10/20/22 09:04 Review of Systems ROS Statement: Those systems with pertinent positive or pertinent negative responses have been documented in the HPI. ROS Other: All systems not noted in ROS Statement are negative. Past Medical History Past Medical History: GERD/Reflux Additional Past Medical History / Comment(s): states "had Hep B or C back and now it's all healed", recurrent UTI's with IDC, has IDC due to issues with hernia, bladder stones, chronic christie catheter History of Any Multi-Drug Resistant Organisms: None Reported Past Surgical History: Back Surgery, Hernia Repair, Tonsillectomy Additional Past Surgical History / Comment(s): hemorrhoid surgery, back surgery x 2, rt inguinal hernia repair Past Anesthesia/Blood Transfusion Reactions: No Reported Reaction Additional Past Anesthesia/Blood Transfusion Reaction / Comment(s): no hx blood transfusion Past Psychological History: Depression Smoking Status: Current every day smoker Past Alcohol Use History: None Reported Past Drug Use History: None Reported - Past Family History Mother Family Medical History: Cancer Father Family Medical History: Cancer General Exam Limitations: no limitations General appearance: alert, in no apparent distress Head exam: Present: atraumatic, normocephalic, normal inspection Eye exam: Present: normal appearance, PERRL Pupils: Present: normal accommodation ENT exam: Present: normal exam, normal oropharynx, mucous membranes moist Neck exam: Present: normal inspection, full ROM Respiratory exam: Present: normal lung sounds bilaterally Cardiovascular Exam: Present: regular rate, normal rhythm, normal heart sounds GI/Abdominal exam: Present: soft, tenderness (TTP in the suprapubic region with fullness noted) exam: Present: other (Christie catheter in place, not draining) Extremities exam: Present: normal inspection, full ROM Back exam: Present: normal inspection, full ROM Neurological exam: Present: alert, oriented X3, CN II-XII intact Psychiatric exam: Present: normal affect, normal mood Skin exam: Present: warm, dry Course Vital Signs 10/20/22 09:02 Temperature 98 F Pulse Rate 74 Respiratory 16 Rate Blood Pressure 131/78 O2 Sat by Pulse 98 Oximetry Medical Decision Making - Medical Decision Making Was pt. sent in by a medical professional or institution (, PA, FACTORY FOCUS TECHNICIAN, urgent care, hospital, or intermediate...) When possible be specific @ -No Did you speak to anyone other than the patient for history (EMS, parent, family, police, friend...)? What history was obtained from this source @ -No Did you review nursing and triage notes (agree or disagree)? Why? @ -I reviewed and agree with nursing and triage notes Were old charts reviewed (outside hosp., previous admission, EMS record, old EKG, old radiological studies, urgent care reports/EKG's, intermediate records)? Report findings @ -No old charts were reviewed Differential Diagnosis (chest pain, altered mental status, abdominal pain women, abdominal pain men, vaginal bleeding, weakness, fever, dyspnea, syncope, headache, dizziness, GI bleed, back pain, seizure, CVA, palpatations, mental health)? @ Christie catheter malfunction, UTI, hematuria EKG interpreted by me (3pts min.). @ -None X-rays interpreted by me (1pt min.). @ -None done CT interpreted by me (1pt min.). @ -None done U/S interpreted by me (1pt. min.). @ -None done What testing was considered but not performed or refused? (CT, X-rays, U/S, labs)? Why? @ -None What meds were considered but not given or refused? Why? @ -None Did you discuss the management of the patient with other professionals (professionals i.e. , PA, FACTORY FOCUS TECHNICIAN, lab, RT, psych nurse, social media analyst, resist coater developer, teacher, airline pilot/first officer, case management director)? Give summary @ -No Was smoking cessation discussed for >3mins.? @ -No Was critical care preformed (if so, how long)? @ -No Were there social determinants of health that impacted care today? How? (Homeles sness, low income, unemployed, alcoholism, drug addiction, transportation, low edu. Level, literacy, decrease access to med. care, assisted, rehab)? @ -No Was there de-escalation of care discussed even if they declined (Discuss DNR or withdrawal of care, Hospice)? DNR status @ -No What co-morbidities impacted this encounter? (DM, HTN, Smoking, COPD, CAD, Cancer, CVA, ARF, Chemo, Hep., AIDS, mental health diagnosis, sleep apnea, morbid obesity)? @ -Chronic indwelling Christie catheter Was patient admitted / discharged? Hospital course, mention meds given and route, prescriptions, significant lab abnormalities, going to OR and other pertinent info. @ -The patient was seen and evaluated in emergency department. Physical exam, the patient was resting in bed without any acute distress. Vital signs admission were stable. On evaluation, the patient did have suprapubic abdominal fullness and tenderness and his Christie catheter was replaced with a new 16-[place] catheter. The patient did have significant relief on placement of this catheter. A urinalysis was obtained and was positive for UTI at this time. The patient was given a dose of ciprofloxacin in the emergency department as well as a prescription for ciprofloxacin to be taken at home. The patient was advised to follow-up with his urologist and primary care physician as previous he scheduled. He was advised report back to the emergency department if he had recurrence of his symptoms. The patient was agreeable to this and all his questions were answered. The patient was discharged home in stable condition. Undiagnosed new problem with uncertain prognosis? @ -No Drug Therapy requiring intensive monitoring for toxicity (Heparin, Nitro, Insulin, Cardizem)? @ -No Were any procedures done? @ -No Diagnosis/symptom? @ -Christie catheter malfunction, resolved, UTI Acute, or Chronic, or Acute on Chronic? @ -Acute Uncomplicated (without systemic symptoms) or Complicated (systemic symptoms)? @ -Uncomplicated Side effects of treatment? @ -No Exacerbation, Progression, or Severe Exacerbation? @ -No Poses a threat to life or bodily function? How? (Chest pain, USA, [place], pneumonia, PE, COPD, DKA, ARF, appy, cholecystitis, CVA, Diverticulitis, Homicidal, Suicidal, threat to staff... and all critical care pts) @ -Yes, continued Christie catheter malfunction can lead to permanent organ damage and possible . - Lab Data Lab Results 10/20/22 Range/Units 09:34 Urine Color Light Red Urine Appearance Cloudy (Clear) Urine pH 6.5 (5.0-8.0) Ur Specific [place] 1.018 (1.001-1.035) Urine Protein 1+ H (Negative) Urine Glucose (UA) Negative (Negative) Urine Ketones Trace H (Negative) Urine Blood Large H (Negative) Urine Nitrite Negative (Negative) Urine Bilirubin Negative (Negative) Urine Urobilinogen <2.0 (<2.0) mg/dL Ur Leukocyte Esterase Large H (Negative) Urine RBC >182 H (0-5) /hpf Urine WBC 34 H (0-5) /hpf Ur Squamous Epith Cells 1 (0-4) /hpf Urine Bacteria Rare H (None) /hpf Urine Mucus Rare H (None) /hpf Disposition Clinical Impression: UTI (urinary tract infection), Christie catheter problem Disposition: HOME SELF-CARE Condition: Stable Instructions (If sedation given, give patient instructions): Urinary Tract Infection in Men (ED), Christie Catheter Placement and Care (ED) Prescriptions: Ciprofloxacin HCl [Cipro] 500 mg PO Q12HR 10 Days #20 tab Is patient prescribed a controlled substance at d/c from ED?: No Referrals: [facility],Clinic [Primary Care Provider] - 1-2 days Time of Disposition: 09:50
[2022-10-20 10:17] VITALS: BP 136/69; PULSE 70; RESP 17; TEMP 98.1
== END 2022-10-20 10:14 | disposition home or self-care (01) ==
LOC: EC 09:00
DX: T83.018A Breakdown (mechanical) of other urinary catheter, initial encounter (principal); N39.0 Urinary tract infection, site not specified; F17.200 Nicotine dependence, unspecified, uncomplicated; Z86.59 Personal history of other mental and behavioral disorders; Z88.0 Allergy status to penicillin; Z88.2 Allergy status to sulfonamides; Z88.8 Allergy status to other drugs, medicaments and biological substances
CPT/HCPCS: 51702; 81001; 99283

== ENCOUNTER 2022-11-11 03:10 | Emergency (ER) | payer OTHER, MEDICARE ==
[2022-11-11 03:19] VITALS: BP 124/79; PULSE 91; RESP 24; TEMP 97.5
--- NOTE | 2022-11-11 04:27 | ED ---
Male Urogenital HPI - General Chief complaint: Urogenital Stated complaint: cath malfunction Time Seen by Provider: 11/11/22 03:17 Source: patient, RN notes reviewed, old records reviewed Mode of arrival: ambulatory Limitations: no limitations - History of Present Illness Initial comments: This is a 77-year-old male to the ER today for evaluation of severe abdominal pain and malfunctioning Christie catheter. Patient presents today for evaluation of severe groin pain and abdominal pain. On evaluation here in the ER is clear patient's Christie was malfunctioning and not working. Patient is severe abdominal pain states his Christie is an output and a few hours now. Otherwise no complaints no change no fevers mild nausea no vomiting, severe abdominal pain for not working Christie MD Complaint: testicle pain, other (Abdominal pain severe) -: hour(s) Location: penis, abdomen Radiation: none Severity: severe Severity scale (1-10): 10 Quality: sharp Consistency: constant Improves with: none Worsens with: none Reports: urinary retention - Related Data Home Medications Medication Instructions Recorded Confirmed HYDROcodone/APAP 7.5-325MG [[place] 1 tab PO DAILY PRN 01/03/22 01/07/22 7.5-325] L.acidoph,Paracasei, B.lactis 1 each PO DAILY 01/03/22 01/07/22 [Probiotic] Melatonin 5 - 10 mg PO HS PRN 01/03/22 01/07/22 Previous Rx's Medication Instructions Recorded Acetaminophen Tab [Tylenol] 650 mg PO Q6H #30 tab 01/07/22 Docusate [Colace] 100 mg PO BID #20 capsule 01/07/22 Ibuprofen [Motrin] 600 mg PO Q6HR PRN #40 tab 01/07/22 oxyCODONE HCL [OxyIR] 5 mg PO Q6H PRN 3 Days #10 tab 01/07/22 Cephalexin [Keflex] 500 mg PO QID #40 cap 07/14/22 Ciprofloxacin HCl [Cipro] 500 mg PO Q12HR 10 Days #20 tab 10/20/22 Allergies Allergy/AdvReac Type Severity Reaction Status Date / Time nitrofurantoin Allergy Unknown Verified 11/11/22 03:17 [From Macrobid] Penicillins Allergy Anaphylaxis/Hives Verified 11/11/22 03:17 on entire body Sulfa (Sulfonamide Allergy Unknown Verified 11/11/22 03:17 Antibiotics) sulfamethoxazole Allergy Unknown Verified 11/11/22 03:17 [From Bactrim] trimethoprim [From Bactrim] Allergy Unknown Verified 11/11/22 03:17 Review of Systems ROS Statement: Those systems with pertinent positive or pertinent negative responses have been documented in the HPI. ROS Other: All systems not noted in ROS Statement are negative. Past Medical History Past Medical History: GERD/Reflux Additional Past Medical History / Comment(s): states "had Hep B or C back 1959's and now it's all healed", recurrent UTI's with IDC, has IDC due to issues with hernia, bladder stones, chronic christie catheter History of Any Multi-Drug Resistant Organisms: None Reported Past Surgical History: Back Surgery, Hernia Repair, Tonsillectomy Additional Past Surgical History / Comment(s): hemorrhoid surgery, back surgery x 2, rt inguinal hernia repair Past Anesthesia/Blood Transfusion Reactions: No Reported Reaction Additional Past Anesthesia/Blood Transfusion Reaction / Comment(s): no hx blood transfusion Past Psychological History: Depression Smoking Status: Current every day smoker Past Alcohol Use History: None Reported Past Drug Use History: None Reported - Past Family History Mother Family Medical History: Cancer Father Family Medical History: Cancer General Exam Limitations: no limitations General appearance: alert, in no apparent distress, anxious Head exam: Present: atraumatic, normocephalic, normal inspection Eye exam: Present: normal appearance, PERRL, EOMI. Absent: scleral icterus, conjunctival injection, periorbital swelling ENT exam: Present: normal exam, mucous membranes moist Neck exam: Present: normal inspection. Absent: tenderness, meningismus, lymphadenopathy Respiratory exam: Present: normal lung sounds bilaterally. Absent: respiratory distress, wheezes, rales, rhonchi, stridor Cardiovascular Exam: Present: regular rate, normal rhythm, normal heart sounds. Absent: systolic murmur, diastolic murmur, rubs, gallop, clicks GI/Abdominal exam: Present: soft, normal bowel sounds. Absent: distended, tenderness, guarding, rebound, rigid Extremities exam: Present: normal inspection, full ROM, normal capillary refill. Absent: tenderness, pedal edema, joint swelling, calf tenderness Back exam: Present: normal inspection Neurological exam: Present: alert, oriented X3, CN II-XII intact Psychiatric exam: Present: normal affect, normal mood Skin exam: Present: warm, dry, intact, normal color. Absent: rash Course Vital Signs 11/11/22 03:17 Temperature 97.5 F L Pulse Rate 91 Respiratory 24 Rate Blood Pressure 124/79 O2 Sat by Pulse 99 Oximetry - Reevaluation(s) Reevaluation #1: 11/11/22 06:42 Medical records reviewed Reevaluation #2: 11/11/22 06:42 Patient symptoms are improved, resolved after Christie replacement Reevaluation #3: 11/11/22 06:42 Patient informed results questions answered Reevaluation #4: 11/11/22 06:42 Was pt. sent in by a medical professional or institution (SCOTT Man, DIALYSIS TECH, urgent care, hospital, or halfway...) When possible be specific @ -no Did you speak to anyone other than the patient for history (EMS, parent, family, police, friend...)? What history was obtained from this source @ -no Did you review nursing and triage notes (agree or disagree)? Why? @ -agree Are old charts reviewed (outside hosp., previous admission, EMS record, old EKG, old radiological studies, urgent care reports/EKG's, halfway records)? Report findings @ -yes Differential Diagnosis (chest pain, altered mental status, abdominal pain women, abdominal pain men, vaginal bleeding, weakness, fever, dyspnea, syncope, headache, dizziness, GI bleed, back pain, seizure, CVA, palpatations, mental health, musculoskeletal)? @ -prior EKG interpreted by me (3pts min.). @ -no X-rays interpreted by me (1pt min.). @ -no CT interpreted by me (1pt min.). @ -no U/S interpreted by me (1pt. min.). @ -no What testing was considered but not performed or refused? (CT, X-rays, U/S, labs)? Why? @ -none What meds were considered but not given or refused? Why? @ -none Did you discuss the management of the patient with other professionals (professionals i.e. SCOTT Man, DIALYSIS TECH, lab, RT, psych nurse, social worker masters, corrugator, teacher, geological technical officer, case management associate)? Give summary @ -no Was smoking cessation discussed for >3mins.? @ -no Was critical care preformed (if so, how long)? @ -no Were there social determinants of health that impacted care today? How? (Homelessness, low income, unemployed, alcoholism, drug addiction, transportation, low edu. Level, literacy, decrease access to med. care, [facility], rehab)? @ -none Was there de-escalation of care discussed even if they declined (Discuss DNR or withdrawal of care, Hospice)? DNR status @ -no What co-morbidities impacted this encounter? (DM, HTN, Smoking, COPD, CAD, Cancer, CVA, ARF, Chemo, Hep., AIDS, mental health diagnosis, sleep apnea, morbid obesity)? @ -none Was patient admitted / discharged? Hospital course, mention meds given and route, prescriptions, significant lab abnormalities, going to OR and other pertinent info. @ - 77 male to the emergency department for evaluation of severe abdominal pain. For catheter malfunction. Patient has recurrent Christie Catheter is replaced and working well currently. Patient can be discharged home Discharge Undiagnosed new problem with uncertain prognosis? @ -no Drug Therapy requiring intensive monitoring for toxicity (Heparin, Nitro, Insulin, Cardizem)? @ -no Were any procedures done? @ -no Diagnosis/symptom? @ -Christie catheter malfunction Acute, or Chronic, or Acute on Chronic? @ -Acute Uncomplicated (without systemic symptoms) or Complicated (systemic symptoms)? @ -Complicated Side effects of treatment? @ -no Exacerbation, Progression, or Severe Exacerbation? @ -exacerbation Poses a threat to life or bodily function? How? (Chest pain, [place], [place], pneumonia, PE, COPD, DKA, ARF, appy, cholecystitis, CVA, Diverticulitis, Homicidal, Suicidal, threat to staff... and all critical care pts) @ -no Reevaluation #5: 11/11/22 06:43 Differential Abdominal Pain Men: Appendicitis, cholecystitis, diverticulosis, ischemic bowel, pancreatitis, hepatitis, UTI, gastroenteritis, AAA, incarcerated hernia, bowel obstruction, constipation, inflammatory bowel, hepatitis, peptic ulcer disease, splenic infarction, perforated viscus, testicular torsion, this is not meant to be an all-inclusive list Medical Decision Making - Medical Decision Making 77 male to the emergency department for evaluation of severe abdominal pain. For catheter malfunction. Patient has recurrent Christie Catheter is replaced and working well currently. Patient can be discharged home - Lab Data Lab Results 11/11/22 Range/Units 04:06 Urine Color Yellow Urine Appearance Cloudy (Clear) Urine pH 7.0 (5.0-8.0) Ur Specific [place] 1.017 (1.001-1.035) Urine Protein 1+ H (Negative) Urine Glucose (UA) Negative (Negative) Urine Ketones 1+ H (Negative) Urine Blood Large H (Negative) Urine Nitrite Negative (Negative) Urine Bilirubin Negative (Negative) Urine Urobilinogen <2.0 (<2.0) mg/dL Ur Leukocyte Esterase Large H (Negative) Urine RBC >182 H (0-5) /hpf Urine WBC 38 H (0-5) /hpf Ur Squamous Epith Cells 1 (0-4) /hpf Urine Bacteria Rare H (None) /hpf Urine Mucus Rare H (None) /hpf Disposition Clinical Impression: Christie catheter problem, Urinary retention Disposition: HOME SELF-CARE Condition: Good Instructions (If sedation given, give patient instructions): Christie Catheter Placement and Care (ED) Is patient prescribed a controlled substance at d/c from ED?: No Referrals: [facility],Clinic [Primary Care Provider] - 1-2 days Time of Disposition: 05:30
[2022-11-11 04:29] LABS: Appearance,Urine Cloudy (Clear); Bacteria,Urine Rare /hpf; Bilirubin,Urine Negative (Negative); Blood,Urine Large (Negative); Glucose,Urine (UA) Negative (Negative); Ketones,Urine 1+ (Negative); Leukocyte Esterase,Urine Large (Negative); Mucus,Urine Rare /hpf; Nitrite,Urine Negative (Negative); Protein,Urine 1+ (Negative); RBC,Urine >182 /hpf (0-5); Specific Gravity,Urine 1.017 (1.001-1.035); Squamous Epithelial Cell,Urine 1 /hpf (0-4); Urobilinogen,Urine <2.0 mg/dL (<2.0); WBC,Urine 38 /hpf (0-5)
[2022-11-11 04:45] LABS: Color,Urine Yellow
== END 2022-11-11 06:09 | disposition home or self-care (01) ==
LOC: EC 03:10
DX: T83.018A Breakdown (mechanical) of other urinary catheter, initial encounter (principal); R33.9 Retention of urine, unspecified; F17.200 Nicotine dependence, unspecified, uncomplicated; Z86.59 Personal history of other mental and behavioral disorders; Z88.0 Allergy status to penicillin; Z88.2 Allergy status to sulfonamides; Z88.1 Allergy status to other antibiotic agents; Z88.8 Allergy status to other drugs, medicaments and biological substances
CPT/HCPCS: 81001; 99284

== ENCOUNTER 2022-12-14 00:05 | Emergency (ER) | payer MEDICARE, OTHER ==
[2022-12-14 00:15] VITALS: RESP 18; TEMP 97.5
[2022-12-14 02:19] LABS: Appearance,Urine Cloudy (Clear); Bacteria,Urine Few /hpf; Bilirubin,Urine Negative (Negative); Blood,Urine Moderate (Negative); Color,Urine Light Yellow; Glucose,Urine (UA) Negative (Negative); Ketones,Urine Negative (Negative); Leukocyte Esterase,Urine Large (Negative); Mucus,Urine Rare /hpf; Nitrite,Urine Positive (Negative); PH, Urine 6.5 (5.0-8.0); Protein,Urine Trace (Negative); RBC,Urine 103 /hpf (0-5); Specific Gravity,Urine 1.015 (1.001-1.035); Squamous Epithelial Cell,Urine 1 /hpf (0-4); Urobilinogen,Urine <2.0 mg/dL (<2.0); WBC,Urine 33 /hpf (0-5)
[2022-12-14] MEDS ORDERED: NITROFURANTOIN MONOHYD/M-CRYST 100 MG CAP PO STA (02:48)
[2022-12-14 03:09] VITALS: BP 120/81; PULSE 59
--- NOTE | 2023-01-30 17:22 | ED ---
General Adult HPI - General Chief complaint: Urogenital Stated complaint: Cath complication Time Seen by Provider: 12/14/22 00:22 Source: patient Mode of arrival: ambulatory Limitations: no limitations - History of Present Illness Initial comments: catherine is a 77 year old male who presents to the emergency department for urinary retention. Carlos has chronic folly catheter states he was unable to flush it tonight and has not had urine output since 18:00. patient denies fever, chills come off abdominal pain, nausea, vomiting. Does admit to some blood in his urine. - Related Data Home Medications Medication Instructions Recorded Confirmed HYDROcodone/APAP 7.5-325MG [[place] 1 tab PO DAILY PRN 01/03/22 01/07/22 7.5-325] L.acidoph,Paracasei, B.lactis 1 each PO DAILY 01/03/22 01/07/22 [Probiotic] Melatonin 5 - 10 mg PO HS PRN 01/03/22 01/07/22 Previous Rx's Medication Instructions Recorded Acetaminophen Tab [Tylenol] 650 mg PO Q6H #30 tab 01/07/22 Docusate [Colace] 100 mg PO BID #20 capsule 01/07/22 Ibuprofen [Motrin] 600 mg PO Q6HR PRN #40 tab 01/07/22 oxyCODONE HCL [OxyIR] 5 mg PO Q6H PRN 3 Days #10 tab 01/07/22 Cephalexin [Keflex] 500 mg PO QID #40 cap 07/14/22 Ciprofloxacin HCl [Cipro] 500 mg PO Q12HR 10 Days #20 tab 10/20/22 Nitrofurantoin Monohyd/M-Cryst 100 mg PO Q12HR #10 cap 12/14/22 [Macrobid] Allergies Allergy/AdvReac Type Severity Reaction Status Date / Time nitrofurantoin Allergy Unknown Verified 12/14/22 00:06 [From Macrobid] Penicillins Allergy Anaphylaxis/Hives Verified 12/14/22 00:06 on entire body Sulfa (Sulfonamide Allergy Unknown Verified 12/14/22 00:06 Antibiotics) sulfamethoxazole Allergy Unknown Verified 12/14/22 00:06 [From Bactrim] trimethoprim [From Bactrim] Allergy Unknown Verified 12/14/22 00:06 Review of Systems ROS Statement: Those systems with pertinent positive or pertinent negative responses have been documented in the HPI. ROS Other: All systems not noted in ROS Statement are negative. Past Medical History Past Medical History: GERD/Reflux Additional Past Medical History / Comment(s): states "had Hep B or C back 1959's and now it's all healed", recurrent UTI's with IDC, has IDC due to issues with hernia, bladder stones, chronic christie catheter History of Any Multi-Drug Resistant Organisms: None Reported Past Surgical History: Back Surgery, Hernia Repair, Tonsillectomy Additional Past Surgical History / Comment(s): hemorrhoid surgery, back surgery x 2, rt inguinal hernia repair Past Anesthesia/Blood Transfusion Reactions: No Reported Reaction Additional Past Anesthesia/Blood Transfusion Reaction / Comment(s): no hx blood transfusion Past Psychological History: Depression Smoking Status: Current every day smoker Past Alcohol Use History: None Reported Past Drug Use History: None Reported - Past Family History Mother Family Medical History: Cancer Father Family Medical History: Cancer General Exam Limitations: no limitations General appearance: alert Eye exam: Present: normal appearance, PERRL, EOMI. Absent: scleral icterus, conjunctival injection, periorbital swelling Respiratory exam: Present: normal lung sounds bilaterally. Absent: respiratory distress, wheezes, rales, rhonchi, stridor Cardiovascular Exam: Present: regular rate, normal rhythm, normal heart sounds. Absent: systolic murmur, diastolic murmur, rubs, gallop, clicks GI/Abdominal exam: Present: soft, normal bowel sounds. Absent: distended, tenderness, guarding, rebound, rigid Back exam: Absent: CVA tenderness (R), CVA tenderness (L) Neurological exam: Present: alert Psychiatric exam: Present: normal affect, normal mood Skin exam: Present: warm, dry, intact, normal color. Absent: rash Course Vital Signs 12/14/22 12/14/22 00:06 03:00 Temperature 97.5 F L Pulse Rate 69 59 L Respiratory 18 18 Rate Blood Pressure 145/77 120/81 O2 Sat by Pulse 97 98 Oximetry Medical Decision Making - Medical Decision Making Was pt. sent in by a medical professional or institution (, PA, STEEL ROLLER, urgent care, hospital, or detention...) When possible be specific @ -No Did you speak to anyone other than the patient for history (EMS, parent, family, police, friend...)? What history was obtained from this source @ -No Did you review nursing and triage notes (agree or disagree)? Why? @ -I reviewed and agree with nursing and triage notes Were old charts reviewed (outside hosp., previous admission, EMS record, old EKG, old radiological studies, urgent care reports/EKG's, detention records)? Report findings @ -No old charts were reviewed Differential Diagnosis (chest pain, altered mental status, abdominal pain women, abdominal pain men, vaginal bleeding, weakness, fever, dyspnea, syncope, headache, dizziness, GI bleed, back pain, seizure, CVA, palpatations, mental health, musculoskeletal)? @ UTI, christie catheter problem, kidney stone EKG interpreted by me (3pts min.). @ -None X-rays interpreted by me (1pt min.). @ -None CT interpreted by me (1pt min.). @ -None U/S interpreted by me (1pt. min.). @ -None What testing was considered but not performed or refused? (CT, X-rays, U/S, labs)? Why? @ -None What meds were considered but not given or refused? Why? @ -None Did you discuss the management of the patient with other professionals (professionals i.e. , PA, STEEL ROLLER, lab, RT, psych nurse, manager social media, strap setter, teacher, strike operations officer, field case manager)? Give summary @ -No Was smoking cessation discussed for >3mins.? @ -No Was critical care preformed (if so, how long)? @ -No Were there social determinants of health that impacted care today? How? (Homelessness, low income, unemployed, alcoholism, drug addiction, transportation, low edu. Level, literacy, decrease access to med. care, fpc, rehab)? @ -No Was there de-escalation of care discussed even if they declined (Discuss DNR or withdrawal of care, Hospice)? DNR status @ -No What co-morbidities impacted this encounter? (DM, HTN, Smoking, COPD, CAD, Cancer, CVA, ARF, Chemo, Hep., AIDS, mental health diagnosis, sleep apnea, morbid obesity)? @ -chronic christie catheter Was patient admitted / discharged? Hospital course, mention meds given and route, prescriptions, significant lab abnormalities, going to OR and other pertinent info. @ -77 year old male presenting for urinary retention. Urinalysis reveals evidence of an infection.Christie catheter was replaced with appropriate output patient feeling relieved. He has no systemic symptoms or signs he will be discharged with antibiotics for suspected urinary tract infection. Undiagnosed new problem with uncertain prognosis? @ -[No] Drug Therapy requiring intensive monitoring for toxicity (Heparin, Nitro, Insulin, Cardizem)? @ -[No] Were any procedures done? @ -[No] Diagnosis/symptom? @ -UTI, christie catheter problem Acute, or Chronic, or Acute on Chronic? @ -acute Uncomplicated (without systemic symptoms) or Complicated (systemic symptoms)? @ -uncomplicated Side effects of treatment? @ No Exacerbation, Progression, or Severe Exacerbation? @ -No Poses a threat to life or bodily function? How? (Chest pain, [place], [place], pneumonia, PE, COPD, DKA, ARF, appy, cholecystitis, CVA, Diverticulitis, Homicidal, Suicidal, threat to staff... and all critical care pts) @ -No Dr. Hooker is my attending - Lab Data Lab Results 12/14/22 Range/Units 01:32 Urine Color Light Yellow Urine Appearance Cloudy (Clear) Urine pH 6.5 (5.0-8.0) Ur Specific [place] 1.015 (1.001-1.035) Urine Protein Trace H (Negative) Urine Glucose (UA) Negative (Negative) Urine Ketones Negative (Negative) Urine Blood Moderate H (Negative) Urine Nitrite Positive (Negative) Urine Bilirubin Negative (Negative) Urine Urobilinogen <2.0 (<2.0) mg/dL Ur Leukocyte Esterase Large H (Negative) Urine RBC 103 H (0-5) /hpf Urine WBC 33 H (0-5) /hpf Urine WBC Clumps Rare H (None) /hpf Ur Squamous Epith Cells 1 (0-4) /hpf Urine Bacteria Few H (None) /hpf Urine Mucus Rare H (None) /hpf Disposition Clinical Impression: Christie catheter problem, UTI (urinary tract infection) Disposition: HOME SELF-CARE Prescriptions: Nitrofurantoin Monohyd/M-Cryst [Macrobid] 100 mg PO Q12HR #10 cap Is patient prescribed a controlled substance at d/c from ED?: No Referrals: [facility],Clinic [Primary Care Provider] - 1-2 days
== END 2022-12-14 03:56 | disposition home or self-care (01) ==
LOC: EC 00:05
DX: T83.098A Other mechanical complication of other urinary catheter, initial encounter (principal); N39.0 Urinary tract infection, site not specified; F17.200 Nicotine dependence, unspecified, uncomplicated; Z86.59 Personal history of other mental and behavioral disorders; Z88.2 Allergy status to sulfonamides; Z88.0 Allergy status to penicillin; Z88.1 Allergy status to other antibiotic agents; Z88.8 Allergy status to other drugs, medicaments and biological substances
CPT/HCPCS: 51702; 81001; 87077; 87086; 87186; 99283

== ENCOUNTER 2023-03-01 21:04 | Observation (INO) | payer OTHER, MEDICARE ==
--- NOTE | 2023-03-01 21:34 | ED ---
SOB HPI - General Chief Complaint: Shortness of Breath Stated Complaint: chest pain, SOB Time Seen by Provider: 03/01/23 21:32 Source: patient, family Mode of arrival: wheelchair Limitations: no limitations - History of Present Illness Initial Comments: Jef is a pleasant 77-year-old gentleman who presents to the emergency department today via private vehicle for evaluation of shortness of breath, lightheadedness and abdominal pain. Family member at bedside take states that for the past 2 weeks patient has had some difficulty eating, he gets stomach upset after eating any time. Patient states he's been losing weight. Has not been eating or drinking well due to the pain. Today he had some pain in his epigastrium nausea and lightheadedness due to the persistence of symptoms prompted him to come to the ER for evaluation. - Related Data Home Medications Medication Instructions Recorded Confirmed HYDROcodone/APAP 7.5-325MG [[place] 1 tab PO DAILY PRN 01/03/22 03/01/23 7.5-325] Melatonin 10 mg PO HS 01/03/22 03/01/23 Meclizine [Antivert] 25 mg PO TID PRN 03/01/23 03/01/23 Sertraline (Unknown Strength) 0.5 tab PO DIRECTED PRN 03/01/23 03/01/23 Allergies Allergy/AdvReac Type Severity Reaction Status Date / Time nitrofurantoin Allergy Unknown Verified 03/01/23 22:02 [From Macrobid] Penicillins Allergy Anaphylaxis/Hives Verified 03/01/23 22:02 on entire body Sulfa (Sulfonamide Allergy Unknown Verified 03/01/23 22:02 Antibiotics) sulfamethoxazole Allergy Unknown Verified 03/01/23 22:02 [From Bactrim] Childhood trimethoprim [From Bactrim] Allergy Unknown Verified 03/01/23 22:02 Childhood Review of Systems ROS Statement: Those systems with pertinent positive or pertinent negative responses have been documented in the HPI. ROS Other: All systems not noted in ROS Statement are negative. Past Medical History Past Medical History: GERD/Reflux Additional Past Medical History / Comment(s): states "had Hep B or C back 1959's and now it's all healed", recurrent UTI's with IDC, has IDC due to issues with hernia, bladder stones, chronic christie catheter History of Any Multi-Drug Resistant Organisms: None Reported Past Surgical History: Back Surgery, Hernia Repair, Tonsillectomy Additional Past Surgical History / Comment(s): hemorrhoid surgery, back surgery x 2, rt inguinal hernia repair Past Anesthesia/Blood Transfusion Reactions: No Reported Reaction Additional Past Anesthesia/Blood Transfusion Reaction / Comment(s): no hx blood transfusion Past Psychological History: Depression Smoking Status: Current every day smoker Past Alcohol Use History: None Reported Past Drug Use History: None Reported - Past Family History Mother Family Medical History: Cancer Father Family Medical History: Cancer General Exam - General Exam Comments Initial Comments: Physical Exam GENERAL: Elderly, chronically ill-appearing HENT: Normocephalic, Atraumatic. EYES: PERRL, EOMI PULMONARY: Mild expiratory wheeze CARDIOVASCULAR: Red cardiac, regular ABDOMEN: Soft with epigastric and right upper quadrant tenderness SKIN: Senile purpura : Indewelling christie NEUROLOGIC: Patient is alert and oriented x3. Moving all extremities spontaneously MUSCULOSKELETAL: Normal extremities with adequate strength and full range of motion. No lower extremity swelling or edema. No calf tenderness. PSYCHIATRIC: Normal psychiatric evaluation. Limitations: no limitations Course Vital Signs 03/01/23 03/01/23 21:08 22:00 Temperature 97.9 F Pulse Rate 62 51 L Respiratory 18 20 Rate Blood Pressure 128/80 134/87 O2 Sat by Pulse 97 96 Oximetry Medical Decision Making - Medical Decision Making Was pt. sent in by a medical professional or institution (SCOTT Man, PLASTICS ENGINEER, urgent care, hospital, or [facility]...) When possible be specific @ -[No] Did you speak to anyone other than the patient for history (EMS, parent, family, police, friend...)? What history was obtained from this source @ -[No] Did you review nursing and triage notes (agree or disagree)? Why? @ -[I reviewed and agree with nursing and triage notes] Were old charts reviewed (outside hosp., previous admission, EMS record, old EKG, old radiological studies, urgent care reports/EKG's, [facility] records)? Report findings @ -[No old charts were reviewed] Differential Diagnosis (chest pain, altered mental status, abdominal pain women, abdominal pain men, vaginal bleeding, weakness, fever, dyspnea, syncope, headache, dizziness, GI bleed, back pain, seizure, CVA, palpatations, mental health)? @ -Differential Chest Pain: Stable Angina, Unstable Angina, STEMI, NSTEMI Aortic Dissection, Pneumothorax, Musculoskeletal, Esophageal Spasm GERD, Cholecystitis, Pancreatitis, Zoster, this is not meant to be an all-inclusive list. EKG interpreted by me (3pts min.). @ -[As above] X-rays interpreted by me (1pt min.). @ COPD changes, no acute findings CT interpreted by me (1pt min.). @ -[None done] U/S interpreted by me (1pt. min.). @ -[None done] What testing was considered but not performed or refused? (CT, X-rays, U/S, labs)? Why? @ -[None] What meds were considered but not given or refused? Why? @ -[None] Did you discuss the management of the patient with other professionals (professionals i.e. , PA, PLASTICS ENGINEER, lab, RT, psych nurse, social work specialist, protection specialist, teacher, information management officer, case worker)? Give summary @ -[No] Was smoking cessation discussed for >3mins.? @ -[No] Was critical care preformed (if so, how long)? @ -[No] Were there social determinants of health that impacted care today? How? (Homelessness, low income, unemployed, alcoholism, drug addiction, transportation, low edu. Level, literacy, decrease access to med. care, snf, rehab)? @ -[No] Was there de-escalation of care discussed even if they declined (Discuss DNR or withdrawal of care, Hospice)? DNR status @ -[No] What co-morbidities impacted this encounter? (DM, HTN, Smoking, COPD, CAD, Cancer, CVA, ARF, Chemo, Hep., AIDS, mental health diagnosis, sleep apnea, morbid obesity)? @ -[None] Was patient admitted / discharged? Hospital course, mention meds given and route, prescriptions, significant lab abnormalities, going to OR and other pertinent info. @ Admit 77-year-old male with extensive past medical history presenting with lightheadedness shortness of breath abdominal pain chest pain. Labs were obtained patient had epigastric abdominal pain so ultrasound of gallbladder was obtained however there are no lab abnormalities. Troponin was negative and chest x-ray shows COPD changes. Patient was bradycardic and having lightheadedness but his blood pressure was stable. Considering patient's advanced age multiple comorbidities I did offer to keep the patient in observation. Patient would prefer to stay in the hospital be evaluated by cardiology he doesn't want to go home and continue her symptoms without further answers. Patient was placed in observation under sounds physician group. Undiagnosed new problem with uncertain prognosis? @ -[No] Drug Therapy requiring intensive monitoring for toxicity (Heparin, Nitro, Insulin, Cardizem)? @ -[No] Were any procedures done? @ -[No] Diagnosis/symptom? @ Chest pain, lightheaded Acute, or Chronic, or Acute on Chronic? @ -[default] Uncomplicated (without systemic symptoms) or Complicated (systemic symptoms)? @ -[default] Side effects of treatment? @ -[No] Exacerbation, Progression, or Severe Exacerbation? @ -[No] Poses a threat to life or bodily function? How? (Chest pain, [place], [place], pneumonia, PE, COPD, DKA, ARF, appy, cholecystitis, CVA, Diverticulitis, Homicidal, Suicidal, threat to staff... and all critical care pts) @ -[No] - Lab Data Result diagrams: 03/01/23 21:50 03/01/23 21:50 Lab Results 03/01/23 03/01/23 03/01/23 Range/Units 21:50 21:50 21:50 WBC 4.7 (3.8-10.6) k/uL RBC 4.59 (4.30-5.90) m/uL Hgb 14.2 (13.0-17.5) gm/dL Hct 41.1 (39.0-53.0) % MCV 89.6 (80.0-100.0) fL MCH 30.9 (25.0-35.0) pg MCHC 34.5 (31.0-37.0) g/dL RDW 12.5 (11.5-15.5) % Plt Count 197 (150-450) k/uL MPV 8.3 Neutrophils % 64 % Lymphocytes % 25 % Monocytes % 5 % Eosinophils % 4 % Basophils % 1 % Neutrophils # 3.0 (1.3-7.7) k/uL Lymphocytes # 1.2 (1.0-4.8) k/uL Monocytes # 0.3 (0-1.0) k/uL Eosinophils # 0.2 (0-0.7) k/uL Basophils # 0.0 (0-0.2) k/uL PT 10.7 (10.0-12.5) sec INR 1.0 (<1.2) APTT 22.3 (22.0-30.0) sec Sodium (137-145) mmol/L Potassium (3.5-5.1) mmol/L Chloride (98-107) mmol/L Carbon Dioxide (22-30) mmol/L Anion Gap mmol/L BUN (9-20) mg/dL Creatinine (0.66-1.25) mg/dL Est GFR (CKD-EPI)AfAm (>60 ml/min/1.73 sqM) Est GFR (CKD-EPI)NonAf (>60 ml/min/1.73 sqM) Glucose (74-99) mg/dL Calcium (8.4-10.2) mg/dL Magnesium (1.6-2.3) mg/dL Total Bilirubin (0.2-1.3) mg/dL AST (17-59) U/L ALT (4-49) U/L Alkaline Phosphatase (38-126) U/L Troponin I (0.000-0.034) ng/mL NT-Pro-B Natriuret Pep pg/mL Total Protein (6.3-8.2) g/dL Albumin (3.5-5.0) g/dL Lipase (23-300) U/L Urine Color Light Yellow Urine Appearance Cloudy (Clear) Urine pH 7.0 (5.0-8.0) Ur Specific [place] 1.018 (1.001-1.035) Urine Protein 1+ H (Negative) Urine Glucose (UA) Negative (Negative) Urine Ketones Negative (Negative) Urine Blood Small H (Negative) Urine Nitrite Negative (Negative) Urine Bilirubin Negative (Negative) Urine Urobilinogen <2.0 (<2.0) mg/dL Ur Leukocyte Esterase Large H (Negative) Urine RBC >182 H (0-5) /hpf Urine WBC 136 H (0-5) /hpf Urine WBC Clumps Moderate H (None) /hpf Ur Squamous Epith Cells 1 (0-4) /hpf Urine Bacteria Few H (None) /hpf Hyaline Casts 11 H (0-2) /lpf Urine Mucus Rare H (None) /hpf 12/16/23 12/16/23 Range/Units 21:50 21:50 WBC (3.8-10.6) k/uL RBC (4.30-5.90) m/uL Hgb (13.0-17.5) gm/dL Hct (39.0-53.0) % MCV (80.0-100.0) fL MCH (25.0-35.0) pg MCHC (31.0-37.0) g/dL RDW (11.5-15.5) % Plt Count (150-450) k/uL MPV Neutrophils % % Lymphocytes % % Monocytes % % Eosinophils % % Basophils % % Neutrophils # (1.3-7.7) k/uL Lymphocytes # (1.0-4.8) k/uL Monocytes # (0-1.0) k/uL Eosinophils # (0-0.7) k/uL Basophils # (0-0.2) k/uL PT (10.0-12.5) sec INR (<1.2) APTT (22.0-30.0) sec Sodium 140 (137-145) mmol/L Potassium 4.2 (3.5-5.1) mmol/L Chloride 107 (98-107) mmol/L Carbon Dioxide 25 (22-30) mmol/L Anion Gap 8 mmol/L BUN 15 (9-20) mg/dL Creatinine 0.81 (0.66-1.25) mg/dL Est GFR (CKD-EPI)AfAm >90 (>60 ml/min/1.73 sqM) Est GFR (CKD-EPI)NonAf 85 (>60 ml/min/1.73 sqM) Glucose 115 H (74-99) mg/dL Calcium 9.4 (8.4-10.2) mg/dL Magnesium 2.2 (1.6-2.3) mg/dL Total Bilirubin 0.5 (0.2-1.3) mg/dL AST 19 (17-59) U/L ALT 13 (4-49) U/L Alkaline Phosphatase 63 (38-126) U/L Troponin I <0.012 (0.000-0.034) ng/mL NT-Pro-B Natriuret Pep 139 pg/mL Total Protein 6.7 (6.3-8.2) g/dL Albumin 3.8 (3.5-5.0) g/dL Lipase 114 (23-300) U/L Urine Color Urine Appearance (Clear) Urine pH (5.0-8.0) Ur Specific [place] (1.001-1.035) Urine Protein (Negative) Urine Glucose (UA) (Negative) Urine Ketones (Negative) Urine Blood (Negative) Urine Nitrite (Negative) Urine Bilirubin (Negative) Urine Urobilinogen (<2.0) mg/dL Ur Leukocyte Esterase (Negative) Urine RBC (0-5) /hpf Urine WBC (0-5) /hpf Urine WBC Clumps (None) /hpf Ur Squamous Epith Cells (0-4) /hpf Urine Bacteria (None) /hpf Hyaline Casts (0-2) /lpf Urine Mucus (None) /hpf - EKG Data -: EKG Interpreted by [place] EKG shows normal: sinus rhythm Rate: bradycardia EKG Comments: EKG interpreted by [place] EKG obtained due to shortness of breath lightheadedness, EKG obtained at 2113 rate is 56 rhythm is sinus bradycardia, normal axis normal intervals [place] 155 QRS 90 QTc [address] elevations or depressions no evidence of ischemia or infarction Disposition Clinical Impression: Chest pain, Lightheaded, Bradycardia, UTI (urinary tract infection) due to urinary indwelling catheter, Nausea Disposition: ADMITTED IP TO THIS [facility] Condition: Serious
[2023-03-01 22:12] LABS: Basophils % (A) 1 %; Eosinophils # (A) 0.2 k/uL (0-0.7); Eosinophils % (A) 4 %; HCT 41.1 % (39.0-53.0); HGB 14.2 gm/dL (13.0-17.5); Lymphocytes # (A) 1.2 k/uL (1.0-4.8); Lymphocytes % (A) 25 %; MCH 30.9 pg (25.0-35.0); MCHC 34.5 g/dL (31.0-37.0); MCV 89.6 fL (80.0-100.0); Mean Platelet Volume 8.3; Monocytes # (A) 0.3 k/uL (0-1.0); Monocytes % (A) 5 %; Neutrophils % (A) 64 %; Platelet Count 197 k/uL (150-450); RBC 4.59 m/uL (4.30-5.90); RDW 12.5 % (11.5-15.5); WBC 4.7 k/uL (3.8-10.6)
[2023-03-01 22:22] LABS: Partial Thromboplastin Time 22.3 sec (22.0-30.0); Prothrombin Time 10.7 sec (10.0-12.5)
[2023-03-01 22:30] LABS: ALT 13 U/L (4-49); AST 19 U/L (17-59); African American GFR (CKD) >90 (>60 ml/min/1.73 sqM); Albumin 3.8 g/dL (3.5-5.0); Alkaline Phosphatase 63 U/L (38-126); Anion Gap 8 mmol/L; Blood Urea Nitrogen 15 mg/dL (9-20); Calcium 9.4 mg/dL (8.4-10.2); Carbon Dioxide 25 mmol/L (22-30); Chloride 107 mmol/L (98-107); Glucose 115 mg/dL (74-99); Lipase 114 U/L (23-300); Magnesium 2.2 mg/dL (1.6-2.3); Non-African American GFR(CKD) 85 (>60 ml/min/1.73 sqM); Potassium 4.2 mmol/L (3.5-5.1); Sodium 140 mmol/L (137-145); Total Bilirubin 0.5 mg/dL (0.2-1.3); Total Protein 6.7 g/dL (6.3-8.2)
[2023-03-01 22:39] LABS: NT-Pro-B-Type Natriuretic Pept 139 pg/mL
[2023-03-01 22:40] LABS: Appearance,Urine Cloudy (Clear); Bacteria,Urine Few /hpf; Bilirubin,Urine Negative (Negative); Blood,Urine Small (Negative); Color,Urine Light Yellow; Glucose,Urine (UA) Negative (Negative); Hyaline Casts,Urine 11 /lpf (0-2); Ketones,Urine Negative (Negative); Leukocyte Esterase,Urine Large (Negative); Mucus,Urine Rare /hpf; Nitrite,Urine Negative (Negative); Protein,Urine 1+ (Negative); RBC,Urine >182 /hpf (0-5); Specific Gravity,Urine 1.018 (1.001-1.035); Squamous Epithelial Cell,Urine 1 /hpf (0-4); Urobilinogen,Urine <2.0 mg/dL (<2.0); WBC,Urine 136 /hpf (0-5)
--- NOTE | 2023-03-01 22:44 | XR ---
EXAMINATION TYPE: XR chest 2V DATE OF EXAM: 03/01/2023 9:54 PM CLINICAL INDICATION:Male, 77 years old with history of Chest Pain; [facility] COMPARISON: Chest x-ray 07/29/2021 TECHNIQUE: XR chest 2V. Frontal PA and lateral views of the chest. FINDINGS: Lines/Tubes: EKG leads overlie the chest. No indwelling lines are seen. Heart/mediastinum: Cardiomediastinal silhouette is well defined. Heart size is normal. Mediastinum silhouette appears normal. Partially calcified aorta. Pulmonary vascularity: Not increased, Lungs/Pleura: There is no evidence of pleural effusion, focal consolidation, or pneumothorax. Lungs appear hyperinflated with interstitial coarsening and bilateral apical pleural thickening, findings s uggestive of COPD/emphysema. Musculoskeletal: No acute osseous abnormality demonstrated in the limits of the exam. Mild degenerat mercedes changes of the spine. Other findings: None. IMPRESSION: No acute cardiopulmonary abnormality. COPD.
[2023-03-01] MEDS ORDERED: LEVOFLOXACIN 250MG-D5W PMX 250 MG in DEXTROSE/WATER 1 50ML.BAG IVPB STA (23:14)
[2023-03-02] MEDS ORDERED: NALOXONE 0.4 MG/ML 1 ML VIAL IV PRN (00:03)
--- NOTE | 2023-03-02 00:15 | US ---
EXAM: US Abdomen Limited, Gallbladder CLINICAL HISTORY: ITS.REASON US Reason: pain TECHNIQUE: Real-time ultrasound of the right upper quadrant with image documentation. COMPARISON: No relevant prior studies available. FINDINGS: Gallbladder: Unremarkable. No gallstones. Common bile duct: Common bile duct measures 0.6 cm. No stones. No dilation. Pancreas: Unremarkable as visualized. Right kidney: Right kidney measures 8.3 cm. IMPRESSION: Unremarkable right upper quadrant ultrasound.
[2023-03-02] MEDS: SODIUM CHLORIDE 0.9% 1,000 ML IV SCH ×2 (00:29→01:14)
[2023-03-02] MEDS ORDERED: LEVOFLOXACIN 500MG-D5W PMX 500 MG in DEXTROSE/WATER 1 100ML.BAG IVPB STA (02:38)
[2023-03-02] MEDS ORDERED: LEVOFLOXACIN 750MG-D5W PMX 750 MG in DEXTROSE/WATER 1 150ML.BAG IVPB SCH (02:45)
--- NOTE | 2023-03-02 02:47 | P.HPIM ---
History of Present Illness H&P Date: 03/02/23 Chief Complaint: chest pain 77 year old male with GERD patient coming in with concerns regarding sudden onset chest pain , described as central chest pain , non radiating, started when laying down trying to get up, pressure like 5/10 in severity , with nausea , no vomiting, , soB and light headedness, denies any vomiting, profuse sweating , fever, chills, URI symptoms he also reports many weeks of feeling wobbly when standing up, this has been getting worse over the past week, denies any falls, he lives with his daughter . he also has chronic christie cath and reports some lower abd pain, again no hematuria , no fever, no chills. but was feeling nauseated today, with decrease appetite over past couple weeks. denies any diarrhea , falls, or focal neuro deficits. denies any cardiac history in the past. denies any history of stroke smokes 3 cigarettes per day , denies alcohol or drugs review of systems Pertinent positives as noted in HPI. All other systems were reviewed and are negative on exam Constitutional: No acute distress, conversant, pleasant Eyes: Anicteric sclerae, moist conjunctiva, Pupils equal round reactive to light ENMT: NC/AT Oropharynx clear, no erythema, or exudates Neck: Supple, no masses, or JVD No carotid bruits No thyromegaly Lungs: Clear to auscultation Clear to percussion Normal respiratory effort, no accessory muscle use Cardiovascular: Heart regular in rate and rhythm, No murmurs, gallops, or rubs No peripheral edema Abdominal: Soft tenderness to suprapubic palpation , no guarding, rebound or rigidity Abdomen moving with respiration Normoactive bowel sounds No hepatomegaly, No splenomegaly No palpable mass No abdominal wall hernia noted Extremities: No digital cyanosis No clubbing Pedal pulses intact and symmetrical Radial pulses intact and symmetrical No calf tenderness Psychiatric: Alert and oriented to person, place and time Appropriate affect fair judgement Neuro Muscles Strength 5/5 in all 4 extremities Sensation to light touch grossly present throughout Cranial nerves II-XII grossly intact Lymphatics: no palpable cervical or supraclavicular lymph nodes Past Medical History Past Medical History: GERD/Reflux Additional Past Medical History / Comment(s): states "had Hep B or C back 1959's and now it's all healed", recurrent UTI's with IDC, has IDC due to issues with hernia, bladder stones, chronic christie catheter History of Any Multi-Drug Resistant Organisms: None Reported Past Surgical History: Back Surgery, Hernia Repair, Tonsillectomy Additional Past Surgical History / Comment(s): hemorrhoid surgery, back surgery x 2, rt inguinal hernia repair Past Anesthesia/Blood Transfusion Reactions: No Reported Reaction Additional Past Anesthesia/Blood Transfusion Reaction / Comment(s): no hx blood transfusion Past Psychological History: Depression Smoking Status: Current every day smoker Past Alcohol Use History: None Reported Past Drug Use History: None Reported - Past Family History Mother Family Medical History: Cancer Father Family Medical History: Cancer Medications and Allergies Home Medications Medication Instructions Recorded Confirmed Type HYDROcodone/APAP 7.5-325MG [[place] 1 tab PO DAILY PRN 01/03/22 03/01/23 History 7.5-325] Melatonin 10 mg PO HS 01/03/22 03/01/23 History Meclizine [Antivert] 25 mg PO TID PRN 03/01/23 03/01/23 History Sertraline (Unknown Strength) 0.5 tab PO DIRECTED PRN 03/01/23 03/01/23 History Allergies Allergy/AdvReac Type Severity Reaction Status Date / Time nitrofurantoin Allergy Unknown Verified 03/01/23 22:02 [From Macrobid] Penicillins Allergy Anaphylaxis/Hives Verified 03/01/23 22:02 on entire body Sulfa (Sulfonamide Allergy Unknown Verified 03/01/23 22:02 Antibiotics) sulfamethoxazole Allergy Unknown Verified 03/01/23 22:02 [From Bactrim] Childhood trimethoprim [From Bactrim] Allergy Unknown Verified 03/01/23 22:02 Childhood Physical Exam Vitals: Vital Signs Temp Pulse Resp BP Pulse Ox 03/01/23 22:00 51 L 20 134/87 96 03/01/23 21:08 97.9 F 62 18 128/80 97 Intake and Output 03/01/23 03/01/23 03/02/23 14:59 22:59 06:59 Other: Weight 56.699 kg Results CBC & Chem 7: 03/01/23 21:50 03/01/23 21:50 Labs: Abnormal Lab Results - Last 24 Hours (Table) 03/01/23 03/01/23 Range/Units 21:50 21:50 Glucose 115 H (74-99) mg/dL Urine Protein 1+ H (Negative) Urine Blood Small H (Negative) Ur Leukocyte Esterase Large H (Negative) Urine RBC >182 H (0-5) /hpf Urine WBC 136 H (0-5) /hpf Urine WBC Clumps Moderate H (None) /hpf Urine Bacteria Few H (None) /hpf Hyaline Casts 11 H (0-2) /lpf Urine Mucus Rare H (None) /hpf Assessment and Plan Assessment: 77 year old male with GERD, chronic christie cath at home, coming in for sudden onset of atypical chest pain, I discussed the case with ED doc , and I accepted the admission for chest pain to rule out ACS, and UTI with antiicpated length of stay < 2 midnights atypical chest pain EKG no acute ST changes trops negative , continue to trend ASA 81 mg daily cardiac consult drapery counselor pain control with nitro prn UTI with chronic christie cath present upon admission levofloxacin 750 mg IVPB daily due to multiple allergies follow up cultures tylenol for fever blood work unremarkable WBC 4.7, Hgb 14.2 Na 140, K 4.2, BUN 15, Cr 0.8 trops negative fall precautions PT evaluation code status DNR DVT PPX heparin sc tid
[2023-03-02] MEDS: MELATONIN 5 MG TABLET PO SCH ×2 (03:07→21:11)
[2023-03-02] MEDS: PANTOPRAZOLE 40 MG TABLET PO SCH (06:40)
[2023-03-02] MEDS: ASPIRIN 81 MG PO SCH (08:17)
[2023-03-02] MEDS: HEPARIN SODIUM,PORCINE 5,000 UNIT/ML 1 ML VIAL SQ SCH ×3 (08:18→21:13)
--- NOTE | 2023-03-02 11:20 | P.CRDCN ---
History of Present Illness Consult date: 03/02/23 Consult reason: chest pain Chief complaint: chest pain History of present illness: History of present illness: As a pleasant 77-year-old male with a past medical history of GERD who presented to the emergency department with chest pain and dizziness. He does not follow with head chopper. He reports that he has been feeling like his body is all numb and has seen his primary doctor in regards to this. Yesterday he reports that he was feeling off balance when standing, he felt dizzy for approximately 30 minutes and then developed chest pain that lasted for approximately 30 minutes. He denies any prior issues with chest pain. Denies any shortness of breath, nausea, diaphoresis. EKG shows sinus bradycardia, no significant ST or T wave changes. Chest x-ray with no acute findings. Right upper quadrant ultrasound was unremarkable. Troponin negative 1, BNP 139, UA was positive for infection. He did have a prior echo 01/2020 with EF 5560%. He is feeling better today with no chest pain. REVIEW OF SYSTEMS: No fever or chills. No cough or expectoration. No diaphoresis. Patient denies headache, dizziness, blurred vision, double vision. Patient denies any stomach discomfort. No nausea, vomiting. No hematochezia. No hematemesis. Denies any black stools or blood in his stools. Denies dysuria or hematuria. No muscle weakness or numbness. No chest pain or pressure. PHYSICAL EXAMINATION: This is a 77-year-old male in no apparent distress at the time of my examination. HEENT: Head is atraumatic, normocephalic. Pupils are equal, round. Sclerae anicteric. Conjunctivae are clear. Mucous membranes of the mouth are moist. Neck is supple. There is no jugular venous distention. No carotid bruit is heard. CHEST EXAMINATION: Lungs are clear to auscultation. No chest wall tenderness is noted on palpation or with deep breathing. HEART EXAMINATION: Heart regular rate and rhythm. S1, S2 heard. No murmurs, gallops or rub. ABDOMEN: Soft, nontender. Bowel sounds are heard. EXTREMITIES: 2+ peripheral pulses with no evidence of peripheral edema and no calf tenderness noted. NEUROLOGIC EXAMINATION: Patient is awake, alert and oriented x3. IMPRESSION AND PLAN: 1. Chest pain 2. Dizziness 3. GERD 4. Urinary tract infection PLAN: We will check d-dimer. We will check echocardiogram to evaluate heart function and structure. Check a stress test Lexiscan on Friday03/03/23 to rule out inducible ischemia. Further recommendations pending results. We'll follow. I am dictating on behalf of Dr. Feliciano Macias's history/physical and assessment/plan. Past Medical History Past Medical History: GERD/Reflux Additional Past Medical History / Comment(s): states "had Hep B or C back 1959's and now it's all healed", recurrent UTI's with IDC, has IDC due to issues with hernia, bladder stones, chronic christie catheter History of Any Multi-Drug Resistant Organisms: None Reported Past Surgical History: Back Surgery, Hernia Repair, Tonsillectomy Additional Past Surgical History / Comment(s): hemorrhoid surgery, back surgery x 2, rt inguinal hernia repair Past Anesthesia/Blood Transfusion Reactions: No Reported Reaction Additional Past Anesthesia/Blood Transfusion Reaction / Comment(s): no hx blood transfusion Past Psychological History: Depression Smoking Status: Current every day smoker Past Alcohol Use History: None Reported Past Drug Use History: None Reported - Past Family History Mother Family Medical History: Cancer Father Family Medical History: Cancer Medications and Allergies Home Medications Medication Instructions Recorded Confirmed Type HYDROcodone/APAP 7.5-325MG [[place] 1 tab PO DAILY PRN 01/03/22 03/01/23 History 7.5-325] Melatonin 10 mg PO HS 01/03/22 03/01/23 History Meclizine [Antivert] 25 mg PO TID PRN 03/01/23 03/01/23 History Sertraline (Unknown Strength) 0.5 tab PO DIRECTED PRN 03/01/23 03/01/23 History Allergies Allergy/AdvReac Type Severity Reaction Status Date / Time nitrofurantoin Allergy Unknown Verified 03/01/23 22:02 [From Macrobid] Penicillins Allergy Anaphylaxis/Hives Verified 03/01/23 22:02 on entire body Sulfa (Sulfonamide Allergy Unknown Verified 03/01/23 22:02 Antibiotics) sulfamethoxazole Allergy Unknown Verified 03/01/23 22:02 [From Bactrim] Childhood trimethoprim [From Bactrim] Allergy Unknown Verified 03/01/23 22:02 Childhood Physical Exam Vitals: Vital Signs Temp Pulse Pulse Resp BP BP Pulse Ox 03/02/23 08:00 60 18 03/02/23 00:44 97.5 F L 60 18 149/80 98 03/02/23 00:00 54 L 16 132/74 98 03/01/23 22:00 51 L 20 134/87 96 03/01/23 21:08 97.9 F 62 18 128/80 97 Intake and Output 03/01/23 03/02/23 03/02/23 22:59 06:59 14:59 Output Total 500 Balance -500 Output: Urine 500 Other: Voiding Method Indwelling Catheter # Voids 2 Weight 56.699 kg 56.699 kg Results 03/01/23 21:50 03/01/23 21:50 Cardiac Enzymes 03/01/23 03/01/23 Range/Units 21:50 21:50 AST 19 (17-59) U/L Troponin I <0.012 (0.000-0.034) ng/mL Coagulation 03/01/23 Range/Units 21:50 PT 10.7 (10.0-12.5) sec APTT 22.3 (22.0-30.0) sec CBC 03/01/23 Range/Units 21:50 WBC 4.7 (3.8-10.6) k/uL RBC 4.59 (4.30-5.90) m/uL Hgb 14.2 (13.0-17.5) gm/dL Hct 41.1 (39.0-53.0) % Plt Count 197 (150-450) k/uL Comprehensive Metabolic Panel 03/01/23 Range/Units 21:50 Sodium 140 (137-145) mmol/L Potassium 4.2 (3.5-5.1) mmol/L Chloride 107 (98-107) mmol/L Carbon Dioxide 25 (22-30) mmol/L BUN 15 (9-20) mg/dL Creatinine 0.81 (0.66-1.25) mg/dL Glucose 115 H (74-99) mg/dL Calcium 9.4 (8.4-10.2) mg/dL AST 19 (17-59) U/L ALT 13 (4-49) U/L Alkaline Phosphatase 63 (38-126) U/L Total Protein 6.7 (6.3-8.2) g/dL Albumin 3.8 (3.5-5.0) g/dL Current Medications Generic Name Dose Route Start Last Admin Trade Name Freq PRN Reason Stop Dose Admin Aspirin 81 mg 03/02/23 09:00 03/02/23 08:17 Aspirin 81 Mg PO 81 mg DAILY BIANCA Administration Heparin Sodium (Porcine) 5,000 unit 03/02/23 08:00 03/02/23 08:18 Heparin Sodium,Porcine 5,000 Unit/Ml 1 Ml Vial SQ 5,000 unit Q8HR BIANCA Administration Sodium Chloride 1,000 mls @ 75 mls/hr 03/02/23 00:30 03/02/23 01:14 Saline 0.9% IV 75 mls/hr .[id number] BIANCA Administration Levofloxacin 750 mg/ IV 150 mls @ 100 mls/hr 03/03/23 02:45 Solution IVPB Q24H [facility] Protocol Melatonin 10 mg 03/02/23 02:29 03/02/23 03:07 Melatonin 5 Mg Tablet PO Not Given HS BIANCA Naloxone HCl 0.2 mg 03/02/23 00:03 Naloxone 0.4 Mg/Ml 1 Ml Vial IV Q2M PRN Opioid Reversal Pantoprazole Sodium 40 mg 03/02/23 07:30 03/02/23 06:40 Pantoprazole 40 Mg Tablet PO 40 mg [id number] BIANCA Administration Intake and Output 03/01/23 03/02/23 03/02/23 22:59 06:59 14:59 Output Total 500 Balance -500 Output: Urine 500 Other: Voiding Method Indwelling Catheter # Voids 2 Weight 56.699 kg 56.699 kg 03/01/23 21:50 03/01/23 21:50
[2023-03-02 13:15] LABS: Chol/HDL Ratio 3.76 Ratio; LDL Cholesterol,Calculated 117.8 mg/dL (0.0-131.0); VLDL Calculation 10.66 mg/dL (5.00-40.00)
[2023-03-02] MEDS ORDERED: MAGNESIUM CITRATE 296 ML BOTTLE PO ONE (15:00)
--- NOTE | 2023-03-02 16:43 | P.PN ---
Subjective Progress Note Date: 03/02/23 Hospital course: Patient is a very pleasant 85-year-old male with a past medical history of GERD, and nicotine dependence, hernia, recurrent UTIs, and chronic indwelling Mohamud catheter. He presented to the emergency department secondary to complaints of chest pain. Patient reported sudden onset chest pain described as a pressure- like sensation with no radiation of pain and no associated symptoms. He underwent full evaluation in the emergency department. Vital signs upon arrival blood pressure 128 over ED, heart rate 62, respiratory rate 18, temp 97.9F, SpO2 of 97% on room air. EKG showing sinus bradycardia at 56 bpm with no noted T-wave or ST abnormalities showing no signs of acute ischemia upon personal review and interpretation. Chest x-ray completed showing hyper inflation consistent with COPD/emphysema otherwise negative for acute cardiopulmonary process. Gallbladder ultrasound also completed and was negative for acute process reporting unremarkable right upper quadrant ultrasound. Labs completed and reviewed. CBC unremarkable. Coagulation profile normal findings. BMP also unremarkable. Glucose 1:15. Magnesium 2.2. Liver profile unremarkable. Trop onin less than 0.012, proBNP 139, and normal lipase of 114. Urinalysis was concerning for infection showing positive for protein, blood, leukocytes, greater than 182 RBCs and 136 WBCs. Patient was admitted under our services with consultation to cardiology. Physical exam: Vital signs reviewed and stable. General: Nontoxic, no distress and appears stated age. Derm: Skin warm and dry, normal coloration for ethnicity. Head: Atraumatic, normocephalic and symmetric. Eyes: EOMs intact, no lid lag, and anicteric sclera Mouth: no lip lesions, mucus membranes moist Cardiovascular: regular rate and rhythm with normal S1S2, no murmur, positive posterior tibial pulses bilaterally, and cap refill < 2 seconds. Lungs: Respirations even, regular, and unlabored on room air. Lungs CTA bilaterally, no rhonchi, no rales, no wheezing, and no accessory muscle usage. Abdominal: soft, nontender to palpation, no guarding, no appreciable organomegaly for a catheter in place. Ext: ROM intact. No gross muscle atrophy, no edema, no contractures Neuro: Speech clear, face symmetrical and CN II-XII grossly intact with no noted focal neuro deficits Psych: Alert and oriented to person, place, time, and situation. Appropriate and pleasant affect. Assessment and Plan of Care: Chest pain, rule out acute coronary event -Cardiology following recommending Lexiscan stress test and echocardiogram. -Telemetry monitoring -Cardiac diet, NPO at midnight -Patient started on aspirin 81 mg daily. -Lipid profile unremarkable. -Echocardiogram UTI with chronic Mohamud catheter, present on admission -Discontinued Levaquin, patient does have extensive history of ALLERGIES to antibiotics including penicillins, nitrofurantoin and, sulfa, and Bactrim, however upon chart review patient has tolerated Rocephin multiple times in the past with no reported adverse reactions. -Order placed for Rocephin 2 g daily. -Chronic indwelling Mohamud catheter was changed out upon arrival to our facility. GERD -Continue Protonix 40 mg daily. Data reviewed: -Vital signs reviewed: Blood pressure 107/62, heart rate 64, respiratory rate 16, temp 97.7 right eye, and SpO2 of 96% on room air. -Labs reviewed. D-dimer negative at 0.26. Lipid profile unremarkable. CODE STATUS: DO NOT RESUSCITATE/DO NOT INTUBATE DVT prophylaxis: Heparin Anticipated discharge date: Clinical course to determine Anticipated discharge place: Clinical course to determine Patient was seen independently by Nurse Pracitioner. This document was prepared using [employer] dictation software. Please allow for errors in blacktop spreader, while rare they do occur. King Paige NP rendered care for this patient independently, reviewed the findings and plan as documented in the note above. I did not physically speak with or examine the patient on this date. Objective - Vital Signs Vital signs: Vital Signs Temp 97.5 F L 03/02/23 00:44 Pulse 60 03/02/23 08:00 Resp 18 03/02/23 08:00 BP 149/80 03/02/23 00:44 Pulse Ox 98 03/02/23 00:44 FiO2 Intake & Output 03/01/23 03/02/23 03/02/23 18:59 06:59 18:59 Output Total 500 Balance -500 Weight 56.699 kg Output: Urine 500 Other: Voiding Method Indwelling Catheter # Voids 2 - Labs CBC & Chem 7: 03/01/23 21:50 03/01/23 21:50 Labs: Abnormal Lab Results - Last 24 Hours (Table) 03/01/23 03/01/23 Range/Units 21:50 21:50 Glucose 115 H (74-99) mg/dL Urine Protein 1+ H (Negative) Urine Blood Small H (Negative) Ur Leukocyte Esterase Large H (Negative) Urine RBC >182 H (0-5) /hpf Urine WBC 136 H (0-5) /hpf Urine WBC Clumps Moderate H (None) /hpf Urine Bacteria Few H (None) /hpf Hyaline Casts 11 H (0-2) /lpf Urine Mucus Rare H (None) /hpf
[2023-03-03] MEDS ORDERED: LEVOFLOXACIN 750MG-D5W PMX 750 MG in DEXTROSE/WATER 1 150ML.BAG IVPB SCH (02:45)
[2023-03-03] MEDS: SODIUM CHLORIDE 0.9% 1,000 ML IV SCH ×2 (05:40→17:13)
[2023-03-03] MEDS: PANTOPRAZOLE 40 MG TABLET PO SCH (05:40)
[2023-03-03] MEDS ORDERED: REGADENOSON 0.4 MG/5 ML SYRINGE IV PRN (07:00)
[2023-03-03] MEDS ORDERED: CAFFEINE CITRATE 60 MG/3 ML VIAL IV PRN (07:00)
[2023-03-03] MEDS ORDERED: AMINOPHYLLINE 500 MG/20 ML VIAL IV PRN (07:00)
--- NOTE | 2023-03-03 10:34 | P.PN ---
Subjective HISTORY OF PRESENT ILLNESS: As a pleasant 77-year-old male with a past medical history of GERD who presented to the emergency department with chest pain and dizziness. He does not follow with zipper measurer. He reports that he has been feeling like his body is all numb and has seen his primary doctor in regards to this. Yesterday he reports that he was feeling off balance when standing, he felt dizzy for approximately 30 minutes and then developed chest pain that lasted for approximately 30 minutes. He denies any prior issues with chest pain. Denies any shortness of breath, nausea, diaphoresis. EKG shows sinus bradycardia, no significant ST or T wave changes. Chest x-ray with no acute findings. Right upper quadrant ultrasound was unremarkable. Troponin negative 1, BNP 139, UA was positive for infection. He did have a prior echo 01/2020 with EF 5560%. He is feeling better today with no chest pain. 03/03/2023 Patient examined this morning at the bedside. Patient denies any chest pain or pressure. He denies shortness of breath. Vital signs are stable. Telemetry reveals sinus mechanism. PHYSICAL EXAM: VITAL SIGNS: Reviewed. GENERAL: Well-developed in no acute distress. NECK: Supple. No JVD or thyromegaly LUNGS: Respirations even and unlabored. Lungs essentially clear to auscultation bilaterally. HEART: Regular rate and rhythm. S1 and S2 heard. EXTREMITIES: Normal range of motion. No clubbing or cyanosis. Peripheral pulses intact. No lower extremity edema ASSESSMENT: Chest pain Urinary tract infection Dizziness GERD PLAN: 2-D echo has been ordered. Await results Continue current cardiac medications Patient to undergo Lexiscan stress test today to assess for ischemia If negative, patient may be discharged home today from a cardiac perspective Nurse practitioner note has been reviewed by physician. Signing provider agrees with the documented findings, assessment, and plan of care. Objective - Vital Signs Vital signs: Vital Signs Temp 97.7 F 03/03/23 07:10 Pulse 51 L 03/03/23 07:10 Resp 15 03/03/23 07:10 BP 104/63 03/03/23 07:10 Pulse Ox 96 03/03/23 07:10 FiO2 Intake & Output 03/02/23 03/03/23 03/03/23 18:59 06:59 18:59 Intake Total 236 Output Total 800 1000 Balance -564 -1000 Intake: Oral 236 Output: Urine 800 1000 Other: Voiding Method Indwelling Catheter Indwelling Catheter Indwelling Catheter # Voids 2 - Labs CBC & Chem 7: 03/01/23 21:50 03/01/23 21:50
[2023-03-03] MEDS: ASPIRIN 81 MG PO SCH (12:13)
[2023-03-03] MEDS: HEPARIN SODIUM,PORCINE 5,000 UNIT/ML 1 ML VIAL SQ SCH ×3 (12:13→22:52)
[2023-03-03] MEDS: polyethylene glycoL 3350 17 GM POWD.PACK PO SCH (12:14)
--- NOTE | 2023-03-03 13:03 | CA ---
Transthoracic Echo Report Name: Jef Paniagua Age: 77 Gender: M : 1945 Exam Date: 03/03/2023 11:38 Exam Location: [facility] Ht (in): 68 Wt (lb): 125 Ordering Physician: Deepika Velásquez Attending/Referring Phys: Senior User Experience Architect Kalyani Hernandez RDCS Procedure CPT: Indications: chest pain, dizziness Cardiac Hx: Technical Quality: Technically difficult study Contrast 1: Total Dose (mL): Contrast 2: Total Dose (mL): MEASUREMENTS (Male / Female) Normal Values 2D ECHO LV Diastolic Diameter PLAX 3.6 cm 4.2 - 5.9 / 3.9 - 5.3 cm LV Systolic Diameter PLAX 2.5 cm IVS Diastolic Thickness 0.9 cm 0.6 - 1.0 / 0.6 - 0.9 cm LVPW Diastolic Thickness 1.0 cm 0.6 - 1.0 / 0.6 - 0.9 cm LV Relative Wall Thickness 0.5 RV Internal Dim ED PLAX 3.3 cm LA Systolic Diameter LX 2.2 cm 3.0 - 4.0 / 2.7 - 3.8 cm M-MODE Aortic Root Diameter MM 2.7 cm MV E Point Septal Separation 1.6 cm AV Cusp Separation MM 1.8 cm DOPPLER AV Peak Velocity 129.3 cm/s AV Peak Gradient 6.7 mmHg TR Peak Velocity 220.1 cm/s TR Peak Gradient 19.4 mmHg Right Ventricular Systolic Press 23.7 mmHg FINDINGS Left Ventricle Left ventricular ejection fraction is estimated at 55-60 %. Small left ventricular cavity. Left ventricular wall thickness normal.normal left ventricular wall motion. Right Ventricle Mild right ventricular dilatation. Right ventricular systolic pressure within normal limits. Right Atrium Normal right atrial size. Left Atrium Normal left atrial size. Mitral Valve Structurally normal mitral valve. No mitral stenosis, regurgitation or prolapse. Aortic Valve Aortic valve not well visualized. Tricuspid Valve Structurally normal tricuspid valve. Mild tricuspid regurgitation. Pulmonic Valve Pulmonic valve not well visualized. Pericardium No pericardial effusion. Aorta Normal size aortic root and proximal ascending aorta. CONCLUSIONS 1. Normal left ventricular size and systolic function 2. Limited Doppler study with mild tricuspid regurgitation Previewed by: Dr. Graciela José MD (Electronically Signed) Final Date: 03 March 2023 13:02
--- NOTE | 2023-03-03 14:00 | NM ---
EXAMINATION TYPE: NM stress lexiscan cardiolite DATE OF EXAM: 03/03/2023 COMPARISON: NONE HISTORY: Chest pain TECHNIQUE: After the intravenous administration of 10 mCi Tc 99m Sestamibi - Cardiolite resting SPEC T images acquired 100 minutes post injection. At peak stress 24.8 mCi Tc 99m Sestamibi - Stress images obtained 30 minutes post injection The patient was stressed with 0.4 mg Lexiscan FINDINGS: There may be a mild defect along the distal inferior wall on both resting and stress images. This is not identified on the polar maps. This could be artifact. No reversible stress defects on Spect images Wall motion is normal Ejection fraction is calculated to be 72 %. IMPRESSION: 1. Suspected artifact inferior wall. Correlate for distal inferior wall EKG changes. 2. No stress-induced ischemic changes are evident
[2023-03-03] MEDS: MELATONIN 5 MG TABLET PO SCH (20:20)
[2023-03-04] MEDS: HEPARIN SODIUM,PORCINE 5,000 UNIT/ML 1 ML VIAL SQ SCH ×3 (08:13→23:14)
[2023-03-04] MEDS: PANTOPRAZOLE 40 MG TABLET PO SCH (08:13)
[2023-03-04] MEDS: polyethylene glycoL 3350 17 GM POWD.PACK PO SCH (08:13)
[2023-03-04] MEDS: ASPIRIN 81 MG PO SCH (08:13)
[2023-03-04] MEDS: SODIUM CHLORIDE 0.9% 1,000 ML IV SCH ×2 (08:14→23:17)
--- NOTE | 2023-03-04 09:21 | P.PN ---
Subjective Progress Note Date: 03/03/23 Hospital course: Patient is a very pleasant 85-year-old male with a past medical history of GERD, and nicotine dependence, hernia, recurrent UTIs, and chronic indwelling Mohamud catheter. He presented to the emergency department secondary to complaints of chest pain. Patient reported sudden onset chest pain described as a pressure- like sensation with no radiation of pain and no associated symptoms. He underwent full evaluation in the emergency department. Vital signs upon arrival blood pressure 128 over ED, heart rate 62, respiratory rate 18, temp 97.9F, SpO2 of 97% on room air. EKG showing sinus bradycardia at 56 bpm with no noted T-wave or ST abnormalities showing no signs of acute ischemia upon personal review and interpretation. Chest x-ray completed showing hyper inflation consistent with COPD/emphysema otherwise negative for acute cardiopulmonary process. Gallbladder ultrasound also completed and was negative for acute process reporting unremarkable right upper quadrant ultrasound. Labs completed and reviewed. CBC unremarkable. Coagulation profile normal findings. BMP also unremarkable. Glucose 1:15. Magnesium 2.2. Liver profile unremarkable. Trop onin less than 0.012, proBNP 139, and normal lipase of 114. Urinalysis was concerning for infection showing positive for protein, blood, leukocytes, greater than 182 RBCs and 136 WBCs. Patient was admitted under our services with consultation to cardiology. Physical exam: Vital signs reviewed and stable. General: Nontoxic, no distress and appears stated age. Derm: Skin warm and dry, normal coloration for ethnicity. Head: Atraumatic, normocephalic and symmetric. Eyes: EOMs intact, no lid lag, and anicteric sclera Mouth: no lip lesions, mucus membranes moist Cardiovascular: regular rate and rhythm with normal S1S2, no murmur, positive posterior tibial pulses bilaterally, and cap refill < 2 seconds. Lungs: Respirations even, regular, and unlabored on room air. Lungs CTA bilaterally, no rhonchi, no rales, no wheezing, and no accessory muscle usage. Abdominal: soft, nontender to palpation, no guarding, no appreciable organomegaly for a catheter in place. Mohamud catheter in place. Ext: ROM intact. No gross muscle atrophy, no edema, no contractures Neuro: Speech clear, face symmetrical and CN II-XII grossly intact with no noted focal neuro deficits Psych: Alert and oriented to person, place, time, and situation. Appropriate and pleasant affect. Assessment and Plan of Care: Chest pain, rule out acute coronary event -Cardiology following and took patient for Lexiscan stress test -Telemetry monitoring -Cardiac diet, NPO at midnight -Patient started on aspirin 81 mg daily. -Lipid profile unremarkable. -Echocardiogram completed and pending results. UTI with chronic Mohamud catheter, present on admission -Discontinued Levaquin, patient does have extensive history of ALLERGIES to antibiotics including penicillins, nitrofurantoin and, sulfa, and Bactrim, however upon chart review patient has tolerated Rocephin multiple times in the past with no reported adverse reactions. -Order placed for Rocephin 2 g daily. -Chronic indwelling Mohamud catheter was changed out upon arrival to our facility. GERD -Continue Protonix 40 mg daily. Data reviewed: -Vital signs reviewed: Blood pressure 104/63, heart rate 51, respiratory rate 15, temp 97.7F, SpO2 of 96% on room air. CODE STATUS: DO NOT RESUSCITATE/DO NOT INTUBATE DVT prophylaxis: Heparin Anticipated discharge date: Clinical course to determine Anticipated discharge place: Clinical course to determine Patient was seen independently by Nurse Pracitioner. This document was prepared using [employer] dictation software. Please allow for errors in build engineer, while rare they do occur. King Paige NP rendered care for this patient independently, reviewed the findings and plan as documented in the note above. I did not physically speak with or examine the patient on this date. Objective - Vital Signs Vital signs: Vital Signs Temp 97.7 F 03/03/23 07:10 Pulse 51 L 03/03/23 07:10 Resp 15 03/03/23 07:10 BP 104/63 03/03/23 07:10 Pulse Ox 96 03/03/23 07:10 FiO2 Intake & Output 03/02/23 03/03/23 03/03/23 18:59 06:59 18:59 Intake Total 236 Output Total 800 1000 Balance -564 -1000 Intake: Oral 236 Output: Urine 800 1000 Other: Voiding Method Indwelling Catheter Indwelling Catheter # Voids 2 - Labs CBC & Chem 7: 03/04/23 09:30 03/04/23 09:30
[2023-03-04 09:47] LABS: HCT 39.3 % (39.0-53.0); HGB 13.3 gm/dL (13.0-17.5); MCV 91.1 fL (80.0-100.0); Mean Platelet Volume 8.5; Platelet Count 167 k/uL (150-450); RBC 4.31 m/uL (4.30-5.90); RDW 12.5 % (11.5-15.5); WBC 3.6 k/uL (3.8-10.6)
[2023-03-04 10:03] LABS: ALT 15 U/L (4-49); AST 18 U/L (17-59); African American GFR (CKD) >90 (>60 ml/min/1.73 sqM); Albumin 3.1 g/dL (3.5-5.0); Albumin/Globulin Ratio 1.1; Alkaline Phosphatase 54 U/L (38-126); Anion Gap 10 mmol/L; Blood Urea Nitrogen 12 mg/dL (9-20); Calcium 8.6 mg/dL (8.4-10.2); Carbon Dioxide 22 mmol/L (22-30); Chloride 110 mmol/L (98-107); Globulin 2.7 g/dL; Glucose 101 mg/dL (74-99); Non-African American GFR(CKD) 83 (>60 ml/min/1.73 sqM); Potassium 4.3 mmol/L (3.5-5.1); Sodium 142 mmol/L (137-145); Total Bilirubin 0.3 mg/dL (0.2-1.3); Total Protein 5.8 g/dL (6.3-8.2)
--- NOTE | 2023-03-04 14:52 | P.PN ---
Subjective Progress Note Date: 03/04/23 Hospital course: Patient is a very pleasant 85-year-old male with a past medical history of GERD, and nicotine dependence, hernia, recurrent UTIs, and chronic indwelling Mohamud catheter. He presented to the emergency department secondary to complaints of chest pain. Patient reported sudden onset chest pain described as a pressure- like sensation with no radiation of pain and no associated symptoms. He underwent full evaluation in the emergency department. Vital signs upon arrival blood pressure 128 over ED, heart rate 62, respiratory rate 18, temp 97.9F, SpO2 of 97% on room air. EKG showing sinus bradycardia at 56 bpm with no noted T-wave or ST abnormalities showing no signs of acute ischemia upon personal review and interpretation. Chest x-ray completed showing hyper inflation consistent with COPD/emphysema otherwise negative for acute cardiopulmonary process. Gallbladder ultrasound also completed and was negative for acute process reporting unremarkable right upper quadrant ultrasound. Labs completed and reviewed. CBC unremarkable. Coagulation profile normal findings. BMP also unremarkable. Glucose 1:15. Magnesium 2.2. Liver profile unremarkable. Trop onin less than 0.012, proBNP 139, and normal lipase of 114. Urinalysis was concerning for infection showing positive for protein, blood, leukocytes, greater than 182 RBCs and 136 WBCs. Patient was admitted under our services with consultation to cardiology. Physical exam: Patient seen and fully evaluated at bedside this morning. He reports mild abdominal discomfort, unclear if this is secondary to constipation vs UTI. Patient reports last bowel movement being on . Previous orders were placed for mag citrate, however patient did not take at that time because he was afraid he was going to be discharged home. Patient currently drinking the mag citrate time. Will monitor for resolution of constipation and awaiting final urine culture sensitivity report. Vital signs reviewed and stable. General: Nontoxic, no distress and appears stated age. Derm: Skin warm and dry, normal coloration for ethnicity. Head: Atraumatic, normocephalic and symmetric. Eyes: EOMs intact, no lid lag, and anicteric sclera Mouth: no lip lesions, mucus membranes moist Cardiovascular: regular rate and rhythm with normal S1S2, no murmur, positive posterior tibial pulses bilaterally, and cap refill < 2 seconds. Lungs: Respirations even, regular, and unlabored on room air. Lungs CTA bilaterally, no rhonchi, no rales, no wheezing, and no accessory muscle usage. Abdominal: soft, nontender to palpation, no guarding, no appreciable organomegaly for a catheter in place. Mohamud catheter in place. Ext: ROM intact. No gross muscle atrophy, no edema, no contractures Neuro: Speech clear, face symmetrical and CN II-XII grossly intact with no noted focal neuro deficits Psych: Alert and oriented to person, place, time, and situation. Appropriate and pleasant affect. Assessment and Plan of Care: Lower abdominal pain with UTI in pt with chronic Mohamud catheter, present on admission -Continue Rocephin 2 g daily. -Urine culture preliminary results positive for gram-negative bacilli, awaiting final culture and sensitivity report. -Chronic indwelling Mohamud catheter was changed out upon arrival to our facility. Constipation -Patient was given mag citrate 296 mL by mouth 1 dose and started on MiraLAX 17 g daily. Chest pain, acute coronary event ruled out. -Echocardiogram revealed an EF of 55-60% -Lexiscan stress test was completed, reported suspect artifact inferior wall recommending correlating port distal inferior wall EKG changes with no stress- induced ischemic changes reported. -Cardiology clearing patient from cardiac perspective for discharge home. -Telemetry monitoring -Cardiac diet, NPO at midnight -Patient started on aspirin 81 mg daily. -Lipid profile unremarkable. GERD -Continue Protonix 40 mg daily. Data reviewed: -Labs reviewed. CBC showing mild leukopenia with WBC count of 3.6 otherwise normal findings. BMP revealing mild hyperchloremia with chloride of 110 otherwise unremarkable. Liver profile unremarkable. -Vital signs reviewed: Blood pressure 96/61, heart rate 55, respiratory rate 16, temp 98.6F, SpO2 of 98% on room air. CODE STATUS: DO NOT RESUSCITATE/DO NOT INTUBATE DVT prophylaxis: Heparin Anticipated discharge date: Likely tomorrow morning. Awaiting final urine culture and sensitivity report, per microbiology will be available later today sometime after [address]: Home with home care Patient was seen independently by Nurse Pracitioner. This document was prepared using [employer] dictation software. Please allow for errors in ship purser, while rare they do occur. King Paige NP rendered care for this patient independently, reviewed the findings and plan as documented in the note above. I did not physically speak with or examine the patient on this date. Objective - Vital Signs Vital signs: Vital Signs Temp 98.6 F 03/04/23 07:00 Pulse 55 L 03/04/23 07:00 Resp 16 03/04/23 07:00 BP 96/61 03/04/23 07:00 Pulse Ox 98 03/04/23 07:00 FiO2 Intake & Output 03/03/23 03/04/23 03/04/23 18:59 06:59 18:59 Intake Total 355 Output Total 425 1200 Balance -70 -1200 Intake: Oral 355 Output: Urine 425 1200 Other: Voiding Method Indwelling Catheter Indwelling Catheter Indwelling Catheter # Voids 1 - Labs CBC & Chem 7: 03/04/23 09:30 03/04/23 09:30 Labs: Microbiology - Last 24 Hours (Table) 03/01/23 21:50 Urine Culture - Preliminary Urine,Voided Gram Neg Bacilli
[2023-03-04] MEDS: MELATONIN 5 MG TABLET PO SCH (20:12)
[2023-03-05] MEDS: PANTOPRAZOLE 40 MG TABLET PO SCH (05:55)
[2023-03-05 07:58] VITALS: BP 112/63; PULSE 56; RESP 15; TEMP 97.6
[2023-03-05] MEDS: polyethylene glycoL 3350 17 GM POWD.PACK PO SCH (08:42)
[2023-03-05] MEDS: ASPIRIN 81 MG PO SCH (08:42)
[2023-03-05] MEDS: SODIUM CHLORIDE 0.9% 1,000 ML IV SCH (08:42)
[2023-03-05] MEDS: HEPARIN SODIUM,PORCINE 5,000 UNIT/ML 1 ML VIAL SQ SCH (08:42)
[2023-03-05 09:18] LABS: HCT 39.8 % (39.6-50.0); HGB 13.6 g/dL (13.0-17.0); MCH 31.8 pg (27.0-32.0); MCHC 34.2 g/dL (32.0-37.0); Mean Platelet Volume 11.6 FL (9.5-12.2); NRBC Per 100 WBC 0 X 10*3/uL (0.00-0.01); Platelet Count 185 X 10*3/uL (140-440); RBC 4.28 X 10*6/uL (4.40-5.60); RDW 12.8 % (11.5-14.5); WBC 4.03 X 10*3/uL (4.50-10.00)
[2023-03-05 09:29] LABS: ALT 24 U/L (10-49); AST 24 U/L (14-35); Albumin 3.6 g/dL (3.8-4.9); Albumin/Globulin Ratio 1.64 Ratio (1.60-3.17); Alkaline Phosphatase 57 U/L (41-126); BUN/Creat Ratio 14.33 Ratio (12.00-20.00); Blood Urea Nitrogen 12.9 mg/dL (9.0-27.0); Calcium 9.1 mg/dL (8.7-10.3); Carbon Dioxide 22.5 mmol/L (21.6-31.8); Chloride 110 mmol/L (96-109); Globulin 2.2 g/dL (1.6-3.3); Glucose 87 mg/dL (70-110); Magnesium 2.5 mg/dL (1.5-2.4); Potassium 4.4 mmol/L (3.5-5.5); Sodium 141 mmol/L (135-145); Total Bilirubin 0.3 mg/dL (0.3-1.2); Total Protein 5.8 g/dL (6.2-8.2)
--- NOTE | 2023-03-05 13:23 | P.DS ---
Providers Date of admission: 03/02/23 00:03 Expected date of discharge: 03/05/23 Attending physician: Sami Corrales MD Primary care physician: [facility] Hospital Course: Lower abdominal pain with UTI in pt with chronic Christie catheter, present on admission Constipation Chest pain, acute coronary event ruled out. GERD Hospital course: Patient is a very pleasant 85-year-old male with a past medical history of GERD, and nicotine dependence, hernia, recurrent UTIs, and chronic indwelling Christie catheter. He presented to the emergency department secondary to complaints of chest pain. Patient reported sudden onset chest pain described as a pressure- like sensation with no radiation of pain and no associated symptoms. He underwent full evaluation in the emergency department. Vital signs upon arrival blood pressure 128 over ED, heart rate 62, respiratory rate 18, temp 97.9F, SpO2 of 97% on room air. EKG showing sinus bradycardia at 56 bpm with no noted T-wave or ST abnormalities showing no signs of acute ischemia upon personal review and interpretation. Chest x-ray completed showing hyper inflation consistent with COPD/emphysema otherwise negative for acute cardiopulmonary process. Gallbladder ultrasound also completed and was negative for acute process reporting unremarkable right upper quadrant ultrasound. Labs completed and reviewed. CBC unremarkable. Coagulation profile normal findings. BMP also unremarkable. Glucose 1:15. Magnesium 2.2. Liver profile unremarkable. Troponin less than 0.012, proBNP 139, and normal lipase of 114. Urinalysis was concerning for infection showing positive for protein, blood, leukocytes, greater than 182 RBCs and 136 WBCs. Patient was admitted under our services with consultation to cardiology. Pt had echo which showed preserved EF. 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 Cleared for discharge by cardiology. Urine culture returned with GNB and grew enterococcus which likely represents colonization. He will f/u with PCP and cardiology. I spent 35 minutes coordinating this discharge on 03/05 Gen: awake, alert HEENT: normocephalic, atraumatic, good hearing acuity, moist mucous membranes Resp: good air exchange, breathing comfortably with no accessory muscle use CVS: good distal perfusion x 4, GI: soft, NTTP, ND : no SPT, no CVAT, christie catheter not present MSK: no pitting edema, no clubbing Neuro: non-focal, moving all extremities Psych: cooperative, euthymic mood Patient Condition at Discharge: Good Plan - Discharge Summary New Discharge Prescriptions: New Aspirin 81 mg PO DAILY #30 tab Pantoprazole [Protonix] 40 mg PO AC-BRKFST #30 tab Continue HYDROcodone/APAP 7.5-325MG [Brook 7.5-325] 1 tab PO DAILY PRN PRN Reason: Pain Melatonin 10 mg PO HS Sertraline [Zoloft] 50 mg PO DAILY Discontinued Meclizine [Antivert] 25 mg PO TID PRN PRN Reason: Vertigo Discharge Medication List HYDROcodone/APAP 7.5-325MG [Brook 7.5-325] 1 tab PO DAILY PRN 01/03/22 [History] Melatonin 10 mg PO HS 01/03/22 [History] Sertraline [Zoloft] 50 mg PO DAILY 03/02/23 [History] Aspirin 81 mg PO DAILY #30 tab 03/05/23 [Rx] Pantoprazole [Protonix] 40 mg PO AC-BRKFST #30 tab 03/05/23 [Rx] Follow up Appointment(s)/Referral(s): Sadia Gomez, PAC [Family Provider] - 1-2 days Discharge Disposition: HOME WITH HOME HEALTH SERVICES
--- NOTE | 2023-03-05 13:44 | CA ---
Lexiscan Nuclear Stress Test Report Name: Jef Paniagua Exam Date: 03/03/2023 10:42 Exam Location: [place] [facility] Ht (in): 68 Wt (lb): 125 BSA: 1.67 Ordering Phys: HEMANTH HERRERA Referring Phys: HEMANTH HERRREA Technologist: AMADOR. KELLER Age: 77 Gender: M : 1945 Procedure CPT: Indications: ICD-10 Codes: Patient History: CP, CHOL, TOB, Medications: SEE CHART Meds past 24 hrs: Pretest Chest Pain: STRESS TEST Lexiscan Protocol Exercise Duration (min:sec): 02:[address] Depressions (mm): Angina Score: Massey Score: Resting HR (bpm): 53 Peak HR (bpm): 83 Resting BP (mmHg): 110 / 72 Peak BP (mmHg): 104 / 51 MPHR: 142 Target HR: 121 % MPHR: 58 METS: 1.0 Total Dose: Peak Dose: Atropine: Double Product: 8632 BP Response: Stress Termination: END OF DOSAGE Stress Symptoms: Stress Summary: ECG ANALYSIS Resting ECG: Sinus rhythm. Normal conduction. No arrhythmias. Normal repolarization. Stress ECG: No ECG changes from baseline with Lexiscan infusion. CONCLUSIONS No ECG evidence of ischemia with Lexiscan infusion. Nuclear test results to follow. Dr. Graciela José MD (Electronically Signed) Final Date: 03 March 2023 11:27
== END 2023-03-05 10:50 | disposition home health service (06) ==
LOC: EC 21:04 → 6NMEDSUR 03-02 00:03
PROVIDERS: ADMIT Internal Medicine; ATTEND Internal Medicine
DX: T83.511A Infection and inflammatory reaction due to indwelling urethral catheter, initial encounter (principal); N39.0 Urinary tract infection, site not specified; Y84.6 Urinary catheterization as the cause of abnormal reaction of the patient, or of later complication, without mention of misadventure at the time of the procedure; R07.89 Other chest pain; R42 Dizziness and giddiness; R00.1 Bradycardia, unspecified; R11.0 Nausea; K59.00 Constipation, unspecified; K21.9 Gastro-esophageal reflux disease without esophagitis; F32.A Depression, unspecified; F17.210 Nicotine dependence, cigarettes, uncomplicated; Z87.440 Personal history of urinary (tract) infections; Z79.82 Long term (current) use of aspirin; Z79.899 Other long term (current) drug therapy; Z88.0 Allergy status to penicillin; Z88.2 Allergy status to sulfonamides; Z66 Do not resuscitate
CPT/HCPCS: 96361 ×4; 96366 ×5; 96367; 96372 ×4; 96365; 99285; 36415; 93005 ×2; 93017; 93306; 97162; 85379; 83880; 80061; 80053 ×3; 83690; 83735 ×3; 84484; 85025; 85027 ×2; 85610; 85730; 81001; 87086; 87077; 87186; 71046; 76705; 78452; G0378 ×4; A9500; J1644 ×4; J1956 ×2; J0696 ×4; J2785

== ENCOUNTER → 2023-03-26 | Outpatient (CLI) | payer OTHER ==
[2023-03-26 11:44] LABS: African American GFR (CKD) 80 (>60 ml/min/1.73 sqM); Blood Urea Nitrogen 17 mg/dL (9-20); Non-African American GFR(CKD) 69 (>60 ml/min/1.73 sqM)
--- NOTE | 2023-04-03 04:55 | CT ---
EXAMINATION TYPE: CT abdomen wo con CT DLP: 150 mGycm, Automated exposure control for dose reduction was used. DATE OF EXAM: 03/26/2023 12:36 PM COMPARISON: CT abdomen pelvis with contrast 07/14/2022, and before CLINICAL INDICATION:Male, 77 years old with history of R10.30 LOWER AB PAIN; epigastric pain TECHNIQUE: Axial CT of the abdomen performed without contrast. Sagittal and coronal reformats were c reated on a separate workstation. Contrast used: mL of , (none if empty) Oral contrast used: with Oral Contrast (none if empty) FINDINGS: Exam is limited without contrast. LOWER CHEST: Mild emphysematous changes with broadening in the AP dimension of the lungs and flattene d hemidiaphragms consistent with COPD physiology. No acute infiltrate or effusion. Small [place] he rnias posteriorly. A 4 mm nodule in the lingula is stable from 2018 and considered benign. ABDOMEN LIVER: Unremarkable GALLBLADDER AND BILE DUCTS: Unremarkable gallbladder. No biliary ductal dilatation. PANCREAS: Unremarkable. SPLEEN: Unremarkable. ADRENAL GLANDS: Mildly thickened without evidence of mass. Stable appearance.. KIDNEYS AND URETERS: No evidence of renal calculi or contour deformity. No hydronephrosis. Mild bilat eral renal atrophy. Tiny hypodensity suggested upper pole left kidney, likely a cyst. STOMACH AND BOWEL: Possible small sliding hiatal hernia. Contrast traverses the small bowel loops wit hout evidence of obstruction. Contrast has not yet reached the colon. Appendix appears unremarkable. There is moderate stool throughout the colon. Some segments are nondistended and not well assessed. S everal diverticula are seen mostly in the descending colon, without evidence of diverticulitis. Dista l colon is not included in this abdomen-only exam. PERITONEUM/RETROPERITONEUM: No evidence of pneumoperitoneum or free fluid. VASCULATURE: Moderate to severe atherosclerotic calcifications are present throughout the abdominal a megan and its branches. No evidence of aortic aneurysm. IVC has have grossly normal caliber. LYMPH NODES: No gross evidence for lymphadenopathy. SOFT TISSUE/ABDOMINAL WALL: Unremarkable MUSCULOSKELETAL: No acute osseous abnormalities. Moderate to severe disc degeneration changes are pre sent throughout the thoracolumbar spine, and facet arthropathy greatest in the mid to lower lumbar sp ine. Appears most significant at L4-L5 and L5-S1. Moderate to severe canal stenosis L4-L5 with modera te bilateral neural foraminal stenoses. Moderate canal stenosis L5-S1 with severe bilateral neural fo raminal stenosis. Generalized osteopenia. IMPRESSION: Limited unenhanced CT abdomen shows no definite abnormality to explain the patient's symptoms.
== END | disposition home or self-care (01) ==
LOC: RADCTMAIN 10:56
DX: R10.30 Lower abdominal pain, unspecified (principal)
CPT/HCPCS: 74150; 82565; 84520

== ENCOUNTER 2023-08-23 09:27 | Emergency (ER) | payer MEDICARE, OTHER ==
--- NOTE | 2023-08-23 10:02 | ED ---
General Adult HPI - General Chief complaint: Abdominal Pain Stated complaint: UTI constipation Time Seen by Provider: 08/23/23 09:27 Source: patient, family, RN notes reviewed, old records reviewed Mode of arrival: wheelchair Limitations: no limitations - History of Present Illness Initial comments: This is a 78-year-old male who presents to the emergency department stating for the last week to week and a half he has not had a good bowel movement. Patient states he has diffuse abdominal pain. Patient also thinks he might have urinary tract infection. Patient states he gets them often because he has a catheter in his bladder. Patient denies any vomiting or diarrhea. Patient denies any fever or chills. Patient states he also has strong smelling urine which is indicative of a urinary tract infection - Related Data Home Medications Medication Instructions Recorded Confirmed HYDROcodone/APAP 7.5-325MG [[place] 1 tab PO DAILY PRN 01/03/22 03/01/23 7.5-325] Melatonin 10 mg PO HS 01/03/22 03/01/23 Sertraline [Zoloft] 50 mg PO DAILY 03/02/23 03/02/23 Previous Rx's Medication Instructions Recorded Aspirin 81 mg PO DAILY #30 tab 03/05/23 Pantoprazole [Protonix] 40 mg PO AC-BRKFST #30 tab 03/05/23 Ciprofloxacin HCl [Cipro] 500 mg PO Q12HR #20 tablet 08/23/23 Allergies Allergy/AdvReac Type Severity Reaction Status Date / Time nitrofurantoin Allergy Unknown Verified 03/01/23 22:02 [From Macrobid] Penicillins Allergy Anaphylaxis/Hives Verified 03/01/23 22:02 on entire body Sulfa (Sulfonamide Allergy Unknown Verified 03/01/23 22:02 Antibiotics) sulfamethoxazole Allergy Unknown Verified 03/01/23 22:02 [From Bactrim] Childhood trimethoprim [From Bactrim] Allergy Unknown Verified 03/01/23 22:02 Childhood Review of Systems ROS Statement: Those systems with pertinent positive or pertinent negative responses have been documented in the HPI. ROS Other: All systems not noted in ROS Statement are negative. Past Medical History Past Medical History: GERD/Reflux Additional Past Medical History / Comment(s): states "had Hep B or C back 1960's and now it's all healed", recurrent UTI's with IDC, has IDC due to issues with hernia, bladder stones, chronic christie catheter History of Any Multi-Drug Resistant Organisms: None Reported Past Surgical History: Back Surgery, Hernia Repair, Tonsillectomy Additional Past Surgical History / Comment(s): hemorrhoid surgery, back surgery x 2, rt inguinal hernia repair Past Anesthesia/Blood Transfusion Reactions: No Reported Reaction Additional Past Anesthesia/Blood Transfusion Reaction / Comment(s): no hx blood transfusion Past Psychological History: Depression Smoking Status: Current every day smoker Past Alcohol Use History: None Reported Past Drug Use History: None Reported - Past Family History Mother Family Medical History: Cancer Father Family Medical History: Cancer General Exam - General Exam Comments Initial Comments: GENERAL: Patient is well-developed and well-nourished. Patient is nontoxic and well-hy drated and is in mild distress. ENT: Neck is soft and supple. No significant lymphadenopathy is noted. Oropharynx is clear. Moist mucous membranes. Neck has full range of motion without eliciting any pain. EYES: The sclera were anicteric and conjunctiva were pink and moist. Extraocular movements were intact and pupils were equal round and reactive to light. Eyelids were unremarkable. PULMONARY: Unlabored respirations. Good breath sounds bilaterally. No audible rales rhonchi or wheezing was noted. CARDIOVASCULAR: There is a regular rate and rhythm without any murmurs gallops or rubs. ABDOMEN: Patient has diffuse abdominal pain SKIN: Skin is clear with no lesions or rashes and otherwise unremarkable. NEUROLOGIC: Patient is alert and oriented x3. Cranial nerves II through XII are grossly intact. Motor and sensory are also intact. Normal speech, volume and content. Symmetrical smile. MUSCULOSKELETAL: Normal extremities with adequate strength and full range of motion. No lower extremity swelling or edema. No calf tenderness. LYMPHATICS: No significant lymphadenopathy is noted PSYCHIATRIC: Normal psychiatric evaluation. Limitations: no limitations Course Vital Signs 08/23/23 08/23/23 09:32 11:07 Temperature 97.6 F Pulse Rate 70 55 L Respiratory 20 16 Rate Blood Pressure 105/69 127/65 O2 Sat by Pulse 98 96 Oximetry Medical Decision Making - Medical Decision Making Was pt. sent in by a medical professional or institution (, PA, MANUAL TESTER, urgent care, hospital, or group home...) When possible be specific @ -No Did you speak to anyone other than the patient for history (EMS, parent, family, police, friend...)? What history was obtained from this source @ -No Did you review nursing and triage notes (agree or disagree)? Why? @ -I reviewed and agree with nursing and triage notes Were old charts reviewed (outside hosp., previous admission, EMS record, old EKG, old radiological studies, urgent care reports/EKG's, group home records)? Report findings @ -I reviewed prior visits to determine whether the patient ever had a reaction to Rocephin because he has had a reaction to penicillin and he received Rocephin in 2019 without any problems Differential Diagnosis (chest pain, altered mental status, abdominal pain women, abdominal pain men, vaginal bleeding, weakness, fever, dyspnea, syncope, headach e, dizziness, GI bleed, back pain, seizure, CVA, palpatations, mental health, musculoskeletal)? @ -Differential Abdominal Pain Men: Appendicitis, cholecystitis, diverticulosis, ischemic bowel, pancreatitis, hepatitis, UTI, gastroenteritis, AAA, incarcerated hernia, bowel obstruction, constipation, inflammatory bowel, hepatitis, peptic ulcer disease, splenic infarction, perforated viscus, testicular torsion, this is not meant to be an all-inclusive list EKG interpreted by me (3pts min.). @ -As above X-rays interpreted by me (1pt min.). @ -KUB shows some constipation CT interpreted by me (1pt min.). @ -None done U/S interpreted by me (1pt. min.). @ -None done What testing was considered but not performed or refused? (CT, X-rays, U/S, labs)? Why? @ -None What meds were considered but not given or refused? Why? @ -None Did you discuss the management of the patient with other professionals (professionals i.e. , PA, MANUAL TESTER, lab, RT, psych nurse, social security benefits interviewer, bow string maker, teacher, information management officer, counseling case manager)? Give summary @ -No Was smoking cessation discussed for >3mins.? @ -No Was critical care preformed (if so, how long)? @ -No Were there social determinants of health that impacted care today? How? (Homelessness, low income, unemployed, alcoholism, drug addiction, transportation, low edu. Level, literacy, decrease access to med. care, [facility], rehab)? @ -No Was there de-escalation of care discussed even if they declined (Discuss DNR or withdrawal of care, Hospice)? DNR status @ -No What co-morbidities impacted this encounter? (DM, HTN, Smoking, COPD, CAD, Cancer, CVA, ARF, Chemo, Hep., AIDS, mental health diagnosis, sleep apnea, morbid obesity)? @ -None Was patient admitted / discharged? Hospital course, mention meds given and route, prescriptions, significant lab abnormalities, going to OR and other pertinent info. @ -Patient had urinary tract infection and was given 2 g Rocephin in the emergency department. Patient also had some stool in the x-ray so patient was given enema with great success. Undiagnosed new problem with uncertain prognosis? @ -No Drug Therapy requiring intensive monitoring for toxicity (Heparin, Nitro, Insulin, Cardizem)? @ -No Were any procedures done? @ -No Diagnosis/symptom? @ -Urinary tract infection Acute, or Chronic, or Acute on Chronic? @ -Acute Uncomplicated (without systemic symptoms) or Complicated (systemic symptoms)? @ -Complicated Side effects of treatment? @ -No Exacerbation, Progression, or Severe Exacerbation? @ -No Poses a threat to life or bodily function? How? (Chest pain, [place], [place], pneumonia, PE, COPD, DKA, ARF, appy, cholecystitis, CVA, Diverticulitis, Homicidal, Suicidal, threat to staff... and all critical care pts) @ -No Diagnosis/symptom? @ -Abdominal pain Acute, or Chronic, or Acute on Chronic? @ -Acute Uncomplicated (without systemic symptoms) or Complicated (systemic symptoms)? @ -Complicated Side effects of treatment? @ -None Exacerbation, Progression, or Severe Exacerbation] @ -No Poses a threat to life or bodily function? @ -No - Lab Data Result diagrams: 08/23/23 09:58 08/23/23 09:58 Lab Results 08/23/23 08/23/23 08/23/23 Range/Units 09:58 09:58 09:58 WBC 4.9 (3.8-10.6) k/uL RBC 4.94 (4.30-5.90) m/uL Hgb 14.5 (13.0-17.5) gm/dL Hct 44.4 (39.0-53.0) % MCV 90.0 (80.0-100.0) fL MCH 29.5 (25.0-35.0) pg MCHC 32.7 (31.0-37.0) g/dL RDW 12.5 (11.5-15.5) % Plt Count 218 (150-450) k/uL MPV 8.5 Neutrophils % 66 % Lymphocytes % 21 % Monocytes % 7 % Eosinophils % 4 % Basophils % 1 % Neutrophils # 3.2 (1.3-7.7) k/uL Lymphocytes # 1.0 (1.0-4.8) k/uL Monocytes # 0.3 (0-1.0) k/uL Eosinophils # 0.2 (0-0.7) k/uL Basophils # 0.1 (0-0.2) k/uL Sodium 139 (137-145) mmol/L Potassium 4.5 (3.5-5.1) mmol/L Chloride 109 H (98-107) mmol/L Carbon Dioxide 26 (22-30) mmol/L Anion Gap 4 mmol/L BUN 19 (9-20) mg/dL Creatinine 0.93 (0.66-1.25) mg/dL Est GFR (CKD-EPI)AfAm >90 (>60 ml/min/1.73 sqM) Est GFR (CKD-EPI)NonAf 78 (>60 ml/min/1.73 sqM) Glucose 84 (74-99) mg/dL Plasma Lactic Acid Omar (0.7-2.0) mmol/L Calcium 9.5 (8.4-10.2) mg/dL Total Bilirubin 0.6 (0.2-1.3) mg/dL AST 19 (17-59) U/L ALT 14 (4-49) U/L Alkaline Phosphatase 81 (38-126) U/L Total Protein 6.6 (6.3-8.2) g/dL Albumin 3.8 (3.5-5.0) g/dL Amylase 50 (30-110) U/L Lipase 177 (23-300) U/L Urine Color Yellow Urine Appearance Turbid (Clear) Urine pH 5.5 (5.0-8.0) Ur Specific [place] 1.027 (1.001-1.035) Urine Protein 2+ H (Negative) Urine Glucose (UA) Negative (Negative) Urine Ketones Trace H (Negative) Urine Blood Large H (Negative) Urine Nitrite Negative (Negative) Urine Bilirubin Negative (Negative) Urine Urobilinogen 2.0 (<2.0) mg/dL Ur Leukocyte Esterase Large H (Negative) Urine RBC 159 H (0-5) /hpf Urine WBC >182 H (0-5) /hpf Urine WBC Clumps Many H (None) /hpf Ur Squamous Epith Cells 19 H (0-4) /hpf Urine Bacteria Moderate H (None) /hpf Urine Mucus Many H (None) /hpf 08/23/23 Range/Units 09:58 WBC (3.8-10.6) k/uL RBC (4.30-5.90) m/uL Hgb (13.0-17.5) gm/dL Hct (39.0-53.0) % MCV (80.0-100.0) fL MCH (25.0-35.0) pg MCHC (31.0-37.0) g/dL RDW (11.5-15.5) % Plt Count (150-450) k/uL MPV Neutrophils % % Lymphocytes % % Monocytes % % Eosinophils % % Basophils % % Neutrophils # (1.3-7.7) k/uL Lymphocytes # (1.0-4.8) k/uL Monocytes # (0-1.0) k/uL Eosinophils # (0-0.7) k/uL Basophils # (0-0.2) k/uL Sodium (137-145) mmol/L Potassium (3.5-5.1) mmol/L Chloride (98-107) mmol/L Carbon Dioxide (22-30) mmol/L Anion Gap mmol/L BUN (9-20) mg/dL Creatinine (0.66-1.25) mg/dL Est GFR (CKD-EPI)AfAm (>60 ml/min/1.73 sqM) Est GFR (CKD-EPI)NonAf (>60 ml/min/1.73 sqM) Glucose (74-99) mg/dL Plasma Lactic Acid Omar 1.3 (0.7-2.0) mmol/L Calcium (8.4-10.2) mg/dL Total Bilirubin (0.2-1.3) mg/dL AST (17-59) U/L ALT (4-49) U/L Alkaline Phosphatase (38-126) U/L Total Protein (6.3-8.2) g/dL Albumin (3.5-5.0) g/dL Amylase (30-110) U/L Lipase (23-300) U/L Urine Color Urine Appearance (Clear) Urine pH (5.0-8.0) Ur Specific [place] (1.001-1.035) Urine Protein (Negative) Urine Glucose (UA) (Negative) Urine Ketones (Negative) Urine Blood (Negative) Urine Nitrite (Negative) Urine Bilirubin (Negative) Urine Urobilinogen (<2.0) mg/dL Ur Leukocyte Esterase (Negative) Urine RBC (0-5) /hpf Urine WBC (0-5) /hpf Urine WBC Clumps (None) /hpf Ur Squamous Epith Cells (0-4) /hpf Urine Bacteria (None) /hpf Urine Mucus (None) /hpf Disposition Clinical Impression: Constipation, UTI (urinary tract infection) Disposition: HOME SELF-CARE Condition: Good Instructions (If sedation given, give patient instructions): Urinary Tract Infection in Men (ED), Constipation (ED), High Fiber Diet (ED) Prescriptions: Ciprofloxacin HCl [Cipro] 500 mg PO Q12HR #20 tablet Is patient prescribed a controlled substance at d/c from ED?: No Referrals: [facility],Clinic [Primary Care Provider] - 1-2 days Time of Disposition: 12:36
[2023-08-23] MEDS: SODIUM CHLORIDE 0.9% 500 ML 500 ML IV STA (10:06)
[2023-08-23 10:27] LABS: Basophils # (A) 0.1 k/uL (0-0.2); Basophils % (A) 1 %; Eosinophils # (A) 0.2 k/uL (0-0.7); Eosinophils % (A) 4 %; HCT 44.4 % (39.0-53.0); HGB 14.5 gm/dL (13.0-17.5); Lymphocytes % (A) 21 %; MCH 29.5 pg (25.0-35.0); MCHC 32.7 g/dL (31.0-37.0); Mean Platelet Volume 8.5; Monocytes # (A) 0.3 k/uL (0-1.0); Monocytes % (A) 7 %; Neutrophils # (A) 3.2 k/uL (1.3-7.7); Neutrophils % (A) 66 %; Platelet Count 218 k/uL (150-450); RBC 4.94 m/uL (4.30-5.90); RDW 12.5 % (11.5-15.5); WBC 4.9 k/uL (3.8-10.6)
[2023-08-23 10:46] LABS: ALT 14 U/L (4-49); AST 19 U/L (17-59); African American GFR (CKD) >90 (>60 ml/min/1.73 sqM); Albumin 3.8 g/dL (3.5-5.0); Alkaline Phosphatase 81 U/L (38-126); Amylase 50 U/L (30-110); Anion Gap 4 mmol/L; Blood Urea Nitrogen 19 mg/dL (9-20); Calcium 9.5 mg/dL (8.4-10.2); Carbon Dioxide 26 mmol/L (22-30); Chloride 109 mmol/L (98-107); Glucose 84 mg/dL (74-99); Lipase 177 U/L (23-300); Non-African American GFR(CKD) 78 (>60 ml/min/1.73 sqM); Potassium 4.5 mmol/L (3.5-5.1); Sodium 139 mmol/L (137-145); Total Bilirubin 0.6 mg/dL (0.2-1.3); Total Protein 6.6 g/dL (6.3-8.2)
--- NOTE | 2023-08-23 11:02 | XR ---
EXAMINATION TYPE: XR KUB DATE OF EXAM: 08/23/2023 10:41 AM CLINICAL INDICATION:Male, 78 years old with history of abdominal pain; H COMPARISON: None. TECHNIQUE: One radiographic view of the abdomen was obtained. FINDINGS: The bowel gas pattern is nonspecific without dilated loops of small or large bowel. There i s no evidence for organomegaly or pneumoperitoneum. The osseous structures are intact. No abnormal calcifications are present. Fecal material and gas are demonstrated throughout the colon and rectum. Is high density opacities projecting over the pelvis not seen on prior unclear if it's feces or somet yenni within the bowel. IMPRESSION: Nonspecific bowel gas pattern without radiographic evidence for acute process.
[2023-08-23 11:08] VITALS: RESP 16
[2023-08-23 11:41] LABS: Appearance,Urine Turbid (Clear); Bacteria,Urine Moderate /hpf; Bilirubin,Urine Negative (Negative); Blood,Urine Large (Negative); Color,Urine Yellow; Glucose,Urine (UA) Negative (Negative); Ketones,Urine Trace (Negative); Leukocyte Esterase,Urine Large (Negative); Mucus,Urine Many /hpf; Nitrite,Urine Negative (Negative); PH, Urine 5.5 (5.0-8.0); Protein,Urine 2+ (Negative); RBC,Urine 159 /hpf (0-5); Specific Gravity,Urine 1.027 (1.001-1.035); Squamous Epithelial Cell,Urine 19 /hpf (0-4); WBC,Urine >182 /hpf (0-5)
[2023-08-23 12:43] VITALS: BP 113/81; PULSE 80; TEMP 97.9
[2023-08-23] MEDS: cefTRIAXone IN SWFI 1,000 MG/10 ML SYRINGE IVP STA (12:43)
== END 2023-08-23 13:56 | disposition home or self-care (01) ==
LOC: EC 09:27
DX: K59.00 Constipation, unspecified (principal); N39.0 Urinary tract infection, site not specified; F17.200 Nicotine dependence, unspecified, uncomplicated; Z88.0 Allergy status to penicillin; Z88.1 Allergy status to other antibiotic agents; Z88.2 Allergy status to sulfonamides
CPT/HCPCS: 99284; 96374; 96361; 36415; 80053; 82150; 83605; 83690; 85025; 81001; 74018; J0696

== ENCOUNTER 2023-11-19 22:39 | Emergency (ER) | payer MEDICARE, OTHER ==
[2023-11-19 22:58] VITALS: RESP 16
--- NOTE | 2023-11-20 01:45 | ED ---
Male Urogenital HPI - General Chief complaint: Urogenital Stated complaint: Cath issues Time Seen by Provider: 11/19/23 22:50 Source: patient, family, RN notes reviewed Mode of arrival: wheelchair Limitations: no limitations - History of Present Illness Initial comments: 78-year-old male presents emergency department chief complaint of urinary catheter malfunction. Patient states that he had his urinary catheter changed this afternoon at 1400. Around 2200 this evening patient noticed that there was no output from his catheter. He denies fevers, chills, abdominal pain, flank pain, nausea, vomiting. Patient states that he frequently has urinary tract infections. Patient has a at home nurse that comes during the week to care for his urinary catheter. Patient follows with urologist every 6 months. - Related Data Home Medications Medication Instructions Recorded Confirmed HYDROcodone/APAP 7.5-325MG [[place] 1 tab PO DAILY PRN 01/03/22 03/01/23 7.5-325] Melatonin 10 mg PO HS 01/03/22 03/01/23 Sertraline [Zoloft] 50 mg PO DAILY 03/02/23 03/02/23 Previous Rx's Medication Instructions Recorded Aspirin 81 mg PO DAILY #30 tab 03/05/23 Pantoprazole [Protonix] 40 mg PO AC-BRKFST #30 tab 03/05/23 Ciprofloxacin HCl [Cipro] 500 mg PO Q12HR #20 tablet 08/23/23 Allergies Allergy/AdvReac Type Severity Reaction Status Date / Time nitrofurantoin Allergy Unknown Verified 11/19/23 22:59 [From Macrobid] Penicillins Allergy Anaphylaxis/Hives Verified 11/19/23 22:59 on entire body Sulfa (Sulfonamide Allergy Unknown Verified 11/19/23 22:59 Antibiotics) sulfamethoxazole Allergy Unknown Verified 11/19/23 22:59 [From Bactrim] Childhood trimethoprim [From Bactrim] Allergy Unknown Verified 11/19/23 22:59 Childhood Review of Systems ROS Statement: Those systems with pertinent positive or pertinent negative responses have been documented in the HPI. ROS Other: All systems not noted in ROS Statement are negative. Past Medical History Past Medical History: GERD/Reflux Additional Past Medical History / Comment(s): states "had Hep B or C back 1960's and now it's all healed", recurrent UTI's with IDC, has IDC due to issues with hernia, bladder stones, chronic christie catheter History of Any Multi-Drug Resistant Organisms: None Reported Past Surgical History: Back Surgery, Hernia Repair, Tonsillectomy Additional Past Surgical History / Comment(s): hemorrhoid surgery, back surgery x 2, rt inguinal hernia repair Past Anesthesia/Blood Transfusion Reactions: No Reported Reaction Additional Past Anesthesia/Blood Transfusion Reaction / Comment(s): no hx blood transfusion Past Psychological History: Depression Smoking Status: Current every day smoker Past Alcohol Use History: None Reported Past Drug Use History: None Reported - Past Family History Mother Family Medical History: Cancer Father Family Medical History: Cancer General Exam Limitations: no limitations General appearance: alert, in no apparent distress Head exam: Present: atraumatic, normocephalic, normal inspection ENT exam: Present: normal exam, mucous membranes moist Neck exam: Present: normal inspection. Absent: tenderness, meningismus, lymphadenopathy Respiratory exam: Present: normal lung sounds bilaterally. Absent: respiratory distress, wheezes, rales, rhonchi, stridor Cardiovascular Exam: Present: regular rate, normal rhythm, normal heart sounds. Absent: systolic murmur, diastolic murmur, rubs, gallop, clicks GI/Abdominal exam: Present: soft, normal bowel sounds. Absent: distended, tenderness, guarding, rebound, rigid Extremities exam: Present: normal inspection, full ROM, normal capillary refill. Absent: tenderness, pedal edema, joint swelling, calf tenderness Back exam: Present: normal inspection Skin exam: Present: warm, dry, intact, normal color. Absent: rash Course Vital Signs 11/19/23 11/20/23 22:56 03:15 Temperature 98.7 F 98.2 F Pulse Rate 74 81 Respiratory 16 16 Rate Blood Pressure 131/91 128/83 O2 Sat by Pulse 97 97 Oximetry Medical Decision Making - Medical Decision Making Was pt. sent in by a medical professional or institution (, PA, CHEMICAL SALES REPRESENTATIVE, urgent care, hospital, or senior living...) When possible be specific @ -No Did you speak to anyone other than the patient for history (EMS, parent, family, police, friend...)? What history was obtained from this source @ -No Did you review nursing and triage notes (agree or disagree)? Why? @ -I reviewed and agree with nursing and triage notes Were old charts reviewed (outside hosp., previous admission, EMS record, old EKG, old radiological studies, urgent care reports/EKG's, senior living records)? Report findings @ -No old charts were reviewed Differential Diagnosis (chest pain, altered mental status, abdominal pain women, abdominal pain men, vaginal bleeding, weakness, fever, dyspnea, syncope, headache, dizziness, GI bleed, back pain, seizure, CVA, palpatations, mental health, musculoskeletal)? @ -Differential Abdominal Pain Men: Appendicitis, cholecystitis, diverticulosis, ischemic bowel, pancreatitis, hepatitis, UTI, gastroenteritis, AAA, incarcerated hernia, bowel obstruction, constipation, inflammatory bowel, hepatitis, peptic ulcer disease, splenic infarction, perforated viscus, testicular torsion, this is not meant to be an all-inclusive list EKG interpreted by me (3pts min.). @ -none X-rays interpreted by me (1pt min.). @ -None done CT interpreted by me (1pt min.). @ -None done U/S interpreted by me (1pt. min.). @ -None done What testing was considered but not performed or refused? (CT, X-rays, U/S, labs)? Why? @ -None What meds were considered but not given or refused? Why? @ -None Did you discuss the management of the patient with other professionals (professionals i.e. , PA, CHEMICAL SALES REPRESENTATIVE, lab, RT, psych nurse, nursing home social worker, radial drill press operator for plastic, teacher, bsa officer, embedded case manager)? Give summary @ -No Was smoking cessation discussed for >3mins.? @ -No Was critical care preformed (if so, how long)? @ -No Were there social determinants of health that impacted care today? How? (Homelessness, low income, unemployed, alcoholism, drug addiction, transportation, low edu. Level, literacy, decrease access to med. care, [facility], rehab)? @ -No Was there de-escalation of care discussed even if they declined (Discuss DNR or withdrawal of care, Hospice)? DNR status @ -No What co-morbidities impacted this encounter? (DM, HTN, Smoking, COPD, CAD, Cancer, CVA, ARF, Chemo, Hep., AIDS, mental health diagnosis, sleep apnea, morbid obesity)? @ -None Was patient admitted / discharged? Hospital course, mention meds given and route, prescriptions, significant lab abnormalities, going to OR and other pertinent info. @ -Discharged. 78-year-old male with urinary catheter malfunction. Patient's urinary catheter was changed and after placement of new catheter there is appropriate output and patient's mild suprapubic pain has subsided. Patient's urinalysis negative for infection. Discussed with Dr. Hooker Undiagnosed new problem with uncertain prognosis? @ -No Drug Therapy requiring intensive monitoring for toxicity (Heparin, Nitro, Insulin, Cardizem)? @ -No Were any procedures done? @ -No Diagnosis/symptom? @ -Urinary catheter malfunction Acute, or Chronic, or Acute on Chronic? @ -Acute Uncomplicated (without systemic symptoms) or Complicated (systemic symptoms)? @ -Uncomplicated Side effects of treatment? @ -No Exacerbation, Progression, or Severe Exacerbation? @ -No Poses a threat to life or bodily function? How? (Chest pain, [place], [place], pneumonia, PE, COPD, DKA, ARF, appy, cholecystitis, CVA, Diverticulitis, Homicidal, Suicidal, threat to staff... and all critical care pts) @ -No - Lab Data Lab Results 11/20/23 Range/Units 02:29 Urine Color Light Red Urine Appearance Cloudy (Clear) Urine pH 6.5 (5.0-8.0) Ur Specific [place] 1.019 (1.001-1.035) Urine Protein 1+ H (Negative) Urine Glucose (UA) Negative (Negative) Urine Ketones 1+ H (Negative) Urine Blood Large H (Negative) Urine Nitrite Negative (Negative) Urine Bilirubin Negative (Negative) Urine Urobilinogen <2.0 (<2.0) mg/dL Ur Leukocyte Esterase Moderate H (Negative) Urine RBC 6 H (0-5) /hpf Urine WBC 2 (0-5) /hpf Disposition Clinical Impression: Urinary catheter complication Disposition: HOME SELF-CARE Condition: Good Instructions (If sedation given, give patient instructions): Christie Catheter Placement and Care (ED) Additional Instructions: Return to the emergency department for any new or worsening symptoms. Is patient prescribed a controlled substance at d/c from ED?: No Referrals: [facility],Clinic [Primary Care Provider] - 1-2 days Time of Disposition: 01:45
[2023-11-20 03:03] LABS: Appearance,Urine Cloudy (Clear); Bilirubin,Urine Negative (Negative); Blood,Urine Large (Negative); Color,Urine Light Red; Glucose,Urine (UA) Negative (Negative); Ketones,Urine 1+ (Negative); Leukocyte Esterase,Urine Moderate (Negative); Nitrite,Urine Negative (Negative); PH, Urine 6.5 (5.0-8.0); Protein,Urine 1+ (Negative); RBC,Urine 6 /hpf (0-5); Specific Gravity,Urine 1.019 (1.001-1.035); Urobilinogen,Urine <2.0 mg/dL (<2.0); WBC,Urine 2 /hpf (0-5)
[2023-11-20 03:17] VITALS: BP 128/83; PULSE 81; TEMP 98.2
== END 2023-11-20 03:17 | disposition home or self-care (01) ==
LOC: EC 22:39
CPT/HCPCS: 51702; 81001; 99283

== ENCOUNTER 2024-01-02 13:10 | Emergency (ER) | payer MEDICARE, OTHER ==
[2024-01-02 13:26] VITALS: TEMP 98.7
--- NOTE | 2024-01-02 13:54 | ED ---
Male Urogenital HPI - General Chief complaint: Urogenital Stated complaint: bladder pain Time Seen by Provider: 01/02/24 13:52 Source: patient, RN notes reviewed Mode of arrival: EMS Limitations: no limitations - History of Present Illness Initial comments: 78-year-old male presented to the ER with a chief complaint of urinary retention. Patient has had an indwelling Christie catheter for approximately 8 years after due to enlarged prostate. He has weekly visits by home care nurse to replace Christie catheter. He states today his nurse came to replace the catheter. Shortly after then patient noticed extreme abdominal pain and catheter was not draining. Patient is reporting lower abdominal pain. Family, at bedside, state he is acting like she has a UTI as he gets them frequently due to the catheter. Patient denies any other complaints. No fevers. - Related Data Home Medications Medication Instructions Recorded Confirmed HYDROcodone/APAP 7.5-325MG [[place] 1 tab PO DAILY PRN 01/03/22 03/01/23 7.5-325] Melatonin 10 mg PO HS 01/03/22 03/01/23 Sertraline [Zoloft] 50 mg PO DAILY 03/02/23 03/02/23 Previous Rx's Medication Instructions Recorded Aspirin 81 mg PO DAILY #30 tab 03/05/23 Pantoprazole [Protonix] 40 mg PO AC-BRKFST #30 tab 03/05/23 Ciprofloxacin HCl [Cipro] 500 mg PO Q12HR #20 tablet 08/23/23 Ciprofloxacin HCl [Cipro] 500 mg PO Q12HR 7 Days #14 tab 01/02/24 Allergies Allergy/AdvReac Type Severity Reaction Status Date / Time nitrofurantoin Allergy Unknown Verified 01/02/24 13:26 [From Macrobid] Penicillins Allergy Anaphylaxis/Hives Verified 01/02/24 13:26 on entire body Sulfa (Sulfonamide Allergy Unknown Verified 01/02/24 13:26 Antibiotics) sulfamethoxazole Allergy Unknown Verified 01/02/24 13:26 [From Bactrim] Childhood trimethoprim [From Bactrim] Allergy Unknown Verified 01/02/24 13:26 Childhood Review of Systems ROS Statement: Those systems with pertinent positive or pertinent negative responses have been documented in the HPI. ROS Other: All systems not noted in ROS Statement are negative. Past Medical History Past Medical History: GERD/Reflux Additional Past Medical History / Comment(s): states "had Hep B or C back 1959's and now it's all healed", recurrent UTI's with IDC, has IDC due to issues with hernia, bladder stones, chronic christie catheter History of Any Multi-Drug Resistant Organisms: None Reported Past Surgical History: Back Surgery, Hernia Repair, Tonsillectomy Additional Past Surgical History / Comment(s): hemorrhoid surgery, back surgery x 2, rt inguinal hernia repair Past Anesthesia/Blood Transfusion Reactions: No Reported Reaction Additional Past Anesthesia/Blood Transfusion Reaction / Comment(s): no hx blood transfusion Past Psychological History: Depression Smoking Status: Current every day smoker Past Alcohol Use History: None Reported Past Drug Use History: None Reported - Past Family History Mother Family Medical History: Cancer Father Family Medical History: Cancer General Exam General appearance: alert, in no apparent distress Respiratory exam: Present: normal lung sounds bilaterally. Absent: respiratory distress, wheezes, rales, rhonchi, stridor Cardiovascular Exam: Present: regular rate, normal rhythm, normal heart sounds. Absent: systolic murmur, diastolic murmur, rubs, gallop, clicks GI/Abdominal exam: Present: soft, guarding (Lower abdomen.), normal bowel sounds Neurological exam: Present: alert, oriented X3, CN II-XII intact Skin exam: Present: warm, dry, intact, normal color. Absent: rash Course Vital Signs 01/02/24 01/02/24 13:22 16:08 Temperature 98.7 F Pulse Rate 86 79 Respiratory 20 18 Rate Blood Pressure 161/85 129/78 O2 Sat by Pulse 97 97 Oximetry Medical Decision Making - Medical Decision Making Was pt. sent in by a medical professional or institution (, PA, LOAN SERVICES PROFESSIONAL, urgent care, hospital, or skilled nursing...) When possible be specific @ -No Did you speak to anyone other than the patient for history (EMS, parent, family, police, friend...)? What history was obtained from this source @ -Family, at bedside, aiding in HPI and past medical history. Did you review nursing and triage notes (agree or disagree)? Why? @ -I reviewed and agree with nursing and triage notes Were old charts reviewed (outside hosp., previous admission, EMS record, old EKG, old radiological studies, urgent care reports/EKG's, skilled nursing records)? Report findings @ -No old charts were reviewed Differential Diagnosis (chest pain, altered mental status, abdominal pain women, abdominal pain men, vaginal bleeding, weakness, fever, dyspnea, syncope, headache, dizziness, GI bleed, back pain, seizure, CVA, palpatations, mental health, musculoskeletal)? @ -Differential Abdominal Pain Men: Appendicitis, cholecystitis, diverticulosis, ischemic bowel, pancreatitis, hepatitis, UTI, gastroenteritis, AAA, incarcerated hernia, bowel obstruction, constipation, inflammatory bowel, hepatitis, peptic ulcer disease, splenic infarction, perforated viscus, testicular torsion, this is not meant to be an all-inclusive list EKG interpreted by me (3pts min.). @ -None done X-rays interpreted by me (1pt min.). @ -None done CT interpreted by me (1pt min.). @ -None done U/S interpreted by me (1pt. min.). @ -None done What testing was considered but not performed or refused? (CT, X-rays, U/S, labs)? Why? @ -None What meds were considered but not given or refused? Why? @ -None Did you discuss the management of the patient with other professionals (hazel romero i.e. , PA, LOAN SERVICES PROFESSIONAL, lab, RT, psych nurse, social services designee, rn baby, teacher, air crew officer, residential case manager)? Give summary @ -No Was smoking cessation discussed for >3mins.? @ -No Was critical care preformed (if so, how long)? @ -No Were there social determinants of health that impacted care today? How? (Homelessness, low income, unemployed, alcoholism, drug addiction, transportation, low edu. Level, literacy, decrease access to med. care, intermediate, rehab)? @ -No Was there de-escalation of care discussed even if they declined (Discuss DNR or withdrawal of care, Hospice)? DNR status @ -No What co-morbidities impacted this encounter? (DM, HTN, Smoking, COPD, CAD, Cancer, CVA, ARF, Chemo, Hep., AIDS, mental health diagnosis, sleep apnea, morbid obesity)? @ -Chronic indwelling Christie catheter. Was patient admitted / discharged? Hospital course, mention meds given and route, prescriptions, significant lab abnormalities, going to OR and other pertinent info. @ -Discharge. 78-year-old male presenting to the ER with a chief complaint of Christie catheter malfunction. History and physical exam completed. Vitals within normal limits. Patient in no signs of acute distress. Abdominal exam r emarkable for guarding to lower abdomen. No rebound or guarding. No bowel sounds. Christie catheter placed with greater than 300 cc of output. Patient reports greatly improved pain after Christie insertion. Urinalysis obtained concerning of infection patient will be started on ciprofloxacin. Patient is stable for discharge at this time. Strict return parameters discussed. Patient discharged in stable condition with follow-up to PCP. Patient verbally expressed understanding and agreement with care plan. Case discussed with ED attending, Dr. Coronado. Undiagnosed new problem with uncertain prognosis? @ -No Drug Therapy requiring intensive monitoring for toxicity (Heparin, Nitro, Insulin, Cardizem)? @ -No Were any procedures done? @ -No Diagnosis/symptom? @ -Chritsie catheter malfunction/UTI/urinary retention Acute, or Chronic, or Acute on Chronic? @ -Acute/acute/chronic Uncomplicated (without systemic symptoms) or Complicated (systemic symptoms)? @ -Uncomplicated Side effects of treatment? @ -No Exacerbation, Progression, or Severe Exacerbation? @ -No Poses a threat to life or bodily function? How? (Chest pain, [place], [place], pneumonia, PE, COPD, DKA, ARF, appy, cholecystitis, CVA, Diverticulitis, Homicidal, Suicidal, threat to staff... and all critical care pts) @ -No - Lab Data Lab Results 01/02/24 Range/Units 14:08 Urine Color Colorless Urine Appearance Clear (Clear) Urine pH 7.5 (5.0-8.0) Ur Specific [place] 1.006 (1.001-1.035) Urine Protein Trace H (Negative) Urine Glucose (UA) Negative (Negative) Urine Ketones Negative (Negative) Urine Blood Large H (Negative) Urine Nitrite Negative (Negative) Urine Bilirubin Negative (Negative) Urine Urobilinogen <2.0 (<2.0) mg/dL Ur Leukocyte Esterase Large H (Negative) Urine RBC 30 H (0-5) /hpf Urine WBC 33 H (0-5) /hpf Ur Squamous Epith Cells <1 (0-4) /hpf Urine Bacteria Few H (None) /hpf Urine Mucus Rare H (None) /hpf Disposition Clinical Impression: UTI (urinary tract infection) due to urinary indwelling catheter, Urinary catheter complication Disposition: HOME SELF-CARE Condition: Stable Instructions (If sedation given, give patient instructions): Urinary Tract Infection in Men (ED) Additional Instructions: Follow-up PCP. Return to the ER for any new or worsening concerns Prescriptions: Ciprofloxacin HCl [Cipro] 500 mg PO Q12HR 7 Days #14 tab Is patient prescribed a controlled substance at d/c from ED?: No Referrals: [facility],Clinic [Primary Care Provider] - 1-2 days Time of Disposition: 15:37
[2024-01-02 14:40] LABS: Appearance,Urine Clear (Clear); Bacteria,Urine Few /hpf; Bilirubin,Urine Negative (Negative); Blood,Urine Large (Negative); Color,Urine Colorless; Glucose,Urine (UA) Negative (Negative); Ketones,Urine Negative (Negative); Leukocyte Esterase,Urine Large (Negative); Mucus,Urine Rare /hpf; Nitrite,Urine Negative (Negative); PH, Urine 7.5 (5.0-8.0); Protein,Urine Trace (Negative); RBC,Urine 30 /hpf (0-5); Specific Gravity,Urine 1.006 (1.001-1.035); Squamous Epithelial Cell,Urine <1 /hpf (0-4); Urobilinogen,Urine <2.0 mg/dL (<2.0); WBC,Urine 33 /hpf (0-5)
[2024-01-02 16:09] VITALS: BP 129/78; PULSE 79; RESP 18
== END 2024-01-02 16:09 | disposition home or self-care (01) ==
LOC: EC 13:10
CPT/HCPCS: 51702; 81001; 87077; 87086; 87186; 99283

== ENCOUNTER → 2024-04-16 | Outpatient (CLI) | payer OTHER, MEDICARE ==
--- NOTE | 2024-04-16 16:33 | XR ---
EXAMINATION TYPE: XR pelvis AP view DATE OF EXAM: 04/16/2024 COMPARISON: NONE CLINICAL INDICATION: Male, 78 years old with history of N21.0 CALCULUS IN BLADDER; TECHNIQUE: AP view FINDINGS: Numerous bladder stones are present, aggregate dimension of 6.3 cm wide. Individual stones may measure up to 1.3 cm. Mild marginal spurring of the hips with relative preservation joint spaces. Mild degenerative change SI joints. No acute fracture, subluxation, dislocation. IMPRESSION: Numerous bladder stones with aggregate width of 6.3 cm and individual stones measuring up to 1.3 cm. [facility], Workstation: [id number], 04/16/2024 4:31 PM
== END | disposition home or self-care (01) ==
LOC: RADXRMAIN 16:13
PROVIDERS: ATTEND Urology
DX: N21.0 Calculus in bladder (principal)
CPT/HCPCS: 72170

== ENCOUNTER 2024-05-21 11:47 | Emergency (ER) | payer OTHER, MEDICARE ==
--- NOTE | 2024-05-21 12:39 | ED ---
Abdominal Pain HPI - General Chief Complaint: Recheck/Abnormal Lab/Rx Stated Complaint: constipation Time Seen by Provider: 05/21/24 12:17 Source: patient, family, RN notes reviewed Mode of arrival: wheelchair Limitations: no limitations - History of Present Illness Initial Comments: This is an 79-year-old male who presents to the emergency department for abdominal pain and constipation. Patient states that he has not had a bowel movement in about a week and is now developing increasing abdominal pain. Also reports a reduced appetite. He is still passing gas. Family has been giving him prune juice and he had a dose of lactulose without any relief. He followed up with his urologist today and was advised by urology to come here for further treatment. MD Complaint: abdominal pain - Related Data Home Medications Medication Instructions Recorded Confirmed HYDROcodone/APAP 7.5-325MG [[place] 1 tab PO DAILY PRN 01/03/22 03/01/23 7.5-325] Melatonin 10 mg PO HS 01/03/22 03/01/23 Sertraline [Zoloft] 50 mg PO DAILY 03/02/23 03/02/23 Previous Rx's Medication Instructions Recorded Aspirin 81 mg PO DAILY #30 tab 03/05/23 Pantoprazole [Protonix] 40 mg PO AC-BRKFST #30 tab 03/05/23 Ciprofloxacin HCl [Cipro] 500 mg PO Q12HR #20 tablet 08/23/23 Ciprofloxacin HCl [Cipro] 500 mg PO Q12HR 7 Days #14 tab 01/02/24 Levofloxacin [Levaquin] 750 mg PO DAILY 5 Days #5 tab 05/21/24 Allergies Allergy/AdvReac Type Severity Reaction Status Date / Time nitrofurantoin Allergy Unknown Verified 05/21/24 11:51 [From Macrobid] Penicillins Allergy Anaphylaxis/Hives Verified 05/21/24 11:51 on entire body Sulfa (Sulfonamide Allergy Unknown Verified 05/21/24 11:51 Antibiotics) sulfamethoxazole Allergy Unknown Verified 05/21/24 11:51 [From Bactrim] Childhood trimethoprim [From Bactrim] Allergy Unknown Verified 05/21/24 11:51 Childhood Review of Systems ROS Statement: Those systems with pertinent positive or pertinent negative responses have been documented in the HPI. ROS Other: All systems not noted in ROS Statement are negative. Past Medical History Past Medical History: GERD/Reflux Additional Past Medical History / Comment(s): states "had Hep B or C back 1959's and now it's all healed", recurrent UTI's with IDC, has IDC due to issues with hernia, bladder stones, chronic christie catheter History of Any Multi-Drug Resistant Organisms: None Reported Past Surgical History: Back Surgery, Hernia Repair, Tonsillectomy Additional Past Surgical History / Comment(s): hemorrhoid surgery, back surgery x 2, rt inguinal hernia repair Past Anesthesia/Blood Transfusion Reactions: No Reported Reaction Additional Past Anesthesia/Blood Transfusion Reaction / Comment(s): no hx blood transfusion Past Psychological History: Depression Smoking Status: Current every day smoker Past Alcohol Use History: None Reported Past Drug Use History: None Reported - Past Family History Mother Family Medical History: Cancer Father Family Medical History: Cancer General Exam Limitations: no limitations General appearance: alert, in no apparent distress Head exam: Present: atraumatic, normocephalic, normal inspection Respiratory exam: Present: normal lung sounds bilaterally. Absent: respiratory distress, wheezes, rales, rhonchi, stridor Cardiovascular Exam: Present: regular rate, normal rhythm GI/Abdominal exam: Present: tenderness (diffuse), normal bowel sounds. Absent: distended Neurological exam: Present: alert, oriented X3, CN II-XII intact Psychiatric exam: Present: normal affect, normal mood Skin exam: Present: warm, dry, intact, normal color. Absent: rash Course Vital Signs 05/21/24 05/21/24 05/21/24 11:49 14:31 16:27 Temperature 97.3 F L 97.7 F 97.9 F Pulse Rate 89 73 76 Respiratory 20 20 18 Rate Blood Pressure 111/75 129/83 124/82 O2 Sat by Pulse 99 98 98 Oximetry Medical Decision Making - Medical Decision Making This is an 79 year old male who presents to the emergency department for abdominal pain and constipation. Was pt. sent in by a medical professional or institution? @ -No Did you speak to anyone other than the patient for history? @ -No Did you review nursing and triage notes? @ -Yes, and I agree, it is accurate with regards to the patient's symptoms. Were old charts reviewed? @ -No Differential Diagnosis? @ -Differential Abdominal Pain Men: Appendicitis, cholecystitis, diverticulosis, ischemic bowel, pancreatitis, hepatitis, UTI, gastroenteritis, AAA, incarcerated hernia, bowel obstruction, constipation, inflammatory bowel, hepatitis, peptic ulcer disease, splenic infarction, perforated viscus, testicular torsion, this is not meant to be an all-inclusive list EKG interpreted by me (3pts min.)? @ -Not obtained X-rays interpreted by me (1pt min.)? @ -Not obtained CT interpreted by me (1pt min.)? @ -CT scan of the abdomen and pelvis obtained. My interpretation identifies a large amount of stool throughout the colon. U/S interpreted by me (1pt. min.)? @ -Not obtained What testing was considered but not performed? (CT, X-rays, U/S, labs)? Why? @ -None What meds were considered but not given? Why? @ -None Did you discuss the management of the patient with other professionals? @ -No Did you reconcile home meds? @ -No Was smoking cessation discussed for >3mins.? @ -No Was critical care preformed (if so, how long)? @ -No Were there social determinants of health that impacted care today? How? (Homelessness, low income, unemployed, alcoholism, drug addiction, transportation, low edu. Level, literacy, decrease access to med. care, custodial, rehab)? @ -No Was there de-escalation of care discussed even if they declined? (Discuss DNR or withdrawal of care, Hospice)? @ -No What co-morbidities impacted this encounter? (DM, HTN, Smoking, COPD, CAD, Cancer, CVA, Hep., AIDS, mental health diagnosis, sleep apnea, morbid obesity)? @ -Smoking Was patient admitted / discharged? @ -Discharged. Lab work unremarkable. Urinalysis consistent with infection and urine was sent for culture. CT scan of the abdomen and pelvis obtained. He has circumferential bladder wall thickening suspicious of infection. He also has a moderate to large amount of stool throughout the colon. 1 g of ceftriaxone administered. Milk molasses enema administered as well. Following the enema, patient was able to produce a very large bowel movement and felt substantially better. Advised [id number] MiraLAX or a stool softener like Colace if he continues to have constipation. We also discussed something like a probiotic to help regulate his bowels. Patient is typically put on fluoroquinolones for his recurrent UTIs and levofloxacin was prescribed. Advised follow-up with his urologist and PCP. Patient discharged home in stable condition. Case discussed with ED attending Dr. Ortiz. Return precautions reviewed in depth, the patient is instructed to return to the emergency department with any new, worsening, or concerning symptoms. Patient verbalized understanding. Undiagnosed new problem with uncertain prognosis? @ -None Drug Therapy requiring intensive monitoring for toxicity (Heparin, Nitro, Insulin, Cardizem)? @ -None Were any procedures done? @ -None Diagnosis/symptom? @ -UTI, constipation Acute, or Chronic, or Acute on Chronic? @ -Acute Uncomplicated (without systemic symptoms) or Complicated (systemic symptoms)? @ -Uncomplicated Side effects of treatment? @ -None Exacerbation, Progression, or Severe Exacerbation] @ -Not applicable Poses a threat to life or bodily function? @ -No - Lab Data Result diagrams: 05/21/24 12:45 05/21/24 12:45 Lab Results 05/21/24 05/21/24 05/21/24 Range/Units 12:45 12:45 12:45 WBC 6.8 (3.8-10.6) k/uL RBC 4.95 (4.30-5.90) m/uL Hgb 14.6 (13.0-17.5) gm/dL Hct 44.6 (39.0-53.0) % MCV 90.1 (80.0-100.0) fL MCH 29.5 (25.0-35.0) pg MCHC 32.8 (31.0-37.0) g/dL RDW 12.2 (11.5-15.5) % Plt Count 231 (150-450) k/uL MPV 8.1 Neutrophils % 73 % Lymphocytes % 17 % Monocytes % 5 % Eosinophils % 4 % Basophils % 0 % Neutrophils # 5.0 (1.3-7.7) k/uL Lymphocytes # 1.1 (1.0-4.8) k/uL Monocytes # 0.4 (0-1.0) k/uL Eosinophils # 0.2 (0-0.7) k/uL Basophils # 0.0 (0-0.2) k/uL Sodium 136 L (137-145) mmol/L Potassium 4.4 (3.5-5.1) mmol/L Chloride 103 (98-107) mmol/L Carbon Dioxide 22 (22-30) mmol/L Anion Gap 11 mmol/L BUN 17 (9-20) mg/dL Creatinine 0.86 (0.66-1.25) mg/dL Est GFR (CKD-EPI)AfAm >90 (>60 ml/min/1.73 sqM) Est GFR (CKD-EPI)NonAf 82 (>60 ml/min/1.73 sqM) Glucose 88 (74-99) mg/dL Plasma Lactic Acid Omar (0.7-2.0) mmol/L Calcium 9.5 (8.4-10.2) mg/dL Magnesium 2.5 H (1.6-2.3) mg/dL Total Bilirubin 0.7 (0.2-1.3) mg/dL AST 25 (17-59) U/L ALT 16 (4-49) U/L Alkaline Phosphatase 68 (38-126) U/L Total Protein 7.2 (6.3-8.2) g/dL Albumin 4.2 (3.5-5.0) g/dL Urine Color Yellow Urine Appearance Turbid (Clear) Urine pH 5.5 (5.0-8.0) Ur Specific [place] 1.019 (1.001-1.035) Urine Protein 2+ H (Negative) Urine Glucose (UA) Negative (Negative) Urine Ketones 2+ H (Negative) Urine Blood Large H (Negative) Urine Nitrite Negative (Negative) Urine Bilirubin Negative (Negative) Urine Urobilinogen <2.0 (<2.0) mg/dL Ur Leukocyte Esterase Large H (Negative) Urine RBC 105 H (0-5) /hpf Urine WBC >182 H (0-5) /hpf Urine WBC Clumps Moderate H (None) /hpf Ur Squamous Epith Cells 6 H (0-4) /hpf Urine Mucus Moderate H (None) /hpf 05/21/24 Range/Units Unknown WBC (3.8-10.6) k/uL RBC (4.30-5.90) m/uL Hgb (13.0-17.5) gm/dL Hct (39.0-53.0) % MCV (80.0-100.0) fL MCH (25.0-35.0) pg MCHC (31.0-37.0) g/dL RDW (11.5-15.5) % Plt Count (150-450) k/uL MPV Neutrophils % % Lymphocytes % % Monocytes % % Eosinophils % % Basophils % % Neutrophils # (1.3-7.7) k/uL Lymphocytes # (1.0-4.8) k/uL Monocytes # (0-1.0) k/uL Eosinophils # (0-0.7) k/uL Basophils # (0-0.2) k/uL Sodium (137-145) mmol/L Potassium (3.5-5.1) mmol/L Chloride (98-107) mmol/L Carbon Dioxide (22-30) mmol/L Anion Gap mmol/L BUN (9-20) mg/dL Creatinine (0.66-1.25) mg/dL Est GFR (CKD-EPI)AfAm (>60 ml/min/1.73 sqM) Est GFR (CKD-EPI)NonAf (>60 ml/min/1.73 sqM) Glucose (74-99) mg/dL Plasma Lactic Acid Omar 1.5 (0.7-2.0) mmol/L Calcium (8.4-10.2) mg/dL Magnesium (1.6-2.3) mg/dL Total Bilirubin (0.2-1.3) mg/dL AST (17-59) U/L ALT (4-49) U/L Alkaline Phosphatase (38-126) U/L Total Protein (6.3-8.2) g/dL Albumin (3.5-5.0) g/dL Urine Color Urine Appearance (Clear) Urine pH (5.0-8.0) Ur Specific [place] (1.001-1.035) Urine Protein (Negative) Urine Glucose (UA) (Negative) Urine Ketones (Negative) Urine Blood (Negative) Urine Nitrite (Negative) Urine Bilirubin (Negative) Urine Urobilinogen (<2.0) mg/dL Ur Leukocyte Esterase (Negative) Urine RBC (0-5) /hpf Urine WBC (0-5) /hpf Urine WBC Clumps (None) /hpf Ur Squamous Epith Cells (0-4) /hpf Urine Mucus (None) /hpf - Radiology Data Radiology results: report reviewed, image reviewed Disposition Clinical Impression: UTI (urinary tract infection), Constipation Disposition: HOME SELF-CARE Instructions (If sedation given, give patient instructions): Constipation (ED), Urinary Tract Infection in Men (ED) Additional Instructions: Return to the emergency department with any new, worsening, or concerning symptoms. Take the levofloxacin as prescribed for 5 days. Consider taking a probiotic daily to help regulate your bowels. You can also take a stool softener like Colace. Follow up with your primary care provider in 1-2 days. Prescriptions: Levofloxacin [Levaquin] 750 mg PO DAILY 5 Days #5 tab Is patient prescribed a controlled substance at d/c from ED?: No Referrals: Misha Whelan DO [Primary Care Provider] - 1-2 days Time of Disposition: 16:01
[2024-05-21 13:05] LABS: Basophils % (A) 0 %; Eosinophils # (A) 0.2 k/uL (0-0.7); Eosinophils % (A) 4 %; HCT 44.6 % (39.0-53.0); HGB 14.6 gm/dL (13.0-17.5); Lymphocytes # (A) 1.1 k/uL (1.0-4.8); Lymphocytes % (A) 17 %; MCH 29.5 pg (25.0-35.0); MCHC 32.8 g/dL (31.0-37.0); MCV 90.1 fL (80.0-100.0); Mean Platelet Volume 8.1; Monocytes # (A) 0.4 k/uL (0-1.0); Monocytes % (A) 5 %; Neutrophils % (A) 73 %; Platelet Count 231 k/uL (150-450); RBC 4.95 m/uL (4.30-5.90); RDW 12.2 % (11.5-15.5); WBC 6.8 k/uL (3.8-10.6)
[2024-05-21 13:17] LABS: Potassium 4.4 mmol/L (3.5-5.1)
[2024-05-21 13:18] LABS: ALT 16 U/L (4-49); AST 25 U/L (17-59); African American GFR (CKD) >90 (>60 ml/min/1.73 sqM); Albumin 4.2 g/dL (3.5-5.0); Alkaline Phosphatase 68 U/L (38-126); Anion Gap 11 mmol/L; Blood Urea Nitrogen 17 mg/dL (9-20); Calcium 9.5 mg/dL (8.4-10.2); Carbon Dioxide 22 mmol/L (22-30); Chloride 103 mmol/L (98-107); Glucose 88 mg/dL (74-99); Magnesium 2.5 mg/dL (1.6-2.3); Non-African American GFR(CKD) 82 (>60 ml/min/1.73 sqM); Sodium 136 mmol/L (137-145); Total Bilirubin 0.7 mg/dL (0.2-1.3); Total Protein 7.2 g/dL (6.3-8.2)
[2024-05-21 13:24] LABS: Appearance,Urine Turbid (Clear); Bilirubin,Urine Negative (Negative); Blood,Urine Large (Negative); Color,Urine Yellow; Glucose,Urine (UA) Negative (Negative); Ketones,Urine 2+ (Negative); Leukocyte Esterase,Urine Large (Negative); Mucus,Urine Moderate /hpf; Nitrite,Urine Negative (Negative); PH, Urine 5.5 (5.0-8.0); Protein,Urine 2+ (Negative); RBC,Urine 105 /hpf (0-5); Specific Gravity,Urine 1.019 (1.001-1.035); Squamous Epithelial Cell,Urine 6 /hpf (0-4); Urobilinogen,Urine <2.0 mg/dL (<2.0); WBC,Urine >182 /hpf (0-5)
--- NOTE | 2024-05-21 14:25 | CT ---
EXAMINATION TYPE: CT abdomen pelvis w con DATE OF EXAM: 05/21/2024 2:09 PM COMPARISON: 03/26/2023 CLINICAL INDICATION: Male, 79 years old with history of Abdominal pain, acute, nonlocalized; constipa tion TECHNIQUE: Axial CT abdomen pelvis w con;Sagittal and coronal reformats were created on a separate w orkstation. Contrast used:100 mL of Isovue 300 with IV Contrast, (none if empty) Oral contrast used: without Oral Contrast (none if empty) CT DLP: 600.2 mGycm, Automated exposure control for dose reduction was used. FINDINGS: LOWER CHEST: Unremarkable ABDOMEN LIVER: Unremarkable GALLBLADDER AND BILE DUCTS: Unremarkable. PANCREAS: Unremarkable. SPLEEN: Unremarkable. ADRENAL GLANDS: Unremarkable. KIDNEYS AND URETERS: No evidence of hydronephrosis or renal calculus. The ureters are unremarkable. Right renal cortical probable cyst. PELVIS BLADDER: Mohamud catheter in place with sequential wall thickening hyperemia measuring up to 12 mm. Bhavin cifications are seen layering. REPRODUCTIVE: Prostate is enlarged in size measuring 5.5 cm in transverse dimension. ABDOMEN & PELVIS STOMACH AND BOWEL: Moderate to large amount of stool throughout the colon with gaseous distention. No evidence of bowel obstruction. Scattered colonic diverticula present. . Appendix is visualized and n ormal. PERITONEUM/RETROPERITONEUM: No evidence of pneumoperitoneum or free fluid. VASCULATURE: Severe atherosclerotic calcifications are present throughout the abdominal aorta and its branches. No evidence of aortic aneurysm. MUSCULOSKELETAL: No acute osseous abnormalities LYMPH NODES: No gross evidence for lymphadenopathy. SOFT TISSUE/ABDOMINAL WALL: Right inguinal hernia repair changes thought to be present. Correlate wit h history. IMPRESSION: 1. Circumferential bladder wall thickening with hyperemia correlate with urinalysis. Suspected infec tion by CT imaging. Mohamud catheter in place with multiple bladder stones in the bladder lumen. 2. Prostatomegaly, correlate with serum PSA. 3. Colonic diverticulosis. 4. Moderate to large amount stool throughout the colon. 5. [facility], , 05/21/2024 2:23 PM
[2024-05-21] MEDS: cefTRIAXone IN SWFI 1,000 MG/10 ML SYRINGE IVP STA (15:17)
[2024-05-21] MEDS: LEVOFLOXACIN 750 MG TAB PO STA (15:41)
[2024-05-21 16:28] VITALS: BP 124/82; PULSE 76; RESP 18; TEMP 97.9
== END 2024-05-21 16:28 | disposition home or self-care (01) ==
LOC: EC 11:47
DX: N39.0 Urinary tract infection, site not specified (principal); K59.00 Constipation, unspecified; F17.200 Nicotine dependence, unspecified, uncomplicated
CPT/HCPCS: 36415; 80053; 83605; 83735; 85025; 81001; 87086; 74177; 99284; 96374; J0696; Q9967

== ENCOUNTER 2024-05-27 09:46 | Day surgery (SDC) | payer MEDICARE, OTHER ==
--- NOTE | 2024-05-26 22:19 | P.GSHP ---
History of Present Illness H&P Date: 05/26/24 Chief Complaint: Recurrent UTI The patient is an 79-year-old white male with permanent urinary retention, managed with an indwelling Christie catheter. He had problems with encrustation of his catheters to use in the event and underwent cystolithotripsy in 2020. The catheter is now being changed every 3 weeks, but he has been treated for UTIs. X-ray and CT scan show multiple bladder calculi. He was offered the options of observation, cystolithotripsy, and open cystolithotomy with placement of a suprapubic cystostomy tube. He has elected to undergo cystolithotripsy. - Constitutional Constitutional: Denies chills, Denies fever - Gastrointestinal Gastrointestinal: Reports constipation - Genitourinary (Male) Genitourinary: Reports as per HPI Past Medical History Past Medical History: GERD/Reflux, Osteoarthritis (OA), Prostate Disorder Additional Past Medical History / Comment(s): states "had Hep B or C back and now it's all healed", recurrent UTI's , bladder stones, chronic christie catheter, BPH. daughter states pt's hips are bothering him lately otherwise " he is mostly numb" ( back issues). uses w.c at home. History of Any Multi-Drug Resistant Organisms: None Reported Past Surgical History: Back Surgery, Hernia Repair, Tonsillectomy Additional Past Surgical History / Comment(s): hemorrhoid surgery, back surgery x 2, rt inguinal hernia repair Past Anesthesia/Blood Transfusion Reactions: No Reported Reaction Additional Past Anesthesia/Blood Transfusion Reaction / Comment(s): no hx blood transfusion Smoking Status: Current every day smoker - Past Family History Mother Family Medical History: Cancer Father Family Medical History: Cancer Medications and Allergies Home Medications Medication Instructions Recorded Confirmed Type HYDROcodone/APAP 7.5-325MG [[place] 1 tab PO DAILY PRN 01/03/22 05/25/24 History 7.5-325] Levofloxacin [Levaquin] 750 mg PO DAILY 5 Days #5 tab 05/21/24 05/25/24 Rx Naproxen [Naprosyn] 375 mg PO DIRECTED PRN 05/25/24 05/25/24 History Allergies Allergy/AdvReac Type Severity Reaction Status Date / Time nitrofurantoin Allergy Unknown Verified 05/25/24 08:50 [From Macrobid] Penicillins Allergy Anaphylaxis/Hives Verified 05/25/24 08:50 on entire body Sulfa (Sulfonamide Allergy Unknown Verified 05/25/24 08:50 Antibiotics) sulfamethoxazole Allergy Unknown Verified 05/25/24 08:50 [From Bactrim] Childhood trimethoprim [From Bactrim] Allergy Unknown Verified 05/25/24 08:50 Childhood Surgical - Exam - General well developed, well nourished, no distress - Respiratory normal respiratory effort - Abdomen Abdomen: soft, non tender, no guarding, no rigid, no rebound - Genitourinary normal penis with no external lesions, testicles non-tender - Psychiatric oriented to time, oriented to person, oriented to place, speech is normal, memory intact Results - Imaging CT scan - pelvis: report reviewed, image reviewed Assessment and Plan (1) Calculus in bladder Status: Acute Code(s): N21.0 - CALCULUS IN BLADDER SNOMED Code(s): 35045092 Plan: Cystoscopy with cystolithotripsy. The procedure has been reviewed in detail with the patient and his daughter. They are aware of potential risks, which include anesthesia, bleeding, infection, and bladder perforation. Given the stone burden, they are aware of the possible need for a secondary procedure.
[2024-05-27] MEDS ORDERED: HYDROmorphone 0.5 MG/0.5 ML SYRINGE IVP PRN (09:56)
[2024-05-27] MEDS ORDERED: MIDAZOLAM 2 MG/2 ML VIAL IV PRN (09:56)
[2024-05-27] MEDS ORDERED: LIDOCAINE 1% (10MG/ML) FOR IV START INTRADERMA PRN (09:56)
[2024-05-27] MEDS ORDERED: LACTATED RINGERS 1,000 ML IV SCH (09:56)
[2024-05-27] MEDS ORDERED: fentaNYL (PF) 50 MCG/ML 2 ML AMP IVP PRN (09:56)
[2024-05-27] MEDS: IV FLUID CONTINUATION 1,000 ML IV ONE (10:22)
--- NOTE | 2024-05-27 10:27 | XR ---
EXAMINATION TYPE: XR KUB DATE OF EXAM: 05/27/2024 10:09 AM COMPARISON: 08/23/2023. CLINICAL INDICATION: Male, 79 years old with history of Bladder Calculi N21.0; [facility] TECHNIQUE: One radiographic view of the abdomen was obtained. FINDINGS: There is a large stool burden, otherwise, the bowel gas pattern is nonspecific without dila mary loops of small or large bowel. . Fecal material and gas are demonstrated throughout the colon and rectum. There is no evidence for organomegaly or pneumoperitoneum. No acute osseous process. Multip le bladder calculi project over the pelvis measuring up to 21 mm. IMPRESSION: 1. Multiple bladder calculi projecting over the pelvis. 2. Large amount stool, Nonspecific bowel gas pattern without radiographic evidence for acute process . [facility], , 05/27/2024 10:25 AM
[2024-05-27] MEDS: ONDANSETRON 4 MG/2 ML VIAL IVP ONE (10:54)
[2024-05-27] MEDS: DEXAMETHASONE SOD PHOSPHATE 4 MG/ML 1 ML VIAL IV ONE (10:54)
[2024-05-27] MEDS ORDERED: ROCURONIUM 10 MG/ML (5 ML VIAL) IV ONE (11:34)
[2024-05-27] MEDS ORDERED: PHENYLEPHRINE-0.9% NACL SYG 1,000 MCG/10 ML SYRINGE ONE (11:34)
[2024-05-27] MEDS ORDERED: SUCCINYLCHOLINE CHLORIDE 200 MG/10 ML VIAL IV ONE (11:34)
[2024-05-27] MEDS ORDERED: NEOSTIGMINE 1 MG/ML 10 ML VIAL ONE (11:34)
[2024-05-27] MEDS ORDERED: fentaNYL (PF) 50 MCG/ML 2 ML AMP ONE (11:34)
[2024-05-27] MEDS ORDERED: FUROSEMIDE 10 MG/ML 2 ML VIAL ONE (11:34)
[2024-05-27] MEDS ORDERED: PROPOFOL 10 MG/ML 20 ML VIAL IV ONE (11:34)
[2024-05-27] MEDS ORDERED: GLYCOPYRROLATE 0.2 MG/ML 2 ML VIAL ONE (11:34)
[2024-05-27] MEDS ORDERED: LIDOCAINE 1% INJ 10MG/ML (20 ML MDV) ONE (11:34)
[2024-05-27] MEDS: LEVOFLOXACIN 500MG-D5W PMX 500 MG in DEXTROSE/WATER 1 100ML.BAG IVPB PRN (11:39)
[2024-05-27] MEDS: LACTATED RINGERS 1,000 ML IV ONE (12:55)
--- NOTE | 2024-05-27 13:07 | P.OP ---
Date of Procedure: 05/27/24 Preoperative Diagnosis: Bladder calculi Postoperative Diagnosis: Same Procedure(s) Performed: Cystoscopy with cystolithotripsy Anesthesia: ALEX Surgeon: Aj Smith Estimated Blood Loss (ml): 30 IV fluids (ml): 1,000 Pathology: none sent Condition: stable Disposition: PACU Indications for Procedure: The patient is an 79-year-old white male with permanent urinary retention, managed with an indwelling Mohamud catheter. He had problems with encrustation of his catheters to use in the event and underwent cystolithotripsy in 2020. The catheter is now being changed every 3 weeks, but he has been treated for UTIs. X-ray and CT scan show multiple bladder calculi. He was offered the options of observation, cystolithotripsy, and open cystolithotomy with placement of a suprapubic cystostomy tube. He has elected to undergo cystolithotripsy. Operative Findings: Multiple large bladder calculi measuring up to 21 mm in size. Description of Procedure: The patient was taken to the operating room and placed in the dorsal lithotomy position, with legs supported in Roger stirrups. The external genitalia was prepped and draped sterilely. The 30 lens was used to introduce the 21-[place] Beck cystoscopic sheath through the urethra and into the bladder under direct vision. The urethra appeared normal. The prostate showed evidence of lateral lobe enlargement consistent with the patient's age. The bladder was examined in its entirety. The ureteral orifices appeared normal. Multiple calculi were seen measuring up to 2 cm in size. No tumors were seen. No diverticuli were seen. Using the 1000 micron Holmium laser probe, lithotripsy was performed. Lithotripsy was continued until all calculus fragments could be removed using the [employer] evacuator. Once this was completed, the bladder was inspected. There was minimal active bleeding, and no evidence of bladder perforation. A 20- [place]ian three-way Mohamud catheter was placed. The return was pink-tinged. The irrigation port was plugged. The catheter was left to gravity drainage. The patient tolerated the procedure well was taken to the recovery room in stable condition.
[2024-05-27 13:23] VITALS: TEMP 97
[2024-05-27 14:12] VITALS: RESP 16
[2024-05-27] MEDS: HYDROcodone/APAP 7.5-325MG 1 EACH TAB PO ONE (14:26)
[2024-05-27 14:54] VITALS: BP 130/72; PULSE 68
== END 2024-05-27 15:14 | disposition home or self-care (01) ==
LOC: OR 09:46
PROVIDERS: ATTEND Urology
DX: N21.0 Calculus in bladder (principal); N40.1 Benign prostatic hyperplasia with lower urinary tract symptoms; R33.8 Other retention of urine; K21.9 Gastro-esophageal reflux disease without esophagitis; M19.90 Unspecified osteoarthritis, unspecified site; F17.210 Nicotine dependence, cigarettes, uncomplicated; Z88.0 Allergy status to penicillin; Z88.1 Allergy status to other antibiotic agents; Z88.2 Allergy status to sulfonamides; Z98.890 Other specified postprocedural states; Z90.89 Acquired absence of other organs; Z79.899 Other long term (current) drug therapy
CPT/HCPCS: 52317; 74018; J0330; J1100; J1940; J2710; J2405; J1956; J2003; J3010; J2704; J2371; J1596

== ENCOUNTER 2024-06-09 11:45 | Emergency (ER) | payer OTHER, MEDICARE ==
[2024-06-09 11:55] VITALS: RESP 18
--- NOTE | 2024-06-09 12:17 | ED ---
Weakness HPI - General Chief complaint: Weakness Stated complaint: abd pain, weakness, uti Time Seen by Provider: 06/09/24 12:00 Source: patient, EMS, RN notes reviewed Mode of arrival: EMS Limitations: physical limitation - History of Present Illness Initial comments: This is an 79-year-old male who presents to the emergency department for weakness. States that he has felt weak over the last couple of days, which typically occurs when he gets a UTI. He was just treated for a UTI with Levaquin a couple of weeks ago and states that he typically gets them every month. He does have a chronic indwelling Christie catheter that was last replaced couple of weeks ago when he had the UTI. Also states that he has been constipated. He was constipated when he was evaluated here earlier this month and an enema was administered. He was able to produce a large bowel movement afterwards. States that his last bowel movement was 2 to 3 days ago. He is hav ing some discomfort in his abdomen. Denies any nausea or vomiting. Denies any chest pain or shortness of breath. MD Complaint: generalized weakness - Related Data Home Medications Medication Instructions Recorded Confirmed HYDROcodone/APAP 7.5-325MG [[place] 1 tab PO DAILY PRN 01/03/22 05/27/24 7.5-325] Naproxen [Naprosyn] 375 mg PO DIRECTED PRN 05/25/24 05/27/24 Previous Rx's Medication Instructions Recorded Levofloxacin [Levaquin] 750 mg PO DAILY 5 Days #5 tab 05/21/24 Cefpodoxime Proxetil [Vantin] 200 mg PO Q12HR 10 Days #20 tab 06/09/24 Allergies Allergy/AdvReac Type Severity Reaction Status Date / Time nitrofurantoin Allergy Unknown Verified 05/27/24 10:35 [From Macrobid] Penicillins Allergy Anaphylaxis/Hives Verified 05/27/24 10:35 on entire body Sulfa (Sulfonamide Allergy Unknown Verified 05/27/24 10:35 Antibiotics) sulfamethoxazole Allergy Unknown Verified 05/27/24 10:35 [From Bactrim] Childhood trimethoprim [From Bactrim] Allergy Unknown Verified 05/27/24 10:35 Childhood Review of Systems ROS Statement: Those systems with pertinent positive or pertinent negative responses have been documented in the HPI. ROS Other: All systems not noted in ROS Statement are negative. Past Medical History Past Medical History: GERD/Reflux, Osteoarthritis (OA), Prostate Disorder Additional Past Medical History / Comment(s): states "had Hep B or C back 1960's and now it's all healed", recurrent UTI's , bladder stones, chronic christie catheter, BPH. daughter states pt's hips are bothering him lately otherwise " he is mostly numb" ( back issues). uses w.c at home. History of Any Multi-Drug Resistant Organisms: None Reported Past Surgical History: Back Surgery, Hernia Repair, Tonsillectomy Additional Past Surgical History / Comment(s): hemorrhoid surgery, back surgery x 2, rt inguinal hernia repair Past Anesthesia/Blood Transfusion Reactions: No Reported Reaction Additional Past Anesthesia/Blood Transfusion Reaction / Comment(s): no hx blood transfusion Past Psychological History: No Psychological Hx Reported Smoking Status: Current every day smoker Past Alcohol Use History: None Reported Past Drug Use History: None Reported - Past Family History Mother Family Medical History: Cancer Father Family Medical History: Cancer General Exam Limitations: physical limitation General appearance: alert, in no apparent distress Head exam: Present: atraumatic, normocephalic, normal inspection Respiratory exam: Present: normal lung sounds bilaterally. Absent: respiratory distress, wheezes, rales, rhonchi, stridor Cardiovascular Exam: Present: regular rate, normal rhythm GI/Abdominal exam: Present: soft, tenderness (generalized), normal bowel sounds. Absent: distended Neurological exam: Present: alert, oriented X3, CN II-XII intact Psychiatric exam: Present: normal affect, normal mood Skin exam: Present: warm, dry, intact, normal color. Absent: rash Course Vital Signs 06/09/24 06/09/24 11:47 15:00 Temperature 97.8 F 98.0 F Pulse Rate 73 72 Respiratory 18 18 Rate Blood Pressure 108/84 117/77 O2 Sat by Pulse 94 L 96 Oximetry Procedures - Rectal Disimpaction Consent Obtained: verbal consent Indication: fecal impaction Procedural Sedation: No Sedation/Analgesia: none Technique: manual disimpaction with gloved finger Result: significant stool output Complications: none Medical Decision Making - Medical Decision Making This is an 79 year old male who presents to the emergency department for weakness. Was pt. sent in by a medical professional or institution? @ -No Did you speak to anyone other than the patient for history? @ -No Did you review nursing and triage notes? @ -Yes, and I agree, it is accurate with regards to the patient's symptoms. Were old charts reviewed? @ -Urine culture from 05/21/2024 which was positive for Klebsiella oxytoca Differential Diagnosis? @ -Differential Weakness: Hypoglycemia, shock, sepsis, hyponatremia, anemia, infection, MT, ETOH, adverse medicine reaction, overdose, stroke, this is not meant to be an all-inclusive list. EKG interpreted by me (3pts min.)? @ -EKG interpreted by me demonstrating the following: Sinus rhythm. Ventricular rate 66 bpm, NM interval 181 ms, QRS duration 90 ms, QTc 406 ms. X-rays interpreted by me (1pt min.)? @ -KUB x-ray obtained. My interpretation identifies no bowel wall thickening. CT interpreted by me (1pt min.)? @ -Not obtained U/S interpreted by me (1pt. min.)? @ -Not obtained What testing was considered but not performed? (CT, X-rays, U/S, labs)? Why? @ -None What meds were considered but not given? Why? @ -None Did you discuss the management of the patient with other professionals? @ -No Did you reconcile home meds? @ -No Was smoking cessation discussed for >3mins.? @ -No Was critical care preformed (if so, how long)? @ -No Were there social determinants of health that impacted care today? How? (Homelessness, low income, unemployed, alcoholism, drug addiction, transportation, low edu. Level, literacy, decrease access to med. care, skilled nursing, rehab)? @ -No Was there de-escalation of care discussed even if they declined? (Discuss DNR or withdrawal of care, Hospice)? @ -No What co-morbidities impacted this encounter? (DM, HTN, Smoking, COPD, CAD, Cancer, CVA, Hep., AIDS, mental health diagnosis, sleep apnea, morbid obesity)? @ -Prostate disorder Was patient admitted / discharged? @ -Discharged. Lab work unremarkable. Urinalysis appears to be consistent with infection. Upon reviewing the urine culture from 05/21/2024 it was positive for Klebsiella oxytoca. Patient was treated with levofloxacin. However, urine culture does not list effectiveness for fluoroquinolones specifically. It is effective for Macrobid and Bactrim, however he is allergic to both of those. It does also appear to be effective for third-generation cephalosporins. 1 g of ceftriaxone administered in the emergency department. Cefpodoxime prescribed. Additionally, milk molasses enema administered in the emergency department. However, when nursing staff attempted to insert this there was a large stool ball in the way. Manual disimpaction performed with nursing staff and a large amount of stool was removed. Milk molasses enema was then reinserted and he proceeded to have a very large bowel movement. Afterwards he felt significantly improved and requested discharge home. We discussed increasing his fluid intake and taking something like Benefiber or probiotics daily to help regulate his bowel movements. Also advised follow-up with his PCP in the next couple of day s. Patient discharged home in stable condition. Case discussed with ED attending Dr. Hobbs. Return precautions reviewed in depth, the patient is instructed to return to the emergency department with any new, worsening, or concerning symptoms. Patient verbalized understanding. Undiagnosed new problem with uncertain prognosis? @ -None Drug Therapy requiring intensive monitoring for toxicity (Heparin, Nitro, Insulin, Cardizem)? @ -None Were any procedures done? @ -Rectal disimpaction Diagnosis/symptom? @ -UTI, constipation Acute, or Chronic, or Acute on Chronic? @ -Acute Uncomplicated (without systemic symptoms) or Complicated (systemic symptoms)? @ -Uncomplicated Side effects of treatment? @ -None Exacerbation, Progression, or Severe Exacerbation] @ -Not applicable Poses a threat to life or bodily function? @ -No - Lab Data Result diagrams: 06/09/24 12:23 06/09/24 12:23 Lab Results 06/09/24 06/09/24 06/09/24 Range/Units 12:23 12:23 12:23 WBC 6.5 (3.8-10.6) k/uL RBC 4.50 (4.30-5.90) m/uL Hgb 13.0 (13.0-17.5) gm/dL Hct 40.5 (39.0-53.0) % MCV 90.0 (80.0-100.0) fL MCH 28.8 (25.0-35.0) pg MCHC 32.0 (31.0-37.0) g/dL RDW 12.9 (11.5-15.5) % Plt Count 227 (150-450) k/uL MPV 8.6 Neutrophils % 76 % Lymphocytes % 14 % Monocytes % 4 % Eosinophils % 4 % Basophils % 1 % Neutrophils # 4.9 (1.3-7.7) k/uL Lymphocytes # 0.9 L (1.0-4.8) k/uL Monocytes # 0.3 (0-1.0) k/uL Eosinophils # 0.3 (0-0.7) k/uL Basophils # 0.0 (0-0.2) k/uL Sodium 138 (137-145) mmol/L Potassium 4.3 (3.5-5.1) mmol/L Chloride 108 H (98-107) mmol/L Carbon Dioxide 22 (22-30) mmol/L Anion Gap 8 mmol/L BUN 10 (9-20) mg/dL Creatinine 0.88 (0.66-1.25) mg/dL Est GFR (CKD-EPI)AfAm >90 (>60 ml/min/1.73 sqM) Est GFR (CKD-EPI)NonAf 81 (>60 ml/min/1.73 sqM) Glucose 92 (74-99) mg/dL Plasma Lactic Acid Omar (0.7-2.0) mmol/L Calcium 8.8 (8.4-10.2) mg/dL Phosphorus 3.5 (2.5-4.5) mg/dL Magnesium 2.1 (1.6-2.3) mg/dL Total Bilirubin 0.5 (0.2-1.3) mg/dL AST 16 L (17-59) U/L ALT 10 (4-49) U/L Alkaline Phosphatase 65 (38-126) U/L Total Protein 5.9 L (6.3-8.2) g/dL Albumin 3.3 L (3.5-5.0) g/dL Lipase 88 (23-300) U/L Urine Color Yellow Urine Appearance Turbid (Clear) Urine pH 6.0 (5.0-8.0) Ur Specific [place] 1.024 (1.001-1.035) Urine Protein 1+ H (Negative) Urine Glucose (UA) Negative (Negative) Urine Ketones Trace H (Negative) Urine Blood Moderate H (Negative) Urine Nitrite Negative (Negative) Urine Bilirubin Negative (Negative) Urine Urobilinogen 8.0 (<2.0) mg/dL Ur Leukocyte Esterase Moderate H (Negative) Urine RBC 50 H (0-5) /hpf Urine WBC >182 H (0-5) /hpf Urine WBC Clumps Few H (None) /hpf Ur Squamous Epith Cells 12 H (0-4) /hpf Urine Bacteria Occasional H (None) /hpf Urine Mucus Rare H (None) /hpf 06/09/24 Range/Units 12:23 WBC (3.8-10.6) k/uL RBC (4.30-5.90) m/uL Hgb (13.0-17.5) gm/dL Hct (39.0-53.0) % MCV (80.0-100.0) fL MCH (25.0-35.0) pg MCHC (31.0-37.0) g/dL RDW (11.5-15.5) % Plt Count (150-450) k/uL MPV Neutrophils % % Lymphocytes % % Monocytes % % Eosinophils % % Basophils % % Neutrophils # (1.3-7.7) k/uL Lymphocytes # (1.0-4.8) k/uL Monocytes # (0-1.0) k/uL Eosinophils # (0-0.7) k/uL Basophils # (0-0.2) k/uL Sodium (137-145) mmol/L Potassium (3.5-5.1) mmol/L Chloride (98-107) mmol/L Carbon Dioxide (22-30) mmol/L Anion Gap mmol/L BUN (9-20) mg/dL Creatinine (0.66-1.25) mg/dL Est GFR (CKD-EPI)AfAm (>60 ml/min/1.73 sqM) Est GFR (CKD-EPI)NonAf (>60 ml/min/1.73 sqM) Glucose (74-99) mg/dL Plasma Lactic Acid Omar 1.1 (0.7-2.0) mmol/L Calcium (8.4-10.2) mg/dL Phosphorus (2.5-4.5) mg/dL Magnesium (1.6-2.3) mg/dL Total Bilirubin (0.2-1.3) mg/dL AST (17-59) U/L ALT (4-49) U/L Alkaline Phosphatase (38-126) U/L Total Protein (6.3-8.2) g/dL Albumin (3.5-5.0) g/dL Lipase (23-300) U/L Urine Color Urine Appearance (Clear) Urine pH (5.0-8.0) Ur Specific [place] (1.001-1.035) Urine Protein (Negative) Urine Glucose (UA) (Negative) Urine Ketones (Negative) Urine Blood (Negative) Urine Nitrite (Negative) Urine Bilirubin (Negative) Urine Urobilinogen (<2.0) mg/dL Ur Leukocyte Esterase (Negative) Urine RBC (0-5) /hpf Urine WBC (0-5) /hpf Urine WBC Clumps (None) /hpf Ur Squamous Epith Cells (0-4) /hpf Urine Bacteria (None) /hpf Urine Mucus (None) /hpf - Radiology Data Radiology results: report reviewed, image reviewed Disposition Clinical Impression: UTI (urinary tract infection), Constipation Disposition: HOME SELF-CARE Instructions (If sedation given, give patient instructions): Constipation (ED), Urinary Tract Infection in Men (ED) Additional Instructions: Return to the emergency department with any new, worsening, or concerning symptoms. Take the antibiotic as prescribed for 10 days. Increase your fluid and fiber intake. Follow up with your primary care provider in 1-2 days. Prescriptions: Cefpodoxime Proxetil [Vantin] 200 mg PO Q12HR 10 Days #20 tab Is patient prescribed a controlled substance at d/c from ED?: No Referrals: None,Stated [REFERRING] - 1-2 days Time of Disposition: 14:55
[2024-06-09 12:30] LABS: Basophils % (A) 1 %; Eosinophils # (A) 0.3 k/uL (0-0.7); Eosinophils % (A) 4 %; HCT 40.5 % (39.0-53.0); Lymphocytes # (A) 0.9 k/uL (1.0-4.8); Lymphocytes % (A) 14 %; MCH 28.8 pg (25.0-35.0); Mean Platelet Volume 8.6; Monocytes # (A) 0.3 k/uL (0-1.0); Monocytes % (A) 4 %; Neutrophils # (A) 4.9 k/uL (1.3-7.7); Neutrophils % (A) 76 %; Platelet Count 227 k/uL (150-450); RDW 12.9 % (11.5-15.5); WBC 6.5 k/uL (3.8-10.6)
[2024-06-09 12:45] LABS: ALT 10 U/L (4-49); AST 16 U/L (17-59); African American GFR (CKD) >90 (>60 ml/min/1.73 sqM); Albumin 3.3 g/dL (3.5-5.0); Alkaline Phosphatase 65 U/L (38-126); Anion Gap 8 mmol/L; Blood Urea Nitrogen 10 mg/dL (9-20); Calcium 8.8 mg/dL (8.4-10.2); Carbon Dioxide 22 mmol/L (22-30); Chloride 108 mmol/L (98-107); Glucose 92 mg/dL (74-99); Lipase 88 U/L (23-300); Magnesium 2.1 mg/dL (1.6-2.3); Non-African American GFR(CKD) 81 (>60 ml/min/1.73 sqM); Phosphorus 3.5 mg/dL (2.5-4.5); Potassium 4.3 mmol/L (3.5-5.1); Sodium 138 mmol/L (137-145); Total Bilirubin 0.5 mg/dL (0.2-1.3); Total Protein 5.9 g/dL (6.3-8.2)
[2024-06-09 12:50] LABS: Appearance,Urine Turbid (Clear); Bacteria,Urine Occasional /hpf; Bilirubin,Urine Negative (Negative); Blood,Urine Moderate (Negative); Color,Urine Yellow; Glucose,Urine (UA) Negative (Negative); Ketones,Urine Trace (Negative); Leukocyte Esterase,Urine Moderate (Negative); Mucus,Urine Rare /hpf; Nitrite,Urine Negative (Negative); Protein,Urine 1+ (Negative); RBC,Urine 50 /hpf (0-5); Specific Gravity,Urine 1.024 (1.001-1.035); Squamous Epithelial Cell,Urine 12 /hpf (0-4); WBC,Urine >182 /hpf (0-5)
--- NOTE | 2024-06-09 12:58 | XR ---
EXAMINATION TYPE: XR KUB DATE OF EXAM: 06/09/2024 12:52 PM CLINICAL INDICATION: Male, 79 years old with history of Abdominal pain, pain TECHNIQUE: 2 supine images of the abdomen. COMPARISON: Abdominal x-ray May 27, 2024 FINDINGS: Scattered gas is seen in non-distended small bowel loops. Gas and fecal material is seen in non-distended colon and rectum. Osseous structures are demineralized. No suspicious calcifications. Lung bases are clear. IMPRESSION: Overall nonobstructive bowel gas pattern. [facility], , 06/09/2024 12:56 PM
[2024-06-09] MEDS: cefTRIAXone IN SWFI 1,000 MG/10 ML SYRINGE IVP STA (14:03)
[2024-06-09 15:01] VITALS: BP 117/77; PULSE 72; TEMP 98
== END 2024-06-09 15:14 | disposition home or self-care (01) ==
LOC: EC 11:45
DX: N39.0 Urinary tract infection, site not specified (principal); K59.00 Constipation, unspecified; F17.200 Nicotine dependence, unspecified, uncomplicated; Z88.0 Allergy status to penicillin; Z88.1 Allergy status to other antibiotic agents; Z88.2 Allergy status to sulfonamides; Z88.8 Allergy status to other drugs, medicaments and biological substances; Z87.430 Personal history of prostatic dysplasia
CPT/HCPCS: 36415; 93005; 80053; 83605; 83690; 83735; 84100; 85025; 81001; 87086; 74018; 99285; 96374; J0696

== ENCOUNTER 2024-07-05 15:08 | Emergency (ER) | payer OTHER, MEDICARE ==
--- NOTE | 2024-07-05 15:46 | ED ---
General Adult HPI - General Chief complaint: Urogenital Stated complaint: Urogenital Time Seen by Provider: 07/05/24 15:14 Source: patient, RN notes reviewed Mode of arrival: wheelchair Limitations: no limitations - History of Present Illness Initial comments: 79-year-old male with history of prostate disorder presenting to emergency department for concerns of abdominal pain and possible Christie catheter malfunction. Patient states that since 1400 this afternoon he has noticed that his Christie catheter not been draining appropriately. Additionally, states he has been standing lower abdominal pain. Recent episode of emesis yesterday however currently is denying nausea, vomiting, diarrhea or constipation, chest pain or difficulty breathing. Patient has a history of recurrent urinary tract infections, denies current antibiotic use. States last course of antibiotics were prescribed proximately 3 weeks ago for UTI. follows with Dr. Smith - Related Data Home Medications Medication Instructions Recorded Confirmed HYDROcodone/APAP 7.5-325MG [Hadley 1 tab PO DAILY PRN 01/03/22 05/27/24 7.5-325] Naproxen [Naprosyn] 375 mg PO DIRECTED PRN 05/25/24 05/27/24 Previous Rx's Medication Instructions Recorded Levofloxacin [Levaquin] 750 mg PO DAILY 5 Days #5 tab 05/21/24 Cefpodoxime Proxetil [Vantin] 200 mg PO Q12HR 10 Days #20 tab 06/09/24 Allergies Allergy/AdvReac Type Severity Reaction Status Date / Time nitrofurantoin Allergy Unknown Verified 07/05/24 15:14 [From Macrobid] Penicillins Allergy Anaphylaxis/Hives Verified 07/05/24 15:14 on entire body Sulfa (Sulfonamide Allergy Unknown Verified 07/05/24 15:14 Antibiotics) sulfamethoxazole Allergy Unknown Verified 07/05/24 15:14 [From Bactrim] Childhood trimethoprim [From Bactrim] Allergy Unknown Verified 07/05/24 15:14 Childhood Review of Systems ROS Statement: Those systems with pertinent positive or pertinent negative responses have been documented in the HPI. ROS Other: All systems not noted in ROS Statement are negative. Past Medical History Past Medical History: GERD/Reflux, Osteoarthritis (OA), Prostate Disorder Additional Past Medical History / Comment(s): states "had Hep B or C back 1960's and now it's all healed", recurrent UTI's , bladder stones, chronic christie c atheter, BPH. daughter states pt's hips are bothering him lately otherwise " he is mostly numb" ( back issues). uses w.c at home. History of Any Multi-Drug Resistant Organisms: None Reported Past Surgical History: Back Surgery, Hernia Repair, Tonsillectomy Additional Past Surgical History / Comment(s): hemorrhoid surgery, back surgery x 2, rt inguinal hernia repair Past Anesthesia/Blood Transfusion Reactions: No Reported Reaction Additional Past Anesthesia/Blood Transfusion Reaction / Comment(s): no hx blood transfusion Past Psychological History: No Psychological Hx Reported Smoking Status: Current every day smoker Past Alcohol Use History: None Reported Past Drug Use History: None Reported - Past Family History Mother Family Medical History: Cancer Father Family Medical History: Cancer General Exam Limitations: no limitations Respiratory exam: Present: normal lung sounds bilaterally. Absent: respiratory distress, wheezes, rales, rhonchi, stridor Cardiovascular Exam: Present: regular rate, normal rhythm, normal heart sounds. Absent: systolic murmur, diastolic murmur, rubs, gallop, clicks GI/Abdominal exam: Present: soft, tenderness (RLQ and suprapubic), normal bowel sounds. Absent: distended, guarding, rebound, rigid Extremities exam: Present: normal inspection, full ROM, normal capillary refill. Absent: tenderness, pedal edema, joint swelling, calf tenderness Back exam: Present: normal inspection. Absent: CVA tenderness (R), CVA tenderness (L) Course Vital Signs 07/05/24 07/05/24 15:12 18:39 Temperature 98.9 F 98.6 F Pulse Rate 110 H 67 Respiratory 20 50 H Rate Blood Pressure 139/78 121/75 O2 Sat by Pulse 98 97 Oximetry Medical Decision Making - Medical Decision Making Was pt. sent in by a medical professional or institution (, PA, [employer], urgent care, hospital, or alf...) When possible be specific @ -No Did you speak to anyone other than the patient for history (EMS, parent, family, police, friend...)? What history was obtained from this source @ -No Did you review nursing and triage notes (agree or disagree)? Why? @ -I reviewed and agree with nursing and triage notes Were old charts reviewed (outside hosp., previous admission, EMS record, old EK G, old radiological studies, urgent care reports/EKG's, alf records)? Report findings @ -No old charts were reviewed Differential Diagnosis (chest pain, altered mental status, abdominal pain women, abdominal pain men, vaginal bleeding, weakness, fever, dyspnea, syncope, headache, dizziness, GI bleed, back pain, seizure, CVA, palpatations, mental health, musculoskeletal)? @ -Differential Abdominal Pain Men: Appendicitis, cholecystitis, diverticulosis, ischemic bowel, pancreatitis, hepa titis, UTI, gastroenteritis, AAA, incarcerated hernia, bowel obstruction, constipation, inflammatory bowel, hepatitis, peptic ulcer disease, splenic infarction, perforated viscus, testicular torsion, this is not meant to be an all-inclusive list EKG interpreted by me (3pts min.). @ -None X-rays interpreted by me (1pt min.). @ -None done CT interpreted by me (1pt min.). @ -CT of the abdomen and pelvis with IV contrast reveals circumferential wall thickening of the urinary bladder, Christie catheter in correct position, appendix normal with no obstructive uropathy, no evidence for acute abdominal process. U/S interpreted by me (1pt. min.). @ -None done What testing was considered but not performed or refused? (CT, X-rays, U/S, labs)? Why? @ -None What meds were considered but not given or refused? Why? @ -None Did you discuss the management of the patient with other professionals (professionals i.e. , PA, [employer], lab, RT, psych nurse, social media coordinator, set up machinist, teacher, chief nursing officer, assistant case manager)? Give summary @ -No Was smoking cessation discussed for >3mins.? @ -No Was critical care preformed (if so, how long)? @ -No Were there social determinants of health that impacted care today? How? (Homelessness, low income, unemployed, alcoholism, drug addiction, transport ation, low edu. Level, literacy, decrease access to med. care, skilled nursing, rehab)? @ -No Was there de-escalation of care discussed even if they declined (Discuss DNR or withdrawal of care, Hospice)? DNR status @ -No What co-morbidities impacted this encounter? (DM, HTN, Smoking, COPD, CAD, Cancer, CVA, ARF, Chemo, Hep., AIDS, mental health diagnosis, sleep apnea, morbid obesity)? @ -None Was patient admitted / discharged? Hospital course, mention meds given and route, prescriptions, significant lab abnormalities, going to OR and other pertinent info. @ -Discharge. 79-year-old male presents emergency department with Christie catheter malfunction. Overall patient is well-appearing and there is mild tenderness over the suprapubic region however tenderness to the right lower quadrant of the abdomen. Bladder scan completed at bedside which reveals 30 cc of urine. Christie catheter was replaced and urinalysis sent. Laboratories including CBC, CMP unremarkable. Urinalysis reveals trace blood with moderate leukocyte esterase and 10 white blood cells. On reevaluation after Christie catheter is replaced patient is still experiencing right lower quadrant abdominal tenderness to palpation with mild rebound tenderness. At time CT imaging of the abdomen is ordered which reveals circumferential wall thickening of the urinary bladder, normal appendix. Patient is urine is sent for culture. Recommend follow-up with urology primary care provider. Return parameters discussed. Case discussed with Dr. Hooker Undiagnosed new problem with uncertain prognosis? @ -No Drug Therapy requiring intensive monitoring for toxicity (Heparin, Nitro, Insulin, Cardizem)? @ -No Were any procedures done? @ -No Diagnosis/symptom? @ -Lower quadrant abdominal pain, Christie catheter malfunction Acute, or Chronic, or Acute on Chronic? @ -Acute Uncomplicated (without systemic symptoms) or Complicated (systemic symptoms)? @ -Uncomplicated Side effects of treatment? @ -No Exacerbation, Progression, or Severe Exacerbation? @ -No Poses a threat to life or bodily function? How? (Chest pain, USA, NC, pneumonia, PE, COPD, DKA, ARF, appy, cholecystitis, CVA, Diverticulitis, Homicidal, Suicidal, threat to staff... and all critical care pts) @ -No - Lab Data Result diagrams: 07/05/24 16:02 07/05/24 16:02 Lab Results 07/05/24 07/05/24 07/05/24 Range/Units 16:02 16:02 16:02 WBC 5.63 (4.50-10.00) 10*3/uL RBC 4.80 (4.40-5.60) 10*6/uL Hgb 14.3 (13.0-17.0) g/dL Hct 41.1 (39.6-50.0) % MCV 85.6 (80.0-97.0) fL MCH 29.8 (27.0-32.0) pg MCHC 34.8 (32.0-37.0) g/dL Plt Count 237 (140-440) 10*3/uL MPV 10.7 (9.5-12.2) fL Immature Gran % (Auto) 0.2 % Neutrophils % 71.8 % Lymphocytes % 16.5 % Monocytes % 6.6 % Eosinophils % 4.4 % Basophils % 0.5 % Immature Gran # 0.01 (0.00-0.04) 10*3/uL Neutrophils # 4.04 (1.80-7.70) 10*3/uL Lymphocytes # 0.93 (0.90-5.00) 10*3/uL Monocytes # 0.37 (0.20-1.00) 10*3/uL Eosinophils # 0.25 (0.04-0.35) 10*3/uL Basophils # 0.03 (0.00-0.10) 10*3/uL Sodium 137 (137-145) mmol/L Potassium 4.0 (3.5-5.1) mmol/L Chloride 104 (98-107) mmol/L Carbon Dioxide 23 (22-30) mmol/L Anion Gap 10 mmol/L BUN 13 (9-20) mg/dL Creatinine 0.81 (0.66-1.25) mg/dL Est GFR (CKD-EPI)AfAm >90 (>60 ml/min/1.73 sqM) Est GFR (CKD-EPI)NonAf 84 (>60 ml/min/1.73 sqM) Glucose 105 H (74-99) mg/dL Plasma Lactic Acid Omar 1.4 (0.7-2.0) mmol/L Calcium 9.7 (8.4-10.2) mg/dL Magnesium 1.9 (1.6-2.3) mg/dL Total Bilirubin 0.6 (0.2-1.3) mg/dL AST 21 (17-59) U/L ALT 20 (4-49) U/L Alkaline Phosphatase 75 (38-126) U/L Total Protein 6.5 (6.3-8.2) g/dL Albumin 3.8 (3.5-5.0) g/dL Lipase 90 (23-300) U/L Urine Color Urine Appearance (Clear) Urine pH (5.0-8.0) Ur Specific Harmony (1.001-1.035) Urine Protein (Negative) Urine Glucose (UA) (Negative) Urine Ketones (Negative) Urine Blood (Negative) Urine Nitrite (Negative) Urine Bilirubin (Negative) Urine Urobilinogen (<2.0) mg/dL Ur Leukocyte Esterase (Negative) Urine RBC (0-5) /hpf Urine WBC (0-5) /hpf Ur Squamous Epith Cells (0-4) /hpf Urine Bacteria (None) /hpf 07/05/24 Range/Units 16:32 WBC (4.50-10.00) 10*3/uL RBC (4.40-5.60) 10*6/uL Hgb (13.0-17.0) g/dL Hct (39.6-50.0) % MCV (80.0-97.0) fL MCH (27.0-32.0) pg MCHC (32.0-37.0) g/dL Plt Count (140-440) 10*3/uL MPV (9.5-12.2) fL Immature Gran % (Auto) % Neutrophils % % Lymphocytes % % Monocytes % % Eosinophils % % Basophils % % Immature Gran # (0.00-0.04) 10*3/uL Neutrophils # (1.80-7.70) 10*3/uL Lymphocytes # (0.90-5.00) 10*3/uL Monocytes # (0.20-1.00) 10*3/uL Eosinophils # (0.04-0.35) 10*3/uL Basophils # (0.00-0.10) 10*3/uL Sodium (137-145) mmol/L Potassium (3.5-5.1) mmol/L Chloride (98-107) mmol/L Carbon Dioxide (22-30) mmol/L Anion Gap mmol/L BUN (9-20) mg/dL Creatinine (0.66-1.25) mg/dL Est GFR (CKD-EPI)AfAm (>60 ml/min/1.73 sqM) Est GFR (CKD-EPI)NonAf (>60 ml/min/1.73 sqM) Glucose (74-99) mg/dL Plasma Lactic Acid Omar (0.7-2.0) mmol/L Calcium (8.4-10.2) mg/dL Magnesium (1.6-2.3) mg/dL Total Bilirubin (0.2-1.3) mg/dL AST (17-59) U/L ALT (4-49) U/L Alkaline Phosphatase (38-126) U/L Total Protein (6.3-8.2) g/dL Albumin (3.5-5.0) g/dL Lipase (23-300) U/L Urine Color Colorless Urine Appearance Clear (Clear) Urine pH 7.0 (5.0-8.0) Ur Specific Harmony 1.003 (1.001-1.035) Urine Protein Negative (Negative) Urine Glucose (UA) Negative (Negative) Urine Ketones Negative (Negative) Urine Blood Trace H (Negative) Urine Nitrite Positive (Negative) Urine Bilirubin Negative (Negative) Urine Urobilinogen <2.0 (<2.0) mg/dL Ur Leukocyte Esterase Moderate H (Negative) Urine RBC 1 (0-5) /hpf Urine WBC 10 H (0-5) /hpf Ur Squamous Epith Cells <1 (0-4) /hpf Urine Bacteria Rare H (None) /hpf Disposition Clinical Impression: Right lower quadrant abdominal pain, Malfunction of Christie catheter Disposition: HOME SELF-CARE Condition: Good Instructions (If sedation given, give patient instructions): Christie Catheter Placement and Care (ED) Additional Instructions: Please return to the Emergency Department if symptoms worsen or any other concerns. Follow-up with urology. Is patient prescribed a controlled substance at d/c from ED?: No Referrals: Misha Whelan DO [Primary Care Provider] - 1-2 days Time of Disposition: 18:44
[2024-07-05 16:06] LABS: Basophils # (A) 0.03 10*3/uL (0.00-0.10); Basophils % (A) 0.5 %; Eosinophils # (A) 0.25 10*3/uL (0.04-0.35); Eosinophils % (A) 4.4 %; HCT 41.1 % (39.6-50.0); HGB 14.3 g/dL (13.0-17.0); Lymphocytes # (A) 0.93 10*3/uL (0.90-5.00); Lymphocytes % (A) 16.5 %; MCH 29.8 pg (27.0-32.0); MCHC 34.8 g/dL (32.0-37.0); MCV 85.6 fL (80.0-97.0); Mean Platelet Volume 10.7 fL (9.5-12.2); Monocytes # (A) 0.37 10*3/uL (0.20-1.00); Monocytes % (A) 6.6 %; Neutrophils # (A) 4.04 10*3/uL (1.80-7.70); Neutrophils % (A) 71.8 %; Platelet Count 237 10*3/uL (140-440); RDW 11.9 % (11.5-14.5); WBC 5.63 10*3/uL (4.50-10.00)
[2024-07-05 16:22] LABS: ALT 20 U/L (4-49); AST 21 U/L (17-59); African American GFR (CKD) >90 (>60 ml/min/1.73 sqM); Albumin 3.8 g/dL (3.5-5.0); Alkaline Phosphatase 75 U/L (38-126); Anion Gap 10 mmol/L; Blood Urea Nitrogen 13 mg/dL (9-20); Calcium 9.7 mg/dL (8.4-10.2); Carbon Dioxide 23 mmol/L (22-30); Chloride 104 mmol/L (98-107); Glucose 105 mg/dL (74-99); Lipase 90 U/L (23-300); Magnesium 1.9 mg/dL (1.6-2.3); Non-African American GFR(CKD) 84 (>60 ml/min/1.73 sqM); Sodium 137 mmol/L (137-145); Total Bilirubin 0.6 mg/dL (0.2-1.3); Total Protein 6.5 g/dL (6.3-8.2)
[2024-07-05 16:46] LABS: Appearance,Urine Clear (Clear); Bacteria,Urine Rare /hpf; Bilirubin,Urine Negative (Negative); Blood,Urine Trace (Negative); Color,Urine Colorless; Glucose,Urine (UA) Negative (Negative); Ketones,Urine Negative (Negative); Leukocyte Esterase,Urine Moderate (Negative); Nitrite,Urine Positive (Negative); Protein,Urine Negative (Negative); RBC,Urine 1 /hpf (0-5); Specific Gravity,Urine 1.003 (1.001-1.035); Squamous Epithelial Cell,Urine <1 /hpf (0-4); Urobilinogen,Urine <2.0 mg/dL (<2.0); WBC,Urine 10 /hpf (0-5)
--- NOTE | 2024-07-05 18:21 | CT ---
EXAMINATION TYPE: CT abdomen pelvis w con DATE OF EXAM: 07/05/2024 5:36 PM COMPARISON: None CLINICAL INDICATION: Male, 79 years old with history of RLQ ab pain; Lower abdominal tenderness, rece ntly treated for UTI. TECHNIQUE: Axial CT abdomen pelvis w con;Sagittal and coronal reformats were created on a separate w orkstation. Contrast used:100 ml mL of Isovue 300 with IV Contrast, (none if empty) Oral contrast used: without Oral Contrast (none if empty) CT DLP: 708.7 mGycm, Automated exposure control for dose reduction was used. FINDINGS: LOWER CHEST: Unremarkable ABDOMEN LIVER: Unremarkable GALLBLADDER AND BILE DUCTS: Unremarkable. PANCREAS: Unremarkable. SPLEEN: Unremarkable. ADRENAL GLANDS: Unremarkable. KIDNEYS AND URETERS: No evidence of hydronephrosis or obstructing renal calculus. The ureters are unr emarkable. PELVIS BLADDER: Mohamud catheter in place there is circumferential wall thickening of the urinary bladder with hyperemia. REPRODUCTIVE: Prostate is enlarged in size measuring 5.5 cm in transverse dimension. ABDOMEN & PELVIS STOMACH AND BOWEL: No evidence of bowel obstruction. The appendix is normal. PERITONEUM/RETROPERITONEUM: No evidence of pneumoperitoneum or free fluid. VASCULATURE: Moderate atherosclerotic calcifications are present throughout the abdominal aorta and i ts branches. No evidence of aortic aneurysm. MUSCULOSKELETAL: No acute osseous abnormalities LYMPH NODES: No gross evidence for lymphadenopathy. SOFT TISSUE/ABDOMINAL WALL: Trace amount of fluid in the right inguinal canal. IMPRESSION: 1. Circumferential wall thickening of the urinary bladder with hyperemia and gas compatible with cys titis. Mohamud catheter in appropriate position. The appendix is normal. No obstructive uropathy. 2. No additional evidence for acute abdominal process. 3. Colonic diverticulosis. 4. Prostatomegaly, correlate with serum PSA. [facility] [place], , 07/05/2024 6:18 PM
[2024-07-05 18:41] VITALS: BP 121/75; PULSE 67; RESP 50; TEMP 98.6
== END 2024-07-05 18:59 | disposition home or self-care (01) ==
LOC: EC 15:08
DX: R10.31 Right lower quadrant pain (principal); T83.018A Breakdown (mechanical) of other urinary catheter, initial encounter; F17.200 Nicotine dependence, unspecified, uncomplicated; Z88.0 Allergy status to penicillin; Z88.1 Allergy status to other antibiotic agents; Z88.2 Allergy status to sulfonamides
CPT/HCPCS: 51798; 36415; 80053; 83605; 83690; 83735; 85025; 81001; 74177; 99284; 51702; Q9967

== ENCOUNTER 2024-07-07 00:24 | Emergency (ER) | payer OTHER, MEDICARE ==
--- NOTE | 2024-07-07 01:05 | ED ---
General Adult HPI - General Chief complaint: Abdominal Pain Stated complaint: abd pain Time Seen by Provider: 07/07/24 00:27 Source: patient, EMS Mode of arrival: EMS Limitations: no limitations - History of Present Illness Initial comments: Dictation was produced using [employer] dictation software. please excuse any grammatical, word or spelling errors. Chief Complaint: 79-year-old male with persistent abdominal pain History of Present Illness: Patient is an 79-year-old male brought in by EMS for abdominal pain. Patient states he was seen here yesterday for the same issue. He had workup done and was discharged. Patient concerned he is having a urinary tract infection. Denies any fever, chills or night sweats. Patient states he is having difficulty having bowel movements. The ROS documented in this emergency department record has been reviewed and confirmed by me. Those systems with pertinent positive or negative responses have been documented in the HPI. All other systems are other negative and/or noncontributory. - Related Data Home Medications Medication Instructions Recorded Confirmed HYDROcodone/APAP 7.5-325MG [[place] 1 tab PO DAILY PRN 01/03/22 05/27/24 7.5-325] Naproxen [Naprosyn] 375 mg PO DIRECTED PRN 05/25/24 05/27/24 Previous Rx's Medication Instructions Recorded Levofloxacin [Levaquin] 750 mg PO DAILY 5 Days #5 tab 05/21/24 Cefpodoxime Proxetil [Vantin] 200 mg PO Q12HR 10 Days #20 tab 06/09/24 Levofloxacin [Levaquin] 500 mg PO DAILY 14 Days #14 tab 07/07/24 polyethylene glycoL 3350 [Miralax] 17 gm PO DAILY 3 Days #527 gm 07/07/24 Allergies Allergy/AdvReac Type Severity Reaction Status Date / Time nitrofurantoin Allergy Unknown Verified 07/07/24 00:27 [From Macrobid] Penicillins Allergy Anaphylaxis/Hives Verified 07/07/24 00:27 on entire body Sulfa (Sulfonamide Allergy Unknown Verified 07/07/24 00:27 Antibiotics) sulfamethoxazole Allergy Unknown Verified 07/07/24 00:27 [From Bactrim] Childhood trimethoprim [From Bactrim] Allergy Unknown Verified 07/07/24 00:27 Childhood Review of Systems ROS Statement: Those systems with pertinent positive or pertinent negative responses have been documented in the HPI. ROS Other: All systems not noted in ROS Statement are negative. Past Medical History Past Medical History: GERD/Reflux, Osteoarthritis (OA), Prostate Disorder Additional Past Medical History / Comment(s): states "had Hep B or C back 1959' and now it's all healed", recurrent UTI's , bladder stones, chronic christie catheter, BPH. daughter states pt's hips are bothering him lately otherwise " he is mostly numb" ( back issues). uses w.c at home. History of Any Multi-Drug Resistant Organisms: None Reported Past Surgical History: Back Surgery, Hernia Repair, Tonsillectomy Additional Past Surgical History / Comment(s): hemorrhoid surgery, back surgery x 2, rt inguinal hernia repair Past Anesthesia/Blood Transfusion Reactions: No Reported Reaction Additional Past Anesthesia/Blood Transfusion Reaction / Comment(s): no hx blood transfusion Past Psychological History: No Psychological Hx Reported Smoking Status: Current every day smoker Past Alcohol Use History: None Reported Past Drug Use History: None Reported - Past Family History Mother Family Medical History: Cancer Father Family Medical History: Cancer General Exam - General Exam Comments Initial Comments: PHYSICAL EXAM: General Impression: Alert and oriented x3, not in acute distress HEENT: Normocephalic atraumatic, extra-ocular movements intact, pupils equal and reactive to light bilaterally, mucous membranes moist. Cardiovascular: Heart regular rate and rhythm Chest: Able to complete full sentences, no retractions, no tachypnea Abdomen: abdomen soft, palpatory abdominal tenderness to the lower abdomen, non- distended, no organomegaly Musculoskeletal: Pulses present and equal in all extremities, no peripheral edema Motor: no focal deficits noted Neurological: CN II-XII grossly intact, no focal motor or sensory deficits noted Skin: Intact with no visualized rashes Psych: Normal affect and mood Limitations: no limitations Course Vital Signs 07/07/24 00:27 Temperature 97.7 F Pulse Rate 67 Respiratory 18 Rate Blood Pressure 120/78 O2 Sat by Pulse 96 Oximetry EKG Findings - EKG Comments: EKG Findings:: My EKG interpretation: Ventricular rate 57, bradycardia,. 153, QRS 97, QTc 431. No CT prolongation, no QTC prolongation, no ST or T-wave changes noted. . Overall, this EKG is unremarkable Medical Decision Making - Medical Decision Making Was pt. sent in by a medical professional or institution (, PA, MOTORS ASSEMBLER, urgent care, hospital, or senior living...) When possible be specific @ -No Did you speak to anyone other than the patient for history (EMS, parent, family, police, friend...)? What history was obtained from this source @ -No Did you review nursing and triage notes (agree or disagree)? Why? @ -I reviewed and agree with nursing and triage notes Were old charts reviewed (outside hosp., previous admission, EMS record, old EKG, old radiological studies, urgent care reports/EKG's, senior living records)? Report findings @ -No old charts were reviewed Differential Diagnosis (chest pain, altered mental status, abdominal pain women, abdominal pain men, vaginal bleeding, musculoskeletal, weakness, fever, dyspnea, syncope, headache, dizziness, GI bleed, back pain, seizure, CVA, palpatations, mental health)? @ -Differential Abdominal Pain Men: Appendicitis, cholecystitis, diverticulosis, ischemic bowel, pancreatitis, hepatitis, UTI, gastroenteritis, AAA, incarcerated hernia, bowel obstruction, constipation, inflammatory bowel, hepatitis, peptic ulcer disease, splenic infarction, perforated viscus, testicular torsion, this is not meant to be an all-inclusive list EKG interpreted by me (3pts min.). @ -None done X-rays interpreted by me (1pt min.). @ -Abdominal x-ray shows no acute processes CT interpreted by me (1pt min.). @ -None done U/S interpreted by me (1pt. min.). @ -None done What testing was considered but not performed or refused? (CT, X-rays, U/S, labs)? Why? @ -None What meds were considered but not given or refused? Why? @ -None Was smoking cessation discussed for >3mins.? @ -No Were there social determinants of health that impacted care today? How? (Homelessness, low income, unemployed, alcoholism, drug addiction, transportation, low edu. Level, literacy, decrease access to med. care, residential, rehab)? @ -No Was there de-escalation of care discussed even if they declined (Discuss DNR or withdrawal of care, Hospice)? DNR status @ -No What co-morbidities impacted this encounter? (DM, HTN, Smoking, COPD, CAD, Cancer, CVA, ARF, Chemo, Hep., AIDS, mental health diagnosis, sleep apnea, morbid obesity)? @ -Indwelling Christie catheter Was patient admitted / discharged? Hospital course, mention meds given and route, prescriptions, significant lab abnormalities, going to OR and other pertinent info. @ -7-year-old male presents with abdominal pain concerns of UTI. Vital signs upon arrival are within acceptable limits. Patient does have tender abdomen however nonsurgical. Laboratory evaluation obtained. CBC metabolic panel is unremarkable. Urinalysis positive for UTI. Patient prescribed laxatives and antibiotics. Did you discuss the management of the patient with other professionals (professionals i.e. , PA, [employer]ORS ASSEMBLER, lab, RT, psych nurse, psychosocial rehabilitation counselor, felt hanger, teacher, security police officer, outsole caser)? Give summary @ -No Was critical care preformed (if so, how long)? @ -No Undiagnosed new problem with uncertain prognosis? @ -No Drug Therapy requiring intensive monitoring for toxicity (Heparin, Nitro, Insulin, Cardizem)? @ -No Were any procedures done? @ -No Diagnosis/symptom? Acute, or Chronic, or Acute on Chronic? Uncomplicated (without systemic symptoms) or Complicated (systemic symptoms)? @ -UTI Side effects of treatment? @ -No Exacerbation, Progression, or Severe Exacerbation? @ -No Poses a threat to life or bodily function? How? (Chest pain, [place], [place], pneumonia, PE, COPD, DKA, ARF, appy, cholecystitis, CVA, Diverticulitis, Homicidal, Suicidal, threat to staff... and all critical care pts) @ -yes - Lab Data Result diagrams: 07/07/24 01:38 07/07/24 01:38 Lab Results 07/07/24 07/07/24 07/07/24 Range/Units 01:38 01:38 01:38 WBC 6.61 (4.50-10.00) 10*3/uL RBC 4.42 (4.40-5.60) 10*6/uL Hgb 13.0 (13.0-17.0) g/dL Hct 38.2 L (39.6-50.0) % MCV 86.4 (80.0-97.0) fL MCH 29.4 (27.0-32.0) pg MCHC 34.0 (32.0-37.0) g/dL Plt Count 232 (140-440) 10*3/uL MPV 10.0 (9.5-12.2) fL Immature Gran % (Auto) 0.2 % Neutrophils % 67.1 % Lymphocytes % 18.3 % Monocytes % 8.0 % Eosinophils % 5.9 % Basophils % 0.5 % Immature Gran # 0.01 (0.00-0.04) 10*3/uL Neutrophils # 4.44 (1.80-7.70) 10*3/uL Lymphocytes # 1.21 (0.90-5.00) 10*3/uL Monocytes # 0.53 (0.20-1.00) 10*3/uL Eosinophils # 0.39 H (0.04-0.35) 10*3/uL Basophils # 0.03 (0.00-0.10) 10*3/uL Sodium 137 (137-145) mmol/L Potassium 4.2 (3.5-5.1) mmol/L Chloride 105 (98-107) mmol/L Carbon Dioxide 24 (22-30) mmol/L Anion Gap 8 mmol/L BUN 13 (9-20) mg/dL Creatinine 0.83 (0.66-1.25) mg/dL Est GFR (CKD-EPI)AfAm >90 (>60 ml/min/1.73 sqM) Est GFR (CKD-EPI)NonAf 83 (>60 ml/min/1.73 sqM) Glucose 102 H (74-99) mg/dL Calcium 9.4 (8.4-10.2) mg/dL Total Bilirubin 0.4 (0.2-1.3) mg/dL AST 19 (17-59) U/L ALT 16 (4-49) U/L Alkaline Phosphatase 85 (38-126) U/L Total Protein 6.1 L (6.3-8.2) g/dL Albumin 3.5 (3.5-5.0) g/dL Lipase 148 (23-300) U/L Urine Color Colorless Urine Appearance Clear (Clear) Urine pH 5.5 (5.0-8.0) Ur Specific [place] 1.005 (1.001-1.035) Urine Protein Negative (Negative) Urine Glucose (UA) Negative (Negative) Urine Ketones Negative (Negative) Urine Blood Negative (Negative) Urine Nitrite Positive (Negative) Urine Bilirubin Negative (Negative) Urine Urobilinogen <2.0 (<2.0) mg/dL Ur Leukocyte Esterase Large H (Negative) Urine RBC 2 (0-5) /hpf Urine WBC 8 H (0-5) /hpf Urine WBC Clumps Rare H (None) /hpf Ur Squamous Epith Cells 1 (0-4) /hpf Calcium Oxalate Crystal Rare H (None) /hpf Urine Bacteria Moderate H (None) /hpf Disposition Clinical Impression: UTI (urinary tract infection) Disposition: HOME SELF-CARE Condition: Fair Prescriptions: Levofloxacin [Levaquin] 500 mg PO DAILY 14 Days #14 tab polyethylene glycoL 3350 [Miralax] 17 gm PO DAILY 3 Days #527 gm Is patient prescribed a controlled substance at d/c from ED?: No Referrals: Misha Whelan DO [Primary Care Provider] - 1-2 days Time of Disposition: 05:05
[2024-07-07 01:53] LABS: Basophils # (A) 0.03 10*3/uL (0.00-0.10); Basophils % (A) 0.5 %; Eosinophils # (A) 0.39 10*3/uL (0.04-0.35); Eosinophils % (A) 5.9 %; HCT 38.2 % (39.6-50.0); Lymphocytes # (A) 1.21 10*3/uL (0.90-5.00); Lymphocytes % (A) 18.3 %; MCH 29.4 pg (27.0-32.0); MCV 86.4 fL (80.0-97.0); Monocytes # (A) 0.53 10*3/uL (0.20-1.00); Neutrophils # (A) 4.44 10*3/uL (1.80-7.70); Neutrophils % (A) 67.1 %; Platelet Count 232 10*3/uL (140-440); RBC 4.42 10*6/uL (4.40-5.60); RDW 12.1 % (11.5-14.5); WBC 6.61 10*3/uL (4.50-10.00)
[2024-07-07 02:18] LABS: ALT 16 U/L (4-49); AST 19 U/L (17-59); African American GFR (CKD) >90 (>60 ml/min/1.73 sqM); Albumin 3.5 g/dL (3.5-5.0); Alkaline Phosphatase 85 U/L (38-126); Anion Gap 8 mmol/L; Blood Urea Nitrogen 13 mg/dL (9-20); Calcium 9.4 mg/dL (8.4-10.2); Carbon Dioxide 24 mmol/L (22-30); Chloride 105 mmol/L (98-107); Glucose 102 mg/dL (74-99); Lipase 148 U/L (23-300); Non-African American GFR(CKD) 83 (>60 ml/min/1.73 sqM); Potassium 4.2 mmol/L (3.5-5.1); Sodium 137 mmol/L (137-145); Total Bilirubin 0.4 mg/dL (0.2-1.3); Total Protein 6.1 g/dL (6.3-8.2)
[2024-07-07 02:34] LABS: Appearance,Urine Clear (Clear); Bacteria,Urine Moderate /hpf; Bilirubin,Urine Negative (Negative); Blood,Urine Negative (Negative); Calcium Oxalate Crystals,Urine Rare /hpf; Color,Urine Colorless; Glucose,Urine (UA) Negative (Negative); Ketones,Urine Negative (Negative); Leukocyte Esterase,Urine Large (Negative); Nitrite,Urine Positive (Negative); PH, Urine 5.5 (5.0-8.0); Protein,Urine Negative (Negative); RBC,Urine 2 /hpf (0-5); Specific Gravity,Urine 1.005 (1.001-1.035); Squamous Epithelial Cell,Urine 1 /hpf (0-4); Urobilinogen,Urine <2.0 mg/dL (<2.0); WBC,Urine 8 /hpf (0-5)
--- NOTE | 2024-07-07 04:37 | XR ---
EXAM: XR Abdomen, 1 View CLINICAL HISTORY: lower abdominal pain TECHNIQUE: Frontal supine view of the abdomen/pelvis. COMPARISON: 06/09/2024. FINDINGS: Abundant stool throughout the colon. No definite bowel obstruction or ileus. Degenerative changes lower lumbar spine. Otherwise no change. IMPRESSION: Abundant stool throughout the colon.
[2024-07-07 05:42] VITALS: BP 118/74; PULSE 55; RESP 18; TEMP 98.3
== END 2024-07-07 06:05 | disposition home or self-care (01) ==
LOC: EC 00:24
DX: N39.0 Urinary tract infection, site not specified (principal); R00.1 Bradycardia, unspecified; F17.200 Nicotine dependence, unspecified, uncomplicated; Z88.2 Allergy status to sulfonamides; Z88.0 Allergy status to penicillin; Z88.1 Allergy status to other antibiotic agents; Z88.8 Allergy status to other drugs, medicaments and biological substances
CPT/HCPCS: 36415; 74018; 80053; 81001; 83690; 85025; 93005; 99284

== ENCOUNTER 2024-09-07 04:58 | Emergency (ER) | payer OTHER, MEDICARE ==
--- NOTE | 2024-09-07 05:06 | ED ---
Male Urogenital HPI - General Chief complaint: Abdominal Pain Stated complaint: UTI Time Seen by Provider: 09/07/24 05:05 Source: patient, RN notes reviewed, old records reviewed Mode of arrival: wheelchair Limitations: no limitations - History of Present Illness Initial comments: This is an 79-year-old male to the ER for evaluation of decreased urine output. Patient has a Christie catheter concern for Christie catheter not draining. Has severe abdominal pain currently. MD Complaint: other (Abdominal pain) -: hour(s) Location: abdomen Quality: aching, stabbing Consistency: constant Improves with: none Worsens with: none indwelling catheter Reports: urinary retention - Related Data Home Medications Medication Instructions Recorded Confirmed HYDROcodone/APAP 7.5-325MG [[place] 1 tab PO DAILY PRN 01/03/22 05/27/24 7.5-325] Naproxen [Naprosyn] 375 mg PO DIRECTED PRN 05/25/24 05/27/24 Previous Rx's Medication Instructions Recorded Levofloxacin [Levaquin] 750 mg PO DAILY 5 Days #5 tab 05/21/24 Cefpodoxime Proxetil [Vantin] 200 mg PO Q12HR 10 Days #20 tab 06/09/24 Levofloxacin [Levaquin] 500 mg PO DAILY 14 Days #14 tab 07/07/24 polyethylene glycoL 3350 [Miralax] 17 gm PO DAILY 3 Days #527 gm 07/07/24 Allergies Allergy/AdvReac Type Severity Reaction Status Date / Time nitrofurantoin Allergy Unknown Verified 07/07/24 00:27 [From Macrobid] Penicillins Allergy Anaphylaxis/Hives Verified 07/07/24 00:27 on entire body Sulfa (Sulfonamide Allergy Unknown Verified 07/07/24 00:27 Antibiotics) sulfamethoxazole Allergy Unknown Verified 07/07/24 00:27 [From Bactrim] Childhood trimethoprim [From Bactrim] Allergy Unknown Verified 07/07/24 00:27 Childhood Review of Systems ROS Statement: Those systems with pertinent positive or pertinent negative responses have been documented in the HPI. ROS Other: All systems not noted in ROS Statement are negative. Past Medical History Past Medical History: GERD/Reflux, Osteoarthritis (OA), Prostate Disorder Additional Past Medical History / Comment(s): states "had Hep B or C back 1959's and now it's all healed", recurrent UTI's , bladder stones, chronic christie catheter, BPH. daughter states pt's hips are bothering him lately otherwise " he is mostly numb" ( back issues). uses w.c at home. History of Any Multi-Drug Resistant Organisms: None Reported Past Surgical History: Back Surgery, Hernia Repair, Tonsillectomy Additional Past Surgical History / Comment(s): hemorrhoid surgery, back surgery x 2, rt inguinal hernia repair Past Anesthesia/Blood Transfusion Reactions: No Reported Reaction Additional Past Anesthesia/Blood Transfusion Reaction / Comment(s): no hx blood transfusion Past Psychological History: No Psychological Hx Reported Smoking Status: Current every day smoker Past Alcohol Use History: None Reported Past Drug Use History: None Reported - Past Family History Mother Family Medical History: Cancer Father Family Medical History: Cancer General Exam Limitations: no limitations General appearance: alert, in no apparent distress Head exam: Present: atraumatic, normocephalic, normal inspection Eye exam: Present: normal appearance, PERRL, EOMI. Absent: scleral icterus, conjunctival injection, periorbital swelling ENT exam: Present: normal exam, mucous membranes moist Neck exam: Present: normal inspection. Absent: tenderness, meningismus, lymphadenopathy Respiratory exam: Present: normal lung sounds bilaterally. Absent: respiratory distress, wheezes, rales, rhonchi, stridor Cardiovascular Exam: Present: regular rate, normal rhythm, normal heart sounds. Absent: systolic murmur, diastolic murmur, rubs, gallop, clicks GI/Abdominal exam: Present: soft, normal bowel sounds. Absent: distended, tenderness, guarding, rebound, rigid Extremities exam: Present: normal inspection, full ROM, normal capillary refill. Absent: tenderness, pedal edema, joint swelling, calf tenderness Back exam: Present: normal inspection Neurological exam: Present: alert, oriented X3, CN II-XII intact Psychiatric exam: Present: normal affect, normal mood Skin exam: Present: warm, dry, intact, normal color. Absent: rash Course Vital Signs 09/07/24 04:59 Temperature 97.6 F Pulse Rate 94 Respiratory 18 Rate Blood Pressure 153/82 O2 Sat by Pulse 93 L Oximetry - Reevaluation(s) Reevaluation #1: 09/07/24 05:46 Medical records reviewed Reevaluation #2: 09/07/24 05:46 Patient symptoms improved after replacement of Christie catheter Reevaluation #3: 09/07/24 05:46 Patient informed of results questions answered Reevaluation #4: Was pt. sent in by a medical professional or institution ([facility] [employer], [employer], urgent care, hospital, or residential...) When possible be specific @ -no Did you speak to anyone other than the patient for history (EMS, parent, family, police, friend...)? What history was obtained from this source @ -no Did you review nursing and triage notes (agree or disagree)? Why? @ -agree Are old charts reviewed (outside hosp., previous admission, EMS record, old EKG, old radiological studies, urgent care reports/EKG's, residential records)? Report findings @ -yes Differential Diagnosis (chest pain, altered mental status, abdominal pain women, abdominal pain men, vaginal bleeding, weakness, fever, dyspnea, syncope, headache, dizziness, GI bleed, back pain, seizure, CVA, palpatations, mental health, musculoskeletal)? @ -prior EKG interpreted by me (3pts min.). @ -yes X-rays interpreted by me (1pt min.). @ -yes negative for acute disease CT interpreted by me (1pt min.). @ -no U/S interpreted by me (1pt. min.). @ -no What testing was considered but not performed or refused? (CT, X-rays, U/S, labs)? Why? @ -none What meds were considered but not given or refused? Why? @ -none Did you discuss the management of the patient with other professionals (professionals i.e. [employer], [employer], lab, RT, psych nurse, social services technician, sweet potato disintegrator, teacher, police liaison officer, director of casework services)? Give summary @ -no Was smoking cessation discussed for >3mins.? @ -no Was critical care preformed (if so, how long)? @ -no Were there social determinants of health that impacted care today? How? (Homelessness, low income, unemployed, alcoholism, drug addiction, transportation, low edu. Level, literacy, decrease access to med. care, long term, rehab)? @ -none Was there de-escalation of care discussed even if they declined (Discuss DNR or withdrawal of care, Hospice)? DNR status @ -no What co-morbidities impacted this encounter? (DM, HTN, Smoking, COPD, CAD, Cancer, CVA, ARF, Chemo, Hep., AIDS, mental health diagnosis, sleep apnea, morbid obesity)? @ -none Was patient admitted / discharged? Hospital course, mention meds given and route, prescriptions, significant lab abnormalities, going to OR and other pertinent info. @ - Undiagnosed new problem with uncertain prognosis? @ -no Drug Therapy requiring intensive monitoring for toxicity (Heparin, Nitro, Insulin, Cardizem)? @ -no Were any procedures done? @ -no Diagnosis/symptom? @ - Acute, or Chronic, or Acute on Chronic? @ -Acute Uncomplicated (without systemic symptoms) or Complicated (systemic symptoms)? @ -Complicated Side effects of treatment? @ -no Exacerbation, Progression, or Severe Exacerbation? @ -exacerbation Poses a threat to life or bodily function? How? (Chest pain, [place], [place], pneumonia, PE, COPD, DKA, ARF, appy, cholecystitis, CVA, Diverticulitis, Homicidal, Suicidal, threat to staff... and all critical care pts) @ -yes Reevaluation #5: Differential Abdominal Pain Men: Appendicitis, cholecystitis, diverticulosis, ischemic bowel, pancreatitis, hepatitis, UTI, gastroenteritis, AAA, incarcerated hernia, bowel obstruction, constipation, inflammatory bowel, hepatitis, peptic ulcer disease, splenic infarction, perforated viscus, testicular torsion, this is not meant to be an all-inclusive list Medical Decision Making - Medical Decision Making 79 male to ER for urinary retention malfunctioning Christie catheter catheters replaced patient has adequate urine output and can be discharged home Disposition Clinical Impression: UTI (urinary tract infection) due to urinary indwelling catheter, Urinary retention Disposition: HOME SELF-CARE Condition: Good Instructions (If sedation given, give patient instructions): Christie Catheter Placement and Care (ED) Is patient prescribed a controlled substance at d/c from ED?: No Referrals: Misha Whelan DO [Primary Care Provider] - 1-2 days Time of Disposition: 06:00
[2024-09-07 06:22] VITALS: BP 108/66; PULSE 72; RESP 16; TEMP 97.9
[2024-09-07 06:30] LABS: Amorphous Sediment,Urine Rare /hpf; Appearance,Urine Clear (Clear); Bacteria,Urine Occasional /hpf; Bilirubin,Urine Negative (Negative); Blood,Urine Negative (Negative); Color,Urine Colorless; Glucose,Urine (UA) Negative (Negative); Hyaline Casts,Urine 1 /lpf (0-2); Ketones,Urine Negative (Negative); Leukocyte Esterase,Urine Large (Negative); Nitrite,Urine Negative (Negative); Protein,Urine Negative (Negative); RBC,Urine 1 /hpf (0-5); Specific Gravity,Urine 1.004 (1.001-1.035); Squamous Epithelial Cell,Urine 1 /hpf (0-4); Urobilinogen,Urine <2.0 mg/dL (<2.0); WBC,Urine 5 /hpf (0-5)
== END 2024-09-07 06:45 | disposition home or self-care (01) ==
LOC: EC 04:58
DX: N39.0 Urinary tract infection, site not specified (principal); R33.9 Retention of urine, unspecified; F17.200 Nicotine dependence, unspecified, uncomplicated; Z88.0 Allergy status to penicillin; Z88.1 Allergy status to other antibiotic agents; Z88.2 Allergy status to sulfonamides; Z88.8 Allergy status to other drugs, medicaments and biological substances
CPT/HCPCS: 51702; 51798; 81001; 99284